=== PATIENT | female | born 1950 | race Caucasian/White ===

== ENCOUNTER 2023-02-13 16:11 | Outpatient (RCR) | payer OTHER, SELFPAY | END 2023-02-16 07:34 | disposition home or self-care (01) | LOC: RPT 16:11 | PROVIDERS: ATTENDING PHYSICIAN Internal Medicine | DX: I89.0 Lymphedema, not elsewhere classified (principal); Z73.6 Limitation of activities due to disability | CPT/HCPCS: 97140 ==

== ENCOUNTER → 2023-03-10 11:06 | Outpatient (REF) | payer OTHER, SELFPAY ==
[2023-03-10 11:41] LABS: % Basophils 0.4 % (0-2); % Eosinophils 2.6 % (0-6); % Immature Granulocytes 0.8 % (0-0.5); % Monocytes 7.9 % (1.7-9.3); % Neutrophils 73.3 % (42.2-75.2); Absolute Eosinophils 0.3 10^3/uL (0-0.7); Absolute Immature Granulocytes 0.1 10^3/uL (0-0.05); Absolute Lymphocytes 1.7 10^3/uL (1.2-3.4); Absolute Monocytes 0.9 10^3/uL (0.1-0.6); Absolute Neutrophils 8.1 10^3/uL (1.4-6.5); Hematocrit 35.5 % (37.0-47.0); Mean Corpuscular Hgb 27.8 pg (27.0-31.0); Mean Corpuscular Volume 89.9 fL (81.0-99.0); Mean Platelet Volume 9.1 fL (7.4-10.4); Nucleated Red Blood Cells % 0 %; Platelet Count 309 10^3/uL (130-400); Red Blood Cell Count 3.95 10^6/uL (4.20-5.40); Red Cell Dist. Width 15.4 % (11.5-14.5)
[2023-03-10 11:56] LABS: ALT (SGPT) 18 U/L (0-35); AST (SGOT) 19 U/L (14-36); Albumin 3.7 g/dl (3.5-5.0); Alkaline Phosphatase 70 U/L (38-126); Blood Urea Nitrogen 22 mg/dl (7-17); Calcium 9.5 mg/dl (8.4-10.2); Carbon Dioxide 36 mmol/L (22-30); Chloride 97 mmol/L (98-107); Glucose 89 mg/dl (70-99); Sodium 135 mmol/L (135-145); Total Bilirubin 0.8 mg/dl (0.2-1.3); Total Protein 6.3 g/dl (6.3-8.2); eGFR > 60.00
== END ==
LOC: OLABPV 11:06
PROVIDERS: ATTENDING PHYSICIAN Registered Nurse
DX: R50.9 Fever, unspecified (principal)
CPT/HCPCS: 36415; 80053; 85025

== ENCOUNTER → 2023-03-30 14:06 | Outpatient (REF) | payer OTHER, SELFPAY | LOC: RAD 14:06 | PROVIDERS: ATTENDING PHYSICIAN Physician Assistant | DX: M25.551 Pain in right hip (principal) | CPT/HCPCS: 73502 ==

== ENCOUNTER → 2023-04-14 13:41 | Outpatient (REF) | payer OTHER, SELFPAY | LOC: RAD 13:41 | PROVIDERS: ATTENDING PHYSICIAN Family Medicine; REFERRING PHYSICIAN Internal Medicine Critical Care Medicine | DX: J18.9 Pneumonia, unspecified organism (principal); J47.1 Bronchiectasis with (acute) exacerbation; I42.8 Other cardiomyopathies | CPT/HCPCS: 71046 ==

== ENCOUNTER → 2023-04-15 13:58 | Outpatient (REF) | payer OTHER, SELFPAY ==
[2023-04-15 14:32] LABS: % Basophils 0.5 % (0-2); % Eosinophils 2.3 % (0-6); % Immature Granulocytes 0.5 % (0-0.5); % Lymphocytes 14.5 % (20.5-51.1); % Monocytes 5.9 % (1.7-9.3); % Neutrophils 76.3 % (42.2-75.2); Absolute Basophils 0.1 10^3/uL (0-0.2); Absolute Eosinophils 0.3 10^3/uL (0-0.7); Absolute Immature Granulocytes 0.1 10^3/uL (0-0.05); Absolute Lymphocytes 1.6 10^3/uL (1.2-3.4); Absolute Monocytes 0.7 10^3/uL (0.1-0.6); Absolute Neutrophils 8.5 10^3/uL (1.4-6.5); Hemoglobin 11.6 g/dL (12.0-16.0); Mean Corp Hgb Conc. 30.5 g/dL (33.0-37.0); Mean Corpuscular Hgb 27.4 pg (27.0-31.0); Mean Corpuscular Volume 89.6 fL (81.0-99.0); Mean Platelet Volume 9.6 fL (7.4-10.4); Nucleated Red Blood Cells % 0 %; Platelet Count 310 10^3/uL (130-400); Red Blood Cell Count 4.24 10^6/uL (4.20-5.40); Red Cell Dist. Width 15.8 % (11.5-14.5); White Blood Cell Count 11.1 10^3/uL (4.8-10.8)
[2023-04-15 14:53] LABS: ALT (SGPT) 19 U/L (0-35); AST (SGOT) 26 U/L (14-36); Albumin 4.2 g/dl (3.5-5.0); Alkaline Phosphatase 87 U/L (38-126); Blood Urea Nitrogen 22 mg/dl (7-17); Calcium 9.3 mg/dl (8.4-10.2); Carbon Dioxide 33 mmol/L (22-30); Chloride 98 mmol/L (98-107); Glucose 87 mg/dl (70-99); HDL Cholesterol 97 mg/dl; LDL Cholesterol, Calculated 53 mg/dl; Sodium 138 mmol/L (135-145); Total Bilirubin 0.7 mg/dl (0.2-1.3); Total Cholesterol 171 mg/dl (50-199); Total Protein 7.1 g/dl (6.3-8.2); Triglyceride 108 mg/dl (10-149); Very Low Density Lipoprotein 21 mg/dl (0-30); eGFR > 60.00
[2023-04-15 15:06] LABS: Vitamin D, 25-OH*** 49.5 ng/mL (30-80)
[2023-04-15 15:20] LABS: TSH Reflex To Free T4 2.71 uIU/ml (0.47-4.68)
[2023-04-15 15:24] LABS: Ferritin 52.8 ng/ml (11.1-264.0)
== END ==
LOC: OLABPV 13:58
PROVIDERS: ATTENDING PHYSICIAN Family Medicine
DX: E55.9 Vitamin D deficiency, unspecified (principal); E61.1 Iron deficiency; E03.9 Hypothyroidism, unspecified; E78.2 Mixed hyperlipidemia
CPT/HCPCS: 36415; 80053; 80061; 82306; 82728; 84443; 85025

== ENCOUNTER → 2023-05-28 13:52 | Outpatient (REF) | payer OTHER, SELFPAY | LOC: RAD 13:52 | PROVIDERS: ATTENDING PHYSICIAN Student in an Organized Health Care Education/Training Program; FAMILY PHYSICIAN Family Medicine | DX: J47.1 Bronchiectasis with (acute) exacerbation (principal); R05.3 Chronic cough | CPT/HCPCS: 87015; 87116 ==

== ENCOUNTER → 2023-06-08 10:58 | Outpatient (REF) | payer OTHER, SELFPAY | LOC: RAD 10:58 | PROVIDERS: ATTENDING PHYSICIAN Student in an Organized Health Care Education/Training Program; FAMILY PHYSICIAN Family Medicine | DX: R91.1 Solitary pulmonary nodule (principal) | CPT/HCPCS: 71250 ==

== ENCOUNTER → 2023-06-12 14:21 | Outpatient (REF) | payer OTHER, SELFPAY ==
[2023-06-15 13:51] LABS: FIT-Fecal Occult Blood Interp Positive
== END ==
LOC: REG 14:21
PROVIDERS: ATTENDING PHYSICIAN Nurse Practitioner Family; FAMILY PHYSICIAN Family Medicine
DX: Z12.11 Encounter for screening for malignant neoplasm of colon (principal); K52.9 Noninfective gastroenteritis and colitis, unspecified
CPT/HCPCS: 83520

== ENCOUNTER → 2023-06-26 14:15 | Outpatient (REF) | payer OTHER, SELFPAY | LOC: RCS 14:15 | PROVIDERS: ATTENDING PHYSICIAN Student in an Organized Health Care Education/Training Program; FAMILY PHYSICIAN Family Medicine; OTHER PHYSICIAN Internal Medicine Critical Care Medicine; REFERRING PHYSICIAN Internal Medicine | DX: J47.1 Bronchiectasis with (acute) exacerbation (principal) | CPT/HCPCS: 87070; 87077; 87186; 87205; 93005 ==

== ENCOUNTER 2023-06-30 21:07 | Inpatient (IN) | payer OTHER, SELFPAY ==
[2023-06-30] VITALS (20 sets, daily range): BP systolic 94–197; BP diastolic 45–78; PULSE 2–101; BMI 38.2
--- NOTE | 2023-06-30 18:15 | ED.GENMED ---
History of Present Illness
General
Chief Complaint: Breathing Problem
Source: patient and ambulance crew
Exam Limitations: none
Time Seen by Provider: 06/30/23 18:15
History of Present Illness
History of Present Illness:
See MDM
Past History
Past History
ED Past Medical History: CAD, HTN, Hypercholesterolemia, Psychiatric (depression s/p ECT txs, Bipolar), Other (DVT), Other (diverticulitis) and Other (Breast CA)
ED Past Surgical History: Other (colon resection for divertic)
Social History
Tobacco: Former smoker
Alcohol: None
Drug: None
Personal:
Living: with family
Employment: Disabled
Family History
Family History: Other (Hodgkin's disease and breast cancer)
Phy Exam
Physical Exam
Physical Exam:
See MDM
Scores
Heart Failure Risk
Heart Failure Risk Score: Yes
History of Stroke or TIA: No
History of intubation for respiratory distress: No
Heart rate on ED arrival >/= 110: Yes
SaO2 <90% on arrival on room air: Yes
HR >/=110 during 3min walk test (or too ill to perform test): Yes
ECG has acute ischemic changes: No
Urea >/=12mmol/L (BUN 33.6mg/dL): No
Serum CO2>/=35mmol/L: Yes
Troponin I or T elevated to TN Level (0.4mg/dL): No
NT-proBNP >/=5,000ng/L (5,000pg/ml): No
HF Risk Score: 5
Admission Status: VERY HIGH RISK 39.8% Consider admission to hospital
Course
Orders/Labs/Results
Orders:
Orders
06/30/23 18:13
CR Chest Portable - 1 View Urgent
Comment:
Reason For Exam: SOB
Reason Study Needs to be Portable: Patient Unstable
06/30/23 18:14
Electrocardiogram (*1) Urgent
Reason for Study: Shortness of Breath
EKG- Treatment ONCE
06/30/23 18:15
Nitroglycerin Sublingual [Nitrostat (Sublingual)] 0.4 mg SL [id number] PRN
06/30/23 18:16
Furosemide [Lasix] 80 mg IV NOW STA
06/30/23 18:18
COVID-19 Antigen Urgent
Source: Nasal Swab
Complete Blood Count/With Diff Urgent
Comprehensive Metabolic Panel Urgent
NT-proBNP Urgent
PTT Urgent
Prothrombin Time Urgent
Troponin I Urgent
06/30/23 18:24
Straight cath- Treatment ONCE
06/30/23 18:26
Lactic Acid Q4H
Comment: ON ICE, CANCEL 2ND ORDER IF FIRST LACTIC ACID LEVEL <2
Blood Culture Q30M
JESSICA Source: Blood/Venous
Specimen Description:
Comment: FROM 2 SEPARATE SITES
Blood Culture Q30M
JESSICA Source: Blood/Venous
Specimen Description:
Comment: FROM 2 SEPARATE SITES
06/30/23 18:28
Acetaminophen [Tylenol] 1,000 mg PO NOW STA
Bipap [RESP] Urgent
Patient to use own unit?: No
Inspiratory Pressure (cm H2O): 16
Expiratory Pressure (cm H2O): 8
Oxygen Liter Flow: 14
06/30/23 19:04
Acetaminophen [Tylenol/Feverall] 650 mg RECTAL NOW STA
06/30/23 19:06
Urinalysis Reflex To Culture Urgent
Date Specimen was Collected: 06/30/23
Time Specimen was Collected: 18:24
Urine Microscopic Reflex Cult Urgent
06/30/23 19:31
Piperacillin/Tazo 3.375 Gram [Zosyn] 3.375 gram in 50 ml IV NOW
Vancomycin [Vancocin] 2,000 mg 0.9% Sodium Chloride 500 ml [Nss] 500 ml IV NOW
Abnormal Lab Results
06/30/23 06/30/23
18:18 19:06
WBC 17.0 H 10^3/uL
(4.8-10.8)
Hgb 11.5 L g/dL
(12.0-16.0)
MCH 26.1 L pg
(27.0-31.0)
MCHC 29.9 L g/dL
(33.0-37.0)
RDW 15.8 H %
(11.5-14.5)
Abs Immat Gran (auto) 0.1 H 10^3/uL
(0-0.05)
Absolute Neuts (auto) 15.5 H 10^3/uL
(1.4-6.5)
Absolute Lymphs (auto) 0.7 L 10^3/uL
(1.2-3.4)
Absolute Monos (auto) 0.7 H 10^3/uL
(0.1-0.6)
Neutrophils % 91.2 H %
(42.2-75.2)
Lymphocytes % 3.9 L %
(20.5-51.1)
PT 15.2 H Sec
(11.4-14.6)
Chloride 94 L mmol/L
(98-107)
Carbon Dioxide 38 H mmol/L
(22-30)
BUN 25 H mg/dl
(7-17)
Glucose 114 H mg/dl
(70-99)
Total Bilirubin 1.5 H mg/dl
(0.2-1.3)
AST 40 H U/L
(14-36)
Urine Ketones Trace A
(Negative)
Ur Occult Blood Reflex 2+ A
(Negative)
Urine RBC 3-6 A /HPF
(0-2)
Urine Bacteria (Reflex) Few A
(Negative)
Urine Albumin (Reflex) 1+ A
(Neg - Trace)
06/30/23 18:18
06/30/23 18:18
Vital Signs
Initial and Last Documented VS:
Initial Vital Signs
Pulse Resp Pulse Ox
105 14 80
06/30/23 18:14 06/30/23 18:14 06/30/23 18:14
Last Documented Vital Signs
Temp Pulse Resp BP Pulse Ox
103.3 F H 99 24 177/78 97
06/30/23 19:02 06/30/23 19:00 06/30/23 19:00 06/30/23 18:45 06/30/23 19:00
MDM/Problems Addressed
Differential Diagnosis Includes:
HPI and MDM Narrative:
73-year-old female presenting as a prearrival respiratory distress. EMS stating that the patient had been complaining of shortness of breath since last night. She lives independently. When they arrived, she was hypoxic on both nasal cannula and
nonrebreather. They placed her on CPAP. On arrival, patient still in respiratory distress. She had already received 1 sublingual nitroglycerin by EMS. Given her history of CHF and audible crackles at bases, will continue nitroglycerin tablets
and will start IV Lasix. Patient was met by myself and nursing staff and respiratory therapy. Will place on BiPAP
Physical exam
General: Uncomfortable, conversational dyspnea
HEENT: protecting airway
Neck: appears supple
CV: No evidence of cyanosis. Tachycardic and regular
Resp: accessory muscle use, tachypnea, crackles at bases
Abd: Non-distended
Extremities: Mild pitting edema to bilateral lower extremities
Neuro: alert
Psych: Normal affect
Skin: Intact
Problems Addressed including Acute and Chronic Conditions affecting care:
1. Respiratory distress
Acuity: acute
Prognosis: unstable
Details: Given her history of CHF, will give IV Lasix and continue sublingual nitroglycerin. Patient transition to BiPAP. Patient claims compliance with Xarelto making PE less likely
Updates
6:30 PM on quick reassessment after BiPAP was placed, patient states she is feeling better. Patient found to be febrile
Chest x-ray confirms pulmonary edema and pneumonia. Will start vancomycin and Zosyn and admit
Differential Diagnosis (but not limited to): Pneumonia, viral syndrome, CHF exacerbation
Testing considered: CT PE but she is on Xarelto
Drug therapy (if applicable): OTC meds, please see d/c instruction regarding Rx drugs
Amount and/or Complexity of Data Reviewed
Clinical info obtained from: Patient. EMS stating CPAP was required due to ongoing respiratory distress
External data reviewed: N/A
Labs I independently reviewed (but not limited to): Leukocytosis
Radiology: X-ray independently reviewed: Bibasilar pneumonia, pulmonary edema
Pulse Ox: hypoxic
EKG independently reviewed: Sinus tachycardia, PVCs, wide QRS, no STEMI, appears unchanged from prior
Playroom Attendant: sinus tachycardia
Critical Care: The high probability of a clinically significant, sudden or life threatening deterioration of the cardiopulmonary system(s) required my full and direct attention, intervention and personal management. The aggregate critical care time
was 35 minutes. This time is in addition to time spent performing reported procedures but includes the following:
[x] Data Review and interpretation
[x] Patient assessment and monitoring of vital signs
[x] Documentation
[x] Medication orders and management
Risk of Complication:
Social Determinants of health: Good social support
Discussed with other providers: Hospitalist
Escalation of Care includes Admit/Obs: Given the respiratory distress with pneumonia and CHF, will admit
Occasional wrong word or 'sound a like' substitutions may have occurred due to the inherent limitations of voice recognition software. Read the chart carefully and recognize, using context, where substitutions have occurred.
*Critical Care Note
Total Time (30-74mins, 75-104mins- exclusive of procedures): 35 min
ED Attending Note
-
Portions of this chart may have been created with voice recognition software.� Occasional wrong word or��sound alike� substitutions may have occurred due to the inherent limitations of voice recognition software.
Discharge Plan
Departure
Patient Disposition: Admit
Date of Disposition: 06/30/23
Time of Disposition: 19:34
Admit to: IMU
Presentation/result/management discussed w/ accepting MD/DO: Hospitalist
Discharge Problem:
Respiratory distress, PNA (pneumonia), Pulmonary edema, Hypoxia
Prescriptions:
No Action
levothyroxine 175 MCG tablet
175 mcg PO DAILY
carvedilol 6.25 MG tablet
6.25 mg PO BID 0RF
lamotrigine 100 MG tablet
100 mg PO BID 0RF
atorvastatin 10 MG tablet
10 mg PO MOWEFR
methenamine hippurate [Hiprex] 1 GM tablet
1 gm PO DAILY
losartan 25 MG tablet
25 mg PO QPM
Hold Instructions: take when BP>140/90
coenzyme Q10 [Co Q-10] 100 MG capsule
100 mg PO DAILY
Xarelto 20 MG tablet
20 mg PO QPM
clonazepam 0.5 mg tablet
0.5 mg PO QPM
Patient Comments:
06/30/2023: last filled 06/22/23, 30 tabs for 30 days from [facility]
aripiprazole 5 mg tablet
5 mg PO QPM
Trelegy Ellipta 200-62.5-25 mcg Blister With Device
1 inh INHALATION R DAILY
cholecalciferol (vitamin D3) [Vitamin D3] 25 mcg (1,000 unit) Tablet
25 mcg PO DAILY
ipratropium-albuterol 0.5 mg-3 mg(2.5 mg base)/3 mL solution for nebulization
3 ml INHALATION R TID
bupropion HCl 100 mg tablet sustained-release 12 hr
100 mg PO BID
budesonide 0.5 mg/2 mL suspension for nebulization
0.5 mg inhalation R BID
furosemide [Lasix] 40 mg tablet
80 mg PO DAILY Qty: 60 3RF
Hold Instructions: Resume on 12/05/22.
loperamide 2 mg Tablet
4 mg PO QID PRN (Reason: diarrhea)
gabapentin 100 mg Capsule
100 mg PO TID
fiber Tablet,Chewable
1 tab PO DAILY
Women's 50 Plus Multivitamin 400 mcg-500 mg calcium-20 mcg Tablet
1 tab PO DAILY
guaifenesin [Mucinex] 600 mg Tablet Extended Release 12hr
1,200 mg PO BID
Calcium And Magnesium
1,000 mg PO DAILY
benzonatate 100 mg Capsule
200 mg PO TIDPRN PRN (Reason: cough) Qty: 20 0RF
prednisone 10 mg tablet
10 mg PO DAILY
omeprazole 40 mg capsule,delayed release(DR/EC)
40 mg PO DAILY
acetaminophen 650 mg Tablet Extended Release
650 mg PO BID PRN (Reason: mild pain)
albuterol sulfate 90 mcg/actuation HFA aerosol inhaler
1 puff INHALATION R Q6 PRN (Reason: sob/wheezing)
Interventions
Interventions:
*Risk Screen - Suicide Last Done: 06/30/23 18:47
*General Assessment Last Done: 06/30/23 18:47
*Neglect/Abuse Screening Last Done: 06/30/23 18:47
*ED COVID-19 Vaccine History Last Done: 06/30/23 18:47
ED- Cardiac Assessment Last Done: 06/30/23 18:20
ED- Pulmonary Assessment Last Done: 06/30/23 18:20
Discharge Date and Time
Print Language: [place]
[2023-06-30 18:32] LABS: % Basophils 0.3 % (0-2); % Eosinophils 0.1 % (0-6); % Immature Granulocytes 0.5 % (0-0.5); % Lymphocytes 3.9 % (20.5-51.1); % Neutrophils 91.2 % (42.2-75.2); Absolute Basophils 0.1 10^3/uL (0-0.2); Absolute Immature Granulocytes 0.1 10^3/uL (0-0.05); Absolute Lymphocytes 0.7 10^3/uL (1.2-3.4); Absolute Monocytes 0.7 10^3/uL (0.1-0.6); Absolute Neutrophils 15.5 10^3/uL (1.4-6.5); Hematocrit 38.4 % (37.0-47.0); Hemoglobin 11.5 g/dL (12.0-16.0); Mean Corp Hgb Conc. 29.9 g/dL (33.0-37.0); Mean Corpuscular Hgb 26.1 pg (27.0-31.0); Mean Corpuscular Volume 87.3 fL (81.0-99.0); Mean Platelet Volume 9.2 fL (7.4-10.4); Nucleated Red Blood Cells % 0 %; Platelet Count 201 10^3/uL (130-400); Red Cell Dist. Width 15.8 % (11.5-14.5)
[2023-06-30] MEDS: LASIX 80 MG IV (18:36)
[2023-06-30 18:43] LABS: INR 1.21; PT 15.2 Sec (11.4-14.6)
[2023-06-30 18:48] LABS: Lactic Acid 1.6 mmol/L (0.7-2.0)
[2023-06-30 18:49] LABS: COVID-19 Antigen Negative (Negative)
[2023-06-30 19:02] LABS: NT-proBNP 1020 pg/ml; Troponin I 0.023 ng/ml
--- NOTE | 2023-06-30 19:06 | PHANOTE ---
Med Rec Note:
Attempted to interview pt, pt out of it due to bipap. Home med list is compiled from Dr Gold and FOSTERW.
[2023-06-30] MEDS: TYLENOL/FEVERALL 650 MG RECTAL (19:09)
[2023-06-30 19:10] LABS: Urine Albumin 1+ (Neg - Trace); Urine Bilirubin Negative (Negative); Urine Character Clear (Clear); Urine Color Yellow; Urine Glucose Negative (Negative); Urine Ketone Trace (Negative); Urine Leukocyte Negative (Negative); Urine Nitrite Negative (Negative); Urine Occult Blood 2+ (Negative); Urine Urobilinogen Negative (Neg - 1+)
[2023-06-30 19:11] LABS: ALT (SGPT) 21 U/L (0-35); AST (SGOT) 40 U/L (14-36); Albumin 4.1 g/dl (3.5-5.0); Alkaline Phosphatase 57 U/L (38-126); Blood Urea Nitrogen 25 mg/dl (7-17); Calcium 9.4 mg/dl (8.4-10.2); Carbon Dioxide 38 mmol/L (22-30); Chloride 94 mmol/L (98-107); Estimated Creatinine Clearance 95 ml/min; Glucose 114 mg/dl (70-99); Potassium 4.6 mmol/L (3.5-5.1); Sodium 138 mmol/L (135-145); Total Bilirubin 1.5 mg/dl (0.2-1.3); Total Protein 7.4 g/dl (6.3-8.2); eGFR > 60.00
[2023-06-30 19:17] LABS: Urine Bacteria Few (Negative); Urine Squamous Cell 0-2 /LPF (Few); Urine White Cell 0-2 /HPF (0-5)
[2023-06-30] MEDS: ZOSYN 50 IV (19:35)
--- NOTE | 2023-06-30 19:42 | HPS.HSE ---
Family Physician
-
Family Physician:
Chief Complaint
-
sob
History of Present Illness
73-year-old with past medical history for CAD, hypertension, hyperlipidemia, depression, congestive heart failure, pneumonia presented to us with short of breath since last night. Short of breath progressively got worse today. Patient uses 3 L of
oxygen at nighttime. Review of system is very limited. History primarily obtained from nurse. As per EMS, patient was 43 on room air. Patient was supplemented with CPAP, oxygenating high 80s. At present patient is requiring BiPAP.
Chest x-ray with small bilateral pleural effusion with bibasilar probable pneumonia progressed. Probable mild pulmonary vascular congestion. Patient had fever. Patient received dose of Tylenol, Lasix, nitro, Zosyn and Vanco in ER. Blood culture
sent from ER
Medical History
Past Medical History
Past Medical History: Reports Other
Additional Past Medical History:
Chronic cystitis
Bilateral carotid stenosis
Kidney stones
Hepatic steatosis
Lung nodule
Bronchiectasis
Peripheral neuropathy
Congestive heart failure
Restrictive lung disease
PE
Bipolar
Small bowel obstruction
Chronic kidney disease
Lymphedema of lower extremities DVT
Vocal cord weakness
GERD
Esophageal dysphagia
Hypothyroidism
Obstructive sleep apnea
Past Surgical History: Reports Other
Additional Past Surgical History:
Bilateral total knee replacement
Bilateral cataracts
Left mastectomy IVC filter placement
Ileostomy/colectomy cholecystectomy
Ileostomy takedown
Ventral hernia repair
Cyst removed from back
Left humerus ORIF
Social History
Unable to obtain full social history at this time due to: Acuity
Family History
Family History: Not pertinent
Allergies / Home Medications
Allergies reflects when Allergies were last updated in [employer].
Home Medications with original date entered in [employer]
Allergy/Medication List:
Allergies
Allergy/AdvReac Type Severity Reaction Status Date / Time
carbamazepine Allergy Hives, rash Verified 02/05/21 14:53
chlorhexidine Allergy Itching, Verified 05/09/22 14:10
[From Hibiclens] rash,
'chemical
burn'
ciprofloxacin [From Cipro] Allergy neuropathy Verified 05/21/22 20:25
after
stopping it
doxycycline Allergy Rash Verified 11/26/22 09:22
house dust Allergy Sneezing, Verified 05/09/22 14:10
eyes watery
Penicillins Allergy Hives as a Verified 08/03/22 17:57
child -
tolerates
ampicillin
Sulfa (Sulfonamide Allergy Hives Verified 02/05/21 14:53
Antibiotics)
venom-honey bee Allergy Rash Verified 05/09/22 14:10
Home Medications
levothyroxine 175 mcg tablet 175 mcg PO DAILY Thyroid 11/10/16
carvedilol 6.25 mg tablet 6.25 mg PO BID 02/26/18
lamotrigine 100 mg tablet 100 mg PO BID 02/26/18
atorvastatin 10 mg tablet 10 mg PO MOWEFR High cholesterol 02/05/21
coenzyme Q10 100 mg capsule (Co Q-10) 100 mg PO DAILY Supplement 02/05/21
losartan 25 mg tablet 25 mg PO QPM Blood pressure 02/05/21
methenamine hippurate 1 gram tablet (Hiprex) 1 gm PO DAILY Urinary issue 02/05/21
rivaroxaban 20 mg tablet (Xarelto) 20 mg PO QPM Blood clot prevention/tx 02/05/21
aripiprazole 5 mg tablet 5 mg PO QPM mental health 01/15/22
clonazepam 0.5 mg tablet 0.5 mg PO QPM sleep/mental health 01/15/22
fluticasone fur. 200 mcg-umeclid 62.5 mcg-vilant 25 mcg inhalat.powder (Trelegy Ellipta) 1 inh inhalation R DAILY Lung/breathing issues 12/07/22
cholecalciferol (vitamin D3) 25 mcg (1,000 unit) tablet (Vitamin D3) 25 mcg PO DAILY Supplement 05/21/22
budesonide 0.5 mg/2 mL suspension for nebulization 0.5 mg inhalation R BID Lung/Breathing Issues 08/01/22
bupropion HCl 100 mg tablet,12 hr sustained-release 100 mg PO BID Mental Health/Anxiety 08/01/22
ipratropium 0.5 mg-albuterol 3 mg (2.5 mg base)/3 mL nebulization soln 3 ml inhalation R TID Lung/Breathing Issues 08/01/22
furosemide 40 mg tablet (Lasix) 80 mg (2 x 40 mg) PO DAILY #60 tabs 08/06/22
Calcium And Magnesium 1,000 mg PO DAILY 11/24/22
fiber 1 tab PO DAILY 11/24/22
gabapentin 100 mg capsule 100 mg PO TID 11/24/22
guaifenesin 600 mg tablet, extended release 12 hr (Mucinex) 1,200 mg PO BID 11/24/22
loperamide 2 mg tablet 4 mg PO QID PRN diarrhea 11/24/22
hvmugilr-jky-sjcib ac 400 mcg-calcium carb 500 mg-vit K1 20 mcg tablet (Women's 50 Plus Multivitamin) 1 tab PO DAILY 11/24/22
benzonatate 100 mg capsule 200 mg (2 x 100 mg) PO TIDPRN PRN cough #20 caps 11/28/22
acetaminophen 650 mg tablet,extended release 650 mg PO BID PRN mild pain 06/30/23
albuterol sulfate 90 mcg/actuation aerosol inhaler 1 puff inhalation R Q6 PRN sob/wheezing 06/30/23
omeprazole 40 mg capsule,delayed release 40 mg PO DAILY 06/30/23
prednisone 10 mg tablet 10 mg PO DAILY 06/30/23
Review of Systems
-
Unable to obtain full review of systems at this time due to: Acuity
Physical Exam
Vital Signs
Vital Signs
Temp Pulse Resp BP Pulse Ox
103.3 F H 98 18 143/59 97
06/30/23 19:02 06/30/23 19:30 06/30/23 19:30 06/30/23 19:30 06/30/23 19:00
Physical Exam
General: Well Developed, Well Nourished and No Apparent Distress
HEENT: NormoCephalic, Moist mucous membranes and Atraumatic
Respiratory: Decreased Breath Sounds
Cardiac: S1/S2 and Regular Rhythm; No Murmur or Rub
GI: Soft, Non Tender, Non Distended and Normal Bowel Sounds; No Organomegaly
Rectal: Deferred by Provider
Musculoskeletal: No Clubbing, No Cyanosis and Other (Bilateral lower extremities edema)
Skin: No Rash
Neuro: Nonfocal/grossly intact
Laboratory Results
-
06/30/23 18:18
06/30/23 18:18
Laboratory Results
PT 15.2 Sec (11.4-14.6) H 06/30/23 18:18
INR 1.21 06/30/23 18:18
APTT 35.0 Sec (23.4-35.0) 06/30/23 18:18
Lactic Acid Cancelled 06/30/23 22:30
Total Bilirubin 1.5 mg/dl (0.2-1.3) H 06/30/23 18:18
AST 40 U/L (14-36) H 06/30/23 18:18
ALT 21 U/L (0-35) 06/30/23 18:18
Alkaline Phosphatase 57 U/L (38-126) 06/30/23 18:18
Troponin I 0.023 ng/ml 06/30/23 18:18
Data Reviewed
-
Diagnostic Radiology: Report Reviewed by me
Lab Data: Labs Reviewed by me
Impression/Plan
-
# Acute hypoxic respiratory failure likely multifactorial
-Patient requiring BiPAP
-Continue supplemental oxygen to keep sats greater than 92
-Wean as tolerated
# Acute on chronic diastolic heart failure
-BNP 1020, Trope 0.023
-IV Lasix continued
-strict BRIAN
-Daily weight
# Pneumonia
-chest x-ray with small bilateral pleural effusions with bibasilar probable pneumonia progressed. Probable mild pulmonary vascular congestion
-Sepsis as evident by WBC 17.0, temp 103.3
-IV Vanco and Zosyn continued
-Blood culture sent from ER
# History of restrictive lung disease
-Budesonide continued
-Albuterol as needed for short of breath and wheezing
# Essential Hypertension
-Hold Coreg, and losartan to patient fully awake
# Hyperlipidemia
- Atorvastatin
# COPD
Continue Budesonide and DuoNeb
# Prior DVT/PE
- Xarelto
# Bipolar Disorder
-hold Continue Lamictal Aripiprazole, Bupropion, Clonazepam until patient fully awake
# Hypothyroidism
- Synthroid
# Breast CA s/p Left Mastectomy
Code Status: Full Code
DVT ppx:lovenox
[2023-06-30] MEDS: VANCOCIN 540 MG IV (19:54)
--- NOTE | 2023-06-30 20:29 | W.PN.UPDATE ---
Update Note
Progress Note Update
This is an addendum to the H&P written by Diana Smith on 06/30/2023.
Patient seen and examined independently with SPIRITUAL CARE COORDINATOR.
73-year-old female past medical history of CAD, diastolic heart failure, hypertension, hyperlipidemia, COPD on 3 L at nighttime, prior DVT/PE on Xarelto, bipolar disorder, hypothyroidism, breast cancer status post left mastectomy presenting for
hypoxic respiratory failure/sepsis secondary to pneumonia/CHF exacerbation.
Patient with altered mental status requiring BiPAP. Chest x-ray showed small bilateral pleural effusions with bibasilar probable pneumonia progress. COVID negative. Check influenza. Blood cultures pending. Vancomycin and Zosyn. 80 IV Lasix
given. Patient cannot take any oral medications at this time. Continue 40 IV twice daily Lasix
--- NOTE | 2023-06-30 22:45 | PTCARENOTE ---
Pt arrived to floor via stretcher from the ED. Pt arousable to voice/ tactile stimulation. Pt drowsy, lethargic, able to nod head and answer questions, but easily falling asleep in between questions. Pt able to follow simple commands, and moves all
extremities. HR in the 80's in NSR with BBB on the monitor. POX 93% on Bipap 16/8 with 15LO2. Lungs dec with ex wheezes, scattered crackles. + bowel, round obese abd. Pure wick placed for accurate I/O post lasix administration. Brown PVD legs noted.
Knee high seq applied per MD order. Trace GA. Right hand #22int capped. LUE restrict due to hx left mastectomy. Strict NPO per MD order. Pt repositioned in bed. Bed alarm for pt safety. Call mckeon in reach. Will continue to monitor.
--- NOTE | 2023-06-30 23:04 | PHA.VAN.IN ---
Assessment
- Assessment
Renal Function: Other (01/13/23 BASELINE SCR: 0.8)
Concomitant Antimicrobials: ZOSYN
- Previous Dosing Experience
Previous Regimen: 750MG IV Q12H
Date of Regimen: 11/25/22
Provided Trough of: UNKNOWN
Provided AUC of: UNKNOWN
Patient's SCR is: Decreased compared to previous dosing experience (11/25/22 SCR = 1.0)
Patient's weight is: Elevated compared to previous dosing experience (11/26/23 WT = 94 KG)
AUC Dosing Plan
- Dosing Variables
Dosing Weight (kg): 100.9
Dosing CrCl (ml/min): 95
Vd coefficient (L/kg): 0.6
- Empiric Dosing
Initial / Loading Dose: 2GM
Maintenance Regimen: 1250MG IV Q12H
Estimated AUC (mcg*h/mL): 527
Estimated Peak (mcg*h/mL): 32.7
Estimated Trough (mcg/ml): 13.6
Estimated Half Life (H): 8.3
Pharmacokinetics Vancomycin I
- -
Patient Age: 73
Patient Sex: Female
Vancomycin Day #: 1
Indication: Pulmonary/Respiratory
Requesting Provider: AMBER
Pertinent Antimicrobial Allergies:
Allergies
Penicillins Allergy (Verified 08/03/22 17:57)
Hives as a child - tolerates ampicillin
Also tolerates cephalosporins
Sulfa (Sulfonamide Antibiotics) Allergy (Verified 02/05/21 14:53)
Hives
doxycycline Allergy (Verified 11/26/22 09:22)
Rash
Height / Weight:
Height 5 ft 4 in
Actual Weight 100.9 kg
- Vital Signs / Lab Results
Temp Pulse Resp BP Pulse Ox
99.7 F 92 20 101/57 93
06/30/23 22:42 06/30/23 22:35 06/30/23 22:35 06/30/23 22:35 06/30/23 22:15
Lab Results - Hematology
06/30/23
18:18
WBC 17.0 H
Lab Results - Chemistry
06/30/23
18:18
BUN 25 H
Creatinine 0.6
Estimated Creat Clear 95
Albumin 4.1
06/30/23 06/30/23
18:26 22:30
Lactic Acid 1.6 Cancelled
Lab Results - Urine
06/30/23
19:06
Urine Nitrite (Reflex) Negative
Leukocyte Esterase Rfl Negative
Urine WBC (Reflex) 0-2
Ur Squamous Epith Cells 0-2
Urine Bacteria (Reflex) Few A
[2023-06-30 23:26] LABS: B.E. 11.8 mmol/L; O2 Saturation % 96.7 % (94-98); PO2 76 mmHg (83-108); pH 7.29 (7.35-7.45)
[2023-06-30 23:32] LABS: HCO3 41.4 mmol/L (21-28); O2 Therapy bipap 16/8 w/14L; PCO2 86 mmHg (32-35)
--- NOTE | 2023-06-30 23:47 | PTCARENOTE ---
ABG results reviewed. RT at bedside to adjust Bipap settings to 16/5 with 15 LO2. No other changes in assessment noted at this time. WIll continue to monitor.
[2023-07-01] VITALS (29 sets, daily range): BP systolic 91–144; BP diastolic 38–94; PULSE 2–89; O2SAT 91–96; BMI 35.1
[2023-07-01 01:29] LABS: Troponin I 0.057 ng/ml
[2023-07-01] MEDS: ZOSYN 50 IV ×4 (01:31→19:58)
[2023-07-01 02:07] LABS: PO2 83 mmHg (83-108)
[2023-07-01 02:12] LABS: HCO3 42.3 mmol/L (21-28); O2 Therapy bipap 16/5 15L
[2023-07-01 02:13] LABS: PCO2 86 mmHg (32-35)
--- NOTE | 2023-07-01 04:37 | PTCARENOTE ---
Pt with no urine output. Bladder scanned for 255ml. Pt continues to be lethargic, but arousable to voice. vital signs stable. Bipap remains in place with settings adjusted per MD order post ABG results. Bipap 26/06 wiht 15 LO2. Pt repositioned. Lab
work obtained. Will continue to monitor.
[2023-07-01 04:43] LABS: Hematocrit 37.1 % (37.0-47.0); Hemoglobin 10.7 g/dL (12.0-16.0); Mean Corp Hgb Conc. 28.8 g/dL (33.0-37.0); Mean Corpuscular Hgb 26.5 pg (27.0-31.0); Mean Corpuscular Volume 91.8 fL (81.0-99.0); Mean Platelet Volume 9.8 fL (7.4-10.4); Platelet Count 174 10^3/uL (130-400); Red Blood Cell Count 4.04 10^6/uL (4.20-5.40); Red Cell Dist. Width 15.9 % (11.5-14.5); White Blood Cell Count 25.7 10^3/uL (4.8-10.8)
[2023-07-01 05:08] LABS: Troponin I 0.036 ng/ml
[2023-07-01 05:18] LABS: ALT (SGPT) 16 U/L (0-35); AST (SGOT) 31 U/L (14-36); Albumin 3.3 g/dl (3.5-5.0); Alkaline Phosphatase 46 U/L (38-126); Blood Urea Nitrogen 31 mg/dl (7-17); Calcium 8.7 mg/dl (8.4-10.2); Carbon Dioxide 38 mmol/L (22-30); Chloride 96 mmol/L (98-107); Direct Bilirubin 0.5 mg/dl (0.0-0.4); Estimated Creatinine Clearance 57 ml/min; Glucose 111 mg/dl (70-99); HDL Cholesterol 82 mg/dl; LDL Cholesterol, Calculated 38 mg/dl; Magnesium 2.1 mg/dl (1.6-2.3); Potassium 4.3 mmol/L (3.5-5.1); Sodium 141 mmol/L (135-145); Total Bilirubin 1.5 mg/dl (0.2-1.3); Total Cholesterol 136 mg/dl (50-199); Total Protein 6.2 g/dl (6.3-8.2); Triglyceride 80 mg/dl (10-149); Very Low Density Lipoprotein 16 mg/dl (0-30); eGFR 59.12
[2023-07-01 05:45] LABS: TSH Reflex To Free T4 0.52 uIU/ml (0.47-4.68)
[2023-07-01] MEDS: VANCOCIN 275 MG IV (06:19)
--- NOTE | 2023-07-01 07:25 | W.PN.HOSP.TC ---
Today's Communication/Plan
-
I would continue to hold her some of her psychoactive medications until more awake and better O2 CO2 exchanging
Continue BiPAP
Get speech therapy eval
Continue present course of antibiotics
Continue IV diuresis
Assessment / Plan
Assessment / Plan
73-year-old with past medical history for CAD, hypertension, hyperlipidemia, depression, congestive heart failure, pneumonia presented to us with short of breath since last night. Short of breath progressively got worse today. Patient uses 3 L of
oxygen at nighttime. Review of system is very limited. History primarily obtained from nurse. As per EMS, patient was 43 on room air. Patient was supplemented with CPAP, oxygenating high 80s. At present patient is requiring BiPAP.
Chest x-ray with small bilateral pleural effusion with bibasilar probable pneumonia progressed. Probable mild pulmonary vascular congestion. Patient had fever. Patient received dose of Tylenol, Lasix, nitro, Zosyn and Vanco in ER. Blood culture
sent from ER
Past Medical History
Past Medical History: Reports Other
Additional Past Medical History:
Chronic cystitis
Bilateral carotid stenosis
Kidney stones
Hepatic steatosis
Lung nodule
Bronchiectasis
Peripheral neuropathy
Congestive heart failure
Restrictive lung disease
PE
Bipolar
Small bowel obstruction
Chronic kidney disease
Lymphedema of lower extremities DVT
Vocal cord weakness
GERD
Esophageal dysphagia
Hypothyroidism
Obstructive sleep apnea
Past Surgical History: Reports Other
Additional Past Surgical History:
Bilateral total knee replacement
Bilateral cataracts
Left mastectomy IVC filter placement
Ileostomy/colectomy cholecystectomy
Ileostomy takedown
Ventral hernia repair
Cyst removed from back
Left humerus ORIF
# Acute hypoxic respiratory failure likely multifactorial
-Significance CO2 retention on presentation somnolent
-Patient requiring BiPAP
-Continue supplemental oxygen to keep sats greater than 92
-Wean as tolerated
# Acute on chronic diastolic heart failure
-BNP 1020, Trope 0.023
-IV Lasix continued
-strict BRIAN
-Daily weight
# Pneumonia
-chest x-ray with small bilateral pleural effusions with bibasilar probable pneumonia progressed. Probable mild pulmonary vascular congestion
-Sepsis as evident by WBC 17.0, temp 103.3/white count still escalating to 25,000 trend
-IV Vanco and Zosyn continued
-Blood culture sent from ER
# History of restrictive lung disease
-Budesonide continued
-Albuterol as needed for short of breath and wheezing
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
# Essential Hypertension
-Hold Coreg, and losartan to patient fully awake
# Hyperlipidemia
- Atorvastatin
# COPD
Continue Budesonide and DuoNeb
# Prior DVT/PE
- Xarelto
# Bipolar Disorder
-hold Continue Lamictal Aripiprazole, Bupropion, Clonazepam until patient fully awake
-Would continue to hold today although more awake
# Abnormal troponin elevation
-Now trending down
-Presumed nonischemic origin in relation to combination of respiratory failure and CHF
# Hypothyroidism
- Synthroid
# Breast CA s/p Left Mastectomy
Code Status: Full Code
DVT ppx:lovenox
Anticipated Discharge: > 48 hours
Subjective/Interval History
-
Date of Service: July 01, 2023
.
Throughout the night and was kept n.p.o. but no more awake and asking to eat and/or drink
Objective Data
-
Labs:
Laboratory Results
06/30/23 07/01/23 07/01/23
23:20 01:59 04:32
WBC 25.7 H
Hgb 10.7 L
Hct 37.1
Plt Count 174
HCO3 41.4 H* 42.3 H*
Sodium 141
Potassium 4.3
Chloride 96 L
Carbon Dioxide 38 H
BUN 31 H
Creatinine 1.0
Glucose 111 H
Calcium 8.7
Total Bilirubin 1.5 H
AST 31
ALT 16
Alkaline Phosphatase 46
Vital Signs:
Vital Signs
Temp Pulse Resp BP Pulse Ox
98.3 F 81 17 102/50 97
07/01/23 04:00 07/01/23 04:30 07/01/23 04:30 07/01/23 04:00 07/01/23 04:30
I&O
06/30/23 07/01/23 07/02/23
06:59 06:59 06:59
Intake Total 325 / 325
Balance 325 / 325
Review of Systems
-
History Source: Patient
Constitutional: Reports Fever and Fatigue
Respiratory: Reports Cough
Physical Exam
-
General: Obese
HEENT: Normocephalic
Respiratory: Rales and Rhonchi
Cardiac: Regular Rhythm and Murmur
GI: Soft
Neuro: Awake, Oriented and No Motor Deficits
Psych: Calm
Data Reviewed
-
Total Time Spent with Patient (in minutes): 56
Labs: Labs Reviewed by me (White count 25,000/troponin trending down/latest blood gas pH 7.3 pCO2 of 86 with a po2 of 83 with bicarb 42)
[2023-07-01] MEDS: VENTOLIN NEBULES 2.5 MG INH (07:45)
[2023-07-01] MEDS: SYMBICORT 160/4.5 MCG INHALER 2 PUFF INH ×2 (07:46→19:22)
[2023-07-01] MEDS: SPIRIVA RESPIMAT 2.5 MCG 2 PUFF INH (07:46)
[2023-07-01] MEDS: PULMICORT 0.5 MG INH ×2 (07:46→19:22)
[2023-07-01] MEDS: LASIX 40 MG IV ×2 (08:09→16:07)
--- NOTE | 2023-07-01 08:10 | PHA.VAN.FU ---
Vancomycin Assessment / Plan
- Assessment
Renal Function: SCR Increasing
- Dosing Plan
Adjust Regimen to: dosing by level due to increase in BUN & SCR
Dosing Comments: received 2g 06/29 19:54 and 1250mg today at 06:19
- Monitoring Plan
Random Level: 07/01 0600
- Follow Up
Pharmacy will continue to follow.
Vancomycin Follow UP
- -
Patient Age: 73
Patient Sex: Female
Vancomycin Day #: 2
Indication: Pulmonary/Respiratory
Requesting Provider: Bimal Smith
Pertinent Antimicrobial Allergies:
Penicillins - Hives as a child - tolerates ampicillin; Also tolerates cephalosporins
Sulfa (Sulfonamide Antibiotics) - Hives
doxycycline - Rash
Height / Weight:
Height 5 ft 5 in
Actual Weight 95.8 kg
Pertinent Past Medical History: BMI ~35
- Vital Signs / Lab Results
Temp Pulse Resp BP Pulse Ox
98.6 F 88 17 127/61 97
07/01/23 07:38 07/01/23 08:09 07/01/23 04:30 07/01/23 08:09 07/01/23 04:30
Lab Results - Hematology
06/30/23 07/01/23
18:18 04:32
WBC 17.0 H 25.7 H
Lab Results - Chemistry
06/30/23 07/01/23
18:18 04:32
BUN 25 H 31 H
Creatinine 0.6 1.0
Estimated Creat Clear 95 57
Albumin 4.1 3.3 L
06/30/23 06/30/23
18:26 22:30
Lactic Acid 1.6 Cancelled
Lab Results - Urine
06/30/23
19:06
Urine Nitrite (Reflex) Negative
Leukocyte Esterase Rfl Negative
Ur Squamous Epith Cells 0-2
Microbiology Results
06/30/23 19:06 Legionella Urinary Antigen - Final
Urine Negative for Legionella pneumophila Serogroup 1 antigen.
A negative result does not rule out the possiblity of
Legionella infection due to other serogroups or species of
Legionella. Clinical correlation is recommended.
Streptococcus pneumoniae Antigen (M - Final
Negative for Streptococcus pneumoniae antigen.
A negative result does not exclude infection with
Streptococcus pneumoniae. Clinical correlation is
recommended.
07/01/23 00:47 Influenza Types A & B (CM) - Final
Nasal Swab Negative for Influenza A & B, NAAT
Negative results must be combined with clinical observations
and patient history.
Nucleic Acid Amplification test (NAAT)performed on the
[employer] platform.
--- NOTE | 2023-07-01 09:03 | PTOTSP ---
Dysphagia Evaluation
Patient with a history of moderate-severe pharyngeal dysphagia and left vocal fold paralysis, known to department from multiple (3) prior video swallow studies (last 05/23/2022) which at times revealed episodes of silent aspiration with liquids.
Patient now admitted with bibasilar PNA and reported 2 prior PNAs (November, February). Video swallow study recommended to objectively assess swallowing and rule out silent aspiration prior to diet initiation.
Recommend:
1. NPO
2. Aspiration Risk Hydration Protocol - ice chips and sips of water after oral care
3. Medications whole in puree
4. Video swallow study
--- NOTE | 2023-07-01 10:48 | PTCARENOTE ---
Pt received from date night caregiver RN. LOC improving, Ox3, follows commands, states she is thirsty and wants water. NSR with a BBB, chronic +1 BL LE lymphedema, brown PVD legs. BiPAP removed and placed on 6L NC , pt tolerating well with 94% sats. Pt
chronically uses 3L O2 at home. Coarse breath sounds with an ex wheeze on exertion. Frequent moist cough productive of thick anand sputum. Pt desaturates to the mid 80's with exertion but quickly recovers. Round, obese ABD. Pt having frequent
diarrhea, this is a chronic issue, she normally takes imodium QID. Worked well with PT, now OOB in the chair. Assist of 1 to the BSC. IV sites intact. Call mckeon within reach. Pt making needs known appropriately.
--- NOTE | 2023-07-01 12:10 | CON.PUL ---
Consultation
Consultation Request
Date/Time Consultation Requested: 07/01/23
Date/Time Consultation Performed: 07/01/23
Performing Provider: Samuel
Reason for Consultation: PNA
Medical History
-
History of Present Illness:
73-year-old with past medical history for CAD, hypertension, hyperlipidemia, depression, congestive heart failure, OLIVIA pneumonia not on abx, DILLON not on CPAP presenting to ER for progressive shortness of breath over several days but acutely worse
day of admission. Patient chronically uses 3 L of oxygen at nighttime. As per EMS, patient was 43% on room air. ABG obtained showing acute CO2 retention with pH 7.29/86 and placed on BIPAP. She notes that she is not compliant with PAP due to
mask intolerance.
Chest x-ray with small bilateral pleural effusion with bibasilar probable pneumonia progressed. Sputum recently obtained showing + serratia.
She has history of OLIVIA-colonized and see ID as OP. Has not yet started abx treatment.
She is placed on 6L NC at this time, satting mid 90s.
Past Medical History
Past Medical History: Other (see list below)
Social History
Tobacco: Non-smoker
Alcohol: None
Drug: None
Family History
Family History: Reviewed & Not Pertinent
Allergies / Home Medications
Allergies
Allergy/AdvReac Type Severity Reaction Status Date / Time
carbamazepine Allergy Hives, rash Verified 02/05/21 14:53
chlorhexidine Allergy Itching, Verified 05/09/22 14:10
[From Hibiclens] rash,
'chemical
burn'
ciprofloxacin [From Cipro] Allergy neuropathy Verified 05/21/22 20:25
after
stopping it
doxycycline Allergy Rash Verified 11/26/22 09:22
house dust Allergy Sneezing, Verified 05/09/22 14:10
eyes watery
Penicillins Allergy Hives as a Verified 08/03/22 17:57
child -
tolerates
ampicillin
Sulfa (Sulfonamide Allergy Hives Verified 02/05/21 14:53
Antibiotics)
venom-honey bee Allergy Rash Verified 05/09/22 14:10
Home Medications
�Medication �Instructions �Recorded �Confirmed �Last Taken �Type
levothyroxine 175 mcg tablet 175 mcg PO DAILY Thyroid 11/10/16 06/30/23 11/21/22 History
carvedilol 6.25 mg tablet 6.25 mg PO BID 02/26/18 06/30/23 08/01/22 Rx
lamotrigine 100 mg tablet 100 mg PO BID 02/26/18 06/30/23 11/20/22 Rx
atorvastatin 10 mg tablet 10 mg PO MOWEFR High cholesterol 02/05/21 06/30/23 11/21/22 History
coenzyme Q10 100 mg capsule (Co 100 mg PO DAILY Supplement 02/05/21 06/30/23 11/20/22 History
Q-10)
losartan 25 mg tablet 25 mg PO QPM Blood pressure 02/05/21 06/30/23 11/21/22 History
methenamine hippurate 1 gram 1 gm PO DAILY Urinary issue 02/05/21 06/30/23 11/20/22 History
tablet (Hiprex)
rivaroxaban 20 mg tablet (Xarelto) 20 mg PO QPM Blood clot 02/05/21 06/30/23 11/20/22 History
prevention/tx
aripiprazole 5 mg tablet 5 mg PO QPM mental health 01/15/22 06/30/23 11/21/22 History
clonazepam 0.5 mg tablet 0.5 mg PO QPM sleep/mental health 01/15/22 06/30/23 11/20/22 History
fluticasone fur. 200 mcg-umeclid 1 inh inhalation R DAILY 01/15/22 06/30/23 11/21/22 History
62.5 mcg-vilant 25 mcg Lung/breathing issues
inhalat.powder (Trelegy Ellipta)
cholecalciferol (vitamin D3) 25 25 mcg PO DAILY Supplement 0406/30/23 11/20/22 History
mcg (1,000 unit) tablet (Vitamin
D3)
budesonide 0.5 mg/2 mL suspension 0.5 mg inhalation R BID 08/01/22 06/30/23 11/20/22 History
for nebulization Lung/Breathing Issues
bupropion HCl 100 mg tablet,12 hr 100 mg PO BID Mental Health/Anxiety 08/01/22 06/30/23 11/20/22 History
sustained-release
ipratropium 0.5 mg-albuterol 3 mg 3 ml inhalation R TID 08/01/22 06/30/23 11/20/22 History
(2.5 mg base)/3 mL nebulization Lung/Breathing Issues
soln
furosemide 40 mg tablet (Lasix) 80 mg (2 x 40 mg) PO DAILY #60 tabs 08/06/22 06/30/23 11/20/22 Rx
Calcium And Magnesium 1,000 mg PO DAILY 11/24/22 06/30/23 11/20/22 History
fiber 1 tab PO DAILY 11/24/22 06/30/23 11/20/22 History
gabapentin 100 mg capsule 100 mg PO TID 11/24/22 06/30/23 11/24/22 History
guaifenesin 600 mg tablet, 1,200 mg PO BID 11/24/22 06/30/23 11/21/22 History
extended release 12 hr (Mucinex)
loperamide 2 mg tablet 4 mg PO QID PRN diarrhea 11/24/22 06/30/23 11/24/22 History
hmmtrcdy-zwh-qqhsl ac 400 1 tab PO DAILY 11/24/22 06/30/23 11/21/22 History
mcg-calcium carb 500 mg-vit K1 20
mcg tablet (Women's 50 Plus
Multivitamin)
benzonatate 100 mg capsule 200 mg (2 x 100 mg) PO TIDPRN PRN 11/28/22 06/30/23 Unknown Rx
cough #20 caps
acetaminophen 650 mg 650 mg PO BID PRN mild pain 06/30/23 06/30/23 Unknown History
tablet,extended release
albuterol sulfate 90 mcg/actuation 1 puff inhalation R Q6 PRN 06/30/23 06/30/23 Unknown History
aerosol inhaler sob/wheezing
omeprazole 40 mg capsule,delayed 40 mg PO DAILY 06/30/23 06/30/23 Unknown History
release
prednisone 10 mg tablet 10 mg PO DAILY 06/30/23 06/30/23 Unknown History
Review of Systems
-
History Source: Patient
All other systems: Negative unless noted
Vitals / Labs / Diagnostic Testing
Vital Signs
Temp Pulse Resp BP Pulse Ox
98.7 F 82 16 119/57 94
07/01/23 11:05 07/01/23 10:30 07/01/23 10:30 07/01/23 10:18 07/01/23 11:41
Lab Data
07/01/23 04:32
07/01/23 04:32
Laboratory Results
06/30/23 06/30/23 07/01/23
18:18 23:20 01:59
PT 15.2 H
INR 1.21
APTT 35.0
pH 7.29 L 7.30 L
pCO2 86 H* 86 H*
pO2 76 L 83
HCO3 41.4 H* 42.3 H*
O2 Delivery Level bipap 16/8 w/14l bipap 16/5 15l
Microbiology
07/01/23 00:47 Nose Nasal Screen MRSA (PCR) - Final
MRSA not detected - performed by PCR methodology.
06/30/23 19:06 Urine Legionella Urinary Antigen - Final
Negative for Legionella pneumophila Serogroup 1 antigen.
A negative result does not rule out the possiblity of
Legionella infection due to other serogroups or species of
Legionella. Clinical correlation is recommended.
06/30/23 19:06 Urine Streptococcus pneumoniae Antigen (M - Final
Negative for Streptococcus pneumoniae antigen.
A negative result does not exclude infection with
Streptococcus pneumoniae. Clinical correlation is
recommended.
07/01/23 00:47 Nasal Swab Influenza Types A & B (CM) - Final
Negative for Influenza A & B, NAAT
Negative results must be combined with clinical observations
and patient history.
Nucleic Acid Amplification test (NAAT)performed on the
[employer] platform.
Diagnostic Testing:
Physical Exam
-
HEENT: Normocephalic, Anicteric and Moist Mucous Membranes
Cardiovascular: S1/S2 and Regular Rhythm
Respiratory: Rales, Rhonchi and Other (weak cough)
GI: Soft, Non Distended and Non Tender
Neurology: Awake, Alert, Oriented, AO x 3 and No Motor Deficits
Skin: Warm, Dry and Good Color
General: Comfortable, Poor Appetite and Other (chronically ill appearing, weak voice, dyspneic with conversation)
Assessment
-
73-year-old with past medical history for CAD, hypertension, hyperlipidemia, depression, congestive heart failure, OLIVIA pneumonia not on abx, DILLON not on CPAP presenting to ER for progressive shortness of breath over several days but acutely worse
day of admission. As per EMS, patient was 43% on room air. ABG obtained showing acute CO2 retention with pH 7.29/86 and placed on BIPAP. Chest x-ray with small bilateral pleural effusion with bibasilar probable pneumonia progressed. Sputum
recently on 06/26/23 obtained showing + serratia. She has history of OLIVIA-colonized and see ID as OP. Has not yet started abx treatment. Admitted to IMU, we are consulted for pulmonary eval.
Acute hypoxic and hypercarbic respiratory failure
Serratia PNA
Leukocytosis
Elevated trops
Mild DHF component
B/L effusions and/or PNA on CXR
Noncompliance with PAP
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
Post abd surgery done in April 2007: adm 04/15-09/10, presented in septic shock with diffuse peritonitis, s/p subtotal abdominal colectomy (necrotizing colitis)
Discharged with a large open abdominal wound
Readm June 1007, CT abd/p showed bilateral DVT on 06-28-07
Bilateral CHUCKY DVT 06-28-07
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
Reportedly h/o DVT in past (prior to above)
CHUCKY venous insufficiency, s/p bilateral endovenous laser ablation procedures by [facility] 2018
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
OLIVIA pulmonary infection (sputum cxs 07-29-21 and 09-17-21), suspected M fortuitim coinfection
COPD, cough variant asthma, bilateral pulmonary nodules:
follows Dr Boyd, last visit 02-27-22,
on trelegy; albuterol/ipratropium and budesonide nebulizers
Patient chronically uses 3 L of oxygen at nighttime.
H/o hemoptysis, negative sputum cytology 05-25-17, hemoptysis May 2021 and Dec 2021 (mild)
Presbyesophagus, silent aspiration, esophageal stricture
history of moderate-severe pharyngeal dysphagia and left vocal fold paralysis
CAD
HTN
HLD
Hypothyroidism
DILLON on oral appliance and O2 2L, intolerant to CPAP secondary to frequent nocturia
CHUCKY lymphedema
Depression s/p ECT
Bipolar disease
L breast cancer, s/p mastectomy
L shoulder arthroplasty
Bilateral breast implants (ruptured R implant)
Colon resection for diverticulitis
Former smoker: 20 pyh, quit 1998
Plan
Patient's respiratory status is poor, on 94% on 6L NC
Only using O2 at night per patient, 3L baseline
Poor cough, weak voice, airway clearance likely an issue
Continue Mucolytic's/Incentive spirometry/Acapella
Recent sputum reviewed
Total culture results reviewed--
Sputum 06/26/23 + Serratia
05/26/23 + OLIVIA
09/15/22 + Serratia
07/23/22 + MRSA
Sputum 10/09/21 + OLIVIA
09/17/21 + OLIVIA
07/29/21 + OLIVIA
Urine 04/01/19 + E. Coli, 08/26/17 + E. Coli/Kleb
Recheck sputum culture
Consider Infectious disease consult
Empiric Zosyn for now given recent serratia culture
ABG ->
Reviewed hypercarbia to patient and CPAP compliance
BIPAP placed, we discussed needing to use this nightly
Trial nasal mask
Known h/o basilar fibrotic and BE changes and also OLIVIA/M fortuitum
Followed by Dr Boyd
Patient opted for clinical observation re NTM-
She reports having significant chronic diarrhea and would not be excited about for antibiotics for a lengthy period of time to treat OLIVIA
Restrictive lung disease history--TLC 67%
Restriction may be on the basis of generalized muscle strength and/or body habitus
DILLON with oxygen at night, 2 L --not on CPAP
She saw Dr. Benitez for oral appliance in the past/she is not using it needs adjustments
Was on chronic Xarelto for recurrent VTE, resume
Last dose on 05-18, has IVCF since June 2007, DOAC resumed 05-22-22
Pleural effusions noted on CT, LE edema
proBNP elevated
Resumed on IV lasix
If SOB not responding, may consider RHC
History of aspiration
VSE obtained
Prior Speech notes: history of moderate-severe pharyngeal dysphagia and left vocal fold paralysis, known to department from multiple (3) prior video swallow studies (last 05/23/2022) which at times revealed episodes of silent aspiration with liquids.
Patient now admitted with bibasilar PNA and reported 2 prior PNAs (November, February)
DVT prophylaxis-on Xarelto
GI prophylaxis-on famotidine
Nutrition
Early mobilization
We will follow
Diagnostic Data
CXR 06/30/23- Small bilateral pleural effusions with bibasilar probable pneumonia, progressed. Probable mild pulmonary vascular congestion.
CXR 04- c/w 01-15-22. New ARLEEN lingular density and basilar infiltrate or atelectasis
CT Chest 06/08/23- Redemonstration of bilateral lower lobe parenchymal opacities and bronchiectasis. Findings may be on the basis of a chronic inflammatory/infectious process, scarring, and/or atelectasis. New small groundglass opacities in the
anterior left upper lobe, also suggestive of mild inflammation or infection.
CT Chest 08/02/22- 1. Trace bilateral pleural effusions and dependent bilateral lower lobe consolidations, similar to prior likely reflects combination of atelectasis and pneumonia.
Chest CTA 05-21-22 IMPRESSION: No evidence of central pulmonary embolism. Slightly prominent main pulmonary arteries bilaterally. Mild cardiomegaly. Left lower lobe opacification compatible with atelectasis and likely accompanying pneumonia. Right
lower lobe opacification compatible with atelectasis and some scarring. Cannot exclude superimposed right lower lobe pneumonia.
PET-CT 07-03-21 IMPRESSION:
1. � Pulmonary nodules in the upper lobes of both lungs (right more numerous than left) demonstrating moderate FDG uptake. The morphology of most of the nodules is suggestive of peripheral endobronchial impaction which is likely secondary to
peripheral endobronchial infection (possibly secondary to atypical Mycobacterial infection). Lung cancer is considered less likely.
2. � No evidence for FDG avid malignancy in the abdomen, pelvis, or skeleton.
3. � Moderate amount of scarring in the right lower lobe with associated volume loss and mild left to right mediastinal shift.
4. � Moderate cardiomegaly without evidence for acute pulmonary edema.
5. � Moderate calcific atherosclerotic plaque in the coronary arteries.
6. � Previous left mastectomy, left axillary lymph node dissection, and bilateral breast implant placement.
[facility] records
07/25/22 FVC 1.88L 68%, FEV1 1.43L 69%, ratio 76
05-13-22: Most recent PFT FVC 2.1L 72%, prior 2.11L 71%, TLC 67%, FEV1 1.86L 85%
ECHO 03/22/22: Normal biventricular size and systolic function without regional wall motion abnormality. Stage II diastolic dysfunction. Moderate left atrial enlargement. Mild to moderate mitral regurgitation. Aortic sclerosis without stenosis.
Moderate tricuspid regurgitation. Estimated PASP 45 mmHg and RA 3 mmHg. No significant change since the prior study of 03/21/2019 the LVEF has increased from 45-50%. LAE and MR are new. PASP could not be estimated on the prior study.
[2023-07-01] MEDS: IMODIUM 4 MG PO (12:16)
--- NOTE | 2023-07-01 13:17 | CM ---
CM following re: discharge planning.
Discussed in rounds, reviewed pt's chart, met with pt.
Pt is a 73 year old female, admitted with primary dx of Acute hypoxic respiratory failure likely multifactorial
Patient reports she resides alone at [facility], has a son who lives in [place]. Patient utilizes a walker at night and a rollator in the community. Patient reports using oxygen at night time, [employer] provider. Pt is known to
[facility] and was at [facility] in the past.
PT and OT will evaluate the pt to determine a level of care at discharge.
PCP: Dr. Char Nielsen
Pharmacy: [facility] on [address] in [place] [employer].
D/C plan: most likely return back to her living arrangement at [facility] with [facility].
CM will follow with discharge plan updates as hospitalization progresses
--- NOTE | 2023-07-01 15:29 | PTOTSP ---
Video Swallow Examination
Summary: Patient presents with mild oral and moderate-severe pharyngeal dysphagia. There were small volumes of silent aspiration of thin liquids via consecutive cup sips (x1), thin liquids via cup with head turn left (x1), and moderately thick
liquids via tsp (x1). Aspirate cleared with cued cough. Please see patient care note for full details of penetration/aspiration and swallowing physiology.
Recommend:
1. Regular solids, Thin liquids via single cup sips
2. Strategies: upright to 90 degrees, oral prep set (hold liquid in front of mouth before swallowing), small single sips by cup, intermittent cough/swallow, slow rate of intake, avoid mixed consistencies (i.e., fruit with pieces, soup with pieces)
3. Medications - whole or crushed in puree
4. Oral care 3x daily before/after PO
5. Dysphagia tx at the acute care level.
6. Consider ENT re-evaluation could be at the outpatient level.
--- NOTE | 2023-07-01 15:59 | W.PN.UPDATE ---
Update Note
Progress Note Update
Video swallow done showed similar presentation as in prior studies with mild oral and moderate to severe pharyngeal dysphagia with silent aspiration of thin liquids recommendation for regular solids and thin liquids via single cup sips and
aspiration precautions to continue
[2023-07-01] MEDS: LOVENOX 40 MG SC (18:06)
--- NOTE | 2023-07-01 20:19 | PTCARENOTE ---
Received patient AAOx3, following commands, denying pain. Normal sinus, 70s-80s with BBB. Trace generalized anasarca, normothermic, knee high SCDs on. On 6 liters nasal cannula, saturating 96%. Lung sounds coarse, rhonchorous throughout and
expiratory wheeze appreciated. Dyspneic on exertion, orthopneic. Coughing up thick reddish/anand secretions. Round, obese abdomen, hypoactive bowel sounds. Nontender. No BM yet this shift. Purewick in place draining clear yellow urine. Right hand #22
WNL, patent, capped. Call mckeon within reach, safe environment maintained.
--- NOTE | 2023-07-01 21:20 | PTCARENOTE ---
Received patient into room 3341 on 6L, Sp02 93-98%. Oriented to room and use of call mckeon. Tele showing NSR w/ BBB. Denies any pain. Purewick in place. Ice chips provided per pt request. Call mckeon within reach.
[2023-07-02] VITALS (14 sets, daily range): BP systolic 104–135; BP diastolic 54–72; PULSE 2–76; BMI 35.0
--- NOTE | 2023-07-02 02:24 | PTCARENOTE ---
Patient frequently asking for mask to be removed and to drink water. Education provided on the necessity of Bipap and being cautious of her fluid intake since she is receiving IV Lasix during the day; verbalized understanding. Pt tolerated BiPap for
a few hours; placed back on 6L at this time. Sp02 88-98% depending on exertion. Productive, moist frequent cough continues. Support and encouragement given. Call mckeon and tray table is within reach.
[2023-07-02] MEDS: ZOSYN 50 IV ×4 (03:31→19:43)
[2023-07-02 06:07] LABS: Hematocrit 34.6 % (37.0-47.0); Hemoglobin 10.2 g/dL (12.0-16.0); Mean Corp Hgb Conc. 29.5 g/dL (33.0-37.0); Mean Corpuscular Hgb 26.2 pg (27.0-31.0); Mean Corpuscular Volume 88.9 fL (81.0-99.0); Mean Platelet Volume 9.1 fL (7.4-10.4); Platelet Count 165 10^3/uL (130-400); Red Blood Cell Count 3.89 10^6/uL (4.20-5.40); Red Cell Dist. Width 15.9 % (11.5-14.5); White Blood Cell Count 12.9 10^3/uL (4.8-10.8)
[2023-07-02 06:50] LABS: Blood Urea Nitrogen 32 mg/dl (7-17); Carbon Dioxide 39 mmol/L (22-30); Chloride 89 mmol/L (98-107); Estimated Creatinine Clearance 51 ml/min; Glucose 99 mg/dl (70-99); Potassium 3.2 mmol/L (3.5-5.1); Sodium 138 mmol/L (135-145); eGFR 52.73
[2023-07-02] MEDS: PULMICORT 0.5 MG INH ×2 (08:17→19:12)
[2023-07-02] MEDS: SYMBICORT 160/4.5 MCG INHALER 2 PUFF INH ×2 (08:17→19:12)
[2023-07-02] MEDS: SPIRIVA RESPIMAT 2.5 MCG 2 PUFF INH (08:17)
[2023-07-02] MEDS: LASIX 40 MG IV ×2 (08:31→15:58)
--- NOTE | 2023-07-02 10:23 | PTCARENOTE ---
Addendum entered by Sophia Naranjo RN 07/02/23 11:20:
at bedside and made aware of dizziness.
Original Note:
Assumed care of patient this morning. She is aaox3. Reports pain to her nose and neck from BiPAP machine. Pt reports she tried to wear it as long as she could but she cannot tolerate it. Pt also just c/o of dizziness. BP taken and stable. All other
vitals stable. Pt denied chest pain, shortness of breath, headache. Pt's head lowered and she advised it was better. Assessment, care and VS as charted.
--- NOTE | 2023-07-02 10:37 | CHAP ---
Father Arnel Roberts of [facility] in [facility] and gave her Holy Communion.
[2023-07-02] MEDS: KCL 40 MEQ PO (11:50)
--- NOTE | 2023-07-02 12:01 | CON.CAR ---
Addendum entered and electronically signed by Patric Kim MD 07/02/23 13:40:
I saw and examined the patient.
The DAY WORKER's note was reviewed and I agree with the note.
Comment: 73F with dyspnea with HFpEF component, perhaps due to steroid challenge.
- diurese to goal weight
- update echo
Original Note:
Consultation
Consultation Request
Date/Time Consultation Requested: 07/02/23 1115
Date/Time Consultation Performed: 07/02/23 1200
Requesting Provider: Trena Romeo MD
Performing Provider: Ellen KELLER for Dr. Kim
Reason for Consultation: CHF
Medical History
-
Chief Complaint: SOB
History of Present Illness:
73 y/o female with resolved NICM (25% in 2013, now 55% 2022), HFpEF, mod TR, mild to moderate MR, HLD, RBBB, obesity with chronic edema, kelsie PE/DVT (on chronic Xarelto), DILLON, COPD/RLD, and bipolar disorder who is here because she developed SOB
and severe hypoxemia. She required BiPAP. She is being treated for PNA and pulmonary issues, as well as CHF exacerbation. She reports she has been on steroids and since then she has been gaining weight. She is on 6 L NC with coarse lung sounds, but
no distress ay the time of my assessment.
Past Medical History
Past Medical History: CHF, COPD, Valvular Disease and Other (RBBB, obesity, DVT/PE, others as above )
Social History
Tobacco: Former Smoker
Family History
Family History: Reviewed & Not Pertinent
Allergies / Home Medications
Allergy/AdvReac Type Severity Reaction Status Date / Time
carbamazepine Allergy Hives, rash Verified 02/05/21 14:53
chlorhexidine Allergy Itching, Verified 05/09/22 14:10
[From Hibiclens] rash,
'chemical
burn'
ciprofloxacin [From Cipro] Allergy neuropathy Verified 05/21/22 20:25
after
stopping it
doxycycline Allergy Rash Verified 11/26/22 09:22
house dust Allergy Sneezing, Verified 05/09/22 14:10
eyes watery
Penicillins Allergy Hives as a Verified 08/03/22 17:57
child -
tolerates
ampicillin
Sulfa (Sulfonamide Allergy Hives Verified 02/05/21 14:53
Antibiotics)
venom-honey bee Allergy Rash Verified 05/09/22 14:10
�Medication �Instructions �Recorded �Confirmed �Type
levothyroxine 175 mcg tablet 175 mcg PO DAILY Thyroid 11/10/16 06/30/23 History
carvedilol 6.25 mg tablet 6.25 mg PO BID 02/26/18 06/30/23 Rx
lamotrigine 100 mg tablet 100 mg PO BID 02/26/18 06/30/23 Rx
atorvastatin 10 mg tablet 10 mg PO MOWEFR High cholesterol 02/05/21 06/30/23 History
coenzyme Q10 100 mg capsule (Co 100 mg PO DAILY Supplement 02/05/21 06/30/23 History
Q-10)
losartan 25 mg tablet 25 mg PO QPM Blood pressure 02/05/21 06/30/23 History
methenamine hippurate 1 gram 1 gm PO DAILY Urinary issue 02/05/21 06/30/23 History
tablet (Hiprex)
rivaroxaban 20 mg tablet (Xarelto) 20 mg PO QPM Blood clot 02/05/21 06/30/23 History
prevention/tx
aripiprazole 5 mg tablet 5 mg PO QPM mental health 01/15/22 06/30/23 History
clonazepam 0.5 mg tablet 0.5 mg PO QPM sleep/mental health 01/15/22 06/30/23 History
fluticasone fur. 200 mcg-umeclid 1 inh inhalation R DAILY 01/15/22 06/30/23 History
62.5 mcg-vilant 25 mcg Lung/breathing issues
inhalat.powder (Trelegy Ellipta)
cholecalciferol (vitamin D3) 25 25 mcg PO DAILY Supplement 05/21/22 06/30/23 History
mcg (1,000 unit) tablet (Vitamin
D3)
budesonide 0.5 mg/2 mL suspension 0.5 mg inhalation R BID 08/01/22 06/30/23 History
for nebulization Lung/Breathing Issues
bupropion HCl 100 mg tablet,12 hr 100 mg PO BID Mental Health/Anxiety 08/01/22 06/30/23 History
sustained-release
ipratropium 0.5 mg-albuterol 3 mg 3 ml inhalation R TID 08/01/22 06/30/23 History
(2.5 mg base)/3 mL nebulization Lung/Breathing Issues
soln
furosemide 40 mg tablet (Lasix) 80 mg (2 x 40 mg) PO DAILY #60 tabs 08/06/22 06/30/23 Rx
Calcium And Magnesium 1,000 mg PO DAILY Supplement 11/24/22 06/30/23 History
fiber 1 tab PO DAILY Constipation 11/24/22 06/30/23 History
gabapentin 100 mg capsule 100 mg PO TID Pain 11/24/22 06/30/23 History
guaifenesin 600 mg tablet, 1,200 mg PO BID MUCUS/COUGH 11/24/22 06/30/23 History
extended release 12 hr (Mucinex)
loperamide 2 mg tablet 4 mg PO QID PRN diarrhea 11/24/22 06/30/23 History
duyliunq-pjy-madlo ac 400 1 tab PO DAILY Supplement 11/24/22 06/30/23 History
mcg-calcium carb 500 mg-vit K1 20
mcg tablet (Women's 50 Plus
Multivitamin)
benzonatate 100 mg capsule 200 mg (2 x 100 mg) PO TIDPRN PRN 11/28/22 06/30/23 Rx
cough #20 caps
acetaminophen 650 mg 650 mg PO BID PRN mild pain 06/30/23 06/30/23 History
tablet,extended release
albuterol sulfate 90 mcg/actuation 1 puff inhalation R Q6 PRN 06/30/23 06/30/23 History
aerosol inhaler sob/wheezing
omeprazole 40 mg capsule,delayed 40 mg PO DAILY Gastrointestinal 06/30/23 06/30/23 History
release Issue
prednisone 10 mg tablet 10 mg PO DAILY Anti-Inflammatory 06/30/23 06/30/23 History
Review of Systems
-
History Source: Patient and Other (and chart)
All other systems: Negative unless noted
Constitutional: Weight Gain
Respiratory: Trouble Breathing
Physical Exam
Vital Signs
Temp Pulse Resp BP Pulse Ox
98.0 F 76 21 135/65 92
07/02/23 11:00 07/02/23 11:00 07/02/23 11:00 07/02/23 10:00 07/02/23 11:00
Lab Results
07/02/23 05:52
07/02/23 05:52
Troponin I 0.036 ng/ml H* D 07/01/23 04:32
Jru-X-Lmgslfvkttw Pept 1020 pg/ml 06/30/23 18:18
Physical Exam
General: Well Developed and No Apparent Distress
HEENT: Normocephalic and Anicteric
Respiratory: Rhonchi and Other (on 6 L NC, coarse lung sounds t/o)
Cardiac: Regular Rhythm
Musculoskeletal: Edema (+1-2 BLE edema)
Skin: Warm and Dry
Neuro: Awake, Alert and Oriented
Psych: Calm
Impression / Plan
-
Acute hypoxic respiratory failure:
-improved, now on 6L NC
-being treated for PNA (abx), lung disease (pulm following), and acute HFpEF
Acute HFpEF:
-patient thinks dry weight is about 200-203 lbs- currently 210 lbs. Started gaining weight when she started steroids.
-agree with IV diuresis, which requires intensive monitoring
-hypokalemia is noted and has been replaced- follow closely
-most recent echo as below- update echo
RBBB:
-chronic, stable
Abnormal troponin:
-likely acute non-ischemic myocardial injury in setting of acute illness as described above
-denies any CP
-checking echo as above
Data Reviewed
-
EKG: Tracing Personally Visualized and interpreted (ST 106 BPM RBBB)
Radiology: Report Reviewed by me (CXR: Small bilateral pleural effusions with bibasilar probable pneumonia, progressed. Probable mild pulmonary vascular congestion.)
Medical Tests (Nuc Med, Echo etc): Report Reviewed by me (echo 03/22/22: Normal biventricular size and systolic function without regional wall motion abnormality. Stage II diastolic dysfunction. Moderate left atrial enlargement. Mild to
moderate mitral regurgitation. Aortic sclerosis without stenosis. Moderate tricuspid regurgitation. )
Labs: Labs Reviewed by me
--- NOTE | 2023-07-02 13:14 | PTCARENOTE ---
Patient encouraged to get OOB for lunch. At first, patient states 'I don't think I can do this.' Pt assisted herself to the side of the bed, stood herself and talked to chair with RW herself. RN assisted with wires/o2 tubing. Patient was worried
about her weakness prior to getting up. Patient educated on mobility and importance of getting OOB.
--- NOTE | 2023-07-02 14:20 | W.PN.PUL3 ---
Today's Communication / Plan
-
Continue nocturnal BiPAP and trend blood gas to assure pH and pCO2 are stable
Continue with antibiotics and consult ID
Follow-up sputum culture; follow-up blood cultures x2 (06/30/2023)
Titrate SpO2 to maintain >90-94%
PT/OT
Up OOB as tolerated
Encourage incentive spirometer
Diurese as tolerated with goal net negative 1-1.5L/24 hrs
Assessment
-
73-year-old with past medical history for CAD, hypertension, hyperlipidemia, depression, congestive heart failure, OLIVIA pneumonia not on abx, DILLON not on CPAP presenting to ER for progressive shortness of breath over several days but acutely worse
day of admission. As per EMS, patient was 43% on room air. ABG obtained showing acute CO2 retention with pH 7.29/86 and placed on BIPAP. Chest x-ray with small bilateral pleural effusion with bibasilar probable pneumonia progressed. Sputum
recently on 06/26/23 obtained showing + serratia. She has history of OLIVIA-colonized and see ID as OP. Has not yet started abx treatment. Admitted to IMU, we are consulted for pulmonary eval.
Impression:
Acute hypoxic and hypercarbic respiratory failure due to suspected bronchiectasis flare in setting of ADHF + asthma (not currently in an asthmatic flare)
Chronic respiratory failure on long-term oxygen therapy (3L/min NC)
Serratia PNA - seen on sputum Cx from 06/26/2023 ordered by ID on 06/18/2023 after she saw them in office due to suspected bronchiectasis flare
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
Leukocytosis
Elevated trops
Mild DHF component
B/L effusions and/or PNA on CXR
Noncompliance with PAP
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
Post abd surgery done in April 2007: adm 04/15-09/10, presented in septic shock with diffuse peritonitis, s/p subtotal abdominal colectomy (necrotizing colitis)
Discharged with a large open abdominal wound
Readm June 1007, CT abd/p showed bilateral DVT on 06-28-07
Bilateral CHUCKY DVT 06-28-07
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
Reportedly h/o DVT in past (prior to above)
CHUCKY venous insufficiency, s/p bilateral endovenous laser ablation procedures by [facility] 2018
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
Cough variant asthma and history of hypereosinophilia (abs. eos were 3000 in January 2022); bilateral pulmonary nodules:
follows Dr Boyd, last visit 02-27-22,
on trelegy; albuterol/ipratropium and budesonide nebulizers
Patient chronically uses 3 L of oxygen at nighttime.
H/o hemoptysis, negative sputum cytology 05-25-17, hemoptysis May 2021 and Dec 2021 (mild)
Presbyesophagus, silent aspiration, esophageal stricture
history of moderate-severe pharyngeal dysphagia and left vocal fold paralysis
CAD
HTN
HLD
Hypothyroidism
DILLON on oral appliance and O2 2L, intolerant to CPAP secondary to frequent nocturia
CHUCKY lymphedema
Depression s/p ECT
Bipolar disease
L breast cancer, s/p mastectomy
L shoulder arthroplasty
Bilateral breast implants (ruptured R implant)
Colon resection for diverticulitis
Former smoker: 20 pyh, quit 1998
Plan
Patient's respiratory status is poor, on 92-93% on 5L/min currently
Only using O2 at night per patient, 3L baseline
Poor cough, weak voice, airway clearance likely an issue
Continue Mucolytic's/Incentive spirometry/Acapella, may need vest therapy if still having difficulty expectorating
Recent sputum reviewed
Total culture results reviewed--
Sputum 06/26/23 + Serratia
4/16/24 + OLIVIA
09/15/22 + Serratia
07/23/22 + MRSA
Sputum 10/09/21 + OLIVIA
09/17/21 + OLIVIA
07/29/21 + OLIVIA
Urine 04/01/19 + E. Coli, 08/26/17 + E. Coli/Kleb
Re-check sputum culture - pending
Recommend Infectious disease consult given they are also following her as an outpatient and last saw her in office on 06/18/2023
Empiric Zosyn for now given recent serratia culture
Check procal for trending power
Of note, pt does NOT have COPD - last FEV1/FVC: 87 (116% predicted) via PFT from 10/2022, and prior to that her FEV1/FVC was 89 (119% predicted) via PFT from 12/2021 - she has suspected asthma w/ cough --> continue Symbicort and Spiriva, and consider
steroids if she develops wheezing
ABG ->
Reviewed hypercarbia to patient and CPAP compliance
BIPAP placed, we discussed needing to use this nightly --> she is not tolerating this --> I will lower her settings to see if this helps her compliance, and will trend blood gas
Trial nasal mask
Known h/o basilar fibrotic and BE changes and also OLIVIA/M fortuitum
Followed by Dr Boyd
Patient opted for clinical observation re NTM-
She reports having significant chronic diarrhea and would not be excited about for antibiotics for a lengthy period of time to treat LOIVIA
Restrictive lung disease history--TLC 52% with VC 71% on most recent PFT from 10/2022
Restriction may be on the basis of generalized muscle strength and/or body habitus
DILLON with oxygen at night, 2 L --not on CPAP
She saw Dr. Benitez for oral appliance in the past/she is not using it needs adjustments -she says that ever since she has gained weight recently the oral appliance device has been less effective
Was on chronic Xarelto for recurrent VTE, resume this now
Last dose on 05-18, has IVCF since June 2007, DOAC resumed 05-22-22
Pleural effusions noted on CT, LE edema
proBNP elevated
Resumed on IV lasix
If SOB not responding, may consider RHC
History of aspiration
VSE obtained
Prior Speech notes: history of moderate-severe pharyngeal dysphagia and left vocal fold paralysis, known to department from multiple (3) prior video swallow studies (last 05/23/2022) which at times revealed episodes of silent aspiration with liquids.
Patient now admitted with bibasilar PNA and reported 2 prior PNAs (November,)
DVT prophylaxis-currently on LMWH 40mg sq qPM
GI prophylaxis- n/a
Nutrition
Early mobilization
We will follow
Total time spent today was 50 minutes for this encounter. Time includes reviewing laboratory test/imaging results, reviewing pertinent medical records, obtaining and reviewing medical history, performing an appropriate exam, ordering medications,
tests and procedures. Time also includes documentation of this encounter, coordinating patient care and communicating with other healthcare professionals. Total time does not include separately billed tests performed on this date of service.
Diagnostic Data
CXR 06/30/23- Small bilateral pleural effusions with bibasilar probable pneumonia, progressed. Probable mild pulmonary vascular congestion.
CXR 05-20 c/w 01-15-22. New ARLEEN lingular density and basilar infiltrate or atelectasis
CT Chest 06/08/23- Redemonstration of bilateral lower lobe parenchymal opacities and bronchiectasis. Findings may be on the basis of a chronic inflammatory/infectious process, scarring, and/or atelectasis. New small groundglass opacities in the
anterior left upper lobe, also suggestive of mild inflammation or infection.
CT Chest 08/02/22- 1. Trace bilateral pleural effusions and dependent bilateral lower lobe consolidations, similar to prior likely reflects combination of atelectasis and pneumonia.
Chest CTA 05-21-22 IMPRESSION: No evidence of central pulmonary embolism. Slightly prominent main pulmonary arteries bilaterally. Mild cardiomegaly. Left lower lobe opacification compatible with atelectasis and likely accompanying pneumonia. Right
lower lobe opacification compatible with atelectasis and some scarring. Cannot exclude superimposed right lower lobe pneumonia.
PET-CT 07-03-21 IMPRESSION:
1. � Pulmonary nodules in the upper lobes of both lungs (right more numerous than left) demonstrating moderate FDG uptake. The morphology of most of the nodules is suggestive of peripheral endobronchial impaction which is likely secondary to
peripheral endobronchial infection (possibly secondary to atypical Mycobacterial infection). Lung cancer is considered less likely.
2. � No evidence for FDG avid malignancy in the abdomen, pelvis, or skeleton.
3. � Moderate amount of scarring in the right lower lobe with associated volume loss and mild left to right mediastinal shift.
4. � Moderate cardiomegaly without evidence for acute pulmonary edema.
5. � Moderate calcific atherosclerotic plaque in the coronary arteries.
6. � Previous left mastectomy, left axillary lymph node dissection, and bilateral breast implant placement.
[facility] records
07/25/22 FVC 1.88L 68%, FEV1 1.43L 69%, ratio 76
05-13-22: Most recent PFT FVC 2.1L 72%, prior 2.11L 71%, TLC 67%, FEV1 1.86L 85%
ECHO 03/22/22: Normal biventricular size and systolic function without regional wall motion abnormality. Stage II diastolic dysfunction. Moderate left atrial enlargement. Mild to moderate mitral regurgitation. Aortic sclerosis without stenosis.
Moderate tricuspid regurgitation. Estimated PASP 45 mmHg and RA 3 mmHg. No significant change since the prior study of 03/21/2019 the LVEF has increased from 45-50%. LAE and MR are new. PASP could not be estimated on the prior study.
Subjective Data
-
Date of Service:
Date of Service: July 02, 2023
Chief Complaint: Pulmonary Follow Up
Subjective:
Patient seen this afternoon. She is feeling a little better but still short of breath and coughing up white phlegm. She is currently on 5 L/min nasal cannula saturating 93%. She was unable to tolerate her BiPAP overnight which was set at 18/5 and
bled with 6L/min - she wore for about 4 hours before taking it off. She currently denies any chest pain, headache, abdominal pain, fevers or chills.
Review of Systems
General: Other (Negative unless mentioned above)
Objective Data
Data Reviewed
Vital Signs / I&O / Oxygen:
Vital Signs
Temp Pulse Resp BP Pulse Ox
98.0 F 75 25 125/72 92
07/02/23 11:00 07/02/23 18:00 07/02/23 18:00 07/02/23 18:00 07/02/23 18:00
Intake and Output
07/01/23 07/02/23 07/03/23
06:59 06:59 06:59
Intake Total 325 / 325 955 / 955 480 / 480
Output Total 1700 / 1700 900 / 900
Balance 325 / 325 -745 / -745 -420 / -420
SaO2 92
Nasal Cannula flow liters per 6
minute
Physical Exam
General: Respiratory Distress (negative) and Comfortable
HEENT: Normocephalic and Anicteric
Cardiovascular: S1-S2 and Peripheral Edema (Trace lower extremity edema bilaterally)
Respiratory: Crackles (Bilaterally), Rhonchi (Bilaterally) and Non-Labored Respirations
GI: Soft, Non Distended, Non Tender and Normal Bowel Sounds
Neurology: Awake and Alert
Skin: Warm, Dry and Cyanosis (negative)
Labs/Micro/Reports
Lab Data
07/02/23 05:52
07/02/23 05:52
Microbiology
07/01/23 16:10 Sputum Respiratory Culture - Preliminary
NO GROWTH
07/01/23 16:10 Sputum Gram Stain - Preliminary
06/30/23 18:26 Blood/Venous Blood Culture - Preliminary
No Growth in 24 hours- Final report to follow
06/30/23 18:26 Blood/Venous Blood Culture - Preliminary
No Growth in 24 hours- Final report to follow
07/01/23 00:47 Nose Nasal Screen MRSA (PCR) - Final
MRSA not detected - performed by PCR methodology.
06/30/23 19:06 Urine Legionella Urinary Antigen - Final
Negative for Legionella pneumophila Serogroup 1 antigen.
A negative result does not rule out the possiblity of
Legionella infection due to other serogroups or species of
Legionella. Clinical correlation is recommended.
06/30/23 19:06 Urine Streptococcus pneumoniae Antigen (M - Final
Negative for Streptococcus pneumoniae antigen.
A negative result does not exclude infection with
Streptococcus pneumoniae. Clinical correlation is
recommended.
07/01/23 00:47 Nasal Swab Influenza Types A & B (CM) - Final
Negative for Influenza A & B, NAAT
Negative results must be combined with clinical observations
and patient history.
Nucleic Acid Amplification test (NAAT)performed on the
[employer] platform.
--- NOTE | 2023-07-02 15:19 | W.PN.HOSP.TC ---
Today's Communication/Plan
-
Continue antibiotic and IV diuresis
Assessment / Plan
Assessment / Plan
73-year-old with past medical history for CAD, hypertension, hyperlipidemia, depression, congestive heart failure, pneumonia presented to us with short of breath since last night. Short of breath progressively got worse today. Patient uses 3 L of
oxygen at nighttime. Review of system is very limited. History primarily obtained from nurse. As per EMS, patient was 43 on room air. Patient was supplemented with CPAP, oxygenating high 80s. At present patient is requiring BiPAP.
Chest x-ray with small bilateral pleural effusion with bibasilar probable pneumonia progressed. Probable mild pulmonary vascular congestion. Patient had fever. Patient received dose of Tylenol, Lasix, nitro, Zosyn and Vanco in ER. Blood culture
sent from ER
Past Medical History
Past Medical History: Reports Other
Additional Past Medical History:
Chronic cystitis
Bilateral carotid stenosis
Kidney stones
Hepatic steatosis
Lung nodule
Bronchiectasis
Peripheral neuropathy
Congestive heart failure
Restrictive lung disease
PE
Bipolar
Small bowel obstruction
Chronic kidney disease
Lymphedema of lower extremities DVT
Vocal cord weakness
GERD
Esophageal dysphagia
Hypothyroidism
Obstructive sleep apnea
Past Surgical History: Reports Other
Additional Past Surgical History:
Bilateral total knee replacement
Bilateral cataracts
Left mastectomy IVC filter placement
Ileostomy/colectomy cholecystectomy
Ileostomy takedown
Ventral hernia repair
Cyst removed from back
Left humerus ORIF
# Acute hypoxic respiratory failure likely multifactorial
-Significance CO2 retention on presentation somnolent
-Patient requiring BiPAP
-Continue supplemental oxygen to keep sats greater than 92
-Wean as tolerated
# Acute on chronic diastolic heart failure
-BNP 1020, Trope 0.023
-IV Lasix continued
-strict BRIAN
-Daily weight
-Cardiology consulted
# Pneumonia
-chest x-ray with small bilateral pleural effusions with bibasilar probable pneumonia progressed. Probable mild pulmonary vascular congestion
-Sepsis as evident by WBC 17.0, temp 103.3/white count still escalating to 25,000 trend
-IV Vanco and Zosyn continued
-Blood culture sent from ER
-Appreciate pulmonology and
# History of restrictive lung disease
-Budesonide continued
-Albuterol as needed for short of breath and wheezing
-Dewaterer Operator/pulmonary to see
# Essential Hypertension
-Hold Coreg, and losartan to patient fully awake
# Hyperlipidemia
- Atorvastatin
# COPD
Continue Budesonide and DuoNeb
# Prior DVT/PE
- Xarelto
# Bipolar Disorder
-hold Continue Lamictal Aripiprazole, Bupropion, Clonazepam until patient fully awake
-Would continue to hold today although more awake
# Abnormal troponin elevation
-Now trending down
-Presumed nonischemic origin in relation to combination of respiratory failure and CHF
# Hypothyroidism
- Synthroid
# Breast CA s/p Left Mastectomy
Code Status: Full Code
DVT ppx:lovenox
Anticipated Discharge: > 48 hours
Subjective/Interval History
-
Date of Service: July 02, 2023
Patient seen and examined at bedside, overall shortness of breath continue to improve, patient at baseline 4 L oxygen at home during the day and up to 5/6 L at night.
Appreciate cardiology and pulmonology input.
Objective Data
-
Labs:
Laboratory Results
07/02/23
05:52
WBC 12.9 H
Hgb 10.2 L
Hct 34.6 L
Plt Count 165
Sodium 138
Potassium 3.2 L D
Chloride 89 L
Carbon Dioxide 39 H
BUN 32 H
Creatinine 1.1 H
Glucose 99
Calcium 9.0
Vital Signs:
Vital Signs
Temp Pulse Resp BP Pulse Ox
98.0 F 77 19 130/60 92
07/02/23 11:00 07/02/23 12:00 07/02/23 12:00 07/02/23 12:00 07/02/23 12:00
I&O
07/01/23 07/02/23 07/03/23
06:59 06:59 06:59
Intake Total 325 / 325 955 / 955 240 / 240
Output Total 1700 / 1700 600 / 600
Balance 325 / 325 -745 / -745 -360 / -360
Physical Exam
-
General: Well Developed and No Apparent Distress
HEENT: Normocephalic, Atraumatic and Moist Mucous Membranes
Respiratory: Rales and Rhonchi
Cardiac: Regular Rhythm and S1/S2; Negative Murmur, Rub or Gallop
GI: Soft, Nontender, Nondistended and Normal Bowel Sounds; Negative Organomegaly
Rectal: Deferred by Provider
Musculoskeletal: No Clubbing, No Cyanosis, No Edema, Edema, Left Upper Extrem and Edema, Right Lower Extrem
Skin: Negative Rash
Neuro: Nonfocal/Grossly Intact
--- NOTE | 2023-07-02 15:31 | PN.CDI ---
CDI
- -
CDI:
Physician Documentation Request
Admit Date: 06/30/23 21:07
Dear Doctor Trena,
Clinical Indicators:
Patient admitted with acute hypoxic respiratory failure.
07/01 PN, '-Significance CO2 retention on presentation somnolent-Patient requiring BiPAP.
ABG:
06/30/23 07/01/23
23:20 01:59
pCO2 86 H* 86 H*
Please clarify the most likely etiology of the confusion/altered mental status.
Toxic Metabolic Encephalopathy
Acute Metabolic Encephalopathy
Somnolence only
Other, please specify
Use of terms such as suspected, likely, concern for, or probable (associated with a specific diagnosis that is being evaluated, monitored, or treated as if it exists) are acceptable and can be coded in the inpatient setting, when documented at the
time of discharge.
Thank you,
MARIELA Aparicio RN
CDI Specialist
available via tiger text
Please use your independent medical judgment in providing your response.
--- NOTE | 2023-07-02 15:37 | PN.CDI ---
CDI
- -
CDI:
Physician Documentation Request
Admit Date: 06/30/23 21:07
Dear Doctor Ousmane,
Clinical Indicators:
Patient admitted with acute hypoxic respiratory failure.
07/01 PN, 'Abnormal troponin elevation...-Presumed nonischemic origin in relation to combination of respiratory failure and CHF'
Troponin trend:
06/30/23 07/01/23 07/01/23
18:18 00:46 04:32
Troponin I 0.023 0.057 H* D 0.036 H* D
Due to potentially conflicting documentation, please clarify the etiology of the troponin elevation:
Non ischemic myocardial injury
Abnormal troponin elevation only
Other, please specify
Use of terms such as suspected, likely, concern for, or probable (associated with a specific diagnosis that is being evaluated, monitored, or treated as if it exists) are acceptable and can be coded in the inpatient setting, when documented at the
time of discharge.
Thank you,
MARIELA Aparicio RN
CDI Specialist
available via tiger text
Please use your independent medical judgment in providing your response.
--- NOTE | 2023-07-02 16:21 | CM ---
Patient from [facility] with Dx Acute hypoxic respiratory failure, HF, PNA. O2 6L. Receiving IV Abx, IV Lasix. PT & OT recommend skilled rehab.
Spoke with Kelly Saul [facility]; she would like the patient to go to the [facility] for rehab before returning to her apartment as she has no services/caregivers in place.
Spoke with patient about her current mobility; she was hoping to go home as she is afraid of going to [facility] and getting Covid. SHe agrees to consider going to SNF.
Phone call to Feli Hughes [facility]; left message re; referral.
Plan follow up with patient for agreement to SNF and [facility] for acceptance.
[2023-07-02] MEDS: LOVENOX 40 MG SC (17:47)
[2023-07-03] VITALS (18 sets, daily range): BP systolic 105–148; BP diastolic 50–70; PULSE 2–100; O2SAT 94–97; BMI 34.5
[2023-07-03] MEDS: ZOSYN 50 IV ×3 (02:14→12:57)
[2023-07-03 04:16] LABS: Venous Blood Gas HCO3 45.2 mmol/L (22-27); Venous Blood Gas O2 Sat % 99.7 %; Venous Blood Gas O2 Therapy 5L/min; Venous Blood Gas pCO2 46 mmHg (35-48); Venous Blood Gas pO2 197 mmHg (30-50)
[2023-07-03 05:36] LABS: Hematocrit 34.8 % (37.0-47.0); Hemoglobin 10.5 g/dL (12.0-16.0); Mean Corp Hgb Conc. 30.2 g/dL (33.0-37.0); Mean Corpuscular Hgb 25.9 pg (27.0-31.0); Mean Corpuscular Volume 85.7 fL (81.0-99.0); Mean Platelet Volume 9.1 fL (7.4-10.4); Platelet Count 184 10^3/uL (130-400); Red Blood Cell Count 4.06 10^6/uL (4.20-5.40); Red Cell Dist. Width 15.7 % (11.5-14.5); White Blood Cell Count 9.4 10^3/uL (4.8-10.8)
[2023-07-03 06:03] LABS: Blood Urea Nitrogen 33 mg/dl (7-17); Calcium 9.3 mg/dl (8.4-10.2); Chloride 89 mmol/L (98-107); Estimated Creatinine Clearance 62 ml/min; Glucose 99 mg/dl (70-99); Potassium 3.3 mmol/L (3.5-5.1); Sodium 139 mmol/L (135-145); eGFR > 60.00
[2023-07-03 06:08] LABS: Procalcitonin 1.27 ng/ml (0.0-0.25)
[2023-07-03 06:13] LABS: Carbon Dioxide 40 mmol/L (22-30)
--- NOTE | 2023-07-03 07:07 | PTCARENOTE ---
Pt able to tolerate Bipap for about 4-5hrs with the nasal mask. 6L on when not on Bipap. Voiding via purewick. Tolerating IV Abx. Call mckeon and tray table within reach.
[2023-07-03] MEDS: PULMICORT 0.5 MG INH (07:12)
[2023-07-03] MEDS: SYMBICORT 160/4.5 MCG INHALER 2 PUFF INH ×2 (07:13→19:19)
[2023-07-03] MEDS: SPIRIVA RESPIMAT 2.5 MCG 2 PUFF INH (07:13)
[2023-07-03] MEDS: LASIX 40 MG IV ×2 (08:19→16:18)
--- NOTE | 2023-07-03 09:01 | W.PN.PUL3 ---
Today's Communication / Plan
-
Serratia in sputum but repeat negative, not sure if NTM should be treated now since she has been clinically deteriorating overall
Consult ID
Continue BIPAP nightly, PT/OT, OOB--deconditioning is an issue
Add melatonin for insomnia complaints
Lasix IV ongoing
Wean O2 as tolerated
Assessment
-
73-year-old with past medical history for CAD, hypertension, hyperlipidemia, depression, congestive heart failure, OLIVIA pneumonia not on abx, DILLON not on CPAP presenting to ER for progressive shortness of breath over several days but acutely worse
day of admission. As per EMS, patient was 43% on room air. ABG obtained showing acute CO2 retention with pH 7.29/86 and placed on BIPAP. Chest x-ray with small bilateral pleural effusion with bibasilar probable pneumonia progressed. Sputum
recently on 06/26/23 obtained showing + serratia. She has history of OLIVIA-colonized and see ID as OP. Has not yet started abx treatment. Admitted to IMU, we are consulted for pulmonary eval.
Impression:
Acute hypoxic and hypercarbic respiratory failure due to suspected bronchiectasis flare in setting of ADHF + asthma (not currently in an asthmatic flare)
Chronic respiratory failure on long-term oxygen therapy (3L/min NC)
Serratia PNA - seen on sputum Cx from 06/26/2023 ordered by ID on 06/18/2023 after she saw them in office due to suspected bronchiectasis flare
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
Leukocytosis
Elevated trops
Mild DHF component
B/L effusions and/or PNA on CXR
Noncompliance with PAP
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
Post abd surgery done in April 2007: adm 04/15-09/10, presented in septic shock with diffuse peritonitis, s/p subtotal abdominal colectomy (necrotizing colitis)
Discharged with a large open abdominal wound
Readm June 1007, CT abd/p showed bilateral DVT on 06-28-07
Bilateral CHUCKY DVT 06-28-07
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
Reportedly h/o DVT in past (prior to above)
CHUCKY venous insufficiency, s/p bilateral endovenous laser ablation procedures by [facility] 2018
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
Cough variant asthma and history of hypereosinophilia (abs. eos were 3000 in January 2022); bilateral pulmonary nodules:
follows Dr Boyd, last visit 02-27-22,
on trelegy; albuterol/ipratropium and budesonide nebulizers
Patient chronically uses 3 L of oxygen at nighttime.
H/o hemoptysis, negative sputum cytology 05-25-17, hemoptysis May 2021 and Dec 2021 (mild)
Presbyesophagus, silent aspiration, esophageal stricture
history of moderate-severe pharyngeal dysphagia and left vocal fold paralysis
CAD
HTN
HLD
Hypothyroidism
DILLON on oral appliance and O2 2L, intolerant to CPAP secondary to frequent nocturia
CHUCKY lymphedema
Depression s/p ECT
Bipolar disease
L breast cancer, s/p mastectomy
L shoulder arthroplasty
Bilateral breast implants (ruptured R implant)
Colon resection for diverticulitis
Former smoker: 20 pyh, quit 1998
Plan
Patient's respiratory status is poor, on 92-93% on 6L/min currently
Only using O2 at night per patient, 3L baseline
Poor cough, weak voice, airway clearance likely an issue
Continue Mucolytic's/Incentive spirometry/Acapella, may need vest therapy if still having difficulty expectorating
Recent sputum reviewed
Total culture results reviewed--
Re-check sputum culture 06/30 negative
Sputum 06/26/23 + Serratia
05/26/23 + OLIVIA
09/15/22 + Serratia
07/23/22 + MRSA
Sputum 10/09/21 + OLIVIA
09/17/21 + OLIVIA
07/29/21 + OLIVIA
Urine 04/01/19 + E. Coli, 08/26/17 + E. Coli/Kleb
Empiric Zosyn for now given recent serratia culture
Procal 1.27
Of note, pt does NOT have COPD - last FEV1/FVC: 87 (116% predicted) via PFT from 10/2022, and prior to that her FEV1/FVC was 89 (119% predicted) via PFT from 12/2021 - she has suspected asthma w/ cough --> continue Symbicort and Spiriva, and consider
steroids if she develops wheezing
Bronchiectasis is noted on CT
I think we will consult ID on NTM treatment since patient has been clinically deteriorating
ABG ->
Reviewed hypercarbia to patient and CPAP compliance
BIPAP placed, we discussed needing to use this nightly --> trying on nightly, using 3-4 hours
She notes it causes insomnia, will add melatonin
Known h/o basilar fibrotic and BE changes and also OLIVIA/M fortuitum
Followed by Dr Boyd
Patient opted for clinical observation re NTM- unclear if this should be treated with ongoing symptoms
She reports having significant chronic diarrhea and would not be excited about for antibiotics for a lengthy period of time to treat OLIVIA
Restrictive lung disease history--TLC 52% with VC 71% on most recent PFT from 10/2022
Restriction may be on the basis of generalized muscle strength and/or body habitus
DILLON with oxygen at night, 2 L --not on CPAP
She saw Dr. Benitez for oral appliance in the past/she is not using it needs adjustments
States that ever since she has gained weight recently the oral appliance device has been less effective
Was on chronic Xarelto for recurrent VTE, resume this now
Last dose on 05-18, has IVCF since June 2007, DOAC resumed 05-22-22
Pleural effusions noted on CT, LE edema
proBNP elevated
Resumed on IV lasix
If SOB not responding, may consider RHC
History of aspiration
VSE obtained
Prior Speech notes: history of moderate-severe pharyngeal dysphagia and left vocal fold paralysis, known to department from multiple (3) prior video swallow studies (last 05/23/2022) which at times revealed episodes of silent aspiration with liquids.
Patient now admitted with bibasilar PNA and reported 2 prior PNAs (November, February)
06/30 VSE eval - Patient presents with mild oral and moderate-severe pharyngeal dysphagia. There were small volumes of silent aspiration of thin liquids via consecutive cup sips (x1), thin liquids via cup with head turn left (x1), and moderately
thick liquids via tsp (x1). Aspirate cleared with cued cough.
Ongoing issues here as well
DVT prophylaxis-currently on LMWH 40mg sq qPM
GI prophylaxis- n/a
Nutrition
Early mobilization
Diagnostic Data
CXR 06/30/23- Small bilateral pleural effusions with bibasilar probable pneumonia, progressed. Probable mild pulmonary vascular congestion.
CXR 05-20 c/w 01-15-22. New ARLEEN lingular density and basilar infiltrate or atelectasis
CT Chest 06/08/23- Redemonstration of bilateral lower lobe parenchymal opacities and bronchiectasis. Findings may be on the basis of a chronic inflammatory/infectious process, scarring, and/or atelectasis. New small groundglass opacities in the
anterior left upper lobe, also suggestive of mild inflammation or infection.
CT Chest 08/02/22- . Trace bilateral pleural effusions and dependent bilateral lower lobe consolidations, similar to prior likely reflects combination of atelectasis and pneumonia.
Chest CTA 05-21-22 IMPRESSION: No evidence of central pulmonary embolism. Slightly prominent main pulmonary arteries bilaterally. Mild cardiomegaly. Left lower lobe opacification compatible with atelectasis and likely accompanying pneumonia. Right
lower lobe opacification compatible with atelectasis and some scarring. Cannot exclude superimposed right lower lobe pneumonia.
PET-CT 07-03-21 IMPRESSION:
1. � Pulmonary nodules in the upper lobes of both lungs (right more numerous than left) demonstrating moderate FDG uptake. The morphology of most of the nodules is suggestive of peripheral endobronchial impaction which is likely secondary to
peripheral endobronchial infection (possibly secondary to atypical Mycobacterial infection). Lung cancer is considered less likely.
2. � No evidence for FDG avid malignancy in the abdomen, pelvis, or skeleton.
3. � Moderate amount of scarring in the right lower lobe with associated volume loss and mild left to right mediastinal shift.
4. � Moderate cardiomegaly without evidence for acute pulmonary edema.
5. � Moderate calcific atherosclerotic plaque in the coronary arteries.
6. � Previous left mastectomy, left axillary lymph node dissection, and bilateral breast implant placement.
[facility] records
07/25/22 FVC 1.88L 68%, FEV1 1.43L 69%, ratio 76
05-13-22: Most recent PFT FVC 2.1L 72%, prior 2.11L 71%, TLC 67%, FEV1 1.86L 85%
ECHO 03/22/22: Normal biventricular size and systolic function without regional wall motion abnormality. Stage II diastolic dysfunction. Moderate left atrial enlargement. Mild to moderate mitral regurgitation. Aortic sclerosis without stenosis.
Moderate tricuspid regurgitation. Estimated PASP 45 mmHg and RA 3 mmHg. No significant change since the prior study of 03/21/2019 the LVEF has increased from 45-50%. LAE and MR are new. PASP could not be estimated on the prior study.
-----
Total time spent today was 55 minutes for this encounter. Time includes reviewing laboratory test/imaging results, reviewing pertinent medical records, obtaining and reviewing medical history, performing an appropriate exam, ordering medications,
tests and procedures. Time also includes documentation of this encounter, coordinating patient care and communicating with other healthcare professionals. Total time does not include separately billed tests performed on this date of service.
Subjective Data
-
Date of Service:
Date of Service: July 03, 2023
Chief Complaint: Pulmonary Follow Up
Subjective:
no events ON, remains on 6L
feels her cough is ongoing, feels worse, c/o fatigue
tolerating bipap but cannot sleep
Objective Data
Data Reviewed
Vital Signs / I&O / Oxygen:
Vital Signs
Temp Pulse Resp BP Pulse Ox
98.2 F 61 19 122/50 95
07/03/23 03:42 07/03/23 08:19 07/03/23 08:00 07/03/23 08:19 07/03/23 08:55
Intake and Output
07/02/23 07/03/23 07/04/23
06:59 06:59 06:59
Intake Total 955 / 955 580 / 580
Output Total 1700 / 1700 1350 / 1350
Balance -745 / -745 -770 / -770
SaO2 95
Nasal Cannula flow liters per 6
minute
Physical Exam
General: Respiratory Distress (negative) and Comfortable
HEENT: Normocephalic and Anicteric
Cardiovascular: S1-S2 and Peripheral Edema (Trace lower extremity edema bilaterally)
Respiratory: Crackles (Bilaterally), Rhonchi (Bilaterally), Non-Labored Respirations and Other (overall diminished)
GI: Soft, Non Distended, Non Tender and Normal Bowel Sounds
Neurology: Awake, Alert, Oriented, AO x 3, No Motor Deficits and Depressed
Skin: Warm, Dry and Cyanosis (negative)
Labs/Micro/Reports
Lab Data
07/03/23 05:25
07/03/23 05:25
Microbiology
06/30/23 18:26 Blood/Venous Blood Culture - Preliminary
No Growth in 48 hours- Final report to follow
06/30/23 18:26 Blood/Venous Blood Culture - Preliminary
No Growth in 48 hours- Final report to follow
07/01/23 16:10 Sputum Respiratory Culture - Preliminary
NO GROWTH
07/01/23 16:10 Sputum Gram Stain - Preliminary
07/01/23 00:47 Nose Nasal Screen MRSA (PCR) - Final
MRSA not detected - performed by PCR methodology.
06/30/23 19:06 Urine Legionella Urinary Antigen - Final
Negative for Legionella pneumophila Serogroup 1 antigen.
A negative result does not rule out the possiblity of
Legionella infection due to other serogroups or species of
Legionella. Clinical correlation is recommended.
06/30/23 19:06 Urine Streptococcus pneumoniae Antigen (M - Final
Negative for Streptococcus pneumoniae antigen.
A negative result does not exclude infection with
Streptococcus pneumoniae. Clinical correlation is
recommended.
07/01/23 00:47 Nasal Swab Influenza Types A & B (CM) - Final
Negative for Influenza A & B, NAAT
Negative results must be combined with clinical observations
and patient history.
Nucleic Acid Amplification test (NAAT)performed on the
[employer] platform.
--- NOTE | 2023-07-03 09:04 | W.PN.CD ---
Addendum entered and electronically signed by Patric Kim MD 07/03/23 12:03:
I saw and examined the patient.
The MEDICAL CONCIERGE's note was reviewed and I agree with the note.
Comment: 73F with multifactorial dyspnea -> diurese to goal weight of 200 - 203 lbs.
Original Note:
Today's Communication / Plan
-
continue IV Lasix BID, goal weight 200 - 203 lbs
Impression / Plan
-
Acute hypoxic respiratory failure:
-improved, now on 6L NC
-being treated for PNA (abx), lung disease (pulm following), and acute HFpEF with diuresis with good result
Acute HFpEF:
-patient thinks dry weight is about 200-203 lbs. currently 206 lbs.
-she started gaining weight when she started steroids
-continue with IV diuresis, which requires intensive monitoring
-monitor hypokalemia with replacement
-most recent echo as below, check echo today
RBBB:
-chronic, stable
Abnormal troponin:
-likely acute non-ischemic myocardial injury in setting of acute illness as described above
-denies any CP
-check echo today
Physical Exam
Vital Signs/Labs
Vital Signs
Temp Pulse Resp BP Pulse Ox
98.2 F 61 19 122/50 95
07/03/23 03:42 07/03/23 08:19 07/03/23 08:00 07/03/23 08:19 07/03/23 08:55
07/02/23 07/03/23 07/04/23
06:59 06:59 06:59
Actual Weight 95.5 kg 94.1 kg
07/03/23 05:25
07/03/23 05:25
PT 15.2 Sec (11.4-14.6) H 06/30/23 18:18
INR 1.21 06/30/23 18:18
APTT 35.0 Sec (23.4-35.0) 06/30/23 18:18
Magnesium 2.1 mg/dl (1.6-2.3) 07/01/23 04:32
Triglycerides 80 mg/dl (10-149) 07/01/23 04:32
LDL Cholesterol, Calc 38 mg/dl 07/01/23 04:32
VLDL Cholesterol, Calc 16 mg/dl (0-30) 07/01/23 04:32
HDL Cholesterol 82 mg/dl 07/01/23 04:32
06/30/23
18:18
[id number] Pept 1020
LAB Results
06/30/23 07/01/23 07/01/23
18:18 00:46 04:32
Troponin I 0.023 0.057 H* D 0.036 H* D
Physical Exam
Constitutional: No acute distress and Comfortable
EENT: Anicteric and Moist mucous membranes
Cardiovascular: Rhythm & rate is regular
Respiratory: Wheeze Present (diffuse) and Rhonchi Present (diffuse)
GI: Soft, Non tender and Normal bowel sounds
Neuro/Psych: AO x 3
Other: Skin (warm, dry)
Data Reviewed
-
Date of Service: July 03, 2023
Medical Decision Making: Reviewed Test Results
EKG: Tracing Personally Visualized and interpreted
Echo: Report Reviewed by me
Labs: Labs Reviewed by me
--- NOTE | 2023-07-03 12:05 | W.PN.HOSP.TC ---
Today's Communication/Plan
-
Echocardiogram today
Assessment / Plan
Assessment / Plan
73-year-old with past medical history for CAD, hypertension, hyperlipidemia, depression, congestive heart failure, pneumonia presented to us with short of breath since last night. Short of breath progressively got worse today. Patient uses 3 L of
oxygen at nighttime. Review of system is very limited. History primarily obtained from nurse. As per EMS, patient was 43 on room air. Patient was supplemented with CPAP, oxygenating high 80s. At present patient is requiring BiPAP.
Chest x-ray with small bilateral pleural effusion with bibasilar probable pneumonia progressed. Probable mild pulmonary vascular congestion. Patient had fever. Patient received dose of Tylenol, Lasix, nitro, Zosyn and Vanco in ER. Blood culture
sent from ER
Acute on chronic hypoxic respiratory failure likely multifactorial (pneumonia and CHF)
-Significance CO2 retention on presentation somnolent
-Patient requiring BiPAP
-Continue supplemental oxygen to keep sats greater than 92
-Wean as tolerated
-Treat underlying pneumonia and CHF
Acute CHF Exacerbation:
Patient has acute on chronic diastolic congestive heart failure
Patient presented with shortness of breath.
BNP level is elevated at 1020
Troponin level is 0.023
Continue IV diuresing in form of Lasix 40 mg twice daily
Daily weight.
Strict I's and O's.
Consulted cardiology.
Repeat echo pending for today
Severe sepsis with acute organ dysfunction (acute respiratory failure and acute metabolic) secondary to hospital-acquired pneumonia
-chest x-ray with small bilateral pleural effusions with bibasilar probable pneumonia progressed. Probable mild pulmonary vascular congestion
-Sepsis as evident by WBC 17.0, temp 103.3/white count still escalating to 25,000 trend
-IV Vanco and Zosyn continued
-Since MRSA negative will discontinue IV Vanco
-Blood culture sent from ER
-Appreciate pulmonology and cardiology input.
Acute metabolic encephalopathy
Secondary to sepsis
Mental status improved
History of restrictive lung disease
-Budesonide continued
-Albuterol as needed for short of breath and wheezing
-Nursing Technician/pulmonary to see
Essential Hypertension
-resumed Coreg, and losartan .
Hyperlipidemia
- Atorvastatin
COPD
Continue Budesonide and DuoNeb
Prior DVT/PE
- Xarelto
Bipolar Disorder
-resumed Lamictal Aripiprazole, Bupropion, Clonazepam .
Type II NH-nonischemic myocardial injury
-Now trending down
-Presumed nonischemic origin in relation to combination of respiratory failure and CHF
Hypothyroidism
- Synthroid
Breast CA s/p Left Mastectomy
Code Status: Full Code
DVT ppx: Xarelto
Anticipated Discharge: > 48 hours
Subjective/Interval History
-
Date of Service: July 03, 2023
Patient seen and examined at bedside, denies any chest pain, still with shortness of breath, no back to baseline yet, no abdominal pain, no nausea, no vomiting, no diarrhea or constipation.
Objective Data
-
Labs:
Laboratory Results
07/03/23 07/03/23
04:08 05:25
WBC Cancelled 9.4
Hgb Cancelled 10.5 L
Hct Cancelled 34.8 L
Plt Count Cancelled 184
Sodium Cancelled 139
Potassium Cancelled 3.3 L
Chloride Cancelled 89 L
Carbon Dioxide Cancelled 40 H
BUN Cancelled 33 H
Creatinine Cancelled 0.9
Glucose Cancelled 99
Calcium Cancelled 9.3
Vital Signs:
Vital Signs
Temp Pulse Resp BP Pulse Ox
98.2 F 83 20 109/70 97
07/03/23 03:42 07/03/23 10:00 07/03/23 10:00 07/03/23 10:00 07/03/23 10:00
I&O
07/02/23 07/03/23 07/04/23
06:59 06:59 06:59
Intake Total 955 / 955 580 / 580
Output Total 1700 / 1700 1350 / 1350
Balance -745 / -745 -770 / -770
Physical Exam
-
General: Well Developed and No Apparent Distress
HEENT: Normocephalic, Atraumatic and Moist Mucous Membranes
Respiratory: Rales and Rhonchi
Cardiac: Regular Rhythm and S1/S2; Negative Murmur, Rub or Gallop
GI: Soft, Nontender, Nondistended and Normal Bowel Sounds; Negative Organomegaly
Rectal: Deferred by Provider
Musculoskeletal: No Clubbing, No Cyanosis, No Edema, Edema, Left Upper Extrem and Edema, Right Lower Extrem
Skin: Negative Rash
Neuro: Nonfocal/Grossly Intact
[2023-07-03] MEDS: TESSALON PERLES 200 MG PO (12:38)
[2023-07-03] MEDS: KCL 40 MEQ PO (12:57)
--- NOTE | 2023-07-03 14:21 | CON.ID ---
Chief Complaint / Past History
History of Present Illness
Alexandrea Levin is a 73-year-old female being evaluated at the request of Dr. Baker in regards to pneumonia and history of NTM. History is obtained from chart review, along with patient interview, and review of old records contained in the hospital
and outpatient EMR systems.
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
She recently was seen in the office with a suspected flare of bronchiectasis. Cultures subsequent to that visit are now growing Serratia marcescens.
The patient presented to the emergency room on 06/29 via EMS. She notes that she had been experiencing increasing shortness of breath over the prior several days. She was supposed to be see Pulmonary that day, but slept through the appointment.
When security found her in her room she appeared very ill and the EMS was called. Since admission she has been started on steroid therapy. She has also been placed on BiPAP, but has improved to the point that she no longer needs it.
She reports ongoing nasal mucus production which is described as lightish pink in color. She also reports ongoing cough, but finds it more difficult to bring up sputum. She notes significant chest congestion. She denies any fevers or chills,
though.
Past History
Additional Past Medical History:
COPD, cough variant asthma
Bronchiectasis
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
CAD
HTN
HLD
Hypothyroidism
DILLON on oral appliance and O2 2L, intolerant to CPAP secondary to frequent nocturia
LE lymphedema
Depression s
Bipolar disease
Presbyesophagus, silent aspiration, esophageal stricture
DVT
LE venous insuffuciency / stasis disease
Additional Past Surgical History:
L breast cancer, s/p mastectomy
L shoulder arthroplasty
Bilateral breast implants (ruptured R implant)
Colon resection for diverticulitis
Allergy History:
carbamazepine Allergy (Verified 02/05/21 14:53)
Hives, rash
chlorhexidine [From Hibiclens] Allergy (Verified 05/09/22 14:10)
Itching, rash, 'chemical burn'
ciprofloxacin [From Cipro] Allergy (Verified 05/21/22 20:25)
neuropathy after stopping it
doxycycline Allergy (Verified 11/26/22 09:22)
Rash
house dust Allergy (Verified 05/09/22 14:10)
Sneezing, eyes watery
Penicillins Allergy (Verified 08/03/22 17:57)
Hives as a child - tolerates ampicillin
Sulfa (Sulfonamide Antibiotics) Allergy (Verified 02/05/21 14:53)
Hives
venom-honey bee Allergy (Verified 05/09/22 14:10)
Rash
Medications Reviewed: Yes
Current Antibiotics:
Zosyn (d#4)
Social History
Tobacco: Former Smoker
Alcohol: None
Drug: None
Personal:
Living: With Family
Employment: Retired
Family History
Family History: Not Pertinent
Review of Systems
Vital Signs
Temp Pulse Resp BP Pulse Ox
98.0 F 83 22 139/67 92
07/03/23 11:18 07/03/23 14:00 07/03/23 14:00 07/03/23 13:14 07/03/23 14:00
Physical Exam
Physical Exam
Constitutional: No Acute Distress, Comfortable, Chronically Ill, Non-toxic and Obese
Eyes: Pupils Equal, Pupils Round, No Conjunctival Hemorrhage and Sclera Anicteric
Oral: No Thrush and No Ulcers
Cardiovascular: Regular Rate and S1/S2; Negative S3/S4
Pulmonary: Clear; Negative Wheezes, Rales or Rhonchi
Gastrointestinal: Soft, Non Tender, Non Distended, Normal Bowel Sounds and No Rebound
Extremities: Edema (2+ LE) and Venous Insufficiency (B/L LE's); Negative Cyanosis or Erythema
Skin: Warm and Dry; Negative Rash or Jaundice
Neurological: Awake and Alert
Psychological: Calm
.
Lab / Diagnostic Study Results
07/03/23 05:25
07/03/23 05:25
Abs Immat Gran (auto) 0.1 10^3/uL (0-0.05) H 06/30/23 18:18
Absolute Neuts (auto) 15.5 10^3/uL (1.4-6.5) H 06/30/23 18:18
Absolute Lymphs (auto) 0.7 10^3/uL (1.2-3.4) L 06/30/23 18:18
Absolute Monos (auto) 0.7 10^3/uL (0.1-0.6) H 06/30/23 18:18
Absolute Basos (auto) 0.1 10^3/uL (0-0.2) 06/30/23 18:18
Immature Gran % 0.5 % (0-0.5) 06/30/23 18:18
Neutrophils % 91.2 % (42.2-75.2) H 06/30/23 18:18
Lymphocytes % 3.9 % (20.5-51.1) L 06/30/23 18:18
Monocytes % 4.0 % (1.7-9.3) 06/30/23 18:18
Eosinophils % 0.1 % (0-6) 06/30/23 18:18
Basophils % 0.3 % (0-2) 06/30/23 18:18
PT 15.2 Sec (11.4-14.6) H 06/30/23 18:18
INR 1.21 06/30/23 18:18
Lactic Acid Cancelled 06/30/23 22:30
Procalcitonin 1.27 ng/ml (0.0-0.25) H 07/03/23 05:25
Ur Squamous Epith Cells 0-2 /LPF (Few) 06/30/23 19:06
Microbiology Results
Micro:
07/01/23 16:10 Respiratory Culture - Final
Sputum Usual Respiratory Nai
Gram Stain - Final
06/30/23 18:26 Blood Culture - Preliminary
Blood/Venous No Growth in 48 hours- Final report to follow
06/30/23 18:26 Blood Culture - Preliminary
Blood/Venous No Growth in 48 hours- Final report to follow
07/01/23 00:47 Nasal Screen MRSA (PCR) - Final
Nose MRSA not detected - performed by PCR methodology.
06/30/23 19:06 Legionella Urinary Antigen - Final
Urine Negative for Legionella pneumophila Serogroup 1 antigen.
A negative result does not rule out the possiblity of
Legionella infection due to other serogroups or species of
Legionella. Clinical correlation is recommended.
Streptococcus pneumoniae Antigen (M - Final
Negative for Streptococcus pneumoniae antigen.
A negative result does not exclude infection with
Streptococcus pneumoniae. Clinical correlation is
recommended.
07/01/23 00:47 Influenza Types A & B (CM) - Final
Nasal Swab Negative for Influenza A & B, NAAT
Negative results must be combined with clinical observations
and patient history.
Nucleic Acid Amplification test (NAAT)performed on the
[employer] platform.
Imaging:
07/03/2023 CXR (portable): Decreased vascular congestion and interstitial edema noted. Small bilateral pleural effusions with adjacent atelectasis/consolidation noted, and slightly decreased when compared to prior. Please see full dictation for
additional detail.
Assessment / Plan
Exacerbation of COPD
Exacerbation of bronchiectasis
Serratia bronchitis (vs PNA)
Hx mycobacterial infection (OLIVIA / M. fortuitum); observation
CAD
HTN
HLD
Hypothyroidism
DILLON on oral appliance and O2 2L, intolerant to CPAP secondary to frequent nocturia
LE lymphedema
Depression s
Bipolar disease
Presbyesophagus, silent aspiration, esophageal stricture
DVT
LE venous insuffuciency / stasis disease
Recommendations:
Consolidate antibiotics to cefepime 2 g IV every 12 hours.
If patient continues to improve, antimicrobial therapy can be transition to oral cefdinir to complete an additional 7 to 10 days of therapy.
Would continue to hold on mycobacterial therapy. Cultures are currently pending. Therapy can be initiated as an outpatient if necessary.
Continue with incentive spirometry and Acapella device to mobilize secretions.
Monitor for clinical improvement.
[2023-07-03] MEDS: STERILE WATER FOR INJECTION 10 ML IV (16:17)
[2023-07-03] MEDS: MAXIPIME 2000 MG IV (16:17)
[2023-07-03] MEDS: NEURONTIN 100 MG PO ×2 (16:18→20:21)
--- NOTE | 2023-07-03 16:21 | CM ---
Patient from [facility] with Dx Acute hypoxic respiratory failure, HF, PNA. O2 6L. Receiving IV Abx, IV Lasix. PT & OT recommend skilled rehab.
Message from Dr Romeo: possibly ready for d/c Thu-.
Spoke with patient who agrees to [facility] for rehab when medically ready. She says she told her daughter in law Radha she would be going to [facility].
Spoke with Stacy Adame ABHAY [facility] (cell [phone]); she is covering for [facility] today through Thursday for [facility] Admits. They are able to accept this patient and have an available bed on Thursday or Thursday, whenever she is ready. NPIs for
insurance auth: [facility] [id number], Dr Mikal Red [id number]. CM can call or TT her the auth when obtained.
Plan initiate insurance auth for [facility] Thursday for Thursday.
Plan [facility] Thu- when medically ready and auth obtained.
[2023-07-03] MEDS: CLARITIN 10 MG PO (17:09)
[2023-07-03] MEDS: XARELTO 20 MG PO (17:09)
[2023-07-03] MEDS: COZAAR 25 MG PO (17:09)
[2023-07-03] MEDS: ABILIFY 5 MG PO (17:09)
[2023-07-03] MEDS: LIPITOR 10 MG PO (17:11)
--- NOTE | 2023-07-03 17:35 | PTCARENOTE ---
Patient has been up to [facility] and in the chair twice today. Had large BM. Pt standby with RW but pt reports feeling week. Occasional dizziness with sitting up but BP stable and not orthostatic. Pt did c/o of congestion/cough today, attempting to blow
nose but only small amounts of mucus coming out. ordered Claritin and PRN Tessalon Perles and nasal spray. Assessment, care and VS as charted.
[2023-07-03] MEDS: COREG 6.25 MG PO (20:21)
[2023-07-03] MEDS: MUCINEX 1200 MG PO (20:21)
[2023-07-03] MEDS: WELLBUTRIN SR (12 hour sustained release) 100 MG PO (20:21)
[2023-07-03] MEDS: LAMICTAL 100 MG PO (20:21)
[2023-07-03] MEDS: KLONOPIN 0.5 MG PO (20:21)
[2023-07-04] VITALS (13 sets, daily range): BP systolic 105–133; BP diastolic 60–77; PULSE 2–67; BMI 33.8
[2023-07-04] MEDS: MAXIPIME 2000 MG IV ×2 (03:31→15:27)
[2023-07-04] MEDS: STERILE WATER FOR INJECTION 10 ML IV ×2 (03:31→15:27)
[2023-07-04 04:45] LABS: Mean Corp Hgb Conc. 29.7 g/dL (33.0-37.0); Mean Corpuscular Hgb 25.9 pg (27.0-31.0); Mean Corpuscular Volume 87.1 fL (81.0-99.0); Mean Platelet Volume 9.7 fL (7.4-10.4); Platelet Count 194 10^3/uL (130-400); Red Blood Cell Count 4.25 10^6/uL (4.20-5.40); Red Cell Dist. Width 15.8 % (11.5-14.5); White Blood Cell Count 8.8 10^3/uL (4.8-10.8)
[2023-07-04 05:25] LABS: Blood Urea Nitrogen 37 mg/dl (7-17); Calcium 9.6 mg/dl (8.4-10.2); Chloride 92 mmol/L (98-107); Estimated Creatinine Clearance 62 ml/min; Glucose 90 mg/dl (70-99); Potassium 3.7 mmol/L (3.5-5.1); Sodium 141 mmol/L (135-145); eGFR > 60.00
[2023-07-04 05:27] LABS: Carbon Dioxide 41 mmol/L (22-30)
[2023-07-04] MEDS: SYNTHROID 175 MCG PO (06:14)
--- NOTE | 2023-07-04 06:37 | PTCARENOTE ---
No acute events overnight. Tolerated BIPAP.
[2023-07-04] MEDS: CLARITIN 10 MG PO (07:46)
[2023-07-04] MEDS: MUCINEX 1200 MG PO ×2 (07:46→19:48)
[2023-07-04] MEDS: COREG 6.25 MG PO ×2 (07:46→19:48)
[2023-07-04] MEDS: PROTONIX 40 MG PO (07:46)
[2023-07-04] MEDS: KCL 40 MEQ PO (07:46)
[2023-07-04] MEDS: TESSALON PERLES 200 MG PO ×2 (07:46→17:59)
[2023-07-04] MEDS: NEURONTIN 100 MG PO ×3 (07:47→19:48)
[2023-07-04] MEDS: WELLBUTRIN SR (12 hour sustained release) 100 MG PO ×2 (07:47→19:48)
[2023-07-04] MEDS: LAMICTAL 100 MG PO ×2 (07:47→19:48)
[2023-07-04] MEDS: LASIX 40 MG IV ×2 (07:47→15:27)
[2023-07-04] MEDS: SPIRIVA RESPIMAT 2.5 MCG 2 PUFF INH (08:02)
[2023-07-04] MEDS: SYMBICORT 160/4.5 MCG INHALER 2 PUFF INH ×2 (08:03→19:54)
--- NOTE | 2023-07-04 08:39 | W.PN.CD ---
Today's Communication / Plan
-
Another day of IV bid diuresis
BMP in AM
Impression / Plan
-
Acute hypoxic respiratory failure:
-improved, now on 6L NC
-being treated for PNA (abx), lung disease (pulm following), and acute HFpEF with diuresis with good result
Acute HFpEF:
-patient thinks dry weight is about 200-203 lbs. (91-92 kg) currently 92.2 kg
-she started gaining weight when she started steroids
-continue with IV diuresis, which requires intensive monitoring
-monitor hypokalemia with replacement
-Echo 07/03/2023: LVEF 50%, no signif valve dz, TDS, PASP could not be estimated
-Can consider more GDMT as outpatiient (SGLT2-I, MRA, etc)
RBBB:
-chronic, stable
Abnormal troponin:
-likely acute non-ischemic myocardial injury in setting of acute illness as described above
-denies any CP
-check echo today
Subjective:
Feels better this morning
Physical Exam
Vital Signs/Labs
Vital Signs
Temp Pulse Resp BP Pulse Ox
97.6 F 74 20 117/64 96
07/04/23 04:09 07/04/23 08:11 07/04/23 08:11 07/04/23 08:00 07/04/23 08:29
07/03/23 07/04/23 07/05/23
06:59 06:59 06:59
Actual Weight 94.1 kg 92.2 kg
07/04/23 04:12
07/04/23 04:12
PT 15.2 Sec (11.4-14.6) H 06/30/23 18:18
INR 1.21 06/30/23 18:18
APTT 35.0 Sec (23.4-35.0) 06/30/23 18:18
Magnesium 2.1 mg/dl (1.6-2.3) 07/01/23 04:32
Triglycerides 80 mg/dl (10-149) 07/01/23 04:32
LDL Cholesterol, Calc 38 mg/dl 07/01/23 04:32
VLDL Cholesterol, Calc 16 mg/dl (0-30) 07/01/23 04:32
HDL Cholesterol 82 mg/dl 07/01/23 04:32
06/30/23
18:18
Htf-K-Csbhfgvrbhi Pept 1020
Physical Exam
EENT: Anicteric
Cardiovascular: Rhythm & rate is regular and Pedal edema is absent
Respiratory: Respiratory effort normal and Lungs clear to auscul.
GI: Soft and Distention absent
Neuro/Psych: Alert
Data Reviewed
-
Date of Service: July 04, 2023
[2023-07-04] MEDS: OCEAN, SALINE MIST 2 SPRAYS NASAL (08:59)
--- NOTE | 2023-07-04 09:31 | W.PN.ID1 ---
Date of Service
Date of Service: July 04, 2023
Today's Communication
Continue cefepime.
Assessment / Plan
Exacerbation of COPD
Exacerbation of bronchiectasis
Serratia bronchitis (vs PNA)
Hx mycobacterial infection (OLIVIA / M. fortuitum); observation
CAD
HTN
HLD
Hypothyroidism
DILLON on oral appliance and O2 2L, intolerant to CPAP secondary to frequent nocturia
LE lymphedema
Depression s
Bipolar disease
Presbyesophagus, silent aspiration, esophageal stricture
DVT
LE venous insuffuciency / stasis disease
Recommendations:
Consolidate antibiotics to cefepime 2 g IV every 12 hours (d4 abx)
If patient continues to improve, antimicrobial therapy can be transition to oral cefdinir to complete an additional 7 to 10 days of therapy.
Would continue to hold on mycobacterial therapy. Cultures are currently pending. Therapy can be initiated as an outpatient if necessary.
Continue with incentive spirometry and Acapella device to mobilize secretions.
Monitor for clinical improvement.
Chief Complaint
-: Pneumonia
Subjective / Review of Systems
SOB slightly better.
Vital Signs / Physical Exam
Vital Signs
Vital Signs
Temp Pulse Resp BP Pulse Ox
97.6 F 74 20 117/64 96
07/04/23 04:09 07/04/23 08:11 07/04/23 08:11 07/04/23 08:00 07/04/23 08:29
Physical Exam
Constitutional: No Acute Distress
Pulmonary: Other (Decreased BS bilaterally)
Gastrointestinal: Soft, Non Tender and Non Distended
Objective Data
Lab Data
Lab Results
07/04/23 04:12
07/04/23 04:12
PT 15.2 Sec (11.4-14.6) H 06/30/23 18:18
INR 1.21 06/30/23 18:18
APTT 35.0 Sec (23.4-35.0) 06/30/23 18:18
Estimated Creat Clear 62 ml/min 07/04/23 04:12
Lactic Acid Cancelled 06/30/23 22:30
Total Bilirubin 1.5 mg/dl (0.2-1.3) H 07/01/23 04:32
AST 31 U/L (14-36) 07/01/23 04:32
ALT 16 U/L (0-35) 07/01/23 04:32
Alkaline Phosphatase 46 U/L (38-126) 07/01/23 04:32
Most recent labs reviewed.
Micro Results:
06/30/23 18:26 Blood Culture - Preliminary
Blood/Venous No Growth in 72 hours- Final report to follow
06/30/23 18:26 Blood Culture - Preliminary
Blood/Venous No Growth in 72 hours- Final report to follow
07/01/23 16:10 Respiratory Culture - Final
Sputum Usual Respiratory Nai
Gram Stain - Final
07/01/23 00:47 Nasal Screen MRSA (PCR) - Final
Nose MRSA not detected - performed by PCR methodology.
06/30/23 19:06 Legionella Urinary Antigen - Final
Urine Negative for Legionella pneumophila Serogroup 1 antigen.
A negative result does not rule out the possiblity of
Legionella infection due to other serogroups or species of
Legionella. Clinical correlation is recommended.
Streptococcus pneumoniae Antigen (M - Final
Negative for Streptococcus pneumoniae antigen.
A negative result does not exclude infection with
Streptococcus pneumoniae. Clinical correlation is
recommended.
07/01/23 00:47 Influenza Types A & B (CM) - Final
Nasal Swab Negative for Influenza A & B, NAAT
Negative results must be combined with clinical observations
and patient history.
Nucleic Acid Amplification test (NAAT)performed on the
[employer] platform.
Imaging:
07/03/2023 CXR (portable): Decreased vascular congestion and interstitial edema noted. Small bilateral pleural effusions with adjacent atelectasis/consolidation noted, and slightly decreased when compared to prior. Please see full dictation for
additional detail.
--- NOTE | 2023-07-04 09:40 | W.PN.PUL3 ---
Today's Communication / Plan
-
Serratia in sputum but repeat negative, not sure if NTM should be treated now since she has been clinically deteriorating overall
ID consulted
Continue BIPAP nightly, PT/OT, OOB--deconditioning is an issue
Added melatonin for insomnia complaints
Lasix IV ongoing
Wean O2 as tolerated
Assessment
-
73-year-old with past medical history for CAD, hypertension, hyperlipidemia, depression, congestive heart failure, OLIVIA pneumonia not on abx, DILLON not on CPAP presenting to ER for progressive shortness of breath over several days but acutely worse
day of admission. As per EMS, patient was 43% on room air. ABG obtained showing acute CO2 retention with pH 7.29/86 and placed on BIPAP. Chest x-ray with small bilateral pleural effusion with bibasilar probable pneumonia progressed. Sputum
recently on 06/26/23 obtained showing + serratia. She has history of OLIVIA-colonized and see ID as OP. Has not yet started abx treatment. Admitted to IMU, we are consulted for pulmonary eval.
Impression:
Acute hypoxic and hypercarbic respiratory failure due to suspected bronchiectasis flare in setting of ADHF + asthma (not currently in an asthmatic flare)
Chronic respiratory failure on long-term oxygen therapy (3L/min NC)
Serratia PNA - seen on sputum Cx from 06/26/2023 ordered by ID on 06/18/2023 after she saw them in office due to suspected bronchiectasis flare
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
Leukocytosis
Elevated trops
Mild DHF component
B/L effusions and/or PNA on CXR
Noncompliance with PAP
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
Post abd surgery done in April 2007: adm 04/15-09/10, presented in septic shock with diffuse peritonitis, s/p subtotal abdominal colectomy (necrotizing colitis)
Discharged with a large open abdominal wound
Readm June 1007, CT abd/p showed bilateral DVT on 06-28-07
Bilateral CHUCKY DVT 06-28-07
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
Reportedly h/o DVT in past (prior to above)
CHUCKY venous insufficiency, s/p bilateral endovenous laser ablation procedures by [facility] 2018
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
Cough variant asthma and history of hypereosinophilia (abs. eos were 3000 in January 2022); bilateral pulmonary nodules:
follows Dr Boyd, last visit 02-27-22,
on trelegy; albuterol/ipratropium and budesonide nebulizers
Patient chronically uses 3 L of oxygen at nighttime.
H/o hemoptysis, negative sputum cytology 05-25-17, hemoptysis May 2021 and Dec 2021 (mild)
Presbyesophagus, silent aspiration, esophageal stricture
history of moderate-severe pharyngeal dysphagia and left vocal fold paralysis
CAD
HTN
HLD
Hypothyroidism
DILLON on oral appliance and O2 2L, intolerant to CPAP secondary to frequent nocturia
CHUCKY lymphedema
Depression s/p ECT
Bipolar disease
L breast cancer, s/p mastectomy
L shoulder arthroplasty
Bilateral breast implants (ruptured R implant)
Colon resection for diverticulitis
Former smoker: 20 pyh, quit 1998
Plan
Patient's respiratory status is poor, on 92-93% on 6L/min currently
Only using O2 at night per patient, 3L baseline
Poor cough, weak voice, airway clearance likely an issue
Continue Mucolytic's/Incentive spirometry/Acapella, may need vest therapy if still having difficulty expectorating
Recent sputum reviewed
Total culture results reviewed--
Re-check sputum culture 06/30 negative
Sputum 06/26/23 + Serratia
05/26/23 + OLIVIA
09/15/22 + Serratia
07/23/22 + MRSA
Sputum 10/09/21 + OLIVIA
09/17/21 + OLIVIA
07/29/21 + OLIVIA
Urine 04/01/19 + E. Coli, 08/26/17 + E. Coli/Kleb
Was on Zosyn --> changed to cefepime per ID
FOllow up sputum Cx from 07/01/2023
Procal 1.27 - 07/03/2023
Of note, pt does NOT have COPD - last FEV1/FVC: 87 (116% predicted) via PFT from 10/2022, and prior to that her FEV1/FVC was 89 (119% predicted) via PFT from 12/2021 - she has suspected asthma w/ cough --> continue Symbicort and Spiriva, and consider
steroids if she develops wheezing
Bronchiectasis is noted on CT
ABG 7. -> 7.30 on 07/01/2023
Reviewed hypercarbia to patient and CPAP compliance
BIPAP placed, we discussed needing to use this nightly --> trying on nightly, using 3-4 hours
She notes it causes insomnia, added prn melatonin
Known h/o basilar fibrotic and BE changes and also OLIVIA/M fortuitum
Followed by Dr Boyd
Patient opted for clinical observation re NTM- unclear if this should be treated with ongoing symptoms
She reports having significant chronic diarrhea and would not be excited about for antibiotics for a lengthy period of time to treat OLIVIA
Restrictive lung disease history--TLC 52% with VC 71% on most recent PFT from 10/2022
Restriction may be on the basis of generalized muscle strength and/or body habitus
DILLON with oxygen at night, 2 L --not on CPAP
She saw Dr. Benitez for oral appliance in the past/she is not using it needs adjustments
States that ever since she has gained weight recently the oral appliance device has been less effective
Was on chronic Xarelto for recurrent VTE, resumed on 07/02
Last dose on 05-18, has IVCF since June 2007, DOAC resumed 05-22-22
Pleural effusions noted on CT, LE edema
proBNP elevated
Resumed on IV lasix on 07/01/2023
If SOB not responding, may consider RHC
History of aspiration
VSE obtained
Prior Speech notes: history of moderate-severe pharyngeal dysphagia and left vocal fold paralysis, known to department from multiple (3) prior video swallow studies (last 05/23/2022) which at times revealed episodes of silent aspiration with liquids.
Patient now admitted with bibasilar PNA and reported 2 prior PNAs (November, February)
06/30 VSE eval - Patient presents with mild oral and moderate-severe pharyngeal dysphagia. There were small volumes of silent aspiration of thin liquids via consecutive cup sips (x1), thin liquids via cup with head turn left (x1), and moderately
thick liquids via tsp (x1). Aspirate cleared with cued cough.
Ongoing issues here as well
DVT prophylaxis-xarelto
GI prophylaxis- n/a
Nutrition
Early mobilization
(Patient was seen and evaluated on 07/04/2023)
Diagnostic Data
CXR 06/30/23- Small bilateral pleural effusions with bibasilar probable pneumonia, progressed. Probable mild pulmonary vascular congestion.
CXR 05-20 c/w 01-15-22. New ARLEEN lingular density and basilar infiltrate or atelectasis
CT Chest 06/08/23- Redemonstration of bilateral lower lobe parenchymal opacities and bronchiectasis. Findings may be on the basis of a chronic inflammatory/infectious process, scarring, and/or atelectasis. New small groundglass opacities in the
anterior left upper lobe, also suggestive of mild inflammation or infection.
CT Chest 08/02/22- . Trace bilateral pleural effusions and dependent bilateral lower lobe consolidations, similar to prior likely reflects combination of atelectasis and pneumonia.
Chest CTA 05-21-22 IMPRESSION: No evidence of central pulmonary embolism. Slightly prominent main pulmonary arteries bilaterally. Mild cardiomegaly. Left lower lobe opacification compatible with atelectasis and likely accompanying pneumonia. Right
lower lobe opacification compatible with atelectasis and some scarring. Cannot exclude superimposed right lower lobe pneumonia.
PET-CT 07-03-21 IMPRESSION:
1. � Pulmonary nodules in the upper lobes of both lungs (right more numerous than left) demonstrating moderate FDG uptake. The morphology of most of the nodules is suggestive of peripheral endobronchial impaction which is likely secondary to
peripheral endobronchial infection (possibly secondary to atypical Mycobacterial infection). Lung cancer is considered less likely.
2. � No evidence for FDG avid malignancy in the abdomen, pelvis, or skeleton.
3. � Moderate amount of scarring in the right lower lobe with associated volume loss and mild left to right mediastinal shift.
4. � Moderate cardiomegaly without evidence for acute pulmonary edema.
5. � Moderate calcific atherosclerotic plaque in the coronary arteries.
6. � Previous left mastectomy, left axillary lymph node dissection, and bilateral breast implant placement.
[facility] records
07/25/22 FVC 1.88L 68%, FEV1 1.43L 69%, ratio 76
05-13-22: Most recent PFT FVC 2.1L 72%, prior 2.11L 71%, TLC 67%, FEV1 1.86L 85%
ECHO 03/22/22: Normal biventricular size and systolic function without regional wall motion abnormality. Stage II diastolic dysfunction. Moderate left atrial enlargement. Mild to moderate mitral regurgitation. Aortic sclerosis without stenosis.
Moderate tricuspid regurgitation. Estimated PASP 45 mmHg and RA 3 mmHg. No significant change since the prior study of 03/21/2019 the LVEF has increased from 45-50%. LAE and MR are new. PASP could not be estimated on the prior study.
-----
Total time spent today was 35 minutes for this encounter. Time includes reviewing laboratory test/imaging results, reviewing pertinent medical records, obtaining and reviewing medical history, performing an appropriate exam, ordering medications,
tests and procedures. Time also includes documentation of this encounter, coordinating patient care and communicating with other healthcare professionals. Total time does not include separately billed tests performed on this date of service.
Subjective Data
-
Date of Service:
Date of Service: July 04, 2023
Chief Complaint: Pulmonary Follow Up
Subjective:
Pt seen today - she is on 6L/min NC, saturating 98%, HR 69 and RR 19. No acute events reported overnight. Denies chest pain, SALES, abd pain, N/f/c.
Review of Systems
General: Other (neg unless mentioned above)
Objective Data
Data Reviewed
Vital Signs / I&O / Oxygen:
Vital Signs
Temp Pulse Resp BP Pulse Ox
97.6 F 74 20 117/64 96
07/04/23 04:09 07/04/23 08:11 07/04/23 08:11 07/04/23 08:00 07/04/23 08:29
Intake and Output
07/03/23 07/04/23 07/05/23
06:59 06:59 06:59
Intake Total 580 / 580 340 / 340
Output Total 1350 / 1350 1150 / 1150
Balance -770 / -770 -810 / -810
SaO2 96
Nasal Cannula flow liters per 6
minute
Physical Exam
General: Respiratory Distress (negative) and Comfortable
HEENT: Normocephalic and Anicteric
Cardiovascular: S1-S2 and Peripheral Edema (Trace lower extremity edema bilaterally)
Respiratory: Wheeze (n), Crackles (Bibasilar), Rhonchi (Bilaterally), Non-Labored Respirations and Other (overall diminished)
GI: Soft, Non Distended, Non Tender and Normal Bowel Sounds
Neurology: AO x 3 and No Motor Deficits
Skin: Warm, Dry and Cyanosis (negative)
Labs/Micro/Reports
Lab Data
07/04/23 04:12
07/04/23 04:12
Microbiology
06/30/23 18:26 Blood/Venous Blood Culture - Preliminary
No Growth in 72 hours- Final report to follow
06/30/23 18:26 Blood/Venous Blood Culture - Preliminary
No Growth in 72 hours- Final report to follow
07/01/23 16:10 Sputum Respiratory Culture - Final
Usual Respiratory Nai
07/01/23 16:10 Sputum Gram Stain - Final
07/01/23 00:47 Nose Nasal Screen MRSA (PCR) - Final
MRSA not detected - performed by PCR methodology.
06/30/23 19:06 Urine Legionella Urinary Antigen - Final
Negative for Legionella pneumophila Serogroup 1 antigen.
A negative result does not rule out the possiblity of
Legionella infection due to other serogroups or species of
Legionella. Clinical correlation is recommended.
06/30/23 19:06 Urine Streptococcus pneumoniae Antigen (M - Final
Negative for Streptococcus pneumoniae antigen.
A negative result does not exclude infection with
Streptococcus pneumoniae. Clinical correlation is
recommended.
--- NOTE | 2023-07-04 13:52 | PTCARENOTE ---
Assumed care of Pt at shift change; Resting comfortably in bed with BiPAP on. NSR on monitor with PVC's, PAC's and BBB; Taken off BiPAP and placed 6L O2 via NC with SpO2 ~ 96%; Crackles noted at bases; FREEDMAN; OOB to bathroom, min assist with
walker. Large loose BM. Will continue to monitor and assess.
--- NOTE | 2023-07-04 15:26 | W.PN.HOSP.TC ---
Today's Communication/Plan
-
continue IV Lasix and IV antibiotics
Assessment / Plan
Assessment / Plan
73-year-old with past medical history for CAD, hypertension, hyperlipidemia, depression, congestive heart failure, pneumonia presented to us with short of breath since last night. Short of breath progressively got worse today. Patient uses 3 L of
oxygen at nighttime. Review of system is very limited. History primarily obtained from nurse. As per EMS, patient was 43 on room air. Patient was supplemented with CPAP, oxygenating high 80s. At present patient is requiring BiPAP.
Chest x-ray with small bilateral pleural effusion with bibasilar probable pneumonia progressed. Probable mild pulmonary vascular congestion. Patient had fever. Patient received dose of Tylenol, Lasix, nitro, Zosyn and Vanco in ER. Blood culture
sent from ER
Acute on chronic hypoxic respiratory failure likely multifactorial (pneumonia and CHF)
-Significance CO2 retention on presentation somnolent
-Patient requiring BiPAP
-Continue supplemental oxygen to keep sats greater than 92
-Wean as tolerated
-Treat underlying pneumonia and CHF
Acute CHF Exacerbation:
Patient has acute on chronic diastolic congestive heart failure
Patient presented with shortness of breath.
BNP level is elevated at 1020
Troponin level is 0.023
Continue IV diuresing in form of Lasix 40 mg twice daily
Daily weight.
Strict I's and O's.
Consulted cardiology.
Repeat echo showed:
Low normal left ventricular systolic function.
Left ventricular ejection fraction is 50% by Grullon's method of discs.
No significant valvular disease.
Compared to prior study of Mar 2022:
- MR has decreased
- PASP has improved
Severe sepsis with acute organ dysfunction (acute respiratory failure and acute metabolic) secondary to hospital-acquired pneumonia
-chest x-ray with small bilateral pleural effusions with bibasilar probable pneumonia progressed. Probable mild pulmonary vascular congestion
-Sepsis as evident by WBC 17.0, temp 103.3/white count still escalating to 25,000 trend
-Seen by aerial sprayer and infectious disease.
cont cefepime 2 g IV every 12 hours
If patient continues to improve, infectious disease recommends to transition to oral cefdinir to complete an additional 7 to 10 days of therapy.
Acute metabolic encephalopathy
Secondary to sepsis
Mental status improved
History of restrictive lung disease
-Budesonide continued
-Albuterol as needed for short of breath and wheezing
-Chief Psychology/pulmonary to see
Essential Hypertension
-resumed Coreg, and losartan .
Hyperlipidemia
- Atorvastatin
COPD
Continue Budesonide and DuoNeb
Prior DVT/PE
- Xarelto
Bipolar Disorder
-resumed Lamictal Aripiprazole, Bupropion, Clonazepam .
Type II AL-nonischemic myocardial injury
-Now trending down
-Presumed nonischemic origin in relation to combination of respiratory failure and CHF
Hypothyroidism
- Synthroid
Breast CA s/p Left Mastectomy
Code Status: Full Code
DVT ppx: Xarelto
Anticipated Discharge: > 48 hours
Subjective/Interval History
-
Date of Service: July 04, 2023
Patient seen and examined at bedside, denies any chest pain improved shortness of breath, complaining of nasal congestion, no abdominal pain, no nausea, no vomiting, no diarrhea or constipation.
Objective Data
-
Labs:
Laboratory Results
07/04/23
04:12
WBC 8.8
Hgb 11.0 L
Hct 37.0
Plt Count 194
Sodium 141
Potassium 3.7
Chloride 92 L
Carbon Dioxide 41 H
BUN 37 H
Creatinine 0.9
Glucose 90
Calcium 9.6
Vital Signs:
Vital Signs
Temp Pulse Resp BP Pulse Ox
98.4 F 70 23 120/64 96
07/04/23 15:22 07/04/23 14:00 07/04/23 14:00 07/04/23 14:00 07/04/23 14:00
I&O
07/03/23 07/04/23 07/05/23
06:59 06:59 06:59
Intake Total 580 / 580 340 / 340
Output Total 1350 / 1350 1150 / 1150
Balance -770 / -770 -810 / -810
Physical Exam
-
General: Well Developed and No Apparent Distress
HEENT: Normocephalic, Atraumatic and Moist Mucous Membranes
Respiratory: Rales and Rhonchi
Cardiac: Regular Rhythm and S1/S2; Negative Murmur, Rub or Gallop
GI: Soft, Nontender, Nondistended and Normal Bowel Sounds; Negative Organomegaly
Rectal: Deferred by Provider
Musculoskeletal: No Clubbing, No Cyanosis, No Edema, Edema, Left Upper Extrem and Edema, Right Lower Extrem
Skin: Negative Rash
Neuro: Nonfocal/Grossly Intact
[2023-07-04] MEDS: ABILIFY 5 MG PO (17:56)
[2023-07-04] MEDS: COZAAR 25 MG PO (17:56)
[2023-07-04] MEDS: XARELTO 20 MG PO (17:56)
[2023-07-04] MEDS: KLONOPIN 0.5 MG PO (17:56)
[2023-07-05] VITALS (17 sets, daily range): BP systolic 96–125; BP diastolic 48–65; PULSE 2–74; O2SAT 94; BMI 34.0
[2023-07-05] MEDS: STERILE WATER FOR INJECTION 10 ML IV ×2 (04:22→15:15)
[2023-07-05] MEDS: MAXIPIME 2000 MG IV ×2 (04:22→15:14)
[2023-07-05] MEDS: SYNTHROID 175 MCG PO (04:43)
[2023-07-05 05:06] LABS: Hematocrit 38.1 % (37.0-47.0); Hemoglobin 11.2 g/dL (12.0-16.0); Mean Corp Hgb Conc. 29.4 g/dL (33.0-37.0); Mean Corpuscular Volume 88.4 fL (81.0-99.0); Mean Platelet Volume 9.5 fL (7.4-10.4); Platelet Count 202 10^3/uL (130-400); Red Blood Cell Count 4.31 10^6/uL (4.20-5.40); Red Cell Dist. Width 15.5 % (11.5-14.5); White Blood Cell Count 12.4 10^3/uL (4.8-10.8)
[2023-07-05 05:28] LABS: Blood Urea Nitrogen 43 mg/dl (7-17); Calcium 9.8 mg/dl (8.4-10.2); Carbon Dioxide 40 mmol/L (22-30); Chloride 90 mmol/L (98-107); Estimated Creatinine Clearance 56 ml/min; Glucose 93 mg/dl (70-99); Potassium 3.6 mmol/L (3.5-5.1); Sodium 138 mmol/L (135-145); eGFR 59.12
--- NOTE | 2023-07-05 05:42 | PTCARENOTE ---
Patient with complaints of nasal stuffiness overnight. PRN saline offered. Wore BIPAP until 0430 and switched back to 5 liters NC.
[2023-07-05] MEDS: SYMBICORT 160/4.5 MCG INHALER 2 PUFF INH ×2 (08:19→19:46)
[2023-07-05] MEDS: SPIRIVA RESPIMAT 2.5 MCG 2 PUFF INH (08:19)
[2023-07-05] MEDS: MUCINEX 1200 MG PO ×2 (09:04→20:49)
[2023-07-05] MEDS: PROTONIX 40 MG PO (09:04)
[2023-07-05] MEDS: LAMICTAL 100 MG PO ×2 (09:04→20:50)
[2023-07-05] MEDS: NEURONTIN 100 MG PO ×3 (09:04→20:50)
[2023-07-05] MEDS: CLARITIN 10 MG PO (09:04)
[2023-07-05] MEDS: LASIX 40 MG IV ×2 (09:05→15:14)
[2023-07-05] MEDS: WELLBUTRIN SR (12 hour sustained release) 100 MG PO ×2 (09:05→20:50)
[2023-07-05] MEDS: KCL 40 MEQ PO (09:05)
[2023-07-05] MEDS: COREG 6.25 MG PO ×2 (09:05→20:49)
[2023-07-05 09:26] LABS: Venous Blood Gas B.E. 16.3 mmol/L (-4 to +4); Venous Blood Gas HCO3 40.3 mmol/L (22-27); Venous Blood Gas pCO2 45 mmHg (35-48); Venous Blood Gas pH 7.56 (7.32-7.43); Venous Blood Gas pO2 193 mmHg (30-50)
--- NOTE | 2023-07-05 10:08 | W.PN.ID1 ---
Date of Service
Date of Service: July 05, 2023
Today's Communication
Continue cefepime.
Afrin for nasal congestion.
Assessment / Plan
Exacerbation of COPD
Exacerbation of bronchiectasis
Serratia bronchitis (vs PNA)
Nasal congestion
Hx mycobacterial infection (OLIVIA / M. fortuitum); observation
CAD
HTN
HLD
Hypothyroidism
DILLON on oral appliance and O2 2L, intolerant to CPAP secondary to frequent nocturia
LE lymphedema
Depression s
Bipolar disease
Presbyesophagus, silent aspiration, esophageal stricture
DVT
LE venous insufficiency / stasis disease
Recommendations:
Continue cefepime 2 g IV every 12 hours (d5 abx)
If patient continues to improve, antimicrobial therapy can be transition to oral cefdinir to complete an additional 7 to 10 days of therapy.
Would continue to hold on mycobacterial therapy. Cultures are currently pending. Therapy can be initiated as an outpatient if necessary.
Continue with incentive spirometry and Acapella device to mobilize secretions.
Ordered Afrin nasal spray x 5d for nasal congestion. (Flonase is not in formulary).
Monitor for clinical improvement.
Chief Complaint
-: Pneumonia
Subjective / Review of Systems
C/o nasal congestion, unable to breathe through nose. Claritin not helping.
SOB/coughimproving.
Vital Signs / Physical Exam
Vital Signs
Vital Signs
Temp Pulse Resp BP Pulse Ox
98.4 F 74 18 125/56 93
07/05/23 07:26 07/05/23 09:05 07/05/23 09:00 07/05/23 09:05 07/05/23 09:41
Physical Exam
Constitutional: No Acute Distress
Head: Other (No frontal or maxillary sinus tenderness)
Pulmonary: Clear (anterior chest)
Gastrointestinal: Soft, Non Tender and Non Distended
Neurological: AO x 3
Objective Data
Lab Data
Lab Results
07/05/23 04:51
07/05/23 04:52
PT 15.2 Sec (11.4-14.6) H 06/30/23 18:18
INR 1.21 06/30/23 18:18
APTT 35.0 Sec (23.4-35.0) 06/30/23 18:18
Estimated Creat Clear 56 ml/min 07/05/23 04:52
Lactic Acid Cancelled 06/30/23 22:30
Total Bilirubin 1.5 mg/dl (0.2-1.3) H 07/01/23 04:32
AST 31 U/L (14-36) 07/01/23 04:32
ALT 16 U/L (0-35) 07/01/23 04:32
Alkaline Phosphatase 46 U/L (38-126) 07/01/23 04:32
Most recent labs reviewed.
Micro Results:
06/30/23 18:26 Blood Culture - Preliminary
Blood/Venous No Growth in 4 days- Final report to follow
06/30/23 18:26 Blood Culture - Preliminary
Blood/Venous No Growth in 4 days- Final report to follow
07/01/23 16:10 Respiratory Culture - Final
Sputum Usual Respiratory Nai
Gram Stain - Final
07/01/23 00:47 Nasal Screen MRSA (PCR) - Final
Nose MRSA not detected - performed by PCR methodology.
06/30/23 19:06 Legionella Urinary Antigen - Final
Urine Negative for Legionella pneumophila Serogroup 1 antigen.
A negative result does not rule out the possiblity of
Legionella infection due to other serogroups or species of
Legionella. Clinical correlation is recommended.
Streptococcus pneumoniae Antigen (M - Final
Negative for Streptococcus pneumoniae antigen.
A negative result does not exclude infection with
Streptococcus pneumoniae. Clinical correlation is
recommended.
07/01/23 00:47 Influenza Types A & B (CM) - Final
Nasal Swab Negative for Influenza A & B, NAAT
Negative results must be combined with clinical observations
and patient history.
Nucleic Acid Amplification test (NAAT)performed on the
[employer] platform.
Imaging:
07/03/2023 CXR (portable): Decreased vascular congestion and interstitial edema noted. Small bilateral pleural effusions with adjacent atelectasis/consolidation noted, and slightly decreased when compared to prior. Please see full dictation for
additional detail.
[2023-07-05] MEDS: AFRIN NASAL SPRAY 2 SPRAYS NASAL (10:30)
--- NOTE | 2023-07-05 12:06 | W.PN.PUL3 ---
Today's Communication / Plan
-
Serratia in sputum but repeat negative, not sure if NTM should be treated now since she has been clinically deteriorating overall (follow up sputum AFB from 05/26/2023)
Trend procal
ID consulted
Continue BIPAP nightly, PT/OT, OOB--deconditioning is an issue
Added melatonin for insomnia complaints
Lasix IV now changed to PO
Wean O2 as tolerated
Assessment
-
73-year-old with past medical history for CAD, hypertension, hyperlipidemia, depression, congestive heart failure, OLIVIA pneumonia not on abx, DILLON not on CPAP presenting to ER for progressive shortness of breath over several days but acutely worse
day of admission. As per EMS, patient was 43% on room air. ABG obtained showing acute CO2 retention with pH 7.29/86 and placed on BIPAP. Chest x-ray with small bilateral pleural effusion with bibasilar probable pneumonia progressed. Sputum
recently on 06/26/23 obtained showing + serratia. She has history of OLIVIA-colonized and see ID as OP. Has not yet started abx treatment. Admitted to IMU, we are consulted for pulmonary eval.
Impression:
Acute hypoxic and hypercarbic respiratory failure due to suspected bronchiectasis flare in setting of ADHF + asthma (not currently in an asthmatic flare)
Chronic respiratory failure on long-term oxygen therapy (3L/min NC)
Serratia PNA - seen on sputum Cx from 06/26/2023 ordered by ID on 06/18/2023 after she saw them in office due to suspected bronchiectasis flare
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
Leukocytosis
Elevated trops
Mild DHF component
B/L effusions and/or PNA on CXR
Noncompliance with PAP
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
Post abd surgery done in April 2007: adm 04/15-09/10, presented in septic shock with diffuse peritonitis, s/p subtotal abdominal colectomy (necrotizing colitis)
Discharged with a large open abdominal wound
Readm June 1007, CT abd/p showed bilateral DVT on 06-28-07
Bilateral CHUCKY DVT 06-28-07
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
Reportedly h/o DVT in past (prior to above)
CHUCKY venous insufficiency, s/p bilateral endovenous laser ablation procedures by [facility] 2018
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
Cough variant asthma and history of hypereosinophilia (abs. eos were 3000 in January 2022); bilateral pulmonary nodules:
follows Dr Boyd, last visit 02-27-22,
on trelegy; albuterol/ipratropium and budesonide nebulizers
Patient chronically uses 3 L of oxygen at nighttime.
H/o hemoptysis, negative sputum cytology 05-25-17, hemoptysis May 2021 and Dec 2021 (mild)
Presbyesophagus, silent aspiration, esophageal stricture
history of moderate-severe pharyngeal dysphagia and left vocal fold paralysis
CAD
HTN
HLD
Hypothyroidism
DILLON on oral appliance and O2 2L, intolerant to CPAP secondary to frequent nocturia
CHUCKY lymphedema
Depression s/p ECT
Bipolar disease
L breast cancer, s/p mastectomy
L shoulder arthroplasty
Bilateral breast implants (ruptured R implant)
Colon resection for diverticulitis
Former smoker: 20 pyh, quit 1998
Plan
Patient's respiratory status is poor, on 92-93% on 6L/min currently
Only using O2 at night per patient, 3L baseline
Poor cough, weak voice, airway clearance likely an issue
Continue Mucolytic's/Incentive spirometry/Acapella, may need vest therapy if still having difficulty expectorating
Recent sputum reviewed
Total culture results reviewed--
Re-check sputum culture 06/30 negative
Sputum 06/26/23 + Serratia
05/26/23 + OLIVIA
09/15/22 + Serratia
07/23/22 + MRSA
Sputum 10/09/21 + OLIVIA
09/17/21 + OLIVIA
07/29/21 + OLIVIA
Urine 04/01/19 + E. Coli, 08/26/17 + E. Coli/Kleb
Was on Zosyn --> changed to cefepime on 07/02 per ID
Follow up sputum Cx from 07/01/2023
Procal 1.27 - 07/03/2023 --> trend
Of note, pt does NOT have COPD - last FEV1/FVC: 87 (116% predicted) via PFT from 10/2022, and prior to that her FEV1/FVC was 89 (119% predicted) via PFT from 12/2021 - she has suspected asthma w/ cough --> continue Symbicort and Spiriva, and consider
steroids if she develops wheezing
Bronchiectasis is noted on CT
ABG 7.29 -> 7.30/86 on 07/01/2023
Reviewed hypercarbia to patient and CPAP compliance
BIPAP placed, we discussed needing to use this nightly --> trying on nightly, using 3-4 hours
She notes it causes insomnia, added prn melatonin
Known h/o basilar fibrotic and BE changes and also OLIVIA/M fortuitum
Followed by Dr Boyd
Patient opted for clinical observation re NTM- unclear if this should be treated with ongoing symptoms
She reports having significant chronic diarrhea and would not be excited about for antibiotics for a lengthy period of time to treat OLIVIA
Restrictive lung disease history--TLC 52% with VC 71% on most recent PFT from 10/2022
Restriction may be on the basis of generalized muscle strength and/or body habitus
DILLON with oxygen at night, 2 L --not on CPAP
She saw Dr. Benitez for oral appliance in the past/she is not using it needs adjustments
States that ever since she has gained weight recently the oral appliance device has been less effective
Was on chronic Xarelto for recurrent VTE, resumed on 07/02
Last dose on 05-18, has IVCF since June 2007, DOAC resumed 05-22-22
Pleural effusions noted on CT, LE edema
proBNP elevated
Resumed on IV lasix on 07/01/2023 --> changing to PO lasix now
If SOB not responding, may consider RHC
History of aspiration
VSE obtained
Prior Speech notes: history of moderate-severe pharyngeal dysphagia and left vocal fold paralysis, known to department from multiple (3) prior video swallow studies (last 05/23/2022) which at times revealed episodes of silent aspiration with liquids.
Patient now admitted with bibasilar PNA and reported 2 prior PNAs (November, February)
06/30 VSE eval - Patient presents with mild oral and moderate-severe pharyngeal dysphagia. There were small volumes of silent aspiration of thin liquids via consecutive cup sips (x1), thin liquids via cup with head turn left (x1), and moderately
thick liquids via tsp (x1). Aspirate cleared with cued cough.
Ongoing issues here as well
DVT prophylaxis-xarelto
GI prophylaxis- n/a
Nutrition
Early mobilization
Diagnostic Data
CXR 07/03/2023: Decreased vascular congestion and interstitial edema. Small bilateral pleural effusions with adjacent atelectasis/consolidation, slightly decreased as compared with prior.
CXR 06/30/23- Small bilateral pleural effusions with bibasilar probable pneumonia, progressed. Probable mild pulmonary vascular congestion.
CXR 05-20 c/w 01-15-22. New ARLEEN lingular density and basilar infiltrate or atelectasis
CT Chest 06/08/23- Redemonstration of bilateral lower lobe parenchymal opacities and bronchiectasis. Findings may be on the basis of a chronic inflammatory/infectious process, scarring, and/or atelectasis. New small groundglass opacities in the
anterior left upper lobe, also suggestive of mild inflammation or infection.
CT Chest 08/02/22- 1. Trace bilateral pleural effusions and dependent bilateral lower lobe consolidations, similar to prior likely reflects combination of atelectasis and pneumonia.
Chest CTA 05-21-22 IMPRESSION: No evidence of central pulmonary embolism. Slightly prominent main pulmonary arteries bilaterally. Mild cardiomegaly. Left lower lobe opacification compatible with atelectasis and likely accompanying pneumonia. Right
lower lobe opacification compatible with atelectasis and some scarring. Cannot exclude superimposed right lower lobe pneumonia.
PET-CT 07-03-21 IMPRESSION:
1. � Pulmonary nodules in the upper lobes of both lungs (right more numerous than left) demonstrating moderate FDG uptake. The morphology of most of the nodules is suggestive of peripheral endobronchial impaction which is likely secondary to
peripheral endobronchial infection (possibly secondary to atypical Mycobacterial infection). Lung cancer is considered less likely.
2. � No evidence for FDG avid malignancy in the abdomen, pelvis, or skeleton.
3. � Moderate amount of scarring in the right lower lobe with associated volume loss and mild left to right mediastinal shift.
4. � Moderate cardiomegaly without evidence for acute pulmonary edema.
5. � Moderate calcific atherosclerotic plaque in the coronary arteries.
6. � Previous left mastectomy, left axillary lymph node dissection, and bilateral breast implant placement.
[facility] records
07/25/22 FVC 1.88L 68%, FEV1 1.43L 69%, ratio 76
05-13-22: Most recent PFT FVC 2.1L 72%, prior 2.11L 71%, TLC 67%, FEV1 1.86L 85%
ECHO 03/22/22: Normal biventricular size and systolic function without regional wall motion abnormality. Stage II diastolic dysfunction. Moderate left atrial enlargement. Mild to moderate mitral regurgitation. Aortic sclerosis without stenosis.
Moderate tricuspid regurgitation. Estimated PASP 45 mmHg and RA 3 mmHg. No significant change since the prior study of 03/21/2019 the LVEF has increased from 45-50%. LAE and MR are new. PASP could not be estimated on the prior study.
-----
Total time spent today was 35 minutes for this encounter. Time includes reviewing laboratory test/imaging results, reviewing pertinent medical records, obtaining and reviewing medical history, performing an appropriate exam, ordering medications,
tests and procedures. Time also includes documentation of this encounter, coordinating patient care and communicating with other healthcare professionals. Total time does not include separately billed tests performed on this date of service.
Subjective Data
-
Date of Service:
Date of Service: July 05, 2023
Chief Complaint: Pulmonary Follow Up
Subjective:
Seen today at bedside. She is doing okay, currently on 5 L/min nasal cannula saturating 93%. Heart rate 75. She wore her BiPAP overnight on 01/13 bled with 5 L/min. Coughing up clear phlegm occasionally mixed with blood. She denies chest pain,
headache, fevers or chills.
Review of Systems
General: Other (Negative unless mentioned above)
Objective Data
Data Reviewed
Vital Signs / I&O / Oxygen:
Vital Signs
Temp Pulse Resp BP Pulse Ox
98.6 F 71 19 112/52 95
07/05/23 11:42 07/05/23 11:00 07/05/23 11:00 07/05/23 10:00 07/05/23 11:00
Intake and Output
07/04/23 07/05/23 07/06/23
06:59 06:59 06:59
Intake Total 340 / 340 120 / 120
Output Total 1150 / 1150
Balance -810 / -810 120 / 120
SaO2 95
Nasal Cannula flow liters per 4
minute
Physical Exam
General: Respiratory Distress (negative) and Comfortable
HEENT: Normocephalic and Anicteric
Cardiovascular: S1-S2 and Peripheral Edema (Trace lower extremity edema bilaterally)
Respiratory: Wheeze (n), Crackles (Bibasilar), Rhonchi (Bilaterally), Non-Labored Respirations and Other (overall diminished)
GI: Soft, Non Distended, Non Tender and Normal Bowel Sounds
Neurology: AO x 3 and No Motor Deficits
Skin: Warm, Dry and Cyanosis (negative)
Labs/Micro/Reports
Lab Data
07/05/23 04:51
07/05/23 04:52
Microbiology
06/30/23 18:26 Blood/Venous Blood Culture - Preliminary
No Growth in 4 days- Final report to follow
06/30/23 18:26 Blood/Venous Blood Culture - Preliminary
No Growth in 4 days- Final report to follow
07/01/23 16:10 Sputum Respiratory Culture - Final
Usual Respiratory Nai
07/01/23 16:10 Sputum Gram Stain - Final
--- NOTE | 2023-07-05 13:58 | W.PN.HOSP.TC ---
Today's Communication/Plan
-
diamox
switch to po lasix as per cards
cont abx
incentive shay, acapella
bipap nightly, wean o2 as tolerated
Assessment / Plan
Assessment / Plan
73-year-old with past medical history for CAD, hypertension, hyperlipidemia, depression, congestive heart failure, pneumonia presented to us with short of breath since last night. Short of breath progressively got worse today. Patient uses 3 L of
oxygen at nighttime. Review of system is very limited. History primarily obtained from nurse. As per EMS, patient was 43 on room air. Patient was supplemented with CPAP, oxygenating high 80s. At present patient is requiring BiPAP.
Chest x-ray with small bilateral pleural effusion with bibasilar probable pneumonia progressed. Probable mild pulmonary vascular congestion. Patient had fever. Patient received dose of Tylenol, Lasix, nitro, Zosyn and Vanco in ER. Blood culture
sent from ER
Acute on chronic hypoxic respiratory failure likely multifactorial (pneumonia and CHF)
-Significance CO2 retention on presentation somnolent
-Patient requiring BiPAP nightly
-Continue supplemental oxygen to keep sats greater than 92
-Wean as tolerated
-Treat underlying pneumonia and CHF
-Cont cefepime
-IC and acapella
Acute CHF Exacerbation:
Patient has acute on chronic diastolic congestive heart failure
Patient presented with shortness of breath.
BNP level is elevated at 1020
Troponin level is 0.023
Continue IV diuresing in form of Lasix 40 mg twice daily - can transition to PO as per cards
Diamox today
Daily weight.
Strict I's and O's.
Consulted cardiology.
Repeat echo showed:
Low normal left ventricular systolic function.
Left ventricular ejection fraction is 50% by Grullon's method of discs.
No significant valvular disease.
Compared to prior study of Mar 2022:
- MR has decreased
- PASP has improved
Severe sepsis with acute organ dysfunction (acute respiratory failure and acute metabolic) secondary to hospital-acquired pneumonia
-chest x-ray with small bilateral pleural effusions with bibasilar probable pneumonia progressed. Probable mild pulmonary vascular congestion
-Sepsis as evident by WBC 17.0, temp 103.3/white count still escalating to 25,000 trend
-Seen by filter cleaner and infectious disease.
cont cefepime 2 g IV every 12 hours
If patient continues to improve, infectious disease recommends to transition to oral cefdinir to complete an additional 7 to 10 days of therapy.
Acute metabolic encephalopathy
Secondary to sepsis
Mental status improved
History of restrictive lung disease
-Budesonide continued
-Albuterol as needed for short of breath and wheezing
-Project Management Engineer/pulmonary to see
Essential Hypertension
-resumed Coreg, and losartan .
Hyperlipidemia
- Atorvastatin
COPD
Continue Budesonide and DuoNeb
Prior DVT/PE
- Xarelto
Bipolar Disorder
-resumed Lamictal Aripiprazole, Bupropion, Clonazepam .
Type II [place]-nonischemic myocardial injury
-Now trending down
-Presumed nonischemic origin in relation to combination of respiratory failure and CHF
Hypothyroidism
- Synthroid
Breast CA s/p Left Mastectomy
Code Status: Full Code
DVT ppx: Xarelto
Total time spent on today's encounter was 50 minutes which included time spent in counseling the patient/family regarding diagnosis and treatment plan as listed above, goals of care, and symptom management. Case was discussed with nursing staff,
specialists, and care coordinators/case management. All labs and imaging personally reviewed by me. Remainder the time spent in detailed review of previous records, lab data, imaging, and other medical provider documentation.
Anticipated Discharge: > 48 hours
Subjective/Interval History
-
Date of Service: July 05, 2023
feels slightly worse today today
Objective Data
-
Labs:
Laboratory Results
07/05/23 07/05/23
04:51 04:52
WBC 12.4 H
Hgb 11.2 L
Hct 38.1
Plt Count 202
Sodium 138
Potassium 3.6
Chloride 90 L
Carbon Dioxide 40 H
BUN 43 H
Creatinine 1.0
Glucose 93
Calcium 9.8
Vital Signs:
Vital Signs
Temp Pulse Resp BP Pulse Ox
98.6 F 71 19 112/52 95
07/05/23 11:42 07/05/23 11:00 07/05/23 11:00 07/05/23 10:00 07/05/23 11:00
I&O
07/04/23 07/05/23 07/06/23
06:59 06:59 06:59
Intake Total 340 / 340 120 / 120
Output Total 1150 / 1150
Balance -810 / -810 120 / 120
Review of Systems
-
History Source: Patient
All other systems: Not reviewed unless documented
Physical Exam
-
General: Well Developed and No Apparent Distress
HEENT: Normocephalic, Atraumatic and Moist Mucous Membranes
Respiratory: Rales and Rhonchi
Cardiac: Regular Rhythm and S1/S2; Negative Murmur, Rub or Gallop
GI: Soft, Nontender, Nondistended and Normal Bowel Sounds; Negative Organomegaly
Rectal: Deferred by Provider
Musculoskeletal: No Clubbing, No Cyanosis, No Edema, Edema, Left Upper Extrem and Edema, Right Lower Extrem
Skin: Negative Rash
Neuro: Nonfocal/Grossly Intact
Data Reviewed
-
Total Time Spent with Patient (in minutes): 56
Diagnostic Radiology: Image personally visualized and interpreted and Report Reviewed by me
Labs: Labs Reviewed by me
[2023-07-05] MEDS: DIAMOX 5 MG IV (15:14)
--- NOTE | 2023-07-05 16:28 | W.PN.CD ---
Today's Communication / Plan
-
Stop IV Lasix
No Lasix tomorrow (07/06/2023)
Resume usual Lasix 07/07/2023.
Will decrease KCl, I do not see KCl on home med list, will need reevaluation at discharge
Cardiology will sign off
Impression / Plan
-
Acute hypoxic respiratory failure:
-improved, now on 6L NC
-being treated for PNA (abx), lung disease (pulm following), and acute HFpEF with diuresis with good result
Chronic complex lung disease
- Per hospitalist, ID, and pulmonary
Acute on chronic HFpEF:
-patient thinks dry weight is about 200-203 lbs. (91-92 kg) currently 92.2 kg => 92.7
- But no LE edema and contracture alkosis favors moving to home Lasix dosing
-she started gaining weight when she started steroids
-monitor hypokalemia with replacement
-Echo 07/03/2023: LVEF 50%, no signif valve dz, TDS, PASP could not be estimated
-Can consider more GDMT as outpatient (SGLT2-I, MRA, etc)
RBBB:
-chronic, stable
Abnormal troponin:
-likely acute non-ischemic myocardial injury in setting of acute illness as described above
-denies any CP
-check echo today
Subjective:
Feels better this afternoon
Physical Exam
Vital Signs/Labs
Vital Signs
Temp Pulse Resp BP Pulse Ox
98.8 F 69 25 114/53 95
07/05/23 15:51 07/05/23 15:14 07/05/23 15:00 07/05/23 15:14 07/05/23 15:00
07/04/23 07/05/23 07/06/23
06:59 06:59 06:59
Actual Weight 92.2 kg 92.7 kg
07/05/23 04:51
07/05/23 04:52
PT 15.2 Sec (11.4-14.6) H 06/30/23 18:18
INR 1.21 06/30/23 18:18
APTT 35.0 Sec (23.4-35.0) 06/30/23 18:18
Magnesium 2.1 mg/dl (1.6-2.3) 07/01/23 04:32
Triglycerides 80 mg/dl (10-149) 07/01/23 04:32
LDL Cholesterol, Calc 38 mg/dl 07/01/23 04:32
VLDL Cholesterol, Calc 16 mg/dl (0-30) 07/01/23 04:32
HDL Cholesterol 82 mg/dl 07/01/23 04:32
06/30/23
18:18
[id number] Pept 1020
Physical Exam
Cardiovascular: Pedal edema is absent, JVD pressure is normal and S1S2 is normal
Respiratory: Respiratory effort normal, Crackles Absent and Rhonchi Present
GI: Soft, Distention absent and Non tender
Neuro/Psych: AO x 3
Data Reviewed
-
Date of Service: July 05, 2023
[2023-07-05] MEDS: COZAAR 25 MG PO (18:29)
[2023-07-05] MEDS: ABILIFY 5 MG PO (18:29)
[2023-07-05] MEDS: KLONOPIN 0.5 MG PO (18:39)
[2023-07-05] MEDS: XARELTO 20 MG PO (18:39)
[2023-07-05] MEDS: AFRIN NASAL SPRAY 30 SPRAYS NASAL (20:50)
[2023-07-06] VITALS (12 sets, daily range): BP systolic 99–140; BP diastolic 43–71; PULSE 2–67; BMI 34.0
[2023-07-06 05:23] LABS: Hematocrit 33.7 % (37.0-47.0); Hemoglobin 9.9 g/dL (12.0-16.0); Mean Corp Hgb Conc. 29.4 g/dL (33.0-37.0); Mean Corpuscular Hgb 25.8 pg (27.0-31.0); Mean Platelet Volume 9.6 fL (7.4-10.4); Platelet Count 186 10^3/uL (130-400); Red Blood Cell Count 3.83 10^6/uL (4.20-5.40); Red Cell Dist. Width 15.3 % (11.5-14.5); White Blood Cell Count 9.9 10^3/uL (4.8-10.8)
[2023-07-06] MEDS: STERILE WATER FOR INJECTION 10 ML IV (05:27)
[2023-07-06] MEDS: MAXIPIME 2000 MG IV (05:27)
[2023-07-06] MEDS: SYNTHROID 175 MCG PO (05:28)
--- NOTE | 2023-07-06 05:47 | PTCARENOTE ---
Pt IV unable to flush. Notified VAT.
[2023-07-06 05:49] LABS: Blood Urea Nitrogen 37 mg/dl (7-17); Calcium 9.7 mg/dl (8.4-10.2); Carbon Dioxide 35 mmol/L (22-30); Chloride 95 mmol/L (98-107); Estimated Creatinine Clearance 46 ml/min; Glucose 102 mg/dl (70-99); Magnesium 2.5 mg/dl (1.6-2.3); Potassium 3.7 mmol/L (3.5-5.1); Sodium 138 mmol/L (135-145)
[2023-07-06 06:15] LABS: Procalcitonin 0.26 ng/ml (0.0-0.25)
[2023-07-06] MEDS: SPIRIVA RESPIMAT 2.5 MCG 2 PUFF INH (08:23)
[2023-07-06] MEDS: SYMBICORT 160/4.5 MCG INHALER 2 PUFF INH ×2 (08:23→19:16)
[2023-07-06] MEDS: AFRIN NASAL SPRAY 30 SPRAYS NASAL ×2 (08:58→20:00)
[2023-07-06] MEDS: OCEAN, SALINE MIST 2 SPRAYS NASAL (08:59)
[2023-07-06] MEDS: CLARITIN 10 MG PO (09:00)
[2023-07-06] MEDS: COREG 6.25 MG PO ×2 (09:02→20:01)
[2023-07-06] MEDS: PROTONIX 40 MG PO (09:03)
[2023-07-06] MEDS: WELLBUTRIN SR (12 hour sustained release) 100 MG PO ×2 (09:03→20:01)
[2023-07-06] MEDS: MUCINEX 1200 MG PO ×2 (09:03→20:01)
[2023-07-06] MEDS: LAMICTAL 100 MG PO ×2 (09:04→20:01)
[2023-07-06] MEDS: KCL 20 MEQ PO (09:04)
[2023-07-06] MEDS: NEURONTIN 100 MG PO ×3 (09:04→20:01)
--- NOTE | 2023-07-06 09:59 | W.PN.ID1 ---
Date of Service
Date of Service: July 06, 2023
Today's Communication
Transition cefepime 2 g IV every 12 hours (d6 abx) to oral cefdinir through 07/09.
Assessment / Plan
Exacerbation of COPD
Exacerbation of bronchiectasis
Serratia bronchitis (vs PNA)
Nasal congestion
Hx mycobacterial infection (OLIVIA / M. fortuitum); observation
CAD
HTN
HLD
Hypothyroidism
DILLON on oral appliance and O2 2L, intolerant to CPAP secondary to frequent nocturia
LE lymphedema
Depression s
Bipolar disease
Presbyesophagus, silent aspiration, esophageal stricture
DVT
LE venous insufficiency / stasis disease
Recommendations:
Can transition cefepime 2 g IV every 12 hours (d6 abx) to oral cefdinir through 07/09.
Would continue to hold on mycobacterial therapy. Therapy can be initiated as an outpatient if necessary.
Continue with incentive spirometry and Acapella device to mobilize secretions.
Continue Afrin nasal spray x 5d for nasal congestion. (Flonase is not in formulary).
Monitor for clinical improvement.
Chief Complaint
-: Pneumonia
Subjective / Review of Systems
Afrin helps nasal congestion.
Cough now nonproductive.
SOB improved.
Vital Signs / Physical Exam
Vital Signs
Vital Signs
Temp Pulse Resp BP Pulse Ox
97.9 F 77 18 111/51 93
07/06/23 02:56 07/06/23 09:02 07/06/23 08:28 07/06/23 09:02 07/06/23 08:28
Physical Exam
Constitutional: No Acute Distress
Head: Other (no frontal or maxillary sinus tenderness)
Cardiovascular: Regular Rate
Pulmonary: Coarse (bases)
Gastrointestinal: Soft, Non Tender and Non Distended
Extremities: Negative Edema
Neurological: AO x 3
Objective Data
Lab Data
Lab Results
07/06/23 05:09
07/06/23 05:09
PT 15.2 Sec (11.4-14.6) H 06/30/23 18:18
INR 1.21 06/30/23 18:18
APTT 35.0 Sec (23.4-35.0) 06/30/23 18:18
Estimated Creat Clear 46 ml/min 07/06/23 05:09
Lactic Acid Cancelled 06/30/23 22:30
Total Bilirubin 1.5 mg/dl (0.2-1.3) H 07/01/23 04:32
AST 31 U/L (14-36) 07/01/23 04:32
ALT 16 U/L (0-35) 07/01/23 04:32
Alkaline Phosphatase 46 U/L (38-126) 07/01/23 04:32
Most recent labs reviewed.
Micro Results:
06/30/23 18:26 Blood Culture - Final
Blood/Venous No Growth - Final Report
06/30/23 18:26 Blood Culture - Final
Blood/Venous No Growth - Final Report
07/01/23 16:10 Respiratory Culture - Final
Sputum Usual Respiratory Nai
Gram Stain - Final
07/01/23 00:47 Nasal Screen MRSA (PCR) - Final
Nose MRSA not detected - performed by PCR methodology.
06/30/23 19:06 Legionella Urinary Antigen - Final
Urine Negative for Legionella pneumophila Serogroup 1 antigen.
A negative result does not rule out the possiblity of
Legionella infection due to other serogroups or species of
Legionella. Clinical correlation is recommended.
Streptococcus pneumoniae Antigen (M - Final
Negative for Streptococcus pneumoniae antigen.
A negative result does not exclude infection with
Streptococcus pneumoniae. Clinical correlation is
recommended.
07/01/23 00:47 Influenza Types A & B (CM) - Final
Nasal Swab Negative for Influenza A & B, NAAT
Negative results must be combined with clinical observations
and patient history.
Nucleic Acid Amplification test (NAAT)performed on the
[employer] platform.
Imaging:
07/03/2023 CXR (portable): Decreased vascular congestion and interstitial edema noted. Small bilateral pleural effusions with adjacent atelectasis/consolidation noted, and slightly decreased when compared to prior. Please see full dictation for
additional detail.
--- NOTE | 2023-07-06 10:28 | W.PN.PUL3 ---
Today's Communication / Plan
-
Serratia in sputum but repeat negative, not sure if NTM should be treated now since she has been clinically deteriorating overall (follow up sputum AFB from 05/26/2023)
Her diarrhea seems to be the main thing with holding her treatment of NTM as she normally takes Imodium 4 times a day
Procalcitonin downtrending showing we do have source control
ID consulted - defer ABx to them
Continue BIPAP nightly
PT/OT, OOB--deconditioning is an issue
Added melatonin prn for insomnia complaints
Lasix IV now changed to PO
Wean O2 as tolerated with home O2 eval prior to discharge
Assessment
-
73-year-old with past medical history for CAD, hypertension, hyperlipidemia, depression, congestive heart failure, OLIVIA pneumonia not on abx, DILLON not on CPAP presenting to ER for progressive shortness of breath over several days but acutely worse
day of admission. As per EMS, patient was 43% on room air. ABG obtained showing acute CO2 retention with pH 7.29/86 and placed on BIPAP. Chest x-ray with small bilateral pleural effusion with bibasilar probable pneumonia progressed. Sputum
recently on 06/26/23 obtained showing + serratia. She has history of OLIVIA-colonized and see ID as OP. Has not yet started abx treatment. Admitted to IMU, we are consulted for pulmonary eval.
Impression:
Acute hypoxic and hypercarbic respiratory failure due to suspected bronchiectasis flare in setting of ADHF + asthma (not currently in an asthmatic flare)
Chronic respiratory failure on long-term oxygen therapy (3L/min NC)
Serratia PNA - seen on sputum Cx from 06/26/2023 ordered by ID on 06/18/2023 after she saw them in office due to suspected bronchiectasis flare
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
Leukocytosis - resolved as of 07/05
Elevated trops � peaked at 0.057 on 07/01/2023
Mild DHF component
B/L effusions and/or PNA on CXR
Noncompliance with PAP
Conditions [employer]IST:
Post abd surgery done in April 2007: adm [facility] 04/15-09/10, presented in septic shock with diffuse peritonitis, s/p subtotal abdominal colectomy (necrotizing colitis)
Discharged with a large open abdominal wound
Readm June 1007, CT abd/p showed bilateral DVT on 06-28-07
Bilateral CHUCKY DVT 06-28-07
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
Reportedly h/o DVT in past (prior to above)
CHUCKY venous insufficiency, s/p bilateral endovenous laser ablation procedures by [facility] 2018
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
Cough variant asthma and history of hypereosinophilia (abs. eos were 3000 in January 2022); bilateral pulmonary nodules:
follows Dr Boyd, last visit 02-27-22,
on trelegy; albuterol/ipratropium and budesonide nebulizers
Patient chronically uses 3 L of oxygen at nighttime.
H/o hemoptysis, negative sputum cytology 05-25-17, hemoptysis May 2021 and Dec 2021 (mild)
Presbyesophagus, silent aspiration, esophageal stricture
history of moderate-severe pharyngeal dysphagia and left vocal fold paralysis
CAD
HTN
HLD
Hypothyroidism
DILLON on oral appliance and O2 2L, intolerant to CPAP secondary to frequent nocturia
CHUCKY lymphedema
Depression s/p ECT
Bipolar disease
L breast cancer, s/p mastectomy
L shoulder arthroplasty
Bilateral breast implants (ruptured R implant)
Colon resection for diverticulitis
Former smoker: 20 pyh, quit 1998
Plan
Patient's respiratory status is poor although it has improved over the last 24 hours, and she is now down from 6 L/min to 3 L/min breathing comfortably and not coughing as much
Only using O2 at night per patient, 3L baseline
Poor cough, weak voice, airway clearance likely an issue
Continue Mucolytics/incentive spirometry/Acapella, may need vest therapy if still having difficulty expectorating
Recent sputum reviewed:
Total culture results reviewed--
Re-check sputum culture 06/30 negative
Sputum 06/26/23 + Serratia
05/26/23 + OLIVIA
09/15/22 + Serratia
07/23/22 + MRSA
Sputum 10/09/21 + OLIVIA
09/17/21 + OLIVIA
07/29/21 + OLIVIA
Urine 04/01/19 + E. Coli, 08/26/17 + E. Coli/Kleb
Was on Zosyn --> changed to cefepime on 07/02 per ID --> now changed to Omnicef today per ID
Follow up sputum Cx from 07/01/2023 (usual rei)
Procal 1.27 - 07/03/2023 --> downtrending to 0.26 today, showing that we have source control
Of note, pt does NOT have COPD - last FEV1/FVC: 87 (116% predicted) via PFT from 10/2022, and prior to that her FEV1/FVC was 89 (119% predicted) via PFT from 12/2021 - she has suspected asthma w/ cough --> continue Symbicort and Spiriva, and consider
steroids if she develops wheezing
Bronchiectasis is noted on CT
ABG 7. -> 7.30/ on 07/01/2023
Reviewed hypercarbia to patient and CPAP compliance
BIPAP placed, we discussed needing to use this nightly --> trying on nightly, using 3-4 hours
She notes it causes insomnia, added prn melatonin
Known h/o basilar fibrotic and BE changes and also OLIVIA/M fortuitum
Followed by Dr Boyd
Patient opted for clinical observation re NTM- unclear if this should be treated with ongoing symptoms
She reports having significant chronic diarrhea and would not be excited about for antibiotics for a lengthy period of time to treat OLIVIA
C. difficile negative today (07/05) - ok for imodium prn
Restrictive lung disease history--TLC 52% with VC 71% on most recent PFT from 10/2022
Restriction may be on the basis of generalized muscle strength and/or body habitus
DILLON with oxygen at night, 2 L --not on CPAP
She saw Dr. Benitez for oral appliance in the past/she is not using it needs adjustments
States that ever since she has gained weight recently the oral appliance device has been less effective
Was on chronic Xarelto for recurrent VTE, resumed on 07/02
Last dose on 05-18, has IVCF since June 2007, DOAC resumed 05-22-22
Pleural effusions noted on CT, LE edema
proBNP elevated
Resumed on IV lasix on 07/01/2023 --> now on PO lasix starting 07/06
If SOB not responding, may consider RHC -she does seem to be improved as per today so right heart cath can be deferred for now
History of aspiration
VSE obtained
Prior Speech notes: history of moderate-severe pharyngeal dysphagia and left vocal fold paralysis, known to department from multiple (3) prior video swallow studies (last 05/23/2022) which at times revealed episodes of silent aspiration with liquids.
Patient now admitted with bibasilar PNA and reported 2 prior PNAs (November, February)
06/30 VSE eval - Patient presents with mild oral and moderate-severe pharyngeal dysphagia. There were small volumes of silent aspiration of thin liquids via consecutive cup sips (x1), thin liquids via cup with head turn left (x1), and moderately
thick liquids via tsp (x1). Aspirate cleared with cued cough.
Ongoing issues here as well
DVT prophylaxis-xarelto
GI prophylaxis- n/a
Nutrition
Early mobilization
Diagnostic Data
CXR 07/03/2023: Decreased vascular congestion and interstitial edema. Small bilateral pleural effusions with adjacent atelectasis/consolidation, slightly decreased as compared with prior.
CXR 06/30/23- Small bilateral pleural effusions with bibasilar probable pneumonia, progressed. Probable mild pulmonary vascular congestion.
CXR 04-11 c/w 01-15-22. New ARLEEN lingular density and basilar infiltrate or atelectasis
CT Chest 06/08/23- Redemonstration of bilateral lower lobe parenchymal opacities and bronchiectasis. Findings may be on the basis of a chronic inflammatory/infectious process, scarring, and/or atelectasis. New small groundglass opacities in the
anterior left upper lobe, also suggestive of mild inflammation or infection.
CT Chest 08/02/22- . Trace bilateral pleural effusions and dependent bilateral lower lobe consolidations, similar to prior likely reflects combination of atelectasis and pneumonia.
Chest CTA 05-21-22 IMPRESSION: No evidence of central pulmonary embolism. Slightly prominent main pulmonary arteries bilaterally. Mild cardiomegaly. Left lower lobe opacification compatible with atelectasis and likely accompanying pneumonia. Right
lower lobe opacification compatible with atelectasis and some scarring. Cannot exclude superimposed right lower lobe pneumonia.
PET-CT 07-03-21 IMPRESSION:
1. � Pulmonary nodules in the upper lobes of both lungs (right more numerous than left) demonstrating moderate FDG uptake. The morphology of most of the nodules is suggestive of peripheral endobronchial impaction which is likely secondary to
peripheral endobronchial infection (possibly secondary to atypical Mycobacterial infection). Lung cancer is considered less likely.
2. � No evidence for FDG avid malignancy in the abdomen, pelvis, or skeleton.
3. � Moderate amount of scarring in the right lower lobe with associated volume loss and mild left to right mediastinal shift.
4. � Moderate cardiomegaly without evidence for acute pulmonary edema.
5. � Moderate calcific atherosclerotic plaque in the coronary arteries.
6. � Previous left mastectomy, left axillary lymph node dissection, and bilateral breast implant placement.
[facility] records
07/25/22 FVC 1.88L 68%, FEV1 1.43L 69%, ratio 76
05-13-22: Most recent PFT FVC 2.1L 72%, prior 2.11L 71%, TLC 67%, FEV1 1.86L 85%
ECHO 03/22/22: Normal biventricular size and systolic function without regional wall motion abnormality. Stage II diastolic dysfunction. Moderate left atrial enlargement. Mild to moderate mitral regurgitation. Aortic sclerosis without stenosis.
Moderate tricuspid regurgitation. Estimated PASP 45 mmHg and RA 3 mmHg. No significant change since the prior study of 03/21/2019 the LVEF has increased from 45-50%. LAE and MR are new. PASP could not be estimated on the prior study.
-----
Total time spent today was 35 minutes for this encounter. Time includes reviewing laboratory test/imaging results, reviewing pertinent medical records, obtaining and reviewing medical history, performing an appropriate exam, ordering medications,
tests and procedures. Time also includes documentation of this encounter, coordinating patient care and communicating with other healthcare professionals. Total time does not include separately billed tests performed on this date of service.
Subjective Data
-
Date of Service:
Date of Service: July 06, 2023
Chief Complaint: Pulmonary Follow Up
Subjective:
Patient seen this morning, she is on 3 L/min nasal cannula resting comfortably in bed. She says that she is actually breathing better today. She is saturating 95%, heart rate 74 and BP 110/54. She says that she been having diarrhea because she
normally takes Imodium 4 times a day and she has not been getting that while she has been here. She did not tolerate BiPAP (01/13) overnight for what ever reason which she is unable to say.
Review of Systems
General: Other (Negative unless mentioned above)
Objective Data
Data Reviewed
Vital Signs / I&O / Oxygen:
Vital Signs
Temp Pulse Resp BP Pulse Ox
98.2 F 77 18 111/51 96
07/06/23 10:50 07/06/23 09:02 07/06/23 08:28 07/06/23 09:02 07/06/23 11:21
Intake and Output
07/05/23 07/06/23 07/07/23
06:59 06:59 06:59
Intake Total 120 / 120 240 / 240 240 / 240
Output Total 600 / 600
Balance 120 / 120 -360 / -360 240 / 240
SaO2 96
Nasal Cannula flow liters per 3
minute
Physical Exam
General: Respiratory Distress (negative) and Comfortable
HEENT: Normocephalic and Anicteric
Cardiovascular: S1-S2 and Peripheral Edema (Trace lower extremity edema bilaterally)
Respiratory: Wheeze (n), Crackles (Bibasilar), Rhonchi (Bilaterally) and Non-Labored Respirations
GI: Soft, Non Distended, Non Tender and Normal Bowel Sounds
Neurology: AO x 3 and Tremors (negative)
Skin: Warm, Dry and Cyanosis (negative)
Labs/Micro/Reports
Lab Data
07/06/23 05:09
07/06/23 05:09
Microbiology
06/30/23 18:26 Blood/Venous Blood Culture - Final
No Growth - Final Report
06/30/23 18:26 Blood/Venous Blood Culture - Final
No Growth - Final Report
07/01/23 16:10 Sputum Respiratory Culture - Final
Usual Respiratory Rei
07/01/23 16:10 Sputum Gram Stain - Final
--- NOTE | 2023-07-06 13:13 | PTCARENOTE ---
Patient asking for immodium for diarrhea. No bowel movement so far this shift. MD notified. Cdiff specimen to be obtained. Patient is eating and drinking well. No nausea or vomiting.
--- NOTE | 2023-07-06 14:44 | W.PN.HOSP.TC ---
Today's Communication/Plan
-
cont to wean o2
transition to cefdinir
dispo planning- snf - CM aware
restart po lasix tomorrow
Assessment / Plan
Assessment / Plan
73-year-old with past medical history for CAD, hypertension, hyperlipidemia, depression, congestive heart failure, pneumonia presented to us with short of breath since last night. Short of breath progressively got worse today. Patient uses 3 L of
oxygen at nighttime. Review of system is very limited. History primarily obtained from nurse. As per EMS, patient was 43 on room air. Patient was supplemented with CPAP, oxygenating high 80s. At present patient is requiring BiPAP.
Chest x-ray with small bilateral pleural effusion with bibasilar probable pneumonia progressed. Probable mild pulmonary vascular congestion. Patient had fever. Patient received dose of Tylenol, Lasix, nitro, Zosyn and Vanco in ER. Blood culture
sent from ER
Acute on chronic hypoxic respiratory failure likely multifactorial (pneumonia and CHF)
-Significance CO2 retention on presentation somnolent
-Patient requiring BiPAP nightly
-Continue supplemental oxygen to keep sats greater than 92
-Wean as tolerated
-Treat underlying pneumonia and CHF
-Cefepime transition over to cefdinir through 07/09
-IC and acapella
Acute CHF Exacerbation:
Patient has acute on chronic diastolic congestive heart failure
Patient presented with shortness of breath.
BNP level is elevated at 1020
Troponin level is 0.023
Held IV lasix - can transition to PO tomorrow 07/06
Diamox 07/04
Daily weight.
Strict I's and O's.
Consulted cardiology.
Repeat echo showed:
Low normal left ventricular systolic function.
Left ventricular ejection fraction is 50% by Grullon's method of discs.
No significant valvular disease.
Compared to prior study of Mar 2022:
- MR has decreased
- PASP has improved
Severe sepsis with acute organ dysfunction (acute respiratory failure and acute metabolic) secondary to hospital-acquired pneumonia
-chest x-ray with small bilateral pleural effusions with bibasilar probable pneumonia progressed. Probable mild pulmonary vascular congestion
-Sepsis as evident by WBC 17.0, temp 103.3/white count still escalating to 25,000 trend
-Seen by director risk and infectious disease.
cabs as stated above
If patient continues to improve, infectious disease recommends to transition to oral cefdinir to complete an additional 7 to 10 days of therapy.
Acute metabolic encephalopathy
Secondary to sepsis
Mental status improved
History of restrictive lung disease
-Budesonide continued
-Albuterol as needed for short of breath and wheezing
-Awning Erector/pulmonary to see
Essential Hypertension
-resumed Coreg, and losartan .
Hyperlipidemia
- Atorvastatin
COPD
Continue Budesonide and DuoNeb
Prior DVT/PE
- Xarelto
Bipolar Disorder
-resumed Lamictal Aripiprazole, Bupropion, Clonazepam .
Type II IN-nonischemic myocardial injury
-Now trending down
-Presumed nonischemic origin in relation to combination of respiratory failure and CHF
Hypothyroidism
- Synthroid
Breast CA s/p Left Mastectomy
Code Status: Full Code
DVT ppx: Xarelto
Anticipated Discharge: Within 24 hours
Subjective/Interval History
-
Date of Service: July 06, 2023
Continue to wean O2
Objective Data
-
Labs:
Laboratory Results
07/06/23
05:09
WBC 9.9
Hgb 9.9 L
Hct 33.7 L
Plt Count 186
Sodium 138
Potassium 3.7
Chloride 95 L
Carbon Dioxide 35 H
BUN 37 H
Creatinine 1.2 H
Glucose 102 H
Calcium 9.7
Vital Signs:
Vital Signs
Temp Pulse Resp BP Pulse Ox
98.2 F 66 25 117/67 97
07/06/23 10:50 07/06/23 14:00 07/06/23 14:00 07/06/23 14:00 07/06/23 14:00
I&O
07/05/23 07/06/23 07/07/23
06:59 06:59 06:59
Intake Total 120 / 120 240 / 240 480 / 480
Output Total 600 / 600 150 / 150
Balance 120 / 120 -360 / -360 330 / 330
Review of Systems
-
History Source: Patient
All other systems: Not reviewed unless documented
Physical Exam
-
General: Well Developed and No Apparent Distress
HEENT: Normocephalic, Atraumatic and Moist Mucous Membranes
Respiratory: Rales and Rhonchi
Cardiac: Regular Rhythm and S1/S2; Negative Murmur, Rub or Gallop
GI: Soft, Nontender, Nondistended and Normal Bowel Sounds; Negative Organomegaly
Rectal: Deferred by Provider
Musculoskeletal: No Clubbing, No Cyanosis, No Edema, Edema, Left Upper Extrem and Edema, Right Lower Extrem
Skin: Negative Rash
Neuro: Nonfocal/Grossly Intact
[2023-07-06] MEDS: TYLENOL 650 MG PO (15:11)
[2023-07-06] MEDS: ABILIFY 5 MG PO (17:27)
[2023-07-06] MEDS: LIPITOR 10 MG PO (17:27)
[2023-07-06] MEDS: TESSALON PERLES 200 MG PO (17:27)
[2023-07-06] MEDS: KLONOPIN 0.5 MG PO (17:28)
[2023-07-06] MEDS: COZAAR 25 MG PO (17:28)
[2023-07-06] MEDS: XARELTO 20 MG PO (17:29)
[2023-07-06] MEDS: IMODIUM 2 MG PO (17:33)
[2023-07-06] MEDS: OMNICEF 300 MG PO (20:01)
--- NOTE | 2023-07-06 20:36 | PTCARENOTE ---
Received pt at change of shift. Pt ambulated to the bathroom with RW and minimal assistance. Able to take all evening pills in apple sauce. Assessment as documented. VSS at this time. Resting in bed with call mckeon in reach.
[2023-07-07] VITALS (7 sets, daily range): BP systolic 112–133; BP diastolic 54–63; PULSE 2–79; O2SAT 95–97; BMI 34.4
[2023-07-07 05:43] LABS: Hematocrit 34.1 % (37.0-47.0); Hemoglobin 10.2 g/dL (12.0-16.0); Mean Corp Hgb Conc. 29.9 g/dL (33.0-37.0); Mean Corpuscular Hgb 26.2 pg (27.0-31.0); Mean Corpuscular Volume 87.7 fL (81.0-99.0); Platelet Count 220 10^3/uL (130-400); Red Blood Cell Count 3.89 10^6/uL (4.20-5.40); Red Cell Dist. Width 15.4 % (11.5-14.5); White Blood Cell Count 9.4 10^3/uL (4.8-10.8)
[2023-07-07] MEDS: SYNTHROID 175 MCG PO (06:16)
[2023-07-07 06:23] LABS: Blood Urea Nitrogen 36 mg/dl (7-17); Calcium 9.8 mg/dl (8.4-10.2); Carbon Dioxide 35 mmol/L (22-30); Chloride 99 mmol/L (98-107); Estimated Creatinine Clearance 47 ml/min; Glucose 101 mg/dl (70-99); Potassium 4.2 mmol/L (3.5-5.1); Sodium 140 mmol/L (135-145)
[2023-07-07] MEDS: SYMBICORT 160/4.5 MCG INHALER 2 PUFF INH (08:28)
[2023-07-07] MEDS: SPIRIVA RESPIMAT 2.5 MCG 2 PUFF INH (08:29)
--- NOTE | 2023-07-07 08:56 | W.PN.ID1 ---
Date of Service
Date of Service: July 07, 2023
Today's Communication
Discussed with Ms Levin who prefers continued observation of OLIVIA at this time - reports that she has significant concerns about drugs (rifabutin, azithromycin) potentially worsening her chronic diarrhea. At this point no compelling need to start
Wonder if there is ability to increase postural drainage therapy outpatient as temporizing measure
Follow up in ID clinic has already been scheduled
Assessment / Plan
Exacerbation of COPD
Exacerbation of bronchiectasis
Serratia bronchitis (vs PNA)
Nasal congestion
Hx mycobacterial infection (OLIVIA / M. fortuitum); observation
Hx of colostomy with reversal- c/b chronic diarrhea
CAD
HTN
HLD
Hypothyroidism
DILLON on oral appliance and O2 2L, intolerant to CPAP secondary to frequent nocturia
LE lymphedema
Depression s
Bipolar disease
Presbyesophagus, silent aspiration, esophageal stricture
DVT
LE venous insufficiency / stasis disease
Recommendations:
Continue oral cefdinir through 07/09.
Would continue to hold on mycobacterial therapy. Therapy can be initiated as an outpatient if necessary. Note marked improvement on my recent CT scan
Discussed with Ms Levin who prefers continued observation of OLIVIA at this time - reports that she has significant concerns about drugs (rifabutin, azithromycin) potentially worsening her chronic diarrhea. At this point no compelling need to start rx
Wonder if there is ability to increase postural drainage therapy outpatient as temporizing measure
Continue with incentive spirometry and Acapella device to mobilize secretions.
Continue Afrin nasal spray x 5d for nasal congestion. (Flonase is not in formulary).
Follow up in ID clinic has already been scheduled
Chief Complaint
-: Pneumonia and Other (COPD exacerbation, bronchiectasis exacerbation)
Subjective / Review of Systems
afebrile
bp stable
no leukocytosis
cr stable
QTc recently prolonged
Vital Signs / Physical Exam
Vital Signs
Vital Signs
Temp Pulse Resp BP Pulse Ox
98.1 F 67 18 121/62 97
07/07/23 07:30 07/07/23 08:33 07/07/23 08:33 07/07/23 06:00 07/07/23 08:33
Physical Exam
Constitutional: No Acute Distress, Chronically Ill and Obese
Cardiovascular: Regular Rate and S1/S2; Negative Murmur or Rub
Pulmonary: Clear and Symmetric; Negative Wheezes or Rales
Gastrointestinal: Soft, Non Tender, Non Distended and Normal Bowel Sounds
Skin: Warm and Dry; Negative Rash or Jaundice
Objective Data
Lab Data
Lab Results
07/07/23 04:56
07/07/23 04:56
PT 15.2 Sec (11.4-14.6) H 06/30/23 18:18
INR 1.21 06/30/23 18:18
APTT 35.0 Sec (23.4-35.0) 06/30/23 18:18
Estimated Creat Clear 47 ml/min 07/07/23 04:56
Lactic Acid Cancelled 06/30/23 22:30
Total Bilirubin 1.5 mg/dl (0.2-1.3) H 07/01/23 04:32
AST 31 U/L (14-36) 07/01/23 04:32
ALT 16 U/L (0-35) 07/01/23 04:32
Alkaline Phosphatase 46 U/L (38-126) 07/01/23 04:32
Most recent labs reviewed.
Micro Results:
07/06/23 14:24 C. difficile GDH Antigen & Toxins - Final
Feces/Stool Negative for toxigenic C.difficile
06/30/23 18:26 Blood Culture - Final
Blood/Venous No Growth - Final Report
06/30/23 18:26 Blood Culture - Final
Blood/Venous No Growth - Final Report
07/01/23 16:10 Respiratory Culture - Final
Sputum Usual Respiratory Nai
Gram Stain - Final
07/01/23 00:47 Nasal Screen MRSA (PCR) - Final
Nose MRSA not detected - performed by PCR methodology.
06/30/23 19:06 Legionella Urinary Antigen - Final
Urine Negative for Legionella pneumophila Serogroup 1 antigen.
A negative result does not rule out the possiblity of
Legionella infection due to other serogroups or species of
Legionella. Clinical correlation is recommended.
Streptococcus pneumoniae Antigen (M - Final
Negative for Streptococcus pneumoniae antigen.
A negative result does not exclude infection with
Streptococcus pneumoniae. Clinical correlation is
recommended.
07/01/23 00:47 Influenza Types A & B (CM) - Final
Nasal Swab Negative for Influenza A & B, NAAT
Negative results must be combined with clinical observations
and patient history.
Nucleic Acid Amplification test (NAAT)performed on the
[employer] platform.
Imaging:
07/03/2023 CXR (portable): Decreased vascular congestion and interstitial edema noted. Small bilateral pleural effusions with adjacent atelectasis/consolidation noted, and slightly decreased when compared to prior. Please see full dictation for
additional detail.
--- NOTE | 2023-07-07 09:00 | CM ---
Addendum entered by Chelsea Barry RN 07/07/23 12:47:
Received phone call from Praveen Ren; [facility] is approved, auth # [id number], subacute level 1, from 07/06 to 07/18. NR 07/19 to Lani, ph [phone], fax [phone].
Spoke with Feli Hughes [facility]; auth info provided. They are able to accept the patient today. The ph for report to 4th floor nurse [phone], fax [phone]. Patient going to room 432.
Met with patient who agrees to [facility] today by ambulance. IMM completed. Offered to call her daughter in law Radha to let her know about the dc plan, patient declined saying she would text her.
Plan [facility] today by ambulance.
Addendum entered by Chelsea Barry RN 07/07/23 10:50:
E-mail sent to [facility] Management Team to request expedited SNF auth.
Original Note:
Patient from [facility] with Dx Acute hypoxic respiratory failure, HF, PNA, sepsis. O2 3L. PT & OT recommend skilled rehab.
Message to Araceli PT & Renita OT requesting updated therapy notes for SNF auth.
Request to [facility] for SNF auth via [employer]: Reference Number [id number]. Clinical sent via Active Fax.
Plan [facility] when insurance auth obtained.
--- NOTE | 2023-07-07 09:18 | W.PN.HOSP.TC ---
Addendum entered and electronically signed by Christiano Ashley MD 07/07/23 16:28:
Gen: NAD, AAOx3, appears chronically ill.
Eyes: EOMI, PERRLA, no scleral icterus.
Neck: supple.
CV: RRR, +S1/S2, no m/r/g.
Resp: mild rhonchi.
Abd: +BS, soft, NT, ND
Skin: No rashes.
Neuro: CN 2-12 intact, non-focal.
Psych: Normal mood and affect.
Addendum entered and electronically signed by Christiano Ashley MD 07/07/23 12:00:
Total time spent on d/c = 37 min. This included today's physical exam, progress note, review of laboratory and diagnostic data, preparation of discharge documents and prescriptions, and discussions about the pt's hospital course and discharge plan
with the patient and other medical genetics director involved in the patient's care.
Original Note:
Today's Communication/Plan
-
see bold
Assessment / Plan
Assessment / Plan
73-year-old with past medical history for CAD, hypertension, hyperlipidemia, depression, congestive heart failure, pneumonia presented to us with short of breath since last night. Short of breath progressively got worse today. Patient uses 3 L of
oxygen at nighttime. Review of system is very limited. History primarily obtained from nurse. As per EMS, patient was 43 on room air. Patient was supplemented with CPAP, oxygenating high 80s. At present patient is requiring BiPAP.
CXR 06/30/23: Small bilateral pleural effusions with bibasilar probable pneumonia, progressed. Probable mild pulmonary vascular congestion.
CXR 07/03/23: Decreased vascular congestion and interstitial edema. Small bilateral pleural effusions with adjacent atelectasis/consolidation, slightly decreased as compared with prior.
Echo 07/03/23: EF 50%, no significant valvular disease
Acute on chronic hypoxic respiratory failure due to pneumonia and acute HFpEF:
-pt on 3L NC O2 HS at baseline
-see plans for CHF and PNA
Acute HFpEF:
-proBNP 1020
-CXRs/echo above
-seen by cardiology
-pt was diuresed with IV lasix, now transitioned to PO Lasix
-cont BB
Severe sepsis due to hospital-acquired pneumonia:
-Acute metabolic encephalopathy due to sepsis
-was on Bipap, now weaned to 3L NC O2
-chest x-ray with small bilateral pleural effusions with bibasilar probable pneumonia progressed. Probable mild pulmonary vascular congestion.
-seen by pulm/ID
-was on Cefepime, now transitioned to Cefdinir through 07/10/23
Other problems:
Essential Hypertension: cont Coreg/losartan
Hyperlipidemia: cont statin
COPD and h/o restrictive lung disease: cont Budesonide and DuoNeb
h/o DVT/PE: Xarelto
Bipolar Disorder: cont Lamictal Aripiprazole, Bupropion, Clonazepam
Acute nonischemic myocardial injury: likely due to respiratory failure and CHF
Hypothyroidism: cont Synthroid
h/o Breast CA s/p Left Mastectomy
FULL/Xarelto
Medically cleared for discharge. Case management aware.
Anticipated Discharge: Within 24 hours
Subjective/Interval History
-
Date of Service: July 07, 2023
No new complaints.
Objective Data
-
Labs:
Laboratory Results
07/07/23
04:56
WBC 9.4
Hgb 10.2 L
Hct 34.1 L
Plt Count 220
Sodium 140
Potassium 4.2
Chloride 99
Carbon Dioxide 35 H
BUN 36 H
Creatinine 1.2 H
Glucose 101 H
Calcium 9.8
Vital Signs:
Vital Signs
Temp Pulse Resp BP Pulse Ox
98.1 F 67 18 121/62 97
07/07/23 07:30 07/07/23 08:33 07/07/23 08:33 07/07/23 06:00 07/07/23 08:33
I&O
07/06/23 07/07/23 07/08/23
06:59 06:59 06:59
Intake Total 240 / 240 720 / 720
Output Total 600 / 600 250 / 250
Balance -360 / -360 470 / 470
[2023-07-07] MEDS: CLARITIN 10 MG PO (09:30)
[2023-07-07] MEDS: OMNICEF 300 MG PO (09:30)
[2023-07-07] MEDS: WELLBUTRIN SR (12 hour sustained release) 100 MG PO (09:30)
[2023-07-07] MEDS: LAMICTAL 100 MG PO (09:30)
[2023-07-07] MEDS: MUCINEX 1200 MG PO (09:30)
[2023-07-07] MEDS: AFRIN NASAL SPRAY 30 SPRAYS NASAL (09:30)
[2023-07-07] MEDS: PROTONIX 40 MG PO (09:30)
[2023-07-07] MEDS: NEURONTIN 100 MG PO (09:30)
[2023-07-07] MEDS: LASIX 80 MG PO (09:31)
[2023-07-07] MEDS: TYLENOL 650 MG PO (09:31)
[2023-07-07] MEDS: COREG 6.25 MG PO (09:31)
[2023-07-07] MEDS: KCL 20 MEQ PO (09:31)
[2023-07-07] MEDS: IMODIUM 2 MG PO (09:36)
--- NOTE | 2023-07-07 10:44 | W.PN.PUL.V3 ---
Today's Communication / Plan
-
Continue inhalers and nebulizers
Wean oxygen
Increase activity
Mucus clearing devices
Antibiotics-Omnicef per infectious disease
Outpatient pulmonary follow-up
Assessment
-
73-year-old with past medical history for CAD, hypertension, hyperlipidemia, depression, congestive heart failure, OLIVIA pneumonia not on abx, DILLON not on CPAP presenting to ER for progressive shortness of breath over several days but acutely worse
day of admission. As per EMS, patient was 43% on room air. ABG obtained showing acute CO2 retention with pH 7.29/86 and placed on BIPAP. Chest x-ray with small bilateral pleural effusion with bibasilar probable pneumonia progressed. Sputum
recently on 06/26/23 obtained showing + serratia. She has history of OLIVIA-colonized and see ID as OP. Has not yet started abx treatment. Admitted to IMU, we are consulted for pulmonary eval.
Impression:
Acute hypoxic and hypercarbic respiratory failure due to suspected bronchiectasis flare in setting of ADHF + asthma (not currently in an asthmatic flare)
Chronic respiratory failure on long-term oxygen therapy (3L/min NC)
Serratia PNA - seen on sputum Cx from 06/26/2023 ordered by ID on 06/18/2023 after she saw them in office due to suspected bronchiectasis flare
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
Leukocytosis - resolved as of 07/05
Elevated trops � peaked at 0.057 on 07/01/2023
Mild DHF component
B/L effusions and/or PNA on CXR
Noncompliance with PAP
Conditions [employer]:
Post abd surgery done in April 2007: adm 04/15-09/10, presented in septic shock with diffuse peritonitis, s/p subtotal abdominal colectomy (necrotizing colitis)
Discharged with a large open abdominal wound
Readm June 1007, CT abd/p showed bilateral DVT on 06-28-07
Bilateral CHUCKY DVT 06-28-07
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
Reportedly h/o DVT in past (prior to above)
CHUCKY venous insufficiency, s/p bilateral endovenous laser ablation procedures by [facility] 2018
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
Cough variant asthma and history of hypereosinophilia (abs. eos were 3000 in January 2022); bilateral pulmonary nodules:
follows Dr Boyd, last visit 02-27-22,
on trelegy; albuterol/ipratropium and budesonide nebulizers
Patient chronically uses 3 L of oxygen at nighttime.
H/o hemoptysis, negative sputum cytology 05-25-17, hemoptysis May 2021 and Dec 2021 (mild)
Presbyesophagus, silent aspiration, esophageal stricture
history of moderate-severe pharyngeal dysphagia and left vocal fold paralysis
CAD
HTN
HLD
Hypothyroidism
DILLNO on oral appliance and O2 2L, intolerant to CPAP secondary to frequent nocturia
CHUCKY lymphedema
Depression s/p ECT
Bipolar disease
L breast cancer, s/p mastectomy
L shoulder arthroplasty
Bilateral breast implants (ruptured R implant)
Colon resection for diverticulitis
Former smoker: 20 pyh, quit 1998
Plan
Respiratory status is somewhat tenuous though slowly improving
Continue supplemental oxygen-attempt to wean
Assess discharge supplemental oxygen needs prior to discharge
Nebulizers as needed
Mucus clearing devices-incentive spirometry/flutter
Vest therapy as needed
The patient's most recent sputum reviewed:
Total culture results reviewed--
Re-check sputum culture 06/30 negative
Sputum 06/26/23 + Serratia
05/26/23 + OLIVIA
09/15/22 + Serratia
07/23/22 + MRSA
Sputum 10/09/21 + OLIVIA
09/17/21 + OLIVIA
07/29/21 + OLIVIA
Urine 04/01/19 + E. Coli, 08/26/17 + E. Coli/Kleb
Was on Zosyn --> changed to cefepime on 07/02 per ID --> now changed to Omnicef today per ID-through 07/10/2023
Follow up sputum Cx from 07/01/2023 (usual rei)
Procal 1.27 - 07/03/2023 --> downtrending to 0.26 today, showing that we have source control
Of note, pt does NOT have COPD - last FEV1/FVC: 87 (116% predicted) via PFT from 10/2022, and prior to that her FEV1/FVC was 89 (119% predicted) via PFT from 12/2021 - she has suspected asthma w/ cough --> continue Symbicort and Spiriva, and consider
steroids if she develops wheezing
Bronchiectasis is noted on CT-qualifies for outpatient vest therapy, but, she states that her co-pay was too high
Note: ABG 7. -> 7.30/86 on 07/01/2023
Reviewed hypercarbia to patient and CPAP compliance
BIPAP placed, we discussed needing to use this nightly --> trying on nightly, using 3-4 hours
She notes it causes insomnia, added prn melatonin
Known h/o basilar fibrotic and BE changes and also OLIVIA/M fortuitum
Followed by Dr Boyd
Patient opted for clinical observation re NTM- unclear if this should be treated with ongoing symptoms
She reports having significant chronic diarrhea and would not be excited about for antibiotics for a lengthy period of time to treat OLIVIA
C. difficile negative today (07/05) - ok for imodium prn
Restrictive lung disease history--TLC 52% with VC 71% on most recent PFT from 10/2022
Restriction may be on the basis of generalized muscle strength and/or body habitus
DILLON with oxygen at night, 2 L --not on CPAP
She saw Dr. Ellen Benitez for oral appliance in the past/she is not using it needs adjustments
States that ever since she has gained weight recently the oral appliance device has been less effective
Was on chronic Xarelto for recurrent VTE, resumed on 07/03/23
Last dose on 05-18, has IVCF since June 2007, DOAC resumed 05-22-22
Pleural effusions noted on CT, LE edema
proBNP elevated
Resumed on IV lasix on 07/01/2023 --> now on PO lasix starting 07/06
If SOB not responding, may consider RHC -she does seem to be improved as per today so right heart cath can be deferred for now
History of aspiration
VSE obtained
Prior Speech notes: history of moderate-severe pharyngeal dysphagia and left vocal fold paralysis, known to department from multiple (3) prior video swallow studies (last 05/23/2022) which at times revealed episodes of silent aspiration with liquids.
Patient now admitted with bibasilar PNA and reported 2 prior PNAs (November, February)
07/01/23 VSE eval - Patient presents with mild oral and moderate-severe pharyngeal dysphagia. There were small volumes of silent aspiration of thin liquids via consecutive cup sips (x1), thin liquids via cup with head turn left (x1), and moderately
thick liquids via tsp (x1). Aspirate cleared with cued cough.
Ongoing issues here as well
DVT prophylaxis-xarelto
GI prophylaxis- n/a
Nutrition
Early mobilization
Outpatient pulmonary rhiepk-[facility]-she has been arranged for vest therapy in the past but she states that her co-pay was nearly '$2000' she could not afford it
Diagnostic Data
CXR 07/03/2023: Decreased vascular congestion and interstitial edema. Small bilateral pleural effusions with adjacent atelectasis/consolidation, slightly decreased as compared with prior.
CXR 06/30/23- Small bilateral pleural effusions with bibasilar probable pneumonia, progressed. Probable mild pulmonary vascular congestion.
CXR 05-20 c/w 01-15-22. New ARLEEN lingular density and basilar infiltrate or atelectasis
CT Chest 06/08/23- Redemonstration of bilateral lower lobe parenchymal opacities and bronchiectasis. Findings may be on the basis of a chronic inflammatory/infectious process, scarring, and/or atelectasis. New small groundglass opacities in the
anterior left upper lobe, also suggestive of mild inflammation or infection.
CT Chest 08/02/22- 1. Trace bilateral pleural effusions and dependent bilateral lower lobe consolidations, similar to prior likely reflects combination of atelectasis and pneumonia.
Chest CTA 05-21-22 IMPRESSION: No evidence of central pulmonary embolism. Slightly prominent main pulmonary arteries bilaterally. Mild cardiomegaly. Left lower lobe opacification compatible with atelectasis and likely accompanying pneumonia. Right
lower lobe opacification compatible with atelectasis and some scarring. Cannot exclude superimposed right lower lobe pneumonia.
PET-CT 07-03-21 IMPRESSION:
1. � Pulmonary nodules in the upper lobes of both lungs (right more numerous than left) demonstrating moderate FDG uptake. The morphology of most of the nodules is suggestive of peripheral endobronchial impaction which is likely secondary to
peripheral endobronchial infection (possibly secondary to atypical Mycobacterial infection). Lung cancer is considered less likely.
2. � No evidence for FDG avid malignancy in the abdomen, pelvis, or skeleton.
3. � Moderate amount of scarring in the right lower lobe with associated volume loss and mild left to right mediastinal shift.
4. � Moderate cardiomegaly without evidence for acute pulmonary edema.
5. � Moderate calcific atherosclerotic plaque in the coronary arteries.
6. � Previous left mastectomy, left axillary lymph node dissection, and bilateral breast implant placement.
[facility] records
07/25/22 FVC 1.88L 68%, FEV1 1.43L 69%, ratio 76
05-13-22: Most recent PFT FVC 2.1L 72%, prior 2.11L 71%, TLC 67%, FEV1 1.86L 85%
ECHO 03/22/22: Normal biventricular size and systolic function without regional wall motion abnormality. Stage II diastolic dysfunction. Moderate left atrial enlargement. Mild to moderate mitral regurgitation. Aortic sclerosis without stenosis.
Moderate tricuspid regurgitation. Estimated PASP 45 mmHg and RA 3 mmHg. No significant change since the prior study of 03/21/2019 the LVEF has increased from 45-50%. LAE and MR are new. PASP could not be estimated on the prior study.
-----
Total time spent today was 35 minutes for this encounter. Time includes reviewing laboratory test/imaging results, reviewing pertinent medical records, obtaining and reviewing medical history, performing an appropriate exam, ordering medications,
tests and procedures. Time also includes documentation of this encounter, coordinating patient care and communicating with other healthcare professionals. Total time does not include separately billed tests performed on this date of service.
Subjective Data
-
Date of Service:
Date of Service: July 07, 2023
Chief Complaint: Pulmonary Follow Up and Dyspnea Follow Up
Subjective:
Still with some chest congestion, overall feels a little bit better, difficulties mobilizing secretions, no chest pain or abdominal pain
Review of Systems
General: Other (Per HPI)
Objective Data
Data Reviewed
Vital Signs / I&O:
Vital Signs
Temp Pulse Resp BP Pulse Ox
98.1 F 79 20 129/55 94
07/07/23 07:30 07/07/23 10:00 07/07/23 10:00 07/07/23 09:19 07/07/23 10:00
Intake and Output
07/06/23 07/07/23 07/08/23
06:59 06:59 06:59
Intake Total 240 / 240 720 / 720
Output Total 600 / 600 250 / 250
Balance -360 / -360 470 / 470
SaO2: 94
Nasal Cannula flow liters per minute: 3
Physical Exam
General: Respiratory Distress (negative) and Comfortable
HEENT: Normocephalic and Anicteric
Cardiovascular: Regular Rhythm, Murmur and Peripheral Edema (Trace lower extremity edema bilaterally)
Respiratory: Wheeze (n), Crackles (Bibasilar), Rhonchi (Bilaterally) and Non-Labored Respirations
GI: Soft, Non Distended, Non Tender and Normal Bowel Sounds
Neurology: Awake, Alert and Tremors (negative)
Skin: Warm, Dry, Good Color, Cyanosis (negative) and Jaundice (n)
Labs/Micro/Reports
Lab Data
07/07/23 04:56
07/07/23 04:56
Microbiology
07/06/23 14:24 Feces/Stool C. difficile [facility] Antigen & Toxins - Final
Negative for toxigenic C.difficile
06/30/23 18:26 Blood/Venous Blood Culture - Final
No Growth - Final Report
06/30/23 18:26 Blood/Venous Blood Culture - Final
No Growth - Final Report
--- NOTE | 2023-07-07 13:45 | PTCARENOTE ---
Addendum entered by Rosario Nieto 07/07/23 15:17:
Report called to Linda at [facility]. Belongings collected from room. IV and tele monitor removed. D/c via EMS with [facility].
Original Note:
Attempted to call report to Vilma Monique at [phone], no answer. Will try again shortly.
--- NOTE | 2023-07-07 16:25 | W.DCSUMMARY ---
Discharge Summary
Discharge Data
Date of Admission: 06/30/23
Date of Discharge: 07/07/23
-
Pending Results: No
Hospital Course
Primary diagnoses:
Severe sepsis and acute on chronic hypoxic respiratory failure due to pneumonia and acute heart failure with preserved ejection fraction
Acute metabolic encephalopathy due to sepsis
Secondary diagnoses:
Essential Hypertension
Hyperlipidemia
Chronic obstructive pulmonary disease
Restrictive lung disease
h/o deep vein thrombosis
h/o pulmonary embolism
Bipolar Disorder
Acute nonischemic myocardial injury
Hypothyroidism
h/o Breast cancer s/p Left Mastectomy
Consultants:
Cardiology
Pulmonary
Infectious disease
Imaging:
CXR 06/30/23: Small bilateral pleural effusions with bibasilar probable pneumonia, progressed. Probable mild pulmonary vascular congestion.
CXR 07/03/23: Decreased vascular congestion and interstitial edema. Small bilateral pleural effusions with adjacent atelectasis/consolidation, slightly decreased as compared with prior.
Echo 07/03/23: EF 50%, no significant valvular disease
73-year-old female who presented with a chief complaint of shortness of breath as outlined in the H&P done on admission. Hospital course per problem list:
Acute on chronic hypoxic respiratory failure due to pneumonia and acute HFpEF: The patient was on 3L NC O2 at baseline prior to admission. Her acute on chronic hypoxic respiratory failure was multifactorial due to pneumonia and acute heart failure
with preserved ejection fraction. She initially required BiPAP and was weaned to her baseline oxygen requirement prior to discharge.
Acute HFpEF: ProBNP was 1020. CXRs/echo above. Patient was diuresed with IV Lasix. She was transitioned to oral Lasix. Her beta-gomez was continued.
Severe sepsis due to hospital-acquired pneumonia: Patient had acute metabolic encephalopathy due to sepsis. She was initially on BiPAP and was weaned to her baseline oxygen requirement prior to discharge. CXRs above. She was initially on cefepime
and then transition to cefdinir through July 10, 2023.
Discharge Plan
-
Patient Disposition: [facility]dc/SNF
Discharge Diagnosis/Procedures: Severe sepsis and acute on chronic hypoxic respiratory failure due to pneumonia and acute heart failure with preserved ejection fraction
Condition: Good
Diet: Low Cholesterol and Low Sodium
Activity: As tolerated
Driving Restrictions: Not until seen by your Dr
Others Tests: CXR in 4-6 weeks, BMP and CBC in 1 week, scripts from PCP
Referrals:
Adrian Boyd MD [Active] - in two to three weeks
sChar MD [Family Provider] - in less than 1 week
Prescriptions:
New
cefdinir 300 mg Capsule
300 mg PO Q12 Qty: 0 0RF
Rx Instructions:
through 07/10/23
loratadine 10 mg Tablet
10 mg PO DAILY Qty: 0 0RF
Continued
levothyroxine 175 MCG tablet
175 mcg PO DAILY
carvedilol 6.25 MG tablet
6.25 mg PO BID 0RF
lamotrigine 100 MG tablet
100 mg PO BID 0RF
atorvastatin 10 MG tablet
10 mg PO MOWEFR
methenamine hippurate [Hiprex] 1 GM tablet
1 gm PO DAILY
losartan 25 MG tablet
25 mg PO QPM
Hold Instructions: take when BP>140/90
coenzyme Q10 [Co Q-10] 100 MG capsule
100 mg PO DAILY
Xarelto 20 MG tablet
20 mg PO QPM
clonazepam 0.5 mg tablet
0.5 mg PO QPM
Patient Comments:
06/30/2023: last filled 06/22/23, 30 tabs for 30 days from [facility]
aripiprazole 5 mg tablet
5 mg PO QPM
Trelegy Ellipta 200-62.5-25 mcg Blister With Device
1 inh INHALATION R DAILY
cholecalciferol (vitamin D3) [Vitamin D3] 25 mcg (1,000 unit) Tablet
25 mcg PO DAILY
ipratropium-albuterol 0.5 mg-3 mg(2.5 mg base)/3 mL solution for nebulization
3 ml INHALATION R TID
bupropion HCl 100 mg tablet sustained-release 12 hr
100 mg PO BID
budesonide 0.5 mg/2 mL suspension for nebulization
0.5 mg inhalation R BID
furosemide [Lasix] 40 mg tablet
80 mg PO DAILY Qty: 60 3RF
Hold Instructions: Resume on 12/05/22.
loperamide 2 mg Tablet
4 mg PO QID PRN (Reason: diarrhea)
gabapentin 100 mg Capsule
100 mg PO TID
fiber Tablet,Chewable
1 tab PO DAILY
Women's 50 Plus Multivitamin 400 mcg-500 mg calcium-20 mcg Tablet
1 tab PO DAILY
guaifenesin [Mucinex] 600 mg Tablet Extended Release 12hr
1,200 mg PO BID
Calcium And Magnesium
1,000 mg PO DAILY
benzonatate 100 mg Capsule
200 mg PO TIDPRN PRN (Reason: cough) Qty: 20 0RF
omeprazole 40 mg capsule,delayed release(DR/EC)
40 mg PO DAILY
acetaminophen 650 mg Tablet Extended Release
650 mg PO BID PRN (Reason: mild pain)
albuterol sulfate 90 mcg/actuation HFA aerosol inhaler
1 puff INHALATION R Q6 PRN (Reason: sob/wheezing)
Discontinued
prednisone 10 mg tablet
10 mg PO DAILY
Discharge Orders:
Discharge Patient (As Directed); Ordered 07/07/23
Ordered By: Christiano Ashley
Discharge Date and Time
Discharge Date/Time: 07/07/23 15:30
Print Language: CZECH
== END 2023-07-07 15:30 | DRG 871 ==
LOC: IMU 21:07
PROVIDERS: General Practice; Internal Medicine; Internal Medicine Critical Care Medicine; Nurse Practitioner Family; Registered Nurse; ADMITTING PHYSICIAN Hospitalist; ATTENDING PHYSICIAN Internal Medicine; CONSULT PHYSICIAN Internal Medicine; CONSULT PHYSICIAN Internal Medicine Cardiovascular Disease; EMERGENCY PHYSICIAN Student in an Organized Health Care Education/Training Program; FAMILY PHYSICIAN Internal Medicine; OTHER PHYSICIAN Internal Medicine Infectious Disease
DX: A41.9 Sepsis, unspecified organism (principal); G93.41 Metabolic encephalopathy; J15.69 Pneumonia due to other Gram-negative bacteria; I50.33 Acute on chronic diastolic (congestive) heart failure; R65.21 Severe sepsis with septic shock; J96.21 Acute and chronic respiratory failure with hypoxia; J96.22 Acute and chronic respiratory failure with hypercapnia; J47.0 Bronchiectasis with acute lower respiratory infection; J44.0 Chronic obstructive pulmonary disease with (acute) lower respiratory infection; I5A Non-ischemic myocardial injury (non-traumatic); Z79.01 Long term (current) use of anticoagulants; Z87.891 Personal history of nicotine dependence
CPT/HCPCS: 93308; 36600; 71045; 74230; 80048; 80053; 80061; 80202; 81003; 81015; 82248; 82805; 83605; 83735; 83880; 84145; 84443; 84484; 85025; 85027; 85610; 85730; 87040; 87070; 87205; 87324; 87449; 87502; 87641; 87811; 87899; 92526; 92610; 92611; 93005; 93321; 93325; 94640; 94660; 96365; 96366; 96375; 97162; 97167; 97530; 97535; 99291

== ENCOUNTER → 2023-07-13 10:19 | Outpatient (REF) | payer OTHER, SELFPAY ==
[2023-07-13 11:20] LABS: % Basophils 0.6 % (0-2); % Eosinophils 4.4 % (0-6); % Immature Granulocytes 0.7 % (0-0.5); % Lymphocytes 14.8 % (20.5-51.1); % Monocytes 7.7 % (1.7-9.3); % Neutrophils 71.8 % (42.2-75.2); Absolute Basophils 0.1 10^3/uL (0-0.2); Absolute Eosinophils 0.4 10^3/uL (0-0.7); Absolute Immature Granulocytes 0.1 10^3/uL (0-0.05); Absolute Lymphocytes 1.2 10^3/uL (1.2-3.4); Absolute Monocytes 0.6 10^3/uL (0.1-0.6); Absolute Neutrophils 5.9 10^3/uL (1.4-6.5); Hematocrit 31.6 % (37.0-47.0); Hemoglobin 9.5 g/dL (12.0-16.0); Mean Corp Hgb Conc. 30.1 g/dL (33.0-37.0); Mean Corpuscular Volume 86.3 fL (81.0-99.0); Mean Platelet Volume 9.9 fL (7.4-10.4); Nucleated Red Blood Cells % 0 %; Platelet Count 293 10^3/uL (130-400); Red Blood Cell Count 3.66 10^6/uL (4.20-5.40); Red Cell Dist. Width 15.9 % (11.5-14.5); White Blood Cell Count 8.3 10^3/uL (4.8-10.8)
[2023-07-13 11:38] LABS: Blood Urea Nitrogen 24 mg/dl (7-17); Calcium 9.3 mg/dl (8.4-10.2); Carbon Dioxide 30 mmol/L (22-30); Chloride 100 mmol/L (98-107); Glucose 82 mg/dl (70-99); Sodium 137 mmol/L (135-145); eGFR 52.73
== END ==
LOC: OLABP 10:19
PROVIDERS: ATTENDING PHYSICIAN Family Medicine
DX: E78.5 Hyperlipidemia, unspecified (principal); I11.0 Hypertensive heart disease with heart failure; I25.10 Atherosclerotic heart disease of native coronary artery without angina pectoris
CPT/HCPCS: 36415; 80048; 85025

== ENCOUNTER 2023-07-17 10:38 | Inpatient (IN) | payer OTHER, SELFPAY ==
[2023-07-14 23:04] VITALS: BP 162/85
[2023-07-14 23:35] LABS: % Basophils 0.2 % (0-2); % Eosinophils 0.8 % (0-6); % Immature Granulocytes 0.4 % (0-0.5); % Lymphocytes 4.6 % (20.5-51.1); % Monocytes 3.8 % (1.7-9.3); % Neutrophils 90.2 % (42.2-75.2); Absolute Eosinophils 0.2 10^3/uL (0-0.7); Absolute Immature Granulocytes 0.1 10^3/uL (0-0.05); Absolute Lymphocytes 0.9 10^3/uL (1.2-3.4); Absolute Monocytes 0.7 10^3/uL (0.1-0.6); Absolute Neutrophils 17.3 10^3/uL (1.4-6.5); Hemoglobin 11.8 g/dL (12.0-16.0); Mean Corp Hgb Conc. 30.3 g/dL (33.0-37.0); Mean Corpuscular Hgb 26.2 pg (27.0-31.0); Mean Corpuscular Volume 86.5 fL (81.0-99.0); Mean Platelet Volume 9.7 fL (7.4-10.4); Nucleated Red Blood Cells % 0 %; Platelet Count 388 10^3/uL (130-400); Red Blood Cell Count 4.51 10^6/uL (4.20-5.40); Red Cell Dist. Width 15.7 % (11.5-14.5); White Blood Cell Count 19.2 10^3/uL (4.8-10.8)
[2023-07-14 23:48] LABS: ALT (SGPT) 21 U/L (0-35); AST (SGOT) 21 U/L (14-36); Albumin 4.3 g/dl (3.5-5.0); Alkaline Phosphatase 99 U/L (38-126); Blood Urea Nitrogen 22 mg/dl (7-17); Calcium 10.4 mg/dl (8.4-10.2); Carbon Dioxide 29 mmol/L (22-30); Chloride 99 mmol/L (98-107); Glucose 117 mg/dl (70-99); Lipase 149 U/L (23-300); Potassium 3.9 mmol/L (3.5-5.1); Sodium 138 mmol/L (135-145); Total Bilirubin 0.9 mg/dl (0.2-1.3); Total Protein 7.9 g/dl (6.3-8.2); eGFR 52.73
[2023-07-15] VITALS (22 sets, daily range): BP systolic 100–156; BP diastolic 61–74; BMI 36.6
--- NOTE | 2023-07-15 04:27 | ED.GENMED ---
History of Present Illness
<GUILHERME Espinoza - Last Filed: 07/15/23 06:04>
General
Chief Complaint: Abdominal Symptoms
Source: patient and records
Exam Limitations: none
Time Seen by Provider: 07/15/23 03:50
Travel History
Have you had any contact with someone who has COVID-19?: No
Do you have any symptoms of coronavirus? Fever > 100 degrees, chills, cough, shortness of breath, sore throat, loss of taste or smell, muscle aches, or headache?: No
History of Present Illness
History of Present Illness:
73 year old female with hx of CAD, CHF, HTN, HLD, breast CA, s/p colon resection who presents with nausea and vomiting that began at 1800 Thursday. Pt just finished eating dinner when she had onset of nausea and vomiting. She had pierogies, keilbasa,
and sauerkraut. States the keilbasa was spicy. She then developed RLQ abdominal pain described as achy, nonradiating, and 5/10 in strength. She has not taken anything for her symptoms. Currently she feels tired and weak. She had SOB at triage.
Reports she has diarrhea at baseline s/p colostomy reversal. States she has cough at baseline and has been coughing since she was discharged here last week. Denies fevers/chills, flank pain, back pain, chest pain, SOB, hematemesis, dysuria,
hematuria. Records review shows pt was admitted here on 06/30/23 for SOB. She was diagnosed with acute on chronic hypoxic respiratory failure due to PNA and acute HFpEF. She is at 3L NC O2 at baseline. She was discharged on 07/07/23 to a nursing
home/SNF.
Past History
<GUILHERME Espinoza - Last Filed: 07/15/23 06:04>
Past History
ED Past Medical History: CAD, HTN, Hypercholesterolemia, Psychiatric (depression s/p ECT txs, Bipolar), Other (DVT), Other (diverticulitis) and Other (Breast CA)
ED Past Surgical History: Other (colon resection for divertic)
Social History
Tobacco: Former smoker
Alcohol: None
Drug: None
Personal:
Living: with family
Employment: Disabled
Family History
Family History: Other (Hodgkin's disease and breast cancer)
Review of Systems
<GUILHERME Espinoza - Last Filed: 07/15/23 06:04>
Review of Systems
Allergies reviewed?: Yes
All Other Systems: ROS reviewed and negative except as documented in HPI and ROS
Constitutional: Reports fatigue
EENT: Reports no symptoms
Respiratory: Reports cough
Cardiac: Reports no symptoms
ABD/GI: Reports abdominal pain, nausea, vomiting and diarrhea
: Reports no symptoms
Musculoskeletal: Reports no symptoms
Skin: Reports no symptoms
Neurological: Reports no symptoms
Endocrine: Reports no symptoms
Hematologic/Lymphatic: Reports no symptoms
Psychiatric: Reports no symptoms
Phy Exam
<GUILHERME Espinoza - Last Filed: 07/15/23 06:04>
General Physical Exam
General Presentation: mild distress and other (weak-appearing)
General age: appears stated age
General Skin: warm and dry
General Habitus: normal
General Mental: alert
General Hydration: dry mucous membranes
Cardiovascular Exam
Cardiovascular Exam: no gallop, no murmur, normal peripheral pulses and tachycardia
Pulmonary Exam
Breath Sounds: Crackles: generalized and Rhonchi: generalized
Gastrointestinal Exam
Gastrointestinal Exam: normal bowel sounds, soft, no pulsatile mass and non distended
Palpation: right lower quadrant: Moderate tenderness
Neurological Exam
Neurological Exam: alert and oriented x3
Skin Exam
Skin Exam: normal color and warm/dry
Psychiatric Exam
Psychiatric Exam: normal mood/affect
Course
<GUILHERME Espinoza - Last Filed: 07/15/23 06:04>
Orders/Labs/Results
Orders:
Orders
07/14/23 23:02
Electrocardiogram (*1) Urgent
Reason for Study: Abdominal Pain
EKG- Treatment ONCE
IV Insert/Care/Rem.- Treatment PRN
Urinalysis Reflex To Culture Urgent
Date Specimen was Collected: 07/14/23
Time Specimen was Collected: 23:02
07/14/23 23:20
Complete Blood Count/With Diff Urgent
Comprehensive Metabolic Panel Urgent
Lipase Urgent
07/15/23 00:00
CR Chest - 2 Views Urgent
Reason For Exam: SOB
07/15/23 04:26
Lactic Acid Urgent
Blood Culture Urgent
JESSICA Source: Blood/Venous
Specimen Description:
Blood Culture Urgent
JESSICA Source: Blood/Venous
Specimen Description:
07/15/23 05:17
CT Abd/pelvis W Iv Cont Urgent
Comment:
Reason For Exam: rlq abd pain
07/15/23 06:31
Aztreonam [Azactam] 2,000 mg IV NOW STA
Gentamicin Sulfate [Gentamicin] 200 mg 0.9% Sodium Chloride [Nss] 50 ml IV NOW
Abnormal Lab Results
07/14/23
23:20
WBC 19.2 H 10^3/uL
(4.8-10.8)
Hgb 11.8 L D g/dL
(12.0-16.0)
MCH 26.2 L pg
(27.0-31.0)
MCHC 30.3 L g/dL
(33.0-37.0)
RDW 15.7 H %
(11.5-14.5)
Abs Immat Gran (auto) 0.1 H 10^3/uL
(0-0.05)
Absolute Neuts (auto) 17.3 H 10^3/uL
(1.4-6.5)
Absolute Lymphs (auto) 0.9 L 10^3/uL
(1.2-3.4)
Absolute Monos (auto) 0.7 H 10^3/uL
(0.1-0.6)
Neutrophils % 90.2 H %
(42.2-75.2)
Lymphocytes % 4.6 L %
(20.5-51.1)
BUN 22 H mg/dl
(7-17)
Creatinine 1.1 H mg/dL
(0.6-1.0)
Glucose 117 H mg/dl
(70-99)
Calcium 10.4 H mg/dl
(8.4-10.2)
07/14/23 23:20
07/14/23 23:20
Vital Signs
Initial and Last Documented VS:
Initial Vital Signs
Temp Pulse Resp BP Pulse Ox
97.8 F 99 17 162/85 97
07/14/23 23:04 07/14/23 23:04 07/14/23 23:04 07/14/23 23:04 07/14/23 23:04
Last Documented Vital Signs
Temp Pulse Resp BP Pulse Ox
97.8 F 99 25 149/73 97
07/14/23 23:04 07/15/23 04:30 07/15/23 04:30 07/15/23 04:30 07/15/23 04:36
<Saran Mcgill, - Last Filed: 07/15/23 06:52>
Orders/Labs/Results
Orders:
Orders
07/14/23 23:02
Electrocardiogram (*1) Urgent
Reason for Study: Abdominal Pain
EKG- Treatment ONCE
IV Insert/Care/Rem.- Treatment PRN
Urinalysis Reflex To Culture Urgent
Date Specimen was Collected: 07/14/23
Time Specimen was Collected: 23:02
07/14/23 23:20
Complete Blood Count/With Diff Urgent
Comprehensive Metabolic Panel Urgent
Lipase Urgent
07/15/23 00:00
CR Chest - 2 Views Urgent
Reason For Exam: SOB
07/15/23 04:26
Lactic Acid Urgent
Blood Culture Urgent
JESSICA Source: Blood/Venous
Specimen Description:
Blood Culture Urgent
JESSICA Source: Blood/Venous
Specimen Description:
07/15/23 05:17
CT Abd/pelvis W Iv Cont Urgent
Comment:
Reason For Exam: rlq abd pain
07/15/23 06:31
Aztreonam [Azactam] 2,000 mg IV NOW STA
Gentamicin Sulfate [Gentamicin] 200 mg 0.9% Sodium Chloride [Nss] 50 ml IV NOW
Abnormal Lab Results
07/14/23
23:20
WBC 19.2 H 10^3/uL
(4.8-10.8)
Hgb 11.8 L D g/dL
(12.0-16.0)
MCH 26.2 L pg
(27.0-31.0)
MCHC 30.3 L g/dL
(33.0-37.0)
RDW 15.7 H %
(11.5-14.5)
Abs Immat Gran (auto) 0.1 H 10^3/uL
(0-0.05)
Absolute Neuts (auto) 17.3 H 10^3/uL
(1.4-6.5)
Absolute Lymphs (auto) 0.9 L 10^3/uL
(1.2-3.4)
Absolute Monos (auto) 0.7 H 10^3/uL
(0.1-0.6)
Neutrophils % 90.2 H %
(42.2-75.2)
Lymphocytes % 4.6 L %
(20.5-51.1)
BUN 22 H mg/dl
(7-17)
Creatinine 1.1 H mg/dL
(0.6-1.0)
Glucose 117 H mg/dl
(70-99)
Calcium 10.4 H mg/dl
(8.4-10.2)
07/14/23 23:20
07/14/23 23:20
Vital Signs
Initial and Last Documented VS:
Initial Vital Signs
Temp Pulse Resp BP Pulse Ox
97.8 F 99 17 162/85 97
07/14/23 23:04 07/14/23 23:04 07/14/23 23:04 07/14/23 23:04 07/14/23 23:04
Last Documented Vital Signs
Temp Pulse Resp BP Pulse Ox
97.8 F 99 25 149/73 97
07/14/23 23:04 07/15/23 04:30 07/15/23 04:30 07/15/23 04:30 07/15/23 04:36
<GUILHERME Espinoza - Last Filed: 07/15/23 06:04>
MDM/Problems Addressed
Differential Diagnosis Includes:
gastritis, colitis, appendicitis, SBO, bowel perforation, nephrolithiasis
MDM/Problems Addressed:
73 year old female who presents with nausea, vomiting, and abdominal pain that began at 1800 Thursday.
Chronic conditions affecting care: Psychiatric illness (depression, bipolar disorder) and Cancer (breast)
<GUILHERME Espinoza - Last Filed: 07/15/23 06:04>
*Critical Care Note
Total Time (30-74mins, 75-104mins- exclusive of procedures): Not Applicable
<Saran Mcgill DO - Last Filed: 07/15/23 06:52>
Update Note
Update Note:
CT abdomen and pelvis with IV contrast
IMPRESSION:
Acute small bowel obstruction with transition point in the left lower quadrant, series 202, image 17. Status post subtotal colectomy.
Indeterminate hepatic lesions are similar relative to previous CT from 2020. Status post cholecystectomy. No pancreatitis. No obstructing renal stone. IVC filter.
Ruptured right breast implant. Patchy opacities at the lung bases, likely aspiration pneumonia.
ED Attending Note
<ST OlgaPA - Last Filed: 07/15/23 06:04>
-
Portions of this chart may have been created with voice recognition software.� Occasional wrong word or��sound alike� substitutions may have occurred due to the inherent limitations of voice recognition software.
<Saran Mcgill DO - Last Filed: 07/15/23 06:52>
ED Attending Note
Patient seen and examined by attending physician: Yes
I performed the substantive portion of visit, reviewed & personally made and approve the management plan that is documented in note by myself or ISI.: Yes
ED Attending Note:
Pleasant 73-year-old female presents with nausea vomiting that began at approximately 6 PM Thursday. Patient was discharged from the hospital on July 06 for a diagnosis of pneumonia. Patient was seen in conjunction with the PA student. I have
reviewed and agree with the history and treatment plan presented. On my independent physical exam, patient is awake, alert, and oriented x3, moderate acute distress. Heart is regular rate and rhythm. Lungs clear to auscultation bilaterally
without wheezes rales or rhonchi. Abdomen is soft with diffuse tenderness to palpation.
Vital signs are stable. Patient not hypoxic
Nursing note reviewed. I agree with nursing documentation up to this point in time.
Home Meds and allergies reviewed.
NUMBER AND COMPLEXITY OF PROBLEMS ADDRESSED AT THE ENCOUNTER
� Chronic conditions affecting care:Acute HFpEF, acute on chronic hypoxic respiratory failure due to pneumonia. Severe sepsis
� Acute Exacerbation and/or Progression of Chronic Illness:
� Differential Diagnosis includes:
AMOUNT AND/OR COMPLEXITY OF DATA TO BE REVIEWED AND ANALYZED
I performed an independent evaluation of the following and my interpretation is:
EKG:
CT:
X-rays:
Ultrasound:
Laboratory Studies:
Other:
Review of other/old records:
Clinical information was obtained by an independent historian:
Prescriptions/Medications Considered but not given:
Further testing considered but not performed:
RISK OF COMPLICATIONS AND/OR MORBIDITY OR MORTALITY OF PATIENT MANAGEMENT
Social determinants of health affecting care: Good Social Support
Discussion with other providers:
Escalation of care including admission/observation vs risk of discharge considered:
CRITICAL CARE NOTE:
Total Time (exclusive of procedures):
Update:
Discharge Plan
Departure
Patient Disposition: Admit
Date of Disposition: 07/15/23
Time of Disposition: 06:51
Admit to: Telemetry
Presentation/result/management discussed w/ accepting MD/DO: Hospitalist
Discharge Problem:
SBO (small bowel obstruction), Respiratory distress
Prescriptions:
No Action
levothyroxine 175 MCG tablet
175 mcg PO DAILY
carvedilol 6.25 MG tablet
6.25 mg PO BID 0RF
lamotrigine 100 MG tablet
100 mg PO BID 0RF
atorvastatin 10 MG tablet
10 mg PO MOWEFR
methenamine hippurate [Hiprex] 1 GM tablet
1 gm PO DAILY
losartan 25 MG tablet
25 mg PO QPM
Hold Instructions: take when BP>140/90
coenzyme Q10 [Co Q-10] 100 MG capsule
100 mg PO DAILY
Xarelto 20 MG tablet
20 mg PO QPM
clonazepam 0.5 mg tablet
0.5 mg PO QPM
Patient Comments:
06/30/2023: last filled 06/22/23, 30 tabs for 30 days from [facility]
aripiprazole 5 mg tablet
5 mg PO QPM
Treleblayne Ellipta 200-62.5-25 mcg Blister With Device
1 inh INHALATION R DAILY
cholecalciferol (vitamin D3) [Vitamin D3] 25 mcg (1,000 unit) Tablet
25 mcg PO DAILY
ipratropium-albuterol 0.5 mg-3 mg(2.5 mg base)/3 mL solution for nebulization
3 ml INHALATION R TID
bupropion HCl 100 mg tablet sustained-release 12 hr
100 mg PO BID
budesonide 0.5 mg/2 mL suspension for nebulization
0.5 mg inhalation R BID
furosemide [Lasix] 40 mg tablet
80 mg PO DAILY Qty: 60 3RF
Hold Instructions: Resume on 12/05/22.
loperamide 2 mg Tablet
4 mg PO QID PRN (Reason: diarrhea)
gabapentin 100 mg Capsule
100 mg PO TID
fiber Tablet,Chewable
1 tab PO DAILY
Women's 50 Plus Multivitamin 400 mcg-500 mg calcium-20 mcg Tablet
1 tab PO DAILY
guaifenesin [Mucinex] 600 mg Tablet Extended Release 12hr
1,200 mg PO BID
Calcium And Magnesium
1,000 mg PO DAILY
benzonatate 100 mg Capsule
200 mg PO TIDPRN PRN (Reason: cough) Qty: 20 0RF
omeprazole 40 mg capsule,delayed release(DR/EC)
40 mg PO DAILY
acetaminophen 650 mg Tablet Extended Release
650 mg PO BID PRN (Reason: mild pain)
albuterol sulfate 90 mcg/actuation HFA aerosol inhaler
1 puff INHALATION R Q6 PRN (Reason: sob/wheezing)
cefdinir 300 mg Capsule
300 mg PO Q12 Qty: 0 0RF
Rx Instructions:
through 07/10/23
loratadine 10 mg Tablet
10 mg PO DAILY Qty: 0 0RF
Referrals:
Maximilian Kumar Jr., DO [Family Provider] -
Interventions
Interventions:
*Risk Screen - Suicide Last Done: 07/14/23 23:04
*General Assessment Last Done: 07/14/23 23:04
*Neglect/Abuse Screening Last Done: 07/14/23 23:04
ED- Fall Risk Assessment Last Done: 07/15/23 04:36
DU-Okhvky-Vggwwnolha Assessment Last Done: 07/15/23 04:42
Discharge Date and Time
Print Language: BELARUSIAN
[2023-07-15 05:02] LABS: Lactic Acid 1.6 mmol/L (0.7-2.0)
[2023-07-15] MEDS: AZACTAM 2000 MG IV (07:35)
[2023-07-15 08:03] LABS: Urine Albumin Trace (Neg - Trace); Urine Bilirubin Negative (Negative); Urine Character Clear (Clear); Urine Color Yellow; Urine Glucose Negative (Negative); Urine Ketone Negative (Negative); Urine Leukocyte 2+ (Negative); Urine Nitrite Negative (Negative); Urine Occult Blood Trace (Negative); Urine Urobilinogen Negative (Neg - 1+)
--- NOTE | 2023-07-15 08:35 | HPS.HSE ---
Family Physician
-
Family Physician: Maximilian Kumar Jr.
Chief Complaint
-
Abdominal Pain
History of Present Illness
73 y/o female with past medical history of CAD, diastolic heart failure, presbyesophagus, silent aspiration, esophageal stricture, moderate-severe pharyngeal dysphagia and left vocal fold paralysis, serratia pneumonia, OLIVIA pulmonary infection,
hypertension, hyperlipidemia, COPD on 3 L at nighttime, bilateral pulmonary nodules, bilateral DVT and saddle PE on Xarelto, lower extremity venous insufficiency, subtotal abdominal colectomy (necrotizing colitis), colon resection for
diverticulitis, bipolar disorder, hypothyroidism, breast cancer status post left mastectomy, DILLON on oral appliance and O2 2L - intolerant to CPAP secondary to frequent nocturia presented with abdominal pain. Patient says the pain started yesterday
evening soon after she started vomiting around 6 pm. Her last bowel movement, diarrhea, which is expected due to her surgeries and for which she takes Imodium, was yesterday.
Medical History
Past Medical History
Past Medical History: Reports Other (As per HPI above)
Past Surgical History: Reports Other (IVCF, subtotal colectomy with ileostomy, ileostomy takedown with ileo-rectal recon)
Social History
Tobacco: Former Smoker
Alcohol: None
Drug: None
Family History
Family History: Not pertinent
Allergies / Home Medications
Allergies reflects when Allergies were last updated in [facility].
Home Medications with original date entered in [facility]
Allergy/Medication List:
Allergies
Allergy/AdvReac Type Severity Reaction Status Date / Time
carbamazepine Allergy Hives, rash Verified 02/05/21 14:53
chlorhexidine Allergy Itching, Verified 05/09/22 14:10
[From Hibiclens] rash,
'chemical
burn'
ciprofloxacin [From Cipro] Allergy neuropathy Verified 05/21/22 20:25
after
stopping it
doxycycline Allergy Rash Verified 11/26/22 09:22
house dust Allergy Sneezing, Verified 05/09/22 14:10
eyes watery
Penicillins Allergy Hives as a Verified 08/03/22 17:57
child -
tolerates
ampicillin
Sulfa (Sulfonamide Allergy Hives Verified 02/05/21 14:53
Antibiotics)
venom-honey bee Allergy Rash Verified 05/09/22 14:10
Home Medications
levothyroxine 175 mcg tablet 175 mcg PO DAILY Thyroid 11/10/16
carvedilol 6.25 mg tablet 6.25 mg PO BID 02/26/18
lamotrigine 100 mg tablet 100 mg PO BID 02/26/18
atorvastatin 10 mg tablet 10 mg PO MOWEFR High cholesterol 02/05/21
losartan 25 mg tablet 25 mg PO QPM Blood pressure 02/05/21
methenamine hippurate 1 gram tablet (Hiprex) 1 gm PO DAILY Urinary issue 02/05/21
rivaroxaban 20 mg tablet (Xarelto) 20 mg PO QPM Blood clot prevention/tx 02/05/21
aripiprazole 5 mg tablet 5 mg PO QPM mental health 01/15/22
clonazepam 0.5 mg tablet 0.5 mg PO QPM sleep/mental health 01/15/22
fluticasone fur. 200 mcg-umeclid 62.5 mcg-vilant 25 mcg inhalat.powder (Trelegy Ellipta) 1 inh inhalation R DAILY Lung/breathing issues 01/15/22
cholecalciferol (vitamin D3) 25 mcg (1,000 unit) tablet (Vitamin D3) 25 mcg PO DAILY Supplement 05/21/22
budesonide 0.5 mg/2 mL suspension for nebulization 0.5 mg inhalation R BID Lung/Breathing Issues 08/01/22
bupropion HCl 100 mg tablet,12 hr sustained-release 100 mg PO BID Mental Health/Anxiety 08/01/22
ipratropium 0.5 mg-albuterol 3 mg (2.5 mg base)/3 mL nebulization soln 3 ml inhalation R QID Lung/Breathing Issues 08/01/22
gabapentin 100 mg capsule 100 mg PO TID Pain 11/24/22
guaifenesin 600 mg tablet, extended release 12 hr (Mucinex) 1,200 mg PO BID MUCUS/COUGH 11/24/22
loperamide 2 mg tablet 4 mg PO QIDPRN PRN diarrhea 11/24/22
benzonatate 100 mg capsule 200 mg (2 x 100 mg) PO TIDPRN PRN cough #20 caps 11/28/22
acetaminophen 650 mg tablet,extended release 650 mg PO BIDPRN PRN mild pain 06/30/23
albuterol sulfate 90 mcg/actuation aerosol inhaler 1 puff inhalation R Q6HPRN PRN sob 06/30/23
omeprazole 40 mg capsule,delayed release 40 mg PO DAILY Gastrointestinal Issue 06/30/23
loratadine 10 mg tablet 10 mg PO DAILY #0 tabs 07/07/23
acetaminophen 325 mg tablet 650 mg PO Q4HPRN PRN fever 07/15/23
bisacodyl 10 mg rectal suppository 10 mg NV Q120H PRN day 5 no bm, mom ineffective 07/15/23
furosemide 80 mg tablet 80 mg PO DAILY 07/15/23
inulin-sorbitol 2 gram chewable tablet 1 tab PO DAILY 07/15/23
magnesium hydroxide 400 mg/5 mL oral suspension (Milk of Magnesia) 2,400 mg PO Q96H PRN day 4 no bm 07/15/23
oxymetazoline 0.05 % nasal spray 1 spray intranasal BID 07/15/23
sodium phosphates 19 gram-7 gram/118 mL enema (Fleet Enema) 118 ml NV DAILYPRN PRN day 6 no bm, dulcolax ineffective 07/15/23
Review of Systems
-
A 12 point ROS was completed and negative except as noted: Yes
Physical Exam
Vital Signs
Vital Signs
Temp Pulse Resp BP Pulse Ox
97.8 F 99 25 149/73 93
07/14/23 23:04 07/15/23 04:30 07/15/23 04:30 07/15/23 04:30 07/15/23 07:35
Physical Exam
General: No Apparent Distress
HEENT: NormoCephalic and Moist mucous membranes
Respiratory: Wheezes and Decreased Breath Sounds
Cardiac: S1/S2 and Regular Rhythm
GI: Soft, Normal Bowel Sounds and Tender
Musculoskeletal: No Cyanosis
Skin: Warm and Dry
Neuro: Awake, Alert and AO x 3
Psych: Calm and Intact Judgment/Insight
Laboratory Results
-
07/14/23 23:20
07/14/23 23:20
Laboratory Results
Lactic Acid 1.6 mmol/L (0.7-2.0) 07/15/23 04:26
Total Bilirubin 0.9 mg/dl (0.2-1.3) 07/14/23 23:20
AST 21 U/L (14-36) 07/14/23 23:20
ALT 21 U/L (0-35) 07/14/23 23:20
Alkaline Phosphatase 99 U/L (38-126) 07/14/23 23:20
Lipase 149 U/L (23-300) 07/14/23 23:20
Impression/Plan
-
Assessment/Plan
Leukocytosis
Suspected Aspiration Pneumonia
Presbyesophagus
Silent aspiration
Esophageal stricture
Moderate-severe pharyngeal dysphagia and left vocal fold paralysis
History of serratia pneumonia
History of OLIVIA pulmonary infection
-Started Cefepime based on prior cultures; continue
-Follow cultures
Partial SBO likely 2/2 adhesions, dietary indiscretion
History of subtotal abdominal colectomy (necrotizing colitis)
History of colon resection for diverticulitis
-Appreciate surgery's evaluation and recommendations
-Start clear liquids diet, full liquids this evening, low residue diet tomorrow am if no further issues
-Okay to resume PO medications
CAD
Diastolic heart failure
-Continue home Coreg
-Continue home statin
-Continue home Furosemide
-Daily weights
-I's and O's
Hypertension
-Continue home Coreg, [place]
Hyperlipidemia
-Continue home statin
COPD on 3 L at nighttime -- pulmonary previously has said she does not have COPD
Bronchiectasis
Suspected asthma w/ cough
-Continue home bronchodilators, inhaled corticosteroids
Bilateral pulmonary nodules
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
-Continue home Xarelto
Lower extremity venous insufficiency
Bipolar disorder
-Continue home Lamictal
Hypothyroidism
-Continue Levothyroxine
Breast cancer status post left mastectomy
DILLON on oral appliance and O2 2L - intolerant to CPAP secondary to frequent nocturia
DVT PPx: Xarelto
[2023-07-15 08:49] LABS: Urine Squamous Cell >30 /LPF (Few)
[2023-07-15 08:53] LABS: Urine Bacteria Few (Negative); Urine White Cell 16-20 /HPF (0-5)
[2023-07-15] MEDS: GENTAMICIN 55 MG IV (09:42)
--- NOTE | 2023-07-15 10:11 | CM ---
CM following re: discharge planning.
Reviewed pt's chart, met with pt.
Pt is a 73 year old female, admitted with OBS status and primary dx of nausea and vomiting. OBS status explained to the pt, pt stated she cannot sign, expressed her agreement, MOOM letter placed on chart, pt has a copy
Patient reports she resides alone at [facility], has a son who lives in [place]. Patient utilizes a walker at night and a rollator in the community. Patient reports using oxygen at night time, [employer] provider. Pt is known to
[facility] and was at [facility] in the past.
Pt is admitted from [facility] where she was for a short term rehab since the end of June.
Pt expressed her desire to return back to [facility] to continue on skilled services.
PCP: Dr. Char Chinchillas
Pharmacy: [facility] on [address] in [place].
D/C plan: [facility] with a new authorization.
CM will follow with discharge plan updates as hospitalization progresses
[2023-07-15] MEDS: NSS 1000 IV (11:28)
[2023-07-15] MEDS: MAXIPIME 2000 MG IV ×2 (11:28→22:10)
[2023-07-15] MEDS: STERILE WATER FOR INJECTION 10 ML IV ×2 (11:29→22:10)
[2023-07-15] MEDS: PULMICORT INH ×2 (13:38→20:33)
--- NOTE | 2023-07-15 14:04 | CON.GS ---
Consultation
-
Requesting Provider: Artem
Performing Provider: Desi
Reason for Consultation: pSBO
Medical History
-
Chief Complaint: Abd pain
History of Present Illness:
73F with acute onset n/v about 2 hours after eating sauerkraut. She has also increased her fresh fruit intake over the past week which is not typical for her. After dinner yesterday she dveloped abd pain mainly to the RLQ without radiation. A/w n/v.
Denies f/c. Endorses fatigue/malaise. She has a hx of subtotal colectomy for diverticulitis with eventual ileo-rectal reconstruction. She has diarrhea at baseline and takes immodium severla times a day. She was D/C'ed from a week ago after a 7
day stay for PNA. Just prior to my encounter had several large BMs and now pain free and nausea resolved.
Past Medical History
Past Medical History: Other (CAD, HTN, Hypercholesterolemia, Psychiatric (depression s/p ECT txs, Bipolar), Other (DVT), Other (diverticulitis) and Other (Breast CA), pulm disease on chronic O2, apparent VHR with mesh though she does not remember)
Past Surgical History: Other (IVCF, subtotal colectomy with ileostomy, ileostomy takedown with ileo-rectal recon)
Social History
Tobacco: Former Smoker
Alcohol: None
Drug: None
Family History
Family History: Reviewed & Noncontributory
Allergies / Home Medications
Allergy/AdvReac Type Severity Reaction Status Date / Time
carbamazepine Allergy Hives, rash Verified 02/05/21 14:53
chlorhexidine Allergy Itching, Verified 05/09/22 14:10
[From Hibiclens] rash,
'chemical
burn'
ciprofloxacin [From Cipro] Allergy neuropathy Verified 05/21/22 20:25
after
stopping it
doxycycline Allergy Rash Verified 11/26/22 09:22
house dust Allergy Sneezing, Verified 05/09/22 14:10
eyes watery
Penicillins Allergy Hives as a Verified 08/03/22 17:57
child -
tolerates
ampicillin
Sulfa (Sulfonamide Allergy Hives Verified 02/05/21 14:53
Antibiotics)
venom-honey bee Allergy Rash Verified 05/09/22 14:10
�Medication �Instructions �Recorded �Confirmed �Type
levothyroxine 175 mcg tablet 175 mcg PO DAILY Thyroid 11/10/16 07/15/23 History
carvedilol 6.25 mg tablet 6.25 mg PO BID 02/26/18 07/15/23 Rx
lamotrigine 100 mg tablet 100 mg PO BID 02/26/18 07/15/23 Rx
atorvastatin 10 mg tablet 10 mg PO MOWEFR High cholesterol 02/05/21 07/15/23 History
losartan 25 mg tablet 25 mg PO QPM Blood pressure 02/05/21 07/15/23 History
methenamine hippurate 1 gram 1 gm PO DAILY Urinary issue 02/05/21 07/15/23 History
tablet (Hiprex)
rivaroxaban 20 mg tablet (Xarelto) 20 mg PO QPM Blood clot 02/05/21 07/15/23 History
prevention/tx
aripiprazole 5 mg tablet 5 mg PO QPM mental health 01/15/22 07/15/23 History
clonazepam 0.5 mg tablet 0.5 mg PO QPM sleep/mental health 01/15/22 07/15/23 History
fluticasone fur. 200 mcg-umeclid 1 inh inhalation R DAILY 01/15/22 07/15/23 History
62.5 mcg-vilant 25 mcg Lung/breathing issues
inhalat.powder (Trelegy Ellipta)
cholecalciferol (vitamin D3) 25 25 mcg PO DAILY Supplement 05/21/22 07/15/23 History
mcg (1,000 unit) tablet (Vitamin
D3)
budesonide 0.5 mg/2 mL suspension 0.5 mg inhalation R BID 08/01/22 07/15/23 History
for nebulization Lung/Breathing Issues
bupropion HCl 100 mg tablet,12 hr 100 mg PO BID Mental Health/Anxiety 08/01/22 07/15/23 History
sustained-release
ipratropium 0.5 mg-albuterol 3 mg 3 ml inhalation R QID 08/01/22 07/15/23 History
(2.5 mg base)/3 mL nebulization Lung/Breathing Issues
soln
gabapentin 100 mg capsule 100 mg PO TID Pain 11/24/22 07/15/23 History
guaifenesin 600 mg tablet, 1,200 mg PO BID MUCUS/COUGH 11/24/22 07/15/23 History
extended release 12 hr (Mucinex)
loperamide 2 mg tablet 4 mg PO QIDPRN PRN diarrhea 11/24/22 07/15/23 History
benzonatate 100 mg capsule 200 mg (2 x 100 mg) PO TIDPRN PRN 11/28/22 07/15/23 Rx
cough #20 caps
acetaminophen 650 mg 650 mg PO BIDPRN PRN mild pain 06/30/23 07/15/23 History
tablet,extended release
albuterol sulfate 90 mcg/actuation 1 puff inhalation R Q6HPRN PRN sob 06/30/23 07/15/23 History
aerosol inhaler
omeprazole 40 mg capsule,delayed 40 mg PO DAILY Gastrointestinal 06/30/23 07/15/23 History
release Issue
loratadine 10 mg tablet 10 mg PO DAILY #0 tabs 07/07/23 07/15/23 Rx
acetaminophen 325 mg tablet 650 mg PO Q4HPRN PRN fever 07/15/23 07/15/23 History
bisacodyl 10 mg rectal suppository 10 mg HI Q120H PRN day 5 no bm, 07/15/23 07/15/23 History
mom ineffective
furosemide 80 mg tablet 80 mg PO DAILY 07/15/23 07/15/23 History
inulin-sorbitol 2 gram chewable 1 tab PO DAILY 07/15/23 07/15/23 History
tablet
magnesium hydroxide 400 mg/5 mL 2,400 mg PO Q96H PRN day 4 no bm 07/15/23 07/15/23 History
oral suspension (Milk of Magnesia)
oxymetazoline 0.05 % nasal spray 1 spray intranasal BID 07/15/23 07/15/23 History
sodium phosphates 19 gram-7 118 ml HI DAILYPRN PRN day 6 no 07/15/23 07/15/23 History
gram/118 mL enema (Fleet Enema) bm, dulcolax ineffective
Review of Systems
-
A 10 point review of systems was completed, and was negative except as per HPI.
Physical Exam
Vital Signs
Temp Pulse Resp BP Pulse Ox
99.8 F 96 24 142/71 97
07/15/23 07:35 07/15/23 14:00 07/15/23 14:00 07/15/23 14:00 07/15/23 14:00
07/14/23 07/15/23 07/16/23
06:59 06:59 06:59
Actual Weight 96.615 kg
Lab Results
07/14/23 23:20
07/14/23 23:20
WBC 19.2 10^3/uL (4.8-10.8) H 07/14/23 23:20
Hgb 11.8 g/dL (12.0-16.0) L D 07/14/23 23:20
Hct 39.0 % (37.0-47.0) 07/14/23 23:20
Plt Count 388 10^3/uL (130-400) D 07/14/23 23:20
Abs Immat Gran (auto) 0.1 10^3/uL (0-0.05) H 07/14/23 23:20
Neutrophils % 90.2 % (42.2-75.2) H 07/14/23 23:20
Physical Exam
General: Well Developed, Well Nourished and No Apparent Distress
Respiratory: Rales (audible from several feet away)
GI: Soft, Non Tender and Non Distended
Neuro: AO x 3
Psych: Calm
Data Reviewed
-
Radiology: Image Personally Visualized and interpreted and Report Reviewed by me
CT Scan: Image Personally Visualized and interpreted, Report Reviewed by me and Discussed with Patient
Labs: Labs Reviewed by me and Discussed with Patient
Old Records: Reviewed
Assessment / Plan
-
73F with resolving pSBO likely 2/2 adhesions, dietary indiscretion
Low grade temps and leukocytosis likely 2/2 PNA
Passing flatus and BMs, abd symptoms resolved
Plan:
Start CLD, Fulls this rubin, LRD tomorrow am if no further issues
No plans for surgery
Pls call with ?s
All other care as per primary team
[2023-07-15] MEDS: DUONEB INH ×2 (15:53→20:33)
[2023-07-15] MEDS: NEURONTIN 100 MG PO ×2 (16:03→22:11)
[2023-07-15 16:20] LABS: Troponin I < 0.012 ng/ml
--- NOTE | 2023-07-15 16:34 | PTOTSP ---
Dysphagia Evaluation
Patient with a history of chronic dysphagia and left vocal fold paralysis, now admitted with pSBO. Recent video swallow study 07/01/2023 with mild oral, moderate-severe pharyngeal dysphagia with silent aspiration of consecutive cup sips of thin
liquids, thin via cup with head turn left, and moderately thick liquids via tsp - cleared with a cued cough. Suspect swallowing function has not changed since recent admission. Continue with strategies below:
Recommend:
1. Continue diet per surgery (Full Liquids)
2. Strategies: upright to 90 degrees, oral prep set (hold liquid in front of mouth before swallowing), small single sips by cup, intermittent cough/swallow, slow rate of intake, avoid mixed consistencies (i.e., fruit with pieces, soup with pieces)
3. Medications - whole or crushed in puree
4. Oral care 3x daily before/after PO
5. Consider ENT re-evaluation could be at the outpatient level.
6. Brief f/u at the acute care level.
--- NOTE | 2023-07-15 18:30 | TRANSFER ---
Pt admitted from ED to room 435-2, ambulated from stretcher to bed with x1 assist with rolling walker. AAOx3, oriented to unit and plan of care. Denying pain at this time. Plan of care ongoing.
[2023-07-15] MEDS: KLONOPIN 0.5 MG PO (18:38)
[2023-07-15] MEDS: COZAAR 25 MG PO (18:38)
[2023-07-15] MEDS: PROTONIX 40 MG PO (18:38)
[2023-07-15] MEDS: CLARITIN 10 MG PO (18:38)
[2023-07-15] MEDS: VITAMIN D3 (cholecalciferol) 25 MCG PO (18:38)
[2023-07-15] MEDS: LASIX 80 MG PO (18:38)
[2023-07-15] MEDS: XARELTO 20 MG PO (18:38)
[2023-07-15] MEDS: LIPITOR 10 MG PO (18:39)
[2023-07-15] MEDS: SYMBICORT 160/4.5 MCG INHALER INH (20:33)
[2023-07-15 21:00] LABS: Troponin I < 0.012 ng/ml
[2023-07-15] MEDS: IMODIUM 4 MG PO (22:10)
[2023-07-15] MEDS: LAMICTAL 100 MG PO (22:11)
[2023-07-15] MEDS: COREG 6.25 MG PO (22:11)
[2023-07-15] MEDS: AFRIN NASAL SPRAY NASAL ×2 (22:11→22:29)
[2023-07-15] MEDS: MUCINEX 1200 MG PO (22:11)
[2023-07-15] MEDS: ABILIFY 5 MG PO (22:12)
[2023-07-15] MEDS: WELLBUTRIN SR (12 hour sustained release) 100 MG PO (22:12)
[2023-07-15] MEDS: HIPREX 1 GRAM PO (22:12)
[2023-07-16] VITALS (7 sets, daily range): BP systolic 104–170; BP diastolic 43–79; BMI 35.1
[2023-07-16 03:21] LABS: % Basophils 0.4 % (0-2); % Eosinophils 1.6 % (0-6); % Immature Granulocytes 0.4 % (0-0.5); % Lymphocytes 7.7 % (20.5-51.1); % Monocytes 6.2 % (1.7-9.3); % Neutrophils 83.7 % (42.2-75.2); Absolute Basophils 0.1 10^3/uL (0-0.2); Absolute Eosinophils 0.2 10^3/uL (0-0.7); Absolute Immature Granulocytes 0.1 10^3/uL (0-0.05); Absolute Monocytes 0.8 10^3/uL (0.1-0.6); Absolute Neutrophils 11.3 10^3/uL (1.4-6.5); Hematocrit 32.1 % (37.0-47.0); Hemoglobin 10.1 g/dL (12.0-16.0); Mean Corp Hgb Conc. 31.5 g/dL (33.0-37.0); Mean Corpuscular Hgb 26.6 pg (27.0-31.0); Mean Corpuscular Volume 84.7 fL (81.0-99.0); Mean Platelet Volume 9.3 fL (7.4-10.4); Nucleated Red Blood Cells % 0 %; Platelet Count 297 10^3/uL (130-400); Red Blood Cell Count 3.79 10^6/uL (4.20-5.40); White Blood Cell Count 13.5 10^3/uL (4.8-10.8)
[2023-07-16 03:43] LABS: Blood Urea Nitrogen 26 mg/dl (7-17); Calcium 9.1 mg/dl (8.4-10.2); Carbon Dioxide 32 mmol/L (22-30); Chloride 99 mmol/L (98-107); Estimated Creatinine Clearance 62 ml/min; Glucose 104 mg/dl (70-99); Magnesium 1.6 mg/dl (1.6-2.3); Potassium 3.5 mmol/L (3.5-5.1); Sodium 139 mmol/L (135-145); eGFR > 60.00
[2023-07-16 03:44] LABS: Troponin I < 0.012 ng/ml
[2023-07-16] MEDS: TYLENOL 650 MG PO (04:14)
[2023-07-16] MEDS: TESSALON PERLES 200 MG PO (04:14)
[2023-07-16] MEDS: IMODIUM 4 MG PO ×2 (04:14→20:26)
[2023-07-16] MEDS: SYNTHROID 175 MCG PO (06:16)
[2023-07-16] MEDS: SYMBICORT 160/4.5 MCG INHALER 2 PUFF INH ×2 (08:08→20:30)
[2023-07-16] MEDS: PULMICORT 0.5 MG INH ×2 (08:08→20:30)
[2023-07-16] MEDS: DUONEB 3 ML INH ×3 (08:08→20:30)
[2023-07-16] MEDS: VITAMIN D3 (cholecalciferol) 25 MCG PO (08:21)
[2023-07-16] MEDS: LASIX 80 MG PO (08:22)
[2023-07-16] MEDS: NEURONTIN 100 MG PO ×3 (08:22→22:14)
[2023-07-16] MEDS: PROTONIX 40 MG PO (08:23)
[2023-07-16] MEDS: CLARITIN 10 MG PO (08:23)
[2023-07-16] MEDS: MUCINEX 1200 MG PO ×2 (08:24→20:06)
[2023-07-16] MEDS: HIPREX 1 GRAM PO (08:24)
[2023-07-16] MEDS: COREG 6.25 MG PO ×2 (08:24→20:06)
[2023-07-16] MEDS: WELLBUTRIN SR (12 hour sustained release) 100 MG PO ×2 (08:25→20:06)
[2023-07-16] MEDS: LAMICTAL 100 MG PO ×2 (08:35→20:09)
[2023-07-16] MEDS: AFRIN NASAL SPRAY 30 SPRAYS NASAL (08:40)
[2023-07-16 08:56] LABS: Troponin I < 0.012 ng/ml
[2023-07-16] MEDS: STERILE WATER FOR INJECTION 10 ML IV (12:36)
[2023-07-16] MEDS: MAXIPIME 2000 MG IV (12:37)
--- NOTE | 2023-07-16 14:50 | CM ---
Addendum entered by Anjelica Hanson 07/16/23 15:48:
Patient states that she was at [facility] skilled and plan is to return to [facility] skilled, case checker will need PT/OT evaluations. Patient will need Auth for skilled placement. Patient states she is on oxygen at home.
Original Note:
Chart reviewed and patient was admitted from the apartments at [facility]. case checker will follow with patient progress and assist with discharge planning.
Plan; Await PT/OT evaluations to assist with discharge planning.
--- NOTE | 2023-07-16 15:16 | CON.ID ---
Consultation
-
Date/Time Consultation Requested: 07/16/2023 09:09
Date/Time Consultation Performed: 07/16/2023 1500
Requesting Provider: Dr. Rodriguez
Performing Provider: Dr. Lozoya
Reason for Consultation: Pneumonia; bronchiectasis
Chief Complaint / Past History
History of Present Illness
Alexandrea Levin is a 73-year-old female being evaluated at request of Dr. Davies in regards to the continued antibiotic use. History is obtained from chart review, along with patient interview.
The patient is known to the ID service, having been seen during her last hospitalization from 06/29 through 07/06, when she was transferred to [facility] for continued rehab. During her hospitalization, she was assessed for exacerbation of COPD and
bronchiectasis and the finding of Serratia on respiratory culture. At that time, she was to continue with cefdinir through 07/09.
She presented back to [facility] on 07/14 following the development of acute nausea and vomiting. In the ER, she was found to a leukocytosis, and antibiotics were reinitiated. She has been evaluated by Surgery, and felt to have a resolving
partial SBO likely secondary to adhesions and dietary indiscretion.
At this time she denies any fevers or chills. She admits to slight cough but no shortness of breath.
Past History
Additional Past Medical History:
COPD, cough variant asthma
Bronchiectasis
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
CAD
HTN
HLD
Hypothyroidism
DILLON on oral appliance and O2 2L, intolerant to CPAP secondary to frequent nocturia
LE lymphedema
Depression s
Bipolar disease
Presbyesophagus, silent aspiration, esophageal stricture
DVT
LE venous insuffuciency / stasis disease
Additional Past Surgical History:
L breast cancer, s/p mastectomy
L shoulder arthroplasty
Bilateral breast implants (ruptured R implant)
Colon resection for diverticulitis
Allergy History:
carbamazepine Allergy (Verified 02/05/21 14:53)
Hives, rash
chlorhexidine [From Hibiclens] Allergy (Verified 05/09/22 14:10)
Itching, rash, 'chemical burn'
ciprofloxacin [From Cipro] Allergy (Verified 05/21/22 20:25)
neuropathy after stopping it
doxycycline Allergy (Verified 11/26/22 09:22)
Rash
house dust Allergy (Verified 05/09/22 14:10)
Sneezing, eyes watery
Penicillins Allergy (Verified 08/03/22 17:57)
Hives as a child - tolerates ampicillin
Sulfa (Sulfonamide Antibiotics) Allergy (Verified 02/05/21 14:53)
Hives
venom-honey bee Allergy (Verified 05/09/22 14:10)
Rash
Medications Reviewed: Yes
Current Antibiotics:
Cefepime 2 g IV every 12 hours
Methenamine
Social History
Tobacco: Former Smoker
Alcohol: None
Drug: None
Personal:
Living: With Family
Employment: Retired
Family History
Family History: Not Pertinent
Review of Systems
Vital Signs
Temp Pulse Resp BP Pulse Ox
98.5 F 87 18 107/77 95
07/16/23 11:00 07/16/23 11:00 07/16/23 11:00 07/16/23 11:00 07/16/23 11:00
Physical Exam
Physical Exam
Constitutional: No Acute Distress, Comfortable and Non-toxic
Head: Normocephalic
Eyes: Pupils Equal, Pupils Round, No Conjunctival Hemorrhage and Sclera Anicteric
Oral: No Thrush and No Ulcers
Cardiovascular: S1/S2; Negative S3/S4 or Murmur
Pulmonary: Rhonchi (few scattered), Coarse and Non Labored
Gastrointestinal: Soft, Non Tender and Non Distended
Extremities: Edema (trace) and Venous Insufficiency (B/L LE's)
Skin: Warm and Dry; Negative Rash or Jaundice
Neurological: Awake and Alert
Psychological: Calm
Lab / Diagnostic Study Results
07/16/23 03:14
07/16/23 03:14
Abs Immat Gran (auto) 0.1 10^3/uL (0-0.05) H 07/16/23 03:14
Absolute Neuts (auto) 11.3 10^3/uL (1.4-6.5) H 07/16/23 03:14
Absolute Lymphs (auto) 1.0 10^3/uL (1.2-3.4) L 07/16/23 03:14
Absolute Monos (auto) 0.8 10^3/uL (0.1-0.6) H 07/16/23 03:14
Absolute Basos (auto) 0.1 10^3/uL (0-0.2) 07/16/23 03:14
Immature Gran % 0.4 % (0-0.5) 07/16/23 03:14
Neutrophils % 83.7 % (42.2-75.2) H 07/16/23 03:14
Lymphocytes % 7.7 % (20.5-51.1) L 07/16/23 03:14
Monocytes % 6.2 % (1.7-9.3) 07/16/23 03:14
Eosinophils % 1.6 % (0-6) 07/16/23 03:14
Basophils % 0.4 % (0-2) 07/16/23 03:14
Lactic Acid 1.6 mmol/L (0.7-2.0) 07/15/23 04:26
Ur Squamous Epith Cells >30 /LPF (Few) 07/15/23 07:43
Microbiology Results
Micro:
07/15/23 07:43 Urine Culture - Final
Urine
07/15/23 14:53 Respiratory Culture - Preliminary
Sputum Usual Respiratory Nai
Gram Stain - Preliminary
07/15/23 04:26 Blood Culture - Preliminary
Blood/Venous No Growth in 24 hours- Final report to follow
07/15/23 04:26 Blood Culture - Preliminary
Blood/Venous No Growth in 24 hours- Final report to follow
07/15/23 20:30 MRSA Screen - Pending
Nose
Imaging:
CT abdomen/pelvis with IV contrast: 1. Findings consistent with small bowel obstruction, likely adhesive. Transition point is seen within the left lower quadrant on coronal images 16-17. Fecalization of small bowel contents proximal to
the transition point. No evidence of pneumatosis intestinalis or extraluminal air. 2. Changes of prior subtotal colectomy. 3. Bibasilar airspace consolidation, right greater than left, consistent with pneumonia or subsegmental atelectasis. Trace
right pleural fluid.
Assessment / Plan
Resolving pSBO
Leukocytosis; likely secondary to above
Recent Hx PNA; completed course of IV antibiotics
CAD
HTN
Dyslipidemia
Depression bipolar disease
Hx DVT
Diverticulitis
Hx breast CA
Recommendations:
Patient has completed her prior course of antibiotics.
CXR appears overall improved when compared to 06/29/2023.
Further antibiotics can be discontinued at this time.
Patient should have outpatient follow-up of white count
Care Review
Plan reviewed with: Physician (Hospitalist)
--- NOTE | 2023-07-16 15:34 | W.PN.HOSP.TC ---
Today's Communication/Plan
-
PT/OT, placement
No need for antibiotics
Bowel function improved
Assessment / Plan
Assessment / Plan
Physical Exam
General: No Apparent Distress
HEENT: Normocephalic and Moist mucous membranes
Respiratory: Rhonchi
Cardiac: S1/S2 and Regular Rhythm
GI: Soft, Normal Bowel Sounds and Nontender
Musculoskeletal: No Cyanosis
Skin: Warm and Dry
Neuro: Awake, Alert and AO x 3
Psych: Calm and Intact Judgment/Insight
Assessment/Plan
Leukocytosis Likely from Partial SBO
Suspected Aspiration Pneumonia
Presbyesophagus
Silent aspiration
Esophageal stricture
Moderate-severe pharyngeal dysphagia and left vocal fold paralysis
History of serratia pneumonia
History of OLIVIA pulmonary infection
-Status post Cefepime
-Consulted ID, no further antibiotics needed at this time, WBC count should be repeaed outpatient
Partial SBO likely 2/2 adhesions, dietary indiscretion
History of subtotal abdominal colectomy (necrotizing colitis)
History of colon resection for diverticulitis
-Appreciate surgery's evaluation and recommendations
-Tolerating low residue diet
-Okay to resume PO medications
CAD
Diastolic heart failure
-Continue home Coreg
-Continue home statin
-Continue home Furosemide
-Daily weights
-I's and O's
Hypertension
-Continue home Coreg, Losartan
Hyperlipidemia
-Continue home statin
COPD on 3 L at nighttime -- pulmonary previously has said she does not have COPD
Bronchiectasis
Suspected asthma w/ cough
-Continue home bronchodilators, inhaled corticosteroids
Bilateral pulmonary nodules
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
-Continue home Xarelto
Lower extremity venous insufficiency
Bipolar disorder
-Continue home Lamictal
Hypothyroidism
-Continue Levothyroxine
Breast cancer status post left mastectomy
DILLON on oral appliance and O2 2L - intolerant to CPAP secondary to frequent nocturia
DVT PPx: Xarelto
Anticipated Discharge: Within 24 hours
Subjective/Interval History
-
Date of Service: July 16, 2023
Patient was seen and examined. She reports feeling better than she did yesterday. She is having bowel movements, tolerating oral intake and denied any abdominal pain.
Objective Data
-
Labs:
Laboratory Results
07/16/23
03:14
Sodium 139
Potassium 3.5
Chloride 99
Carbon Dioxide 32 H
BUN 26 H
Creatinine 0.9
Glucose 104 H
Calcium 9.1
Vital Signs:
Vital Signs
Temp Pulse Resp BP Pulse Ox
98.5 F 87 18 107/77 95
07/16/23 11:00 07/16/23 11:00 07/16/23 11:00 07/16/23 11:00 07/16/23 11:00
I&O
07/15/23 07/16/23 07/17/23
06:59 06:59 06:59
Intake Total 240 / 240
Balance 240 / 240
[2023-07-16] MEDS: XARELTO 20 MG PO (17:52)
[2023-07-16] MEDS: COZAAR 25 MG PO (17:53)
[2023-07-16] MEDS: KLONOPIN 0.5 MG PO (17:53)
[2023-07-16] MEDS: ABILIFY 5 MG PO (17:53)
[2023-07-16] MEDS: AFRIN NASAL SPRAY 1 SPRAYS NASAL (20:06)
[2023-07-17] VITALS (8 sets, daily range): BP systolic 105–140; BP diastolic 45–83; PULSE 76; O2SAT 95–98; BMI 35.1
[2023-07-17] MEDS: SYNTHROID 175 MCG PO (06:11)
[2023-07-17 07:00] LABS: % Basophils 0.6 % (0-2); % Eosinophils 4.1 % (0-6); % Immature Granulocytes 0.4 % (0-0.5); % Monocytes 8.5 % (1.7-9.3); % Neutrophils 68.4 % (42.2-75.2); Absolute Eosinophils 0.3 10^3/uL (0-0.7); Absolute Lymphocytes 1.3 10^3/uL (1.2-3.4); Absolute Monocytes 0.6 10^3/uL (0.1-0.6); Absolute Neutrophils 4.8 10^3/uL (1.4-6.5); Hematocrit 31.2 % (37.0-47.0); Hemoglobin 9.5 g/dL (12.0-16.0); Mean Corp Hgb Conc. 30.4 g/dL (33.0-37.0); Mean Corpuscular Hgb 26.3 pg (27.0-31.0); Mean Corpuscular Volume 86.4 fL (81.0-99.0); Mean Platelet Volume 9.7 fL (7.4-10.4); Nucleated Red Blood Cells % 0 %; Platelet Count 268 10^3/uL (130-400); Red Blood Cell Count 3.61 10^6/uL (4.20-5.40); Red Cell Dist. Width 15.9 % (11.5-14.5); White Blood Cell Count 7.1 10^3/uL (4.8-10.8)
[2023-07-17 07:29] LABS: Blood Urea Nitrogen 25 mg/dl (7-17); Calcium 9.1 mg/dl (8.4-10.2); Carbon Dioxide 35 mmol/L (22-30); Chloride 96 mmol/L (98-107); Estimated Creatinine Clearance 54 ml/min; Glucose 89 mg/dl (70-99); Magnesium 1.6 mg/dl (1.6-2.3); Potassium 3.2 mmol/L (3.5-5.1); Sodium 138 mmol/L (135-145); eGFR 59.12
[2023-07-17] MEDS: PULMICORT 0.5 MG INH ×2 (08:00→19:01)
[2023-07-17] MEDS: DUONEB 3 ML INH ×3 (08:00→19:01)
[2023-07-17] MEDS: SYMBICORT 160/4.5 MCG INHALER 2 PUFF INH ×2 (08:01→19:01)
--- NOTE | 2023-07-17 08:50 | CM ---
Addendum entered by Anjelica Hanson 07/17/23 11:06:
lead assistant manager reached out to patient's insurance and spoke with Ileana and pending reference # is [id number], all clinicals faxed to this number will await Auth.
Original Note:
Chart reviewed and patient needs PT/OT evaluations for skilled placement, referral sent to [facility]. [facility] , [address] [phone]
Plan; To wait on PT/OT evaluations and submit to patient's insurance, per admissions at [facility] patient has an out of network benefit with [employer] and can go to [facility] skilled.
[2023-07-17] MEDS: MUCINEX 1200 MG PO ×2 (09:29→20:10)
[2023-07-17] MEDS: COREG 6.25 MG PO ×2 (09:29→20:10)
[2023-07-17] MEDS: NEURONTIN 100 MG PO ×3 (09:30→20:56)
[2023-07-17] MEDS: VITAMIN D3 (cholecalciferol) 25 MCG PO (09:30)
[2023-07-17] MEDS: HIPREX 1 GRAM PO (09:30)
[2023-07-17] MEDS: PROTONIX 40 MG PO (09:30)
[2023-07-17] MEDS: LASIX 80 MG PO (09:30)
[2023-07-17] MEDS: KCL 40 MEQ PO (09:30)
[2023-07-17] MEDS: LAMICTAL 100 MG PO ×2 (09:30→20:11)
[2023-07-17] MEDS: WELLBUTRIN SR (12 hour sustained release) 100 MG PO ×2 (09:30→20:56)
[2023-07-17] MEDS: AFRIN NASAL SPRAY 1 SPRAYS NASAL ×2 (09:31→20:11)
[2023-07-17] MEDS: MAGNESIUM SULFATE 102 GRAMS IV (09:31)
[2023-07-17] MEDS: CLARITIN 10 MG PO (09:31)
--- NOTE | 2023-07-17 13:17 | W.PN.ID1 ---
Date of Service
Date of Service: July 17, 2023
Today's Communication
Sign off.
Assessment / Plan
Resolving pSBO
Leukocytosis
- likely secondary to above
- resolved
Recent Hx PNA; completed course of IV antibiotics
CAD
HTN
Dyslipidemia
Depression bipolar disease
Hx DVT
Diverticulitis
Hx breast CA
Recommendations:
Patient has completed her prior course of antibiotics.
CXR appears overall improved when compared to 06/29/2023.
Continue off antibiotics.
Little more to offer from an Infectious Disease standpoint.
Will see again at your request.
Chief Complaint
-: Pneumonia
Subjective / Review of Systems
Review of Systems: No Fever and No Chills
Vital Signs / Physical Exam
Vital Signs
Vital Signs
Temp Pulse Resp BP Pulse Ox
98 F 70 20 132/77 100
07/17/23 11:42 07/17/23 11:42 07/17/23 11:42 07/17/23 11:42 07/17/23 11:42
Physical Exam
Constitutional: No Acute Distress, Comfortable and Non-toxic
Eyes: Sclera Anicteric
Pulmonary: Non Labored
Gastrointestinal: Soft and Non Distended
Neurological: Awake and Alert
Psychological: Calm
Objective Data
Lab Data
Lab Results
07/17/23 06:42
07/17/23 06:42
Estimated Creat Clear 54 ml/min 07/17/23 06:42
Lactic Acid 1.6 mmol/L (0.7-2.0) 07/15/23 04:26
Total Bilirubin 0.9 mg/dl (0.2-1.3) 07/14/23 23:20
AST 21 U/L (14-36) 07/14/23 23:20
ALT 21 U/L (0-35) 07/14/23 23:20
Alkaline Phosphatase 99 U/L (38-126) 07/14/23 23:20
Most recent labs reviewed.
Micro Results:
07/15/23 14:53 Respiratory Culture - Preliminary
Sputum Gram negative bacilli
Gram Stain - Preliminary
07/15/23 20:30 MRSA Screen - Final
Nose No Methicillin Resistant Staphylococcus aureus isolated.
07/15/23 04:26 Blood Culture - Preliminary
Blood/Venous No Growth in 48 hours- Final report to follow
07/15/23 04:26 Blood Culture - Preliminary
Blood/Venous No Growth in 48 hours- Final report to follow
07/15/23 07:43 Urine Culture - Final
Urine
Imaging:
CT abdomen/pelvis with IV contrast: 1. Findings consistent with small bowel obstruction, likely adhesive. Transition point is seen within the left lower quadrant on coronal images 16-17. Fecalization of small bowel contents proximal to
the transition point. No evidence of pneumatosis intestinalis or extraluminal air. 2. Changes of prior subtotal colectomy. 3. Bibasilar airspace consolidation, right greater than left, consistent with pneumonia or subsegmental atelectasis. Trace
right pleural fluid.
--- NOTE | 2023-07-17 15:44 | W.PN.HOSP.TC ---
Today's Communication/Plan
-
Stable
Discussed with case management today, auth still pending
Assessment / Plan
Assessment / Plan
Physical Exam
General: No Apparent Distress
HEENT: Normocephalic and Moist mucous membranes
Respiratory: Rhonchi
Cardiac: S1/S2 and Regular Rhythm
GI: Soft, Normal Bowel Sounds and Nontender
Musculoskeletal: No Cyanosis
Skin: Warm and Dry
Neuro: Awake, Alert and AO x 3
Psych: Calm and Intact Judgment/Insight
Assessment/Plan
Leukocytosis Likely from Partial SBO
Suspected Aspiration Pneumonia
Presbyesophagus
Silent aspiration
Esophageal stricture
Moderate-severe pharyngeal dysphagia and left vocal fold paralysis
History of serratia pneumonia
History of OLIVIA pulmonary infection
-Status post Cefepime
-Consulted ID, no further antibiotics needed at this time, WBC count should be repeated outpatient
Partial SBO likely 2/2 adhesions, dietary indiscretion
History of subtotal abdominal colectomy (necrotizing colitis)
History of colon resection for diverticulitis
-Appreciate surgery's evaluation and recommendations
-Tolerating low residue diet
CAD
Diastolic heart failure
-Continue home Coreg
-Continue home statin
-Continue home Furosemide
-Daily weights
-I's and O's
Hypertension
-Continue home Coreg, Losartan
Hyperlipidemia
-Continue home statin
COPD on 3 L at nighttime -- pulmonary previously has said she does not have COPD
Bronchiectasis
Suspected asthma w/ cough
-Continue home bronchodilators, inhaled corticosteroids
Bilateral pulmonary nodules
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
-Continue home Xarelto
Lower extremity venous insufficiency
Bipolar disorder
-Continue home Lamictal
Hypothyroidism
-Continue Levothyroxine
Breast cancer status post left mastectomy
DILLON on oral appliance and O2 2L - intolerant to CPAP secondary to frequent nocturia
DVT PPx: Xarelto
Anticipated Discharge: Within 24 hours
Subjective/Interval History
-
Date of Service: July 17, 2023
Patient was seen and examined. She denied any new symptoms or complaints.
Objective Data
-
Labs:
Laboratory Results
07/17/23
06:42
WBC 7.1
Hgb 9.5 L
Hct 31.2 L
Plt Count 268
Sodium 138
Potassium 3.2 L
Chloride 96 L
Carbon Dioxide 35 H
BUN 25 H
Creatinine 1.0
Glucose 89
Calcium 9.1
Vital Signs:
Vital Signs
Temp Pulse Resp BP Pulse Ox
98.1 F 79 20 140/83 95
07/17/23 15:14 07/17/23 15:14 07/17/23 15:14 07/17/23 15:14 07/17/23 14:17
I&O
07/16/23 07/17/23 07/18/23
06:59 06:59 06:59
Intake Total 240 / 240 1560 / 1560
Output Total 500 / 500 250 / 250
Balance 240 / 240 1060 / 1060 -250 / -250
[2023-07-17] MEDS: ABILIFY 5 MG PO (17:21)
[2023-07-17] MEDS: XARELTO 20 MG PO (17:21)
[2023-07-17] MEDS: KLONOPIN 0.5 MG PO (17:21)
[2023-07-17] MEDS: COZAAR 25 MG PO (17:21)
[2023-07-17] MEDS: LIPITOR 10 MG PO (17:23)
[2023-07-17] MEDS: IMODIUM 4 MG PO (20:58)
[2023-07-18 03:15] VITALS: BP 104/54
[2023-07-18 06:00] VITALS: BMI 35.3
[2023-07-18] MEDS: SYNTHROID 175 MCG PO (06:10)
[2023-07-18] MEDS: PULMICORT 0.5 MG INH (07:22)
[2023-07-18] MEDS: DUONEB 3 ML INH ×2 (07:22→14:40)
[2023-07-18] MEDS: SYMBICORT 160/4.5 MCG INHALER 2 PUFF INH (07:23)
[2023-07-18 07:38] VITALS: BP 125/60
[2023-07-18 08:21] LABS: % Basophils 0.6 % (0-2); % Eosinophils 4.2 % (0-6); % Immature Granulocytes 0.4 % (0-0.5); % Lymphocytes 15.2 % (20.5-51.1); % Monocytes 7.2 % (1.7-9.3); % Neutrophils 72.4 % (42.2-75.2); Absolute Eosinophils 0.3 10^3/uL (0-0.7); Absolute Monocytes 0.5 10^3/uL (0.1-0.6); Absolute Neutrophils 4.9 10^3/uL (1.4-6.5); Hemoglobin 9.4 g/dL (12.0-16.0); Mean Corp Hgb Conc. 30.3 g/dL (33.0-37.0); Mean Corpuscular Hgb 26.3 pg (27.0-31.0); Mean Corpuscular Volume 86.8 fL (81.0-99.0); Mean Platelet Volume 9.5 fL (7.4-10.4); Nucleated Red Blood Cells % 0 %; Platelet Count 292 10^3/uL (130-400); Red Blood Cell Count 3.57 10^6/uL (4.20-5.40); Red Cell Dist. Width 15.8 % (11.5-14.5); White Blood Cell Count 6.8 10^3/uL (4.8-10.8)
[2023-07-18] MEDS: AFRIN NASAL SPRAY 1 SPRAYS NASAL (08:33)
[2023-07-18] MEDS: HIPREX 1 GRAM PO (08:33)
[2023-07-18] MEDS: LASIX 80 MG PO (08:33)
[2023-07-18] MEDS: PROTONIX 40 MG PO (08:33)
[2023-07-18] MEDS: VITAMIN D3 (cholecalciferol) 25 MCG PO (08:34)
[2023-07-18] MEDS: COREG 6.25 MG PO (08:34)
[2023-07-18] MEDS: WELLBUTRIN SR (12 hour sustained release) 100 MG PO (08:34)
[2023-07-18] MEDS: CLARITIN 10 MG PO (08:34)
[2023-07-18] MEDS: LAMICTAL 100 MG PO (08:34)
[2023-07-18] MEDS: NEURONTIN 100 MG PO (08:34)
[2023-07-18] MEDS: MUCINEX 1200 MG PO (08:34)
[2023-07-18] MEDS: IMODIUM 4 MG PO (08:41)
[2023-07-18] MEDS: TYLENOL 650 MG PO (08:41)
[2023-07-18 09:00] LABS: Blood Urea Nitrogen 31 mg/dl (7-17); Calcium 9.5 mg/dl (8.4-10.2); Carbon Dioxide 34 mmol/L (22-30); Chloride 96 mmol/L (98-107); Estimated Creatinine Clearance 61 ml/min; Glucose 90 mg/dl (70-99); Magnesium 1.8 mg/dl (1.6-2.3); Potassium 3.9 mmol/L (3.5-5.1); Sodium 138 mmol/L (135-145); eGFR > 60.00
--- NOTE | 2023-07-18 09:51 | CM ---
Spokewith patient bedside, upset that [employer] auth not received yet.
Will keep patient updated.
Plan: bed available at [facility]. Ppp
--- NOTE | 2023-07-18 09:53 | CM ---
Addendum entered by Trixie Dodd 07/18/23 11:16:
IMM completed.
Transport time 3:15 pm. Attempted to update facility, disconnected.
Addendum entered by Trixie Dodd 07/18/23 10:54:
[employer] authorization via [employer]
reference# [id number]
Approved skilled rehab
start date 07/17/23, LCD/NRD 07/29/23
updates to fax# [phone]
Authorization given to Marlen at [facility]
Report# [id number]
or [id number]
Original Note:
Spoke with patient bedside.
Patient upset re awaiting [employer] Auth.
Plan: [facility] once [employer] auth received.
[2023-07-18 11:43] VITALS: BP 157/71
--- NOTE | 2023-07-18 13:59 | W.PN.HOSP.TC ---
Today's Communication/Plan
-
Discharge today
Assessment / Plan
Assessment / Plan
Physical Exam
General: No Apparent Distress
HEENT: Normocephalic and Moist mucous membranes
Respiratory: Rhonchi
Cardiac: S1/S2 and Regular Rhythm
GI: Soft, Normal Bowel Sounds and Nontender
Musculoskeletal: No Cyanosis
Skin: Warm and Dry
Neuro: Awake, Alert and AO x 3
Psych: Calm and Intact Judgment/Insight
Assessment/Plan
Leukocytosis Likely from Partial SBO
Suspected Aspiration Pneumonia
Presbyesophagus
Silent aspiration
Esophageal stricture
Moderate-severe pharyngeal dysphagia and left vocal fold paralysis
History of serratia pneumonia
History of OLIVIA pulmonary infection
-Status post Cefepime
-Consulted ID, no further antibiotics needed at this time, WBC count should be repeated outpatient
Partial SBO likely 2/2 adhesions, dietary indiscretion
History of subtotal abdominal colectomy (necrotizing colitis)
History of colon resection for diverticulitis
-Appreciate surgery's evaluation and recommendations
-Tolerating low residue diet
CAD
Diastolic heart failure
-Continue home Coreg
-Continue home statin
-Continue home Furosemide
-Daily weights
-I's and O's
Hypertension
-Continue home Coreg, Losartan
Hyperlipidemia
-Continue home statin
COPD on 3 L at nighttime -- pulmonary previously has said she does not have COPD
Bronchiectasis
Suspected asthma w/ cough
-Continue home bronchodilators, inhaled corticosteroids
Bilateral pulmonary nodules
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
-Continue home Xarelto
Lower extremity venous insufficiency
Bipolar disorder
-Continue home Lamictal
Hypothyroidism
-Continue Levothyroxine
Breast cancer status post left mastectomy
DILLON on oral appliance and O2 2L - intolerant to CPAP secondary to frequent nocturia
DVT PPx: Xarelto
More than 30 minutes spent in discharge including
Final examination of the patient
Summarizing hospital stay
Instructions for continuing care to all relevant caregivers
Preparation of discharge records, prescriptions, and referral forms
Total time spent (in minutes): 40
Anticipated Discharge: Today
Subjective/Interval History
-
Date of Service: July 18, 2023
Patient was seen and examined. She reported chronic diarrhea, but no new significant symptoms or complaints.
Objective Data
-
Labs:
Laboratory Results
07/18/23
07:27
WBC 6.8
Hgb 9.4 L
Hct 31.0 L
Plt Count 292
Sodium 138
Potassium 3.9
Chloride 96 L
Carbon Dioxide 34 H
BUN 31 H
Creatinine 0.9
Glucose 90
Calcium 9.5
Vital Signs:
Vital Signs
Temp Pulse Resp BP Pulse Ox
98.1 F 73 16 157/71 95
07/18/23 11:43 07/18/23 11:43 07/18/23 11:43 07/18/23 11:43 07/18/23 11:43
I&O
07/17/23 07/18/23 07/19/23
06:59 06:59 06:59
Intake Total 1560 / 1560 480 / 480
Output Total 500 / 500 1700 / 1700
Balance 1060 / 1060 -1220 / -1220
--- NOTE | 2023-07-18 14:27 | W.DS.TRANS ---
DC Summary - Practice Performance Manager
-
Discharge Instructions:
Discharge Diagnosis/Procedures Leukocytosis Likely from Partial SBO
Partial SBO likely 2/2 adhesions, dietary
indiscretion
History of subtotal abdominal colectomy (
necrotizing colitis)
History of colon resection for diverticulitis
Concern for Aspiration Pneumonia -- new
pneumonia ruled out however
Presbyesophagus
Silent aspiration
Esophageal stricture
Moderate-severe pharyngeal dysphagia and left
vocal fold paralysis
History of Serratia pneumonia
History of OLIVIA pulmonary infection
Coronary Artery Disease
Diastolic heart failure
Hypertension
Hyperlipidemia
COPD on 3 L at nighttime -- COPD diagnosis needs
verification as pulmonary previously has said
she does not have COPD
Bronchiectasis
Suspected asthma with cough
Bilateral pulmonary nodules
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
Lower extremity venous insufficiency
Bipolar disorder
Hypothyroidism
Breast cancer status post left mastectomy
Obstructive Sleep Apnea on oral appliance and O2
2L - intolerant to CPAP secondary to frequent
nocturia
Diet Low Residue
Activity As tolerated
Other Services PT,OT
Instructions:
Stand-Alone Forms:
Changes to Home Medications: Yes
Discharge Medications:
DC Medications w/original date entered in [facility]
levothyroxine 175 mcg tablet 175 mcg PO DAILY Thyroid 11/10/16
carvedilol 6.25 mg tablet 6.25 mg PO BID 02/26/18
lamotrigine 100 mg tablet 100 mg PO BID 02/26/18
atorvastatin 10 mg tablet 10 mg PO MOWEFR High cholesterol 02/05/21
losartan 25 mg tablet 25 mg PO QPM Blood pressure 02/05/21
methenamine hippurate 1 gram tablet (Hiprex) 1 gm PO DAILY Urinary issue 02/05/21
rivaroxaban 20 mg tablet (Xarelto) 20 mg PO QPM Blood clot prevention/tx 02/05/21
aripiprazole 5 mg tablet 5 mg PO QPM mental health 01/15/22
clonazepam 0.5 mg tablet 0.5 mg PO QPM sleep/mental health 01/15/22
fluticasone fur. 200 mcg-umeclid 62.5 mcg-vilant 25 mcg inhalat.powder (Trelegy Ellipta) 1 inh inhalation R DAILY Lung/breathing issues 01/15/22
cholecalciferol (vitamin D3) 25 mcg (1,000 unit) tablet (Vitamin D3) 25 mcg PO DAILY Supplement 05/21/22
budesonide 0.5 mg/2 mL suspension for nebulization 0.5 mg inhalation R BID Lung/Breathing Issues 08/01/22
bupropion HCl 100 mg tablet,12 hr sustained-release 100 mg PO BID Mental Health/Anxiety 08/01/22
ipratropium 0.5 mg-albuterol 3 mg (2.5 mg base)/3 mL nebulization soln 3 ml inhalation R QID Lung/Breathing Issues 08/01/22
gabapentin 100 mg capsule 100 mg PO TID Pain 11/24/22
guaifenesin 600 mg tablet, extended release 12 hr (Mucinex) 1,200 mg PO BID MUCUS/COUGH 11/24/22
loperamide 2 mg tablet 4 mg PO QIDPRN PRN diarrhea 11/24/22
benzonatate 100 mg capsule 200 mg (2 x 100 mg) PO TIDPRN PRN cough #20 caps 11/28/22
albuterol sulfate 90 mcg/actuation aerosol inhaler 1 puff inhalation R Q6HPRN PRN sob 06/30/23
omeprazole 40 mg capsule,delayed release 40 mg PO DAILY Gastrointestinal Issue 06/30/23
loratadine 10 mg tablet 10 mg PO DAILY #0 tabs 07/07/23
acetaminophen 325 mg tablet 650 mg PO Q4HPRN PRN fever 07/15/23
bisacodyl 10 mg rectal suppository 10 mg ID Q120H PRN day 5 no bm, mom ineffective 07/15/23
furosemide 80 mg tablet 80 mg PO DAILY Fluid Retention/Swelling 07/15/23
inulin-sorbitol 2 gram chewable tablet 1 tab PO DAILY Supplement 07/15/23
magnesium hydroxide 400 mg/5 mL oral suspension (Milk of Magnesia) 2,400 mg PO Q96H PRN day 4 no bm 07/15/23
oxymetazoline 0.05 % nasal spray 1 spray intranasal BID Allergies 07/15/23
sodium phosphates 19 gram-7 gram/118 mL enema (Fleet Enema) 118 ml ID DAILYPRN PRN day 6 no bm, dulcolax ineffective 07/15/23
Home Medication Changes
Additional Tylenol stopped
Pending Results: Yes
Additional Pending Results:
Final microbiology results from hospitalization.
Total time spent discharging patient (in min): 40
[2023-07-18 14:58] VITALS: BP 111/51
[2023-07-18 15:00] VITALS: BP 111/51
== END 2023-07-18 15:13 | DRG 388 ==
LOC: 4 WEST ACU 10:38
PROVIDERS: ADMITTING PHYSICIAN Hospitalist; CONSULT PHYSICIAN Internal Medicine Infectious Disease; CONSULT PHYSICIAN Surgery; EMERGENCY PHYSICIAN Student in an Organized Health Care Education/Training Program; FAMILY PHYSICIAN Family Medicine
DX: K56.51 Intestinal adhesions [bands], with partial obstruction (principal); I50.33 Acute on chronic diastolic (congestive) heart failure; J69.0 Pneumonitis due to inhalation of food and vomit; J96.21 Acute and chronic respiratory failure with hypoxia; J44.0 Chronic obstructive pulmonary disease with (acute) lower respiratory infection; T85.49XA Other mechanical complication of breast prosthesis and implant, initial encounter; I11.0 Hypertensive heart disease with heart failure; I25.10 Atherosclerotic heart disease of native coronary artery without angina pectoris; E03.9 Hypothyroidism, unspecified; I87.2 Venous insufficiency (chronic) (peripheral); J38.00 Paralysis of vocal cords and larynx, unspecified; R13.13 Dysphagia, pharyngeal phase; K22.2 Esophageal obstruction; G47.33 Obstructive sleep apnea (adult) (pediatric); J45.991 Cough variant asthma; K22.89 Other specified disease of esophagus; E78.00 Pure hypercholesterolemia, unspecified; F31.9 Bipolar disorder, unspecified; Y81.2 Prosthetic and other implants, materials and accessory general- and plastic-surgery devices associated with adverse incidents; Z96.612 Presence of left artificial shoulder joint; Z85.3 Personal history of malignant neoplasm of breast; Z87.01 Personal history of pneumonia (recurrent); Z87.891 Personal history of nicotine dependence; Z86.718 Personal history of other venous thrombosis and embolism; Z80.3 Family history of malignant neoplasm of breast; Z80.7 Family history of other malignant neoplasms of lymphoid, hematopoietic and related tissues; Z90.49 Acquired absence of other specified parts of digestive tract; Z87.19 Personal history of other diseases of the digestive system; Z99.81 Dependence on supplemental oxygen; Z88.0 Allergy status to penicillin; Z88.2 Allergy status to sulfonamides; Z88.8 Allergy status to other drugs, medicaments and biological substances; Z88.1 Allergy status to other antibiotic agents; Z91.030 Bee allergy status; Z79.02 Long term (current) use of antithrombotics/antiplatelets; Z79.01 Long term (current) use of anticoagulants; Z79.51 Long term (current) use of inhaled steroids; Z79.4 Long term (current) use of insulin; Z91.119 Patient's noncompliance with dietary regimen due to unspecified reason; Z90.12 Acquired absence of left breast and nipple
CPT/HCPCS: 71046; 74177; 80048; 80053; 81003; 81015; 83605; 83690; 83735; 84484; 85025; 87040; 87070; 87077; 87086; 87186; 87205; 92610; 93005; 94640; 97163; 97166; Q9967

== ENCOUNTER → 2023-07-31 12:12 | Outpatient (REF) | payer OTHER, SELFPAY ==
[2023-07-31 13:07] LABS: % Basophils 0.1 % (0-2); % Eosinophils 0.1 % (0-6); % Immature Granulocytes 0.3 % (0-0.5); % Lymphocytes 12.2 % (20.5-51.1); % Neutrophils 80.3 % (42.2-75.2); Absolute Lymphocytes 1.1 10^3/uL (1.2-3.4); Absolute Monocytes 0.6 10^3/uL (0.1-0.6); Absolute Neutrophils 7.4 10^3/uL (1.4-6.5); Hematocrit 32.6 % (37.0-47.0); Hemoglobin 10.1 g/dL (12.0-16.0); Mean Corpuscular Hgb 26.3 pg (27.0-31.0); Mean Corpuscular Volume 84.9 fL (81.0-99.0); Nucleated Red Blood Cells % 0 %; Platelet Count 249 10^3/uL (130-400); Red Blood Cell Count 3.84 10^6/uL (4.20-5.40); White Blood Cell Count 9.2 10^3/uL (4.8-10.8)
[2023-07-31 13:21] LABS: Uric Acid 6.6 mg/dl (2.5-6.2)
[2023-07-31 13:41] LABS: Erythrocyte Sed Rate 57 mm/hour (0-20)
== END ==
LOC: OLABPV 12:12
PROVIDERS: ATTENDING PHYSICIAN Family Medicine
DX: M25.531 Pain in right wrist (principal)
CPT/HCPCS: 36415; 84550; 85025; 85652

== ENCOUNTER → 2023-07-31 14:45 | Outpatient (REF) | payer OTHER, SELFPAY | LOC: RAD 14:45 | PROVIDERS: ATTENDING PHYSICIAN Family Medicine | DX: J18.9 Pneumonia, unspecified organism (principal); J47.1 Bronchiectasis with (acute) exacerbation; M25.531 Pain in right wrist | CPT/HCPCS: 71046; 73110 ==

== ENCOUNTER → 2023-08-18 10:19 | Outpatient (REF) | payer OTHER, SELFPAY ==
[2023-08-18 11:25] LABS: % Basophils 0.4 % (0-2); % Eosinophils 3.7 % (0-6); % Immature Granulocytes 0.2 % (0-0.5); % Lymphocytes 11.6 % (20.5-51.1); % Monocytes 6.3 % (1.7-9.3); % Neutrophils 77.8 % (42.2-75.2); Absolute Eosinophils 0.3 10^3/uL (0-0.7); Absolute Monocytes 0.5 10^3/uL (0.1-0.6); Absolute Neutrophils 6.6 10^3/uL (1.4-6.5); Hematocrit 30.1 % (37.0-47.0); Hemoglobin 9.4 g/dL (12.0-16.0); Mean Corp Hgb Conc. 31.2 g/dL (33.0-37.0); Mean Corpuscular Hgb 26.4 pg (27.0-31.0); Mean Corpuscular Volume 84.6 fL (81.0-99.0); Mean Platelet Volume 10.1 fL (7.4-10.4); Nucleated Red Blood Cells % 0 %; Platelet Count 195 10^3/uL (130-400); Red Blood Cell Count 3.56 10^6/uL (4.20-5.40); Red Cell Dist. Width 16.1 % (11.5-14.5); White Blood Cell Count 8.5 10^3/uL (4.8-10.8)
[2023-08-18 12:02] LABS: ALT (SGPT) 19 U/L (0-35); AST (SGOT) 21 U/L (14-36); Albumin 3.6 g/dl (3.5-5.0); Alkaline Phosphatase 72 U/L (38-126); Blood Urea Nitrogen 23 mg/dl (7-17); Calcium 9.2 mg/dl (8.4-10.2); Carbon Dioxide 32 mmol/L (22-30); Chloride 98 mmol/L (98-107); Glucose 92 mg/dl (70-99); HDL Cholesterol 68 mg/dl; LDL Cholesterol, Calculated 84 mg/dl; Potassium 3.2 mmol/L (3.5-5.1); Sodium 136 mmol/L (135-145); Total Bilirubin 1.4 mg/dl (0.2-1.3); Total Cholesterol 176 mg/dl (50-199); Triglyceride 122 mg/dl (10-149); Uric Acid 5.4 mg/dl (2.5-6.2); Very Low Density Lipoprotein 24 mg/dl (0-30); eGFR > 60.00
[2023-08-18 12:13] LABS: TSH Reflex To Free T4 2.24 uIU/ml (0.47-4.68)
== END ==
LOC: OLABPV 10:19
PROVIDERS: ATTENDING PHYSICIAN Family Medicine
DX: J47.1 Bronchiectasis with (acute) exacerbation (principal); E03.9 Hypothyroidism, unspecified; E78.2 Mixed hyperlipidemia; Z13.1 Encounter for screening for diabetes mellitus; M25.531 Pain in right wrist; E79.0 Hyperuricemia without signs of inflammatory arthritis and tophaceous disease; D64.9 Anemia, unspecified
CPT/HCPCS: 36415; 80053; 80061; 84443; 84550; 85025

== ENCOUNTER → 2023-08-27 11:35 | Outpatient (REF) | payer OTHER, SELFPAY ==
[2023-09-01 12:36] LABS: % Basophils 0.2 % (0-2); % Eosinophils 0.1 % (0-6); % Lymphocytes 10.6 % (20.5-51.1); % Monocytes 6.8 % (1.7-9.3); % Neutrophils 80.3 % (42.2-75.2); Absolute Immature Granulocytes 0.3 10^3/uL (0-0.05); Absolute Lymphocytes 1.5 10^3/uL (1.2-3.4); Absolute Monocytes 0.9 10^3/uL (0.1-0.6); Hematocrit 34.5 % (37.0-47.0); Hemoglobin 10.3 g/dL (12.0-16.0); Mean Corp Hgb Conc. 29.9 g/dL (33.0-37.0); Mean Corpuscular Hgb 26.5 pg (27.0-31.0); Mean Corpuscular Volume 88.7 fL (81.0-99.0); Nucleated Red Blood Cells % 0.2 %; Platelet Count 486 10^3/uL (130-400); Red Blood Cell Count 3.89 10^6/uL (4.20-5.40); Red Cell Dist. Width 15.8 % (11.5-14.5); White Blood Cell Count 13.7 10^3/uL (4.8-10.8)
[2023-09-01 13:22] LABS: Blood Urea Nitrogen 34 mg/dl (7-17); Calcium 9.7 mg/dl (8.4-10.2); Carbon Dioxide 36 mmol/L (22-30); Chloride 94 mmol/L (98-107); Glucose 90 mg/dl (70-99); Potassium 4.5 mmol/L (3.5-5.1); Sodium 138 mmol/L (135-145); eGFR > 60.00
[2023-09-01 13:58] LABS: Ferritin 34.5 ng/ml (11.1-264.0)
== END ==
LOC: OLABPV 11:35
PROVIDERS: ATTENDING PHYSICIAN Family Medicine
DX: D64.9 Anemia, unspecified (principal); E87.6 Hypokalemia
CPT/HCPCS: 80048; 82728; 85025

== ENCOUNTER → 2023-09-01 14:21 | Outpatient (REF) | payer OTHER, SELFPAY | LOC: RAD 14:21 | PROVIDERS: ATTENDING PHYSICIAN Family Medicine | DX: R05.1 Acute cough (principal) | CPT/HCPCS: 71046 ==

== ENCOUNTER → 2023-09-10 12:00 | Outpatient (REF) | payer OTHER, SELFPAY | LOC: DHSLP 12:00 | PROVIDERS: ATTENDING PHYSICIAN Internal Medicine Critical Care Medicine; FAMILY PHYSICIAN Family Medicine | DX: G47.19 Other hypersomnia (principal); R06.83 Snoring | CPT/HCPCS: 95800 ==

== ENCOUNTER → 2023-09-22 13:43 | Outpatient (REF) | payer OTHER, SELFPAY | LOC: REG 13:43 | PROVIDERS: ATTENDING PHYSICIAN Student in an Organized Health Care Education/Training Program; FAMILY PHYSICIAN Family Medicine; OTHER PHYSICIAN Internal Medicine Critical Care Medicine | DX: J47.1 Bronchiectasis with (acute) exacerbation (principal) | CPT/HCPCS: 87070; 87077; 87186; 87205 ==

== ENCOUNTER → 2023-10-14 12:59 | Outpatient (REF) | payer OTHER, SELFPAY ==
[2023-10-14 16:35] LABS: Blood Urea Nitrogen 28 mg/dl (7-17); Calcium 9.7 mg/dl (8.4-10.2); Carbon Dioxide 33 mmol/L (22-30); Chloride 98 mmol/L (98-107); Glucose 92 mg/dl (70-99); Sodium 143 mmol/L (135-145); eGFR > 60.00
== END ==
LOC: OLABPV 12:59
PROVIDERS: ATTENDING PHYSICIAN Nurse Practitioner
DX: I50.31 Acute diastolic (congestive) heart failure (principal)
CPT/HCPCS: 36415; 80048

== ENCOUNTER → 2023-12-22 15:53 | Outpatient (REF) | payer OTHER, SELFPAY | LOC: REG 15:53 | PROVIDERS: ATTENDING PHYSICIAN Student in an Organized Health Care Education/Training Program | DX: J47.1 Bronchiectasis with (acute) exacerbation (principal) | CPT/HCPCS: 87116 ==

== ENCOUNTER → 2023-12-23 15:49 | Outpatient (REF) | payer OTHER, SELFPAY | LOC: REG 15:49 | PROVIDERS: ATTENDING PHYSICIAN Student in an Organized Health Care Education/Training Program | DX: J47.1 Bronchiectasis with (acute) exacerbation (principal) | CPT/HCPCS: 87116 ==

== ENCOUNTER → 2023-12-24 15:46 | Outpatient (REF) | payer OTHER, SELFPAY | LOC: REG 15:46 | PROVIDERS: ATTENDING PHYSICIAN Student in an Organized Health Care Education/Training Program; FAMILY PHYSICIAN Family Medicine; REFERRING PHYSICIAN Internal Medicine Critical Care Medicine | DX: J47.1 Bronchiectasis with (acute) exacerbation (principal); J47.0 Bronchiectasis with acute lower respiratory infection | CPT/HCPCS: 71046; 87070; 87116; 87205 ==

== ENCOUNTER → 2024-01-13 11:10 | Outpatient (REF) | payer OTHER, SELFPAY ==
[2024-01-13 12:29] LABS: % Basophils 0.4 % (0-2); % Eosinophils 2.8 % (0-6); % Immature Granulocytes 0.3 % (0-0.5); % Lymphocytes 11.5 % (20.5-51.1); % Monocytes 6.9 % (1.7-9.3); % Neutrophils 78.1 % (42.2-75.2); Absolute Eosinophils 0.3 10^3/uL (0-0.7); Absolute Lymphocytes 1.1 10^3/uL (1.2-3.4); Absolute Monocytes 0.6 10^3/uL (0.1-0.6); Absolute Neutrophils 7.3 10^3/uL (1.4-6.5); Hematocrit 40.3 % (37.0-47.0); Hemoglobin 11.8 g/dL (12.0-16.0); Mean Corp Hgb Conc. 29.3 g/dL (33.0-37.0); Mean Corpuscular Hgb 27.4 pg (27.0-31.0); Mean Corpuscular Volume 93.5 fL (81.0-99.0); Mean Platelet Volume 9.7 fL (7.4-10.4); Nucleated Red Blood Cells % 0 %; Platelet Count 227 10^3/uL (130-400); Red Blood Cell Count 4.31 10^6/uL (4.20-5.40); Red Cell Dist. Width 15.8 % (11.5-14.5); White Blood Cell Count 9.3 10^3/uL (4.8-10.8)
[2024-01-13 12:54] LABS: ALT (SGPT) 20 U/L (0-35); AST (SGOT) 23 U/L (14-36); Alkaline Phosphatase 71 U/L (38-126); Blood Urea Nitrogen 27 mg/dl (7-17); Calcium 9.4 mg/dl (8.4-10.2); Carbon Dioxide 37 mmol/L (22-30); Chloride 98 mmol/L (98-107); Glucose 86 mg/dl (70-99); HDL Cholesterol 65 mg/dl; Iron 56 ug/dl (37-170); LDL Cholesterol, Calculated 62 mg/dl; Potassium 4.4 mmol/L (3.5-5.1); Sodium 142 mmol/L (135-145); Total Bilirubin 0.9 mg/dl (0.2-1.3); Total Cholesterol 159 mg/dl (50-199); Total Protein 6.7 g/dl (6.3-8.2); Triglyceride 162 mg/dl (10-149); Very Low Density Lipoprotein 32 mg/dl (0-30); eGFR > 60.00
[2024-01-13 13:03] LABS: Percent Saturation 15 % (20-50); Total Iron Binding Capacity 357 ug/dl (265-497)
[2024-01-13 13:13] LABS: TSH Reflex To Free T4 3.23 uIU/ml (0.47-4.68)
== END ==
LOC: OLABPV 11:10
PROVIDERS: ATTENDING PHYSICIAN Family Medicine; FAMILY PHYSICIAN Internal Medicine
DX: D64.9 Anemia, unspecified (principal); E87.6 Hypokalemia; E03.9 Hypothyroidism, unspecified
CPT/HCPCS: 36415; 80053; 80061; 82728; 83540; 83550; 84443; 85025

== ENCOUNTER 2024-01-22 19:19 | Inpatient (IN) | payer MEDICARE, SELFPAY ==
[2024-01-22] VITALS (10 sets, daily range): BP systolic 125–170; BP diastolic 67–82; BMI 38.0; BMI 37.3
[2024-01-22] MEDS: NSS 500 IV ×2 (13:08→21:34)
[2024-01-22] MEDS: OMNIPAQUE 50 ML PO (13:08)
[2024-01-22] MEDS: ZOFRAN 4 MG IV ×2 (13:08→21:20)
[2024-01-22 13:41] LABS: % Basophils 0.2 % (0-2); % Eosinophils 0.3 % (0-6); % Immature Granulocytes 0.3 % (0-0.5); % Monocytes 7.2 % (1.7-9.3); Absolute Lymphocytes 0.9 10^3/uL (1.2-3.4); Absolute Monocytes 0.9 10^3/uL (0.1-0.6); Absolute Neutrophils 10.4 10^3/uL (1.4-6.5); Hematocrit 43.6 % (37.0-47.0); Hemoglobin 13.3 g/dL (12.0-16.0); Mean Corp Hgb Conc. 30.5 g/dL (33.0-37.0); Mean Corpuscular Hgb 27.5 pg (27.0-31.0); Mean Corpuscular Volume 90.3 fL (81.0-99.0); Mean Platelet Volume 9.5 fL (7.4-10.4); Nucleated Red Blood Cells % 0 %; Platelet Count 259 10^3/uL (130-400); Red Blood Cell Count 4.83 10^6/uL (4.20-5.40); Red Cell Dist. Width 15.2 % (11.5-14.5); White Blood Cell Count 12.2 10^3/uL (4.8-10.8)
[2024-01-22 13:57] LABS: ALT (SGPT) 20 U/L (0-35); AST (SGOT) 22 U/L (14-36); Albumin 3.9 g/dl (3.5-5.0); Alkaline Phosphatase 71 U/L (38-126); Blood Urea Nitrogen 21 mg/dl (7-17); Calcium 9.8 mg/dl (8.4-10.2); Chloride 89 mmol/L (98-107); Estimated Creatinine Clearance 71 ml/min; Glucose 103 mg/dl (70-99); Lipase 49 U/L (23-300); Sodium 138 mmol/L (135-145); Total Protein 6.7 g/dl (6.3-8.2); eGFR > 60.00
[2024-01-22 14:11] LABS: Carbon Dioxide 37 mmol/L (22-30)
--- NOTE | 2024-01-22 15:22 | ED.GENMED ---
History of Present Illness
General
Chief Complaint: Abdominal Pain
Source: patient and ambulance crew
Exam Limitations: none
Time Seen by Provider: 01/22/24 12:40
Nursing documentation reviewed up to this point in time: agreed with
History of Present Illness
History of Present Illness:
73 yo female with significant pmhs COPD/bronchiectasis on Home O2 3-5 L, CHF, CAD, DVT on Xarelto, Diverticulitis, GERD, cholecystectomy, Bowel resection w ileostomy 2007 then reversed in 2012 presents from [facility] presents with
n/v, abdominal pain.
Due to her bowel history, typically has several BMs daily and takes Loperamide 3-4 times a day.
States she is supposed to be on a low residue diet and 3 nights go had Perogies, Bratworst and Sauerkraut. Next day stools as usual.
Yesterday developed sudden onset upper abdominal pain, nausea and vomiting. Had only one BM yesterday which is unusual for her. Took a Dulcolax with no BM
She notified CREMATORY ATTENDANT at facility yesterday who gave her ClearLax and still no BM. Told her to call EMS if abdominal pain/vomiting worsened
Presents via EMS. Denies fever/chills. Pain now seems to have settled in RLQ, and improving to 3/10 from 8/10. Last emesis 11:30 a.m.
Past History
Past History
ED Past Medical History: CAD, Cancer (breast), CHF, COPD, HTN, Hypercholesterolemia, Psychiatric (depression s/p ECT txs, Bipolar), Other (DVT, PE on Xarelto, neuropathy, memory loss, CPAP, ), Other (diverticulitis) and Other (Breast CA)
ED Past Surgical History: Gynecological (L mastectomy), Orthopedic and Other (colon resection for divertic)
Social History
Tobacco: Former smoker
Alcohol: None
Drug: None
Personal: Single
Living: alone
Employment: Disabled
Family History
Family History: Other (Hodgkin's disease and breast cancer)
Review of Systems
Review of Systems
Allergies reviewed?: Yes
All Other Systems: ROS reviewed and negative except as documented in HPI and ROS
Constitutional: Denies fever or chills
Respiratory: Reports trouble breathing (chronic, nothing new); Denies cough
Cardiac: Denies chest pain
ABD/GI: Reports abdominal pain, nausea and vomiting; Denies diarrhea, bloody stools or black stools
: Denies dysuria, difficulty voiding or urgency
Musculoskeletal: Denies edema
Skin: Reports no symptoms
Neurological: Reports no symptoms; Denies dizzy or headache
Phy Exam
Physical Exam
Physical Exam:
GENERAL: No acute distress. A&Ox3.
CONSTITUTIONAL: Afebrile.
EYES: PERRL, conjunctivae normal
ENMT: moist mucus membranes, Pharynx nl
RESPIRATORY: Regular respirations, nonlabored, lungs clear with diminished breath sounds. O2 3 L nasal cannula.
CARDIOVASCULAR: Regular rate and rhythm, no murmurs, no rubs.
GI: Soft, mildly tender RLQ, normal BS
MUSCULOSKELETAL: Moves with ease. Well perfused.
SKIN: Warm, dry, pink
PSYCH: Normal mood and affect. Well kept, interactive and appropriate
NEUROLOGIC: Awake, alert and oriented. No focal neurological deficits
Course
Orders/Labs/Results
Orders:
Orders
01/22/24 12:40
Iohexol [Omnipaque] See Protocol PO NOW STA
01/22/24 12:42
CT Abd/pel W Iv And Oral Contr Urgent
Comment:
Reason For Exam: hx bowel surgery, no w abd pain, vomiting
01/22/24 12:43
Ondansetron Injectable [Zofran] 4 mg IV NOW STA
01/22/24 12:44
0.9% Sodium Chloride 500 ml [Nss] 500 ml IV BOLUS
01/22/24 13:16
Complete Blood Count/With Diff Urgent
Comprehensive Metabolic Panel Urgent
Lipase Urgent
01/22/24 16:44
Urinalysis Reflex To Culture Urgent
Date Specimen was Collected: 01/22/24
Time Specimen was Collected: 16:43
Urine Microscopic Reflex Cult Urgent
Urine Culture Urgent
JESSICA Source: U
Specimen Description:
Date Specimen was Collected: 01/22/24
Time Specimen was Collected: 16:43
01/22/24 18:51
Admit/Transfer Patient As Directed
Co-Sign Provider:
Level of Care: Inpatient admission
Assign to:: Medical/Surgical
Physician / Group: Yossi
Diagnosis: Small Bowel Obstruction
Reason for Hospitalization: small bowel obstruction
Expected length of stay greater than two midnights?: Yes
ELOS- Estimated Length of Stay in days: 3
I certify the patient meets the requirements for IP care: Yes
PRN Pain Medication Management As Directed
May give lesser potent ordered pain med per pt: Yes
preference::
Protocol:: Medication orders for pain may be administered in a
manner that supports deferring to patient preference
when the pt is:
- Requesting an ordered lesser potent pain medication.
Least to most potent pain medications are defined
as: acetaminophen < NSAID < tramadol < opioids
(morphine, oxycodone, hydromorphone).
- Requesting a lesser dose of the same medication IF
ORDERED.
- Requesting a less intrusive route of administration
if both routes are prescribed by the provider (PO <
IV).
01/22/24 18:57
Code Status As Directed
Resuscitation Status: Full Code
Abnormal Lab Results
01/22/24 01/22/24
13:16 16:44
WBC 12.2 H 10^3/uL
(4.8-10.8)
MCHC 30.5 L g/dL
(33.0-37.0)
RDW 15.2 H %
(11.5-14.5)
Absolute Neuts (auto) 10.4 H 10^3/uL
(1.4-6.5)
Absolute Lymphs (auto) 0.9 L 10^3/uL
(1.2-3.4)
Absolute Monos (auto) 0.9 H 10^3/uL
(0.1-0.6)
Neutrophils % 85.0 H %
(42.2-75.2)
Lymphocytes % 7.0 L %
(20.5-51.1)
Chloride 89 L mmol/L
(98-107)
Carbon Dioxide 37 H mmol/L
(22-30)
BUN 21 H mg/dl
(7-17)
Glucose 103 H mg/dl
(70-99)
Total Bilirubin 2.0 H mg/dl
(0.2-1.3)
Urine Ketones 2+ A
(Negative)
Ur Occult Blood Reflex 1+ A
(Negative)
Leukocyte Esterase Rfl 1+ A
(Negative)
Urine RBC 11-15 A /HPF
(0-2)
01/22/24 13:16
01/22/24 13:16
Vital Signs
Initial and Last Documented VS:
Initial Vital Signs
Temp Pulse Resp BP Pulse Ox
98.4 F 97 18 125/67 93
01/22/24 12:13 01/22/24 12:13 01/22/24 12:13 01/22/24 12:13 01/22/24 12:13
Last Documented Vital Signs
Temp Pulse Resp BP Pulse Ox
98.4 F 92 18 163/75 95
01/22/24 12:13 01/22/24 18:15 01/22/24 18:29 01/22/24 18:00 01/22/24 18:15
MDM/Problems Addressed
Differential Diagnosis Includes:
gastritis, bowel obstruction, appendicitis
MDM/Problems Addressed:
73 yo female with significant pmhs COPD/bronchiectasis on Home O2 3-5 L, CHF, CAD, DVT on Xarelto, Diverticulitis, GERD, cholecystectomy, Bowel resection w ileostomy 2007 then reversed in 2012 presents from [facility] presents with
n/v, abdominal pain.
Due to her bowel history, typically has several BMs daily and takes Loperamide 3-4 times a day.
States she is supposed to be on a low residue diet and 3 nights go had Perogies, Bratworst and Sauerkraut. Next day stools as usual.
Yesterday developed sudden onset upper abdominal pain, nausea and vomiting. Had only one BM yesterday which is unusual for her. Took a Dulcolax with no BM
She notified CREMATORY ATTENDANT at facility yesterday who gave her ClearLax and still no BM. Told her to call EMS if abdominal pain/vomiting worsened
Presents via EMS. Denies fever/chills. Pain now seems to have settled in RLQ, and improving to 3/10 from 810. Last emesis 11:30 a.m.
Afebrile, NAD
2:15 pm:
CBC WBC 12.2 w elevated neutrophils that she's had numerous times in past
CMP: Chloride chronically intermittently. Bicarb H 37 chronic.
4:10 p.m.
In to re evaluate. Pt remains comfortable, no further vomiting
Pt to CT scan
6:[address] abd/pelvis w IV and po contrast radiology report read: IMPRESSION: CT findings compatible with small bowel obstruction, with transition in the right upper quadrant as described.
No evidence for free intraperitoneal air.
Pt notified of results, remains comfortable
Hospitalist notified of admission
*Critical Care Note
Total Time (30-74mins, 75-104mins- exclusive of procedures): Not Applicable
ED Attending Note
-
Portions of this chart may have been created with voice recognition software.� Occasional wrong word or��sound alike� substitutions may have occurred due to the inherent limitations of voice recognition software.
Discharge Plan
Departure
Patient Disposition: Admit
Date of Disposition: 01/22/24
Time of Disposition: 18:16
Admit to: Med/Surg
Presentation/result/management discussed w/ accepting MD/DO: Hospitalist
Condition: Good
Discharge Problem:
Small bowel obstruction
Prescriptions:
No Action
levothyroxine 175 MCG tablet
175 mcg PO DAILY
carvedilol 6.25 MG tablet
6.25 mg PO BID 0RF
lamotrigine 100 MG tablet
100 mg PO BID 0RF
atorvastatin 10 MG tablet
10 mg PO MOWEFR
losartan 25 MG tablet
25 mg PO HS
Xarelto 20 MG tablet
20 mg PO QPM
clonazepam 0.5 mg tablet
0.5 mg PO HS
aripiprazole 5 mg tablet
5 mg PO HS
Trelegy Ellipta 200-62.5-25 mcg Blister With Device
1 inh INHALATION R DAILY
cholecalciferol (vitamin D3) [Vitamin D3] 25 mcg (1,000 unit) Tablet
25 mcg PO DAILY
ipratropium-albuterol 0.5 mg-3 mg(2.5 mg base)/3 mL solution for nebulization
3 ml INHALATION R TID
bupropion HCl 100 mg tablet sustained-release 12 hr
100 mg PO BID
budesonide 0.5 mg/2 mL suspension for nebulization
0.5 mg inhalation R BID
loperamide 2 mg Tablet
4 mg PO QID
gabapentin 100 mg Capsule
100 mg PO TID
guaifenesin [Mucinex] 600 mg Tablet Extended Release 12hr
1,200 mg PO BID
omeprazole 40 mg capsule,delayed release(DR/EC)
40 mg PO DAILY
Patient Comments:
01/22/24: takes 2 hours after cefdinir.
albuterol sulfate 90 mcg/actuation HFA aerosol inhaler
1 puff INHALATION R Q6HPRN PRN (Reason: sob)
furosemide 40 mg Tablet
80 mg PO DAILY
furosemide 40 mg Tablet
40 mg PO NOON
prednisone 10 mg Tablet
10 mg PO MOWEFR
benzonatate 200 mg Capsule
200 mg PO TID
sodium chloride 3 % Solution For Nebulization
4 ml INHALATION R BID
Theragen Tablet
1 tab PO DAILY
acetaminophen [Tylenol Extra Strength] 500 mg Tablet
500 mg PO TID
methenamine hippurate 1 gram Tablet
1 g PO DAILY
ascorbic acid (vitamin C) [Vitamin C] 500 mg Tablet
500 mg PO DAILY
ferrous sulfate 325 mg (65 mg iron) Tablet
325 mg PO DAILY
Patient Comments:
01/22/24: takes 2 hours after cefdinir.
cefdinir 300 mg Capsule
300 mg PO BID
coenzyme Q10 [CoQ-10] 100 mg Capsule
100 mg PO DAILY
potassium chloride 10 mEq Tablet,Er Particles/Crystals
10 meq PO DAILY
Visbiome 112.5 billion cell Capsule
1 cap PO DAILY
Calcium Magnesium 500 mg calcium- 250 mg Tablet
1 tab PO DAILY
phosphatidylserine 100 mg Capsule
400 mg PO DAILY
Referrals:
Ronald Brennan MD [Family Provider] -
Interventions
Interventions:
*Risk Screen - Suicide Last Done: 01/22/24 12:16
*General Assessment Last Done: 01/22/24 12:16
*Neglect/Abuse Screening Last Done: 01/22/24 12:16
ED- Fall Risk Assessment Last Done: 01/22/24 12:18
*ED COVID-19 Vaccine History Last Done: 01/22/24 12:16
DG-Cubxbk-Kxtyyqkedu Assessment Last Done: 01/22/24 12:18
Discharge Date and Time
Print Language: BERMUDIAN
[2024-01-22 16:54] LABS: Urine Albumin Trace (Neg - Trace); Urine Bilirubin Negative (Negative); Urine Character Clear (Clear); Urine Color Yellow; Urine Glucose Negative (Negative); Urine Ketone 2+ (Negative); Urine Leukocyte 1+ (Negative); Urine Nitrite Negative (Negative); Urine Occult Blood 1+ (Negative); Urine Urobilinogen Negative (Neg - 1+)
[2024-01-22 17:10] LABS: Urine White Cell 0-2 /HPF (0-5)
--- NOTE | 2024-01-22 18:25 | HPS.HSE ---
Family Physician
-
Family Physician: Ronald Brennan MD
Chief Complaint
-
Abdominal Pain and Vomiting
History of Present Illness
Patient is a 73 y/o female past medical history of CAD, CHF, COPD/Bronchiectasis, DVT/PE who presents with nausea, vomiting and abdominal pain. Patient reports symptoms started yesterday after having perogies, bratwurst and sauerkraut this night
before. Patient tried to ride it out yesterday, but symptoms persistent and she presented to emergency department for evaluation. She reports symptoms are very similar to prior episodes of bowel obstruction. She denies fever.
Medical History
Past Medical History
Past Medical History: Reports Other
Additional Past Medical History:
Coronary Artery Disease
Chronic HFpEF
Essential Hypertension
Hyperlipidemia
COPD
DVT/PE
Lower Extremity Lymphedema
Bipolar Disorder
Hypothyroidism
Breast CA
Past Surgical History: Reports Other
Additional Past Surgical History:
Left Mastectomy
Cholecystectomy
Bowel Resection w/Ileostomy and Subsequent Reversal
Left Shoulder Surgery
Bilateral Total Knee Replacement
Social History
Tobacco: Former Smoker (Quit in )
Alcohol: Occasional
Family History
Family History: Not pertinent
Allergies / Home Medications
Allergies reflects when Allergies were last updated in [facility].
Home Medications with original date entered in [facility]
Allergy/Medication List:
Allergies
Allergy/AdvReac Type Severity Reaction Status Date / Time
carbamazepine Allergy Hives, rash Verified 01/22/24 12:12
chlorhexidine Allergy Itching, Verified 01/22/24 12:12
[From Hibiclens] rash,
'chemical
burn'
ciprofloxacin [From Cipro] Allergy neuropathy Verified 01/22/24 12:12
after
stopping it
doxycycline Allergy Rash Verified 01/22/24 12:12
house dust Allergy Sneezing, Verified 01/22/24 12:12
eyes watery
Penicillins Allergy Hives as a Verified 01/22/24 12:12
child -
tolerates
ampicillin
Sulfa (Sulfonamide Allergy Hives Verified 01/22/24 12:12
Antibiotics)
venom-honey bee Allergy Rash Verified 01/22/24 12:12
Home Medications
levothyroxine 175 mcg tablet 175 mcg PO DAILY Thyroid 11/10/16
carvedilol 6.25 mg tablet 6.25 mg PO BID 02/26/18
lamotrigine 100 mg tablet 100 mg PO BID 02/26/18
atorvastatin 10 mg tablet 10 mg PO MOWEFR High cholesterol 02/05/21
losartan 25 mg tablet 25 mg PO HS Blood pressure 02/05/21
rivaroxaban 20 mg tablet (Xarelto) 20 mg PO QPM Blood clot prevention/tx 02/05/21
aripiprazole 5 mg tablet 5 mg PO HS mental health 01/15/22
clonazepam 0.5 mg tablet 0.5 mg PO HS sleep/mental health 01/15/22
fluticasone fur. 200 mcg-umeclid 62.5 mcg-vilant 25 mcg inhalat.powder (Trelegy Ellipta) 1 inh inhalation R DAILY Lung/breathing issues 01/15/22
cholecalciferol (vitamin D3) 25 mcg (1,000 unit) tablet (Vitamin D3) 25 mcg PO DAILY Supplement 05/21/22
budesonide 0.5 mg/2 mL suspension for nebulization 0.5 mg inhalation R BID Lung/Breathing Issues 08/01/22
bupropion HCl 100 mg tablet,12 hr sustained-release 100 mg PO BID Mental Health/Anxiety 08/01/22
ipratropium 0.5 mg-albuterol 3 mg (2.5 mg base)/3 mL nebulization soln 3 ml inhalation R TID Lung/Breathing Issues 08/01/22
gabapentin 100 mg capsule 100 mg PO TID Pain 11/24/22
guaifenesin 600 mg tablet, extended release 12 hr (Mucinex) 1,200 mg PO BID MUCUS/COUGH 11/24/22
loperamide 2 mg tablet 4 mg PO QID 11/24/22
albuterol sulfate 90 mcg/actuation aerosol inhaler 1 puff inhalation R Q6HPRN PRN sob 06/30/23
omeprazole 40 mg capsule,delayed release 40 mg PO DAILY Gastrointestinal Issue 06/30/23
Lactobac no.2-Bifidobac no.1-S. thermo 112.5 billion cell capsule (Visbiome) 1 cap PO DAILY 01/22/24
acetaminophen 500 mg tablet (Tylenol Extra Strength) 500 mg PO TID 01/22/24
ascorbic acid (vitamin C) 500 mg tablet (Vitamin C) 500 mg PO DAILY 01/22/24
benzonatate 200 mg capsule 200 mg PO TID 01/22/24
calcium 500 mg (carb,gluconate)-magnesium 250 mg (gluc,oxide) tablet (Calcium Magnesium) 1 tab PO DAILY 01/22/24
cefdinir 300 mg capsule 300 mg PO BID 01/22/24
coenzyme Q10 100 mg capsule (CoQ-10) 100 mg PO DAILY 01/22/24
ferrous sulfate 325 mg (65 mg iron) tablet 325 mg PO DAILY 01/22/24
furosemide 40 mg tablet 40 mg PO NOON 01/22/24
furosemide 40 mg tablet 80 mg PO DAILY 01/22/24
methenamine hippurate 1 gram tablet 1 g PO DAILY 01/22/24
phosphatidylserine 100 mg capsule 400 mg PO DAILY 01/22/24
potassium chloride 10 mEq tablet,extended release(part/cryst) 10 meq PO DAILY 01/22/24
prednisone 10 mg tablet 10 mg PO MOWEFR 01/22/24
sodium chloride 3 % for nebulization 4 ml inhalation R BID 01/22/24
therapeutic multivitamin 1 tab PO DAILY 01/22/24
Review of Systems
-
A 12 point ROS was completed and negative except as noted: Yes
Constitutional: Denies Fever or Chills
Respiratory: Denies Cough or Trouble Breathing
Cardiac: Denies Chest Pain or Palpitations
Abdomen/GI: Reports See HPI
Physical Exam
Vital Signs
Vital Signs
Temp Pulse Resp BP Pulse Ox
98.4 F 85 19 161/77 95
01/22/24 12:13 01/22/24 15:00 01/22/24 15:00 01/22/24 15:00 01/22/24 15:00
Physical Exam
General: Comfortable and Conversant
HEENT: Anicteric and Moist mucous membranes
Respiratory: Clear and Non Labored Respirations
Cardiac: S1/S2 and Regular Rhythm
GI: Soft, Tender (Mild right mid/lower quadrant) and Other (Hypoactive bowel sounds)
Rectal: Deferred by Provider
Musculoskeletal: No Clubbing, No Cyanosis and Other (Chronic edema bilateral lower extremities)
Skin: Warm, Dry and Other (Chronic skin changes lower extremities)
Neuro: Awake, Alert, Oriented and Nonfocal/grossly intact
Psych: Calm
Laboratory Results
-
01/22/24 13:16
01/22/24 13:16
Laboratory Results
Total Bilirubin 2.0 mg/dl (0.2-1.3) H 01/22/24 13:16
AST 22 U/L (14-36) 01/22/24 13:16
ALT 20 U/L (0-35) 01/22/24 13:16
Alkaline Phosphatase 71 U/L (38-126) 01/22/24 13:16
Lipase 49 U/L (23-300) 01/22/24 13:16
Data Reviewed
-
CT Scan: Report Reviewed by me
Lab Data: Labs Reviewed by me
Impression/Plan
-
Small Bowel Obstruction
-Consult General Surgery
-Continue NPO - Hold on NG tube for now unless patient develops recurrent vomiting -Will allow sips/chips/meds
-Check Abd X-Ray in AM
Chronic HFpEF
-Hold Lasix while NPO
Essential Hypertension
-Continue Coreg with hold parameters
Hyperlipidemia
-Continue atorvastatin
Chronic Hypoxia Respiratory Failure secondary to COPD/Bronchiectasis
-Continue supplemental oxygen via nasal cannula as prior to admission
-Recent sputum culture with Serratia - continue Cefdinir as previously prescribed, but suspect this is likely colonization
-Continue budesonide neb and Trelegy
-Continue Prednisone
-Continue Mucinex and Tessalon
Bipolar Disorder
-Continue Abilify, Lamictal and Wellbutrin
-Continue Klonopin prn as prior to admission
Hypothyroidism
-Continue Levothyroxine
Hx DVT/PE
-Hold Xarelto should patient require intervention for bowel obstruction
Code Status: Full Code
--- NOTE | 2024-01-22 19:08 | W.PN.UPDATE ---
Update Note
Progress Note Update
This is an addendum to the H&P written by Gilma Guerrero on 01/22/2024. Patient seen and examined independently with PA.
73-year-old female past medical history of CAD, diastolic heart failure, silent aspiration, esophageal structure, moderate to severe pharyngeal dysphagia, left vocal cord paralysis, OLIVIA pulmonary infection, hypertension, hyperlipidemia, COPD on 3 L
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
disorder, hypothyroidism, breast cancer status post left mastectomy, obstructive sleep apnea, presenting for vomiting and abdominal pain since yesterday.
Labs show leukocytosis
CT abdomen pelvis shows small bowel obstruction with transition point in the right upper quadrant. N.p.o., IV fluids, general surgery consulted, Zofran, Dilaudid as needed. Hold Lasix. Hold Xarelto.
Patient is on cefdinir started a week ago for cough with sputum culture growing Serratia 1 week ago for 14-day course. 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
[2024-01-22] MEDS: COREG PO (21:31)
[2024-01-22] MEDS: SODIUM CHLORIDE 3% FOR INHALATION 1 VIAL INH (21:42)
[2024-01-22] MEDS: DUONEB 3 ML INH (21:42)
[2024-01-22] MEDS: PULMICORT 0.5 MG INH (21:42)
[2024-01-22] MEDS: SYMBICORT 160/4.5 MCG INHALER 2 PUFF INH (21:46)
[2024-01-22] MEDS: COMPAZINE 5 MG IV (22:08)
[2024-01-22] MEDS: NEURONTIN PO (22:48)
[2024-01-23 00:20] VITALS: BP 160/76
[2024-01-23] MEDS: ZOFRAN 4 MG IV (03:35)
[2024-01-23 03:49] VITALS: BP 157/80
[2024-01-23] MEDS: SYNTHROID PO (05:33)
[2024-01-23] MEDS: COMPAZINE 5 MG IV (05:37)
[2024-01-23 06:00] VITALS: BMI 37.3
[2024-01-23 06:59] LABS: Hematocrit 43.7 % (37.0-47.0); Hemoglobin 12.9 g/dL (12.0-16.0); Mean Corp Hgb Conc. 29.5 g/dL (33.0-37.0); Mean Corpuscular Hgb 27.3 pg (27.0-31.0); Mean Corpuscular Volume 92.6 fL (81.0-99.0); Mean Platelet Volume 9.6 fL (7.4-10.4); Platelet Count 266 10^3/uL (130-400); Red Blood Cell Count 4.72 10^6/uL (4.20-5.40); White Blood Cell Count 12.1 10^3/uL (4.8-10.8)
[2024-01-23 07:23] LABS: Blood Urea Nitrogen 22 mg/dl (7-17); Calcium 9.5 mg/dl (8.4-10.2); Carbon Dioxide 39 mmol/L (22-30); Chloride 89 mmol/L (98-107); Estimated Creatinine Clearance 70 ml/min; Glucose 101 mg/dl (70-99); Potassium 4.1 mmol/L (3.5-5.1); Sodium 137 mmol/L (135-145); eGFR > 60.00
[2024-01-23 07:40] VITALS: BP 148/74
[2024-01-23] MEDS: SODIUM CHLORIDE 3% FOR INHALATION 1 VIAL INH ×2 (08:08→20:43)
[2024-01-23] MEDS: PULMICORT 0.5 MG INH ×2 (08:08→20:43)
[2024-01-23] MEDS: DUONEB 3 ML INH ×3 (08:08→20:43)
[2024-01-23 08:36] VITALS: BP 148/74
[2024-01-23] MEDS: SPIRIVA RESPIMAT 2.5 MCG 2 PUFF INH (09:02)
[2024-01-23] MEDS: SYMBICORT 160/4.5 MCG INHALER 2 PUFF INH ×2 (09:03→20:43)
[2024-01-23] MEDS: NEURONTIN 100 MG PO (09:11)
[2024-01-23] MEDS: COREG 6.25 MG PO (09:12)
--- NOTE | 2024-01-23 11:52 | CON.GS ---
Consultation
-
Date/Time Consultation Requested: 01/22/242041
Requesting Provider: Armando
Medical History
-
Chief Complaint: abdominal pain with n/v
History of Present Illness:
Ms Levin is a 73 yo female with a history of DVT/PE on Xarelto with LD on 01/19, HF, bronchiectasis on chronic o2, diverticulitis with perforation of bowel and emergent total colectomy and ileostomy creation in 2008 with subsequent reversal at [facility]
in 2012 (?VHR repair with mesh at the time) with a prior SBO in July of this year which resolved without surgical intervention who presents with symptoms of nausea, vomiting and abdominal pain since 01/19 after eating bratwurst with sauerkraut. She
reports abdominal pain is mild and generalized with generalized tenderness and mild distention on exam. She has been NPO since presentation yesterday but with persistent nausea and vomiting during the night. Since her ileostomy reversal, she has had
chronic diarrhea for which she take Imodium regularly, but since Thursday (01/19), she has not passed any stool or flatus.
Past Medical History
Past Medical History: CAD, Cancer (breast), CHF, COPD (bronchiectasis on chronic O2), Diverticulitis (complicated with perforation requiring surgery 2008), HTN, Hypercholesterolemia, Hypothyroidism, Psychiatric (bipolar) and Other (dvt/pe on Xarelto)
Past Surgical History: Bowel Resection (Total colectomy with ileostomy creation emergently in 2008, reversal of ileostomy at [facility] in 2012), Cholecystectomy, Gynecological (hysteroscopy), Hernia Repair (?VHR with mesh), Orthopedic (BL TKR, Left
shoulder) and Other (left mastectomy)
Social History
Tobacco: Former Smoker (quit )
Alcohol: Occasional
Family History
Family History: Reviewed & Not Pertinent
Allergies / Home Medications
Allergy/AdvReac Type Severity Reaction Status Date / Time
carbamazepine Allergy Hives, rash Verified 01/22/24 12:12
chlorhexidine Allergy Itching, Verified 01/22/24 12:12
[From Hibiclens] rash,
'chemical
burn'
ciprofloxacin [From Cipro] Allergy neuropathy Verified 01/22/24 12:12
after
stopping it
doxycycline Allergy Rash Verified 01/22/24 12:12
house dust Allergy Sneezing, Verified 01/22/24 12:12
eyes watery
Penicillins Allergy Hives as a Verified 01/22/24 12:12
child -
tolerates
ampicillin
Sulfa (Sulfonamide Allergy Hives Verified 01/22/24 12:12
Antibiotics)
venom-honey bee Allergy Rash Verified 01/22/24 12:12
�Medication �Instructions �Recorded �Confirmed �Type
levothyroxine 175 mcg tablet 175 mcg PO DAILY Thyroid 11/10/16 01/22/24 History
carvedilol 6.25 mg tablet 6.25 mg PO BID 02/26/18 01/22/24 Rx
lamotrigine 100 mg tablet 100 mg PO BID 02/26/18 01/22/24 Rx
atorvastatin 10 mg tablet 10 mg PO MOWEFR High cholesterol 02/05/21 01/22/24 History
losartan 25 mg tablet 25 mg PO HS Blood pressure 02/05/21 01/22/24 History
rivaroxaban 20 mg tablet (Xarelto) 20 mg PO QPM Blood clot 02/05/21 01/22/24 History
prevention/tx
aripiprazole 5 mg tablet 5 mg PO HS mental health 01/15/22 01/22/24 History
clonazepam 0.5 mg tablet 0.5 mg PO HS sleep/mental health 01/15/22 01/22/24 History
fluticasone fur. 200 mcg-umeclid 1 inh inhalation R DAILY 01/15/22 01/22/24 History
62.5 mcg-vilant 25 mcg Lung/breathing issues
inhalat.powder (Trelegy Ellipta)
cholecalciferol (vitamin D3) 25 25 mcg PO DAILY Supplement 05/21/22 01/22/24 History
mcg (1,000 unit) tablet (Vitamin
D3)
budesonide 0.5 mg/2 mL suspension 0.5 mg inhalation R BID 08/01/22 01/22/24 History
for nebulization Lung/Breathing Issues
bupropion HCl 100 mg tablet,12 hr 100 mg PO BID Mental Health/Anxiety 08/01/22 01/22/24 History
sustained-release
ipratropium 0.5 mg-albuterol 3 mg 3 ml inhalation R TID 08/01/22 01/22/24 History
(2.5 mg base)/3 mL nebulization Lung/Breathing Issues
soln
gabapentin 100 mg capsule 100 mg PO TID Pain 11/24/22 01/22/24 History
guaifenesin 600 mg tablet, 1,200 mg PO BID MUCUS/COUGH 11/24/22 01/22/24 History
extended release 12 hr (Mucinex)
loperamide 2 mg tablet 4 mg PO QID 11/24/22 01/22/24 History
albuterol sulfate 90 mcg/actuation 1 puff inhalation R Q6HPRN PRN sob 06/30/23 01/22/24 History
aerosol inhaler
omeprazole 40 mg capsule,delayed 40 mg PO DAILY Gastrointestinal 06/30/23 01/22/24 History
release Issue
Lactobac no.2-Bifidobac no.1-S. 1 cap PO DAILY 01/22/24 01/22/24 History
thermo 112.5 billion cell capsule
(Visbiome)
acetaminophen 500 mg tablet 500 mg PO TID 01/22/24 01/22/24 History
(Tylenol Extra Strength)
ascorbic acid (vitamin C) 500 mg 500 mg PO DAILY 01/22/24 01/22/24 History
tablet (Vitamin C)
benzonatate 200 mg capsule 200 mg PO TID 01/22/24 01/22/24 History
calcium 500 mg 1 tab PO DAILY 01/22/24 01/22/24 History
(carb,gluconate)-magnesium 250 mg
(gluc,oxide) tablet (Calcium
Magnesium)
cefdinir 300 mg capsule 300 mg PO BID 01/22/24 01/22/24 History
coenzyme Q10 100 mg capsule 100 mg PO DAILY 01/22/24 01/22/24 History
(CoQ-10)
ferrous sulfate 325 mg (65 mg 325 mg PO DAILY 01/22/24 01/22/24 History
iron) tablet
furosemide 40 mg tablet 40 mg PO NOON 01/22/24 01/22/24 History
furosemide 40 mg tablet 80 mg PO DAILY 01/22/24 01/22/24 History
methenamine hippurate 1 gram tablet 1 g PO DAILY 01/22/24 01/22/24 History
phosphatidylserine 100 mg capsule 400 mg PO DAILY 01/22/24 01/22/24 History
potassium chloride 10 mEq 10 meq PO DAILY 01/22/24 01/22/24 History
tablet,extended release(part/cryst)
prednisone 10 mg tablet 10 mg PO MOWEFR 01/22/24 01/22/24 History
sodium chloride 3 % for 4 ml inhalation R BID 01/22/24 01/22/24 History
nebulization
therapeutic multivitamin 1 tab PO DAILY 01/22/24 01/22/24 History
Review of Systems
-
History Source: Patient
All other systems: Negative unless noted
A 10 point review of systems was completed, and was negative except as per HPI.
Physical Exam
Vital Signs
Temp Pulse Resp BP Pulse Ox
98.3 F 97 16 148/74 92
01/23/24 07:40 01/23/24 08:20 01/23/24 08:20 01/23/24 07:40 01/23/24 09:04
01/22/24 01/23/24 01/24/24
06:59 06:59 06:59
Actual Weight 98.515 kg
Body Mass Index (BMI) 37.3
Lab Results
01/23/24 06:13
01/23/24 06:13
WBC 12.1 10^3/uL (4.8-10.8) H 01/23/24 06:13
Hgb 12.9 g/dL (12.0-16.0) 01/23/24 06:13
Hct 43.7 % (37.0-47.0) 01/23/24 06:13
Plt Count 266 10^3/uL (130-400) 01/23/24 06:13
Abs Immat Gran (auto) 0.0 10^3/uL (0-0.05) 01/22/24 13:16
Neutrophils % 85.0 % (42.2-75.2) H 01/22/24 13:16
Physical Exam
General: Well Developed and No Apparent Distress
HEENT: Moist Mucous Membranes
Respiratory: Non Labored Respirations
GI: Soft, Tender (mild and generalized), Distended (mild without rebound, rigidity or guarding) and Obese
Skin: Warm and Dry
Neuro: Awake, Alert and AO x 3
Psych: Calm
Data Reviewed
-
CT Scan: Image Personally Visualized and interpreted, Report Reviewed by me, Discussed with Physician and Discussed with Patient
Labs: Labs Reviewed by me, Discussed with Physician and Discussed with Patient
Old Records: Reviewed
Assessment / Plan
-
Ms Levin is a 73 yo female with a history of DVT/PE on Xarelto with LD on 01/19, HF, bronchiectasis on chronic o2, diverticulitis with perforation of bowel and emergent total colectomy and ileostomy creation in 2008 with subsequent reversal at [facility]
in 2012 (?VHR repair with mesh at the time), chronic diarrhea and a prior SBO in July of this year which resolved without surgical intervention who presents with symptoms of nausea, vomiting and abdominal pain since 01/19. She has had no passage of
BM/flatus since onset of symptoms. NPO overnight but with persistent n/v. Afebrile with stable vital signs. Mild leukocytosis present.
Will follow with medical management at this time, hopefully she will improve without the need for surgery. 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
surgery/anesthesia
Plan:
Keep NPO
Place NGT to continuous wall suction
IVF as per primary team
PRN Analgesics/antiemetics
Hold PO xarelto at this time, ok for IV heparin if deemed necessary by medical team
Consider changing PO meds to IV
VTE ppx with lovenox and scd's
[2024-01-23] MEDS: ANESTHETIC LOZENGE 1 LOZENGE PO ×3 (12:13→22:44)
--- NOTE | 2024-01-23 12:40 | W.PN.HOSP.TC ---
Today's Communication/Plan
-
npo
ivf
ngt
surgery eval
Assessment / Plan
Assessment / Plan
Sbo with transition point
-NPO
-IVF
-NGT to be placed by surgery
-Abd xray from this AM review
-Surgery following
Chronic HFpEF
-Hold lasix
-Euvolemic
-
Chronic respiratory failure
-maintain spo2 of between 88-92%
-continue mdi's
-prednisone 10mg MWF
Bipolar Disorder
-Continue Abilify, Lamictal and Wellbutrin
-Continue Klonopin prn as prior to admission
Hypothyroidism
-Continue Levothyroxine
Hx DVT/PE
-Hold Xarelto should patient require intervention for bowel obstruction
Anticipated Discharge: > 48 hours
Subjective/Interval History
-
Date of Service: January 23, 2024
seen and examined
no new complaints
no acute overnight events
did state she continues to vomit.
-last time was 230am
abd pain when abd is pressed on
Objective Data
-
Labs:
Laboratory Results
01/23/24
06:13
WBC 12.1 H
Hgb 12.9
Hct 43.7
Plt Count 266
Sodium 137
Potassium 4.1
Chloride 89 L
Carbon Dioxide 39 H
BUN 22 H
Creatinine 0.8
Glucose 101 H
Calcium 9.5
Vital Signs:
Vital Signs
Temp Pulse Resp BP Pulse Ox
98.3 F 97 16 148/74 94
01/23/24 07:40 01/23/24 08:20 01/23/24 08:20 01/23/24 07:40 01/23/24 12:27
Physical Exam
-
General: Well Developed and Well Nourished
HEENT: Normocephalic, Atraumatic, Moist Mucous Membranes, Anicteric, No Ptosis and Ears Appear Normal
Respiratory: Clear to Auscultation and Non Labored Respirations
Cardiac: Regular Rhythm and S1/S2
GI: Soft and Other (grimaces to touch through out worse in ruq)
Musculoskeletal: No Clubbing, No Cyanosis and No Edema
Neuro: Awake, Alert, Oriented and AO x 3
Psych: Calm
--- NOTE | 2024-01-23 14:27 | CM ---
Pt seen bedside. Initial assessment completed.
Pt lives alone at [facility] at [facility]. Single story home-no steps
Pt uses walker at night to walk to the bathroom and rollator when in the community for support. Pt has shower chair, raised toilet seat and grab bars in the bathroom. Pt has 24/7 home O2 (3L), currently on 6L in hospital
Pt was at [facility] in the past
Pt stated she had [facility] in the past
Address, point of contact and insurance
PCP: Dr. Kumar
Pharmacy: [facility]
Surg eval pending
Plan: CM will cont to follow for d/c planning
[2024-01-23 15:40] VITALS: BP 143/70
[2024-01-23] MEDS: NEURONTIN PO ×2 (16:18→22:01)
[2024-01-23] MEDS: LOVENOX 40 MG SC (17:02)
[2024-01-23] MEDS: COREG PO (22:00)
[2024-01-23 23:14] VITALS: BP 149/82
[2024-01-24] MEDS: ANESTHETIC LOZENGE 1 LOZENGE PO ×3 (05:05→20:55)
[2024-01-24] MEDS: SYNTHROID PO (05:14)
[2024-01-24 06:00] VITALS: BMI 36.2
[2024-01-24] MEDS: PULMICORT 0.5 MG INH ×2 (07:44→19:17)
[2024-01-24] MEDS: DUONEB 3 ML INH ×3 (07:44→19:17)
[2024-01-24] MEDS: SPIRIVA RESPIMAT 2.5 MCG 2 PUFF INH (07:44)
[2024-01-24] MEDS: SODIUM CHLORIDE 3% FOR INHALATION 1 VIAL INH ×2 (07:44→19:17)
[2024-01-24 07:45] VITALS: BP 142/82
[2024-01-24] MEDS: SYMBICORT 160/4.5 MCG INHALER 2 PUFF INH ×2 (07:45→19:17)
[2024-01-24 09:15] LABS: Hematocrit 43.5 % (37.0-47.0); Hemoglobin 13.1 g/dL (12.0-16.0); Mean Corp Hgb Conc. 30.1 g/dL (33.0-37.0); Mean Corpuscular Hgb 27.6 pg (27.0-31.0); Mean Corpuscular Volume 91.8 fL (81.0-99.0); Mean Platelet Volume 9.3 fL (7.4-10.4); Platelet Count 248 10^3/uL (130-400); Red Blood Cell Count 4.74 10^6/uL (4.20-5.40); Red Cell Dist. Width 14.8 % (11.5-14.5); White Blood Cell Count 10.7 10^3/uL (4.8-10.8)
[2024-01-24 09:25] LABS: Blood Urea Nitrogen 30 mg/dl (7-17); Calcium 9.8 mg/dl (8.4-10.2); Chloride 85 mmol/L (98-107); Estimated Creatinine Clearance 69 ml/min; Glucose 101 mg/dl (70-99); Magnesium 2.6 mg/dl (1.6-2.3); Potassium 3.9 mmol/L (3.5-5.1); Sodium 139 mmol/L (135-145); eGFR > 60.00
[2024-01-24] MEDS: NEURONTIN PO ×3 (09:35→22:07)
[2024-01-24] MEDS: COREG PO ×2 (09:35→22:05)
[2024-01-24 09:37] LABS: Carbon Dioxide 38 mmol/L (22-30)
--- NOTE | 2024-01-24 14:17 | W.PN.HOSP.TC ---
Today's Communication/Plan
-
Assessment / Plan
Assessment / Plan
Sbo with transition point
-NPO
-IVF
-NGT to low suction
-Abd xray from this AM review
-Surgery following
Chronic HFpEF
-Hold lasix
-Euvolemic
Chronic respiratory failure
-maintain spo2 of between 88-92%
-continue mdi's
-prednisone 10mg MWF
Bipolar Disorder
-Continue Abilify, Lamictal and Wellbutrin
-Continue Klonopin prn as prior to admission
Hypothyroidism
-Continue Levothyroxine
Hx DVT/PE
-Hold Xarelto should patient require intervention for bowel obstruction
Anticipated Discharge: > 48 hours
Subjective/Interval History
-
Date of Service: January 24, 2024
sage nd examined
no new complaints
no acute overnight events
has ngt in
throat is sore
states if she needs surgery she does nto think she would be a good candidate
Objective Data
-
Labs:
Laboratory Results
01/24/24
08:56
WBC 10.7
Hgb 13.1
Hct 43.5
Plt Count 248
Sodium 139
Potassium 3.9
Chloride 85 L
Carbon Dioxide 38 H
BUN 30 H
Creatinine 0.8
Glucose 101 H
Calcium 9.8
Vital Signs:
Vital Signs
Temp Pulse Resp BP Pulse Ox
98.7 F 90 16 142/82 93
01/24/24 07:45 01/24/24 14:05 01/24/24 14:05 01/24/24 07:45 01/24/24 12:15
I&O
01/23/24 01/24/2401/24/24
06:59 06:59 06:59
Intake Total 50 / 50
Output Total 800 / 800
Balance -770 / -770
[2024-01-24 15:15] VITALS: BP 159/77
--- NOTE | 2024-01-24 15:41 | W.PN.GS2 ---
Addendum entered and electronically signed by Saran Ruiz MD 01/24/24 19:02:
I saw and examined the patient.
The VACCINATOR's note was reviewed and I agree with the note.
Original Note:
Today's Communication / Plan
-
NPO/NGT/IVF
Assessment / Plan
-
Ms Levin is a 73 yo female with a history of DVT/PE on Xarelto with LD on 01/19, HF, bronchiectasis on chronic o2, diverticulitis with perforation of bowel and emergent total colectomy and ileostomy creation in 2008 with subsequent reversal at [facility]
in 2012 (?VHR repair with mesh at the time), chronic diarrhea and a prior SBO in July of this year which resolved without surgical intervention who presents with symptoms of nausea, vomiting and abdominal pain since 01/19.
CT imaging consistent with small bowel obstruction secondary to adhesions from prior surgeries. Follow up abd xr on 01/22 and 01/23 with persistent obstruction.
NGT placed on 01/22 with some improvement in symptoms, bilious outputs present
No passage of flatus/stools as of yet
Leukocytosis resolved
Plan:
Keep NPO
Continue with NGT to continuous wall suction
IVF as per primary team
PRN Analgesics/antiemetics
Hold PO xarelto at this time, ok for IV heparin if deemed necessary by medical team
Consider changing PO meds to IV
VTE ppx with lovenox and scd's
No immediate plans for surgery, will continue to follow for improvement with supportive/medical measures but may require surgery if no improvement.
Subjective Data
-
Date of Service: January 24, 2024
Patient seen and examined at bedside with Dr. Ruiz. Denies n/v. Feels a little better than yesterday. Has not yet passed flatus or stools. Abdominal pain mostly relieved but still present on the right.
Objective Data
-
Intake and Output
01/23/24 01/24/24 01/25/24
06:59 06:59 06:59
Intake Total 30 / 30 50 / 50
Output Total 800 / 800
Balance -770 / -770 50 / 50
Intake:
Oral fluids 50 / 50
Amount instilled into GI Tube ( 30 / 30
Total)
[place] Sump 30 / 30
Output:
Gastrointestinal tube output ( 500 / 500
Total)
[place] Sump 500 / 500
Urine, Voided 300 / 300
Other:
Number of approximated SMALL 1
amounts of urine
Number of approximated MODERATE 1 1
amounts of urine
Number of immeasurable emeses? 1 1
Vital Signs
Temp Pulse Resp BP Pulse Ox
98.7 F 90 16 142/82 93
01/24/24 07:45 01/24/24 14:05 01/24/24 14:05 01/24/24 07:45 01/24/24 12:15
Lab Results
01/24/24 08:56
01/24/24 08:56
Calcium 9.8 mg/dl (8.4-10.2) 01/24/24 08:56
Magnesium 2.6 mg/dl (1.6-2.3) H 01/24/24 08:56
Total Bilirubin 2.0 mg/dl (0.2-1.3) H 01/22/24 13:16
AST 22 U/L (14-36) 01/22/24 13:16
ALT 20 U/L (0-35) 01/22/24 13:16
Alkaline Phosphatase 71 U/L (38-126) 01/22/24 13:16
Total Protein 6.7 g/dl (6.3-8.2) 01/22/24 13:16
Albumin 3.9 g/dl (3.5-5.0) 01/22/24 13:16
Physical Exam
-
NAD
NGT with bilious outputs
ABD softly distended, mild tenderness to right abdomen, nonperitoneal
[2024-01-24] MEDS: 0.45%NACL 1000 IV (16:51)
[2024-01-24] MEDS: LOVENOX 40 MG SC (17:12)
[2024-01-24 23:27] VITALS: BP 123/79
[2024-01-25] MEDS: ANESTHETIC LOZENGE 1 LOZENGE PO (01:16)
[2024-01-25] MEDS: SYNTHROID PO (05:49)
[2024-01-25] MEDS: SPIRIVA RESPIMAT 2.5 MCG 2 PUFF INH (07:28)
[2024-01-25] MEDS: SODIUM CHLORIDE 3% FOR INHALATION 1 VIAL INH ×2 (07:28→19:46)
[2024-01-25] MEDS: PULMICORT 0.5 MG INH ×2 (07:28→19:46)
[2024-01-25] MEDS: DUONEB 3 ML INH ×3 (07:28→19:46)
[2024-01-25] MEDS: SYMBICORT 160/4.5 MCG INHALER 2 PUFF INH ×2 (07:29→19:46)
[2024-01-25 08:14] VITALS: BP 147/89
[2024-01-25 08:15] LABS: Hematocrit 43.7 % (37.0-47.0); Hemoglobin 13.2 g/dL (12.0-16.0); Mean Corp Hgb Conc. 30.2 g/dL (33.0-37.0); Mean Corpuscular Hgb 27.6 pg (27.0-31.0); Mean Corpuscular Volume 91.2 fL (81.0-99.0); Mean Platelet Volume 9.2 fL (7.4-10.4); Platelet Count 272 10^3/uL (130-400); Red Blood Cell Count 4.79 10^6/uL (4.20-5.40); Red Cell Dist. Width 14.8 % (11.5-14.5); White Blood Cell Count 9.3 10^3/uL (4.8-10.8)
[2024-01-25 08:39] LABS: Blood Urea Nitrogen 35 mg/dl (7-17); Calcium 9.5 mg/dl (8.4-10.2); Chloride 83 mmol/L (98-107); Estimated Creatinine Clearance 69 ml/min; Glucose 104 mg/dl (70-99); Potassium 3.8 mmol/L (3.5-5.1); Sodium 138 mmol/L (135-145); eGFR > 60.00
[2024-01-25 08:51] LABS: Carbon Dioxide 39 mmol/L (22-30)
--- NOTE | 2024-01-25 09:53 | W.PN.GS2 ---
Today's Communication / Plan
-
Obtain operative report records.
Pulmonary consult for preoperative optimization.
Mobilize, out of bed and ambulate as much as possible today
Assessment / Plan
-
Ms Levin is a 73 yo female with a history of DVT/PE on Xarelto with LD on 01/19, HF, bronchiectasis on chronic o2, diverticulitis with perforation of bowel and emergent total colectomy and ileostomy creation in 2008 with subsequent reversal at [facility]
in 2012 (?VHR repair with mesh at the time), chronic diarrhea and a prior SBO in July of this year which resolved without surgical intervention who presents with symptoms of nausea, vomiting and abdominal pain since 01/19.
CT imaging consistent with small bowel obstruction secondary to adhesions from prior surgeries. Follow up abd xr on 01/22 and 01/23 with persistent obstruction.
NGT placed on 01/22 with some improvement in symptoms, bilious outputs present
No passage of flatus/stools as of yet. X-ray from 01/25/2024 demonstrates persistent small bowel obstruction
Plan:
Keep NPO, NG tube to low intermittent wall suction
IVF as per primary team
PRN Analgesics/antiemetics
No acute surgical intervention at this time however it does appear that surgery may ultimately be needed this admission.
Request pulmonary consult for risk stratification and preoperative optimization.
May plan for a small bowel follow-through tomorrow depending on clinical course.
Patient explained to the patient that this would be a fairly challenging operation and recovery given her medical comorbidities including pulmonary status, and obesity. It does appear like she has mesh which may also add to the complexity of the
case.
Operative report records from [facility] requested.
Hold PO xarelto at this time, ok for IV heparin if deemed necessary by medical team
Consider changing PO meds to IV
VTE ppx with lovenox and scd's
Time Spent
Total Time Spent with Patient (in minutes): 40
Subjective Data
-
Date of Service: January 25, 2024
Interval Events:
No acute events overnight. Slept ok. Pain Controlled. Denies Nausea/Vomiting, but no bowel function.
Objective Data
-
Intake and Output
01/24/24 01/25/24 01/26/24
06:59 06:59 06:59
Intake Total 30 / 30 500 / 500
Output Total 800 / 800 1165 / 1165
Balance -770 / -770 -665 / -665
Intake:
Oral fluids 230 / 230
IV fluids (Total) 60 / 60
Amount instilled into GI Tube ( 210 / 210
Total)
[place] Sump 210 / 210
Output:
Gastrointestinal tube output ( 500 / 500 1165 / 1165
Total)
[place] Sump 500 / 500 1165 / 1165
Urine, Voided 300 / 300
Other:
Number of approximated SMALL 1
amounts of urine
Number of approximated MODERATE 1 2
amounts of urine
Number of immeasurable emeses? 1
Vital Signs
Temp Pulse Resp BP Pulse Ox
97.2 F 102 20 147/89 97
01/25/24 08:14 01/25/24 08:14 01/25/24 08:14 01/25/24 08:14 01/25/24 08:14
Lab Results
01/25/24 07:42
01/25/24 07:42
Calcium 9.5 mg/dl (8.4-10.2) 01/25/24 07:42
Magnesium 2.6 mg/dl (1.6-2.3) H 01/24/24 08:56
Total Bilirubin 2.0 mg/dl (0.2-1.3) H 01/22/24 13:16
AST 22 U/L (14-36) 01/22/24 13:16
ALT 20 U/L (0-35) 01/22/24 13:16
Alkaline Phosphatase 71 U/L (38-126) 01/22/24 13:16
Total Protein 6.7 g/dl (6.3-8.2) 01/22/24 13:16
Albumin 3.9 g/dl (3.5-5.0) 01/22/24 13:16
Physical Exam
-
GENERAL/NEURO: Awake, Alert, no distress
CHEST: Unlabored breathing on RA
ABDOMEN: Soft, Non-Tender, distended. NG with bilious output
[2024-01-25] MEDS: NEURONTIN PO (10:16)
[2024-01-25] MEDS: COREG PO (10:16)
[2024-01-25] MEDS: 0.45%NACL 1000 IV (10:17)
--- NOTE | 2024-01-25 10:38 | CON.PUL ---
Consultation
Consultation Request
Date/Time Consultation Requested: 01/25/2024-10 AM
Date/Time Consultation Performed: 01/25/2024-11:30 AM
Requesting Provider: Hospitalist
Performing Provider: Dr. Carrizales
Reason for Consultation: COPD/preoperative clearance
Medical History
-
Chief Complaint: Shortness of breath/small bowel obstruction
History of Present Illness:
73-year-old female with a history of COPD, bronchiectasis, CAD, CHF, DVT and pulmonary embolism who presented with small bowel obstruction likely requiring surgery-pulmonary consulted for preoperative clearance and pulmonary management in the
perioperative period-01/25/2024.. She denies any worsening shortness breath from her baseline. She actually feels like her lungs are pretty good shape. She has some mild chest congestion, nonproductive cough, no chest pain, pleurisy, has
abdominal pain as before mild nausea. She does not complain of increased lower extremity swelling.
Past Medical History
Past Medical History: None (COPD. Bronchiectasis. DVT/PE. Chronic lower extremity lymphedema. Bipolar. Hypothyroid. Breast cancer. Heart failure preserved EF. CAD. Left mastectomy. Cholecystectomy. Left shoulder surgery. Bilateral total
knee.)
Social History
Tobacco: Former Smoker (Quit )
Alcohol: Occasional
Drug: None
Occupational Exposures: No known asbestos exposure
Allergies / Home Medications
Allergies
Allergy/AdvReac Type Severity Reaction Status Date / Time
carbamazepine Allergy Hives, rash Verified 01/22/24 12:12
chlorhexidine Allergy Itching, Verified 01/22/24 12:12
[From Hibiclens] rash,
'chemical
burn'
ciprofloxacin [From Cipro] Allergy neuropathy Verified 01/22/24 12:12
after
stopping it
doxycycline Allergy Rash Verified 01/22/24 12:12
house dust Allergy Sneezing, Verified 01/22/24 12:12
eyes watery
Penicillins Allergy Hives as a Verified 01/22/24 12:12
child -
tolerates
ampicillin
Sulfa (Sulfonamide Allergy Hives Verified 01/22/24 12:12
Antibiotics)
venom-honey bee Allergy Rash Verified 01/22/24 12:12
Home Medications
�Medication �Instructions �Recorded �Confirmed �Last Taken �Type
levothyroxine 175 mcg tablet 175 mcg PO DAILY Thyroid 11/10/16 01/22/24 07/14/23 History
carvedilol 6.25 mg tablet 6.25 mg PO BID 02/26/18 01/22/24 07/14/23 Rx
lamotrigine 100 mg tablet 100 mg PO BID 02/26/18 01/22/24 07/14/23 Rx
atorvastatin 10 mg tablet 10 mg PO MOWEFR High cholesterol 02/05/21 01/22/24 07/13/23 History
losartan 25 mg tablet 25 mg PO HS Blood pressure 02/05/21 01/22/24 07/13/23 History
rivaroxaban 20 mg tablet (Xarelto) 20 mg PO QPM Blood clot 02/05/21 01/22/24 07/13/23 History
prevention/tx
aripiprazole 5 mg tablet 5 mg PO HS mental health 01/15/22 01/22/24 07/13/23 History
clonazepam 0.5 mg tablet 0.5 mg PO HS sleep/mental health 01/15/22 01/22/24 07/13/23 History
fluticasone fur. 200 mcg-umeclid 1 inh inhalation R DAILY 01/15/22 01/22/24 07/14/23 History
62.5 mcg-vilant 25 mcg Lung/breathing issues
inhalat.powder (Trelegy Ellipta)
cholecalciferol (vitamin D3) 25 25 mcg PO DAILY Supplement 05/21/22 01/22/24 07/14/23 History
mcg (1,000 unit) tablet (Vitamin
D3)
budesonide 0.5 mg/2 mL suspension 0.5 mg inhalation R BID 08/01/22 01/22/24 07/14/23 History
for nebulization Lung/Breathing Issues
bupropion HCl 100 mg tablet,12 hr 100 mg PO BID Mental Health/Anxiety 08/01/22 01/22/24 07/14/23 History
sustained-release
ipratropium 0.5 mg-albuterol 3 mg 3 ml inhalation R TID 08/01/22 01/22/24 07/14/23 History
(2.5 mg base)/3 mL nebulization Lung/Breathing Issues
soln
gabapentin 100 mg capsule 100 mg PO TID Pain 11/24/22 01/22/24 07/14/23 History
guaifenesin 600 mg tablet, 1,200 mg PO BID MUCUS/COUGH 11/24/22 01/22/24 07/14/23 History
extended release 12 hr (Mucinex)
loperamide 2 mg tablet 4 mg PO QID 11/24/22 01/22/24 07/14/23 History
albuterol sulfate 90 mcg/actuation 1 puff inhalation R Q6HPRN PRN sob 06/30/23 01/22/24 Unknown History
aerosol inhaler
omeprazole 40 mg capsule,delayed 40 mg PO DAILY Gastrointestinal 06/30/23 01/22/24 07/14/23 History
release Issue
Lactobac no.2-Bifidobac no.1-S. 1 cap PO DAILY 01/22/24 01/22/24 Unknown History
thermo 112.5 billion cell capsule
(Visbiome)
acetaminophen 500 mg tablet 500 mg PO TID 01/22/24 01/22/24 Unknown History
(Tylenol Extra Strength)
ascorbic acid (vitamin C) 500 mg 500 mg PO DAILY 01/22/24 01/22/24 Unknown History
tablet (Vitamin C)
benzonatate 200 mg capsule 200 mg PO TID 01/22/24 01/22/24 Unknown History
calcium 500 mg 1 tab PO DAILY 01/22/24 01/22/24 Unknown History
(carb,gluconate)-magnesium 250 mg
(gluc,oxide) tablet (Calcium
Magnesium)
cefdinir 300 mg capsule 300 mg PO BID 01/22/24 01/22/24 Unknown History
coenzyme Q10 100 mg capsule 100 mg PO DAILY 01/22/24 01/22/24 Unknown History
(CoQ-10)
ferrous sulfate 325 mg (65 mg 325 mg PO DAILY 01/22/24 01/22/24 Unknown History
iron) tablet
furosemide 40 mg tablet 40 mg PO NOON 01/22/24 01/22/24 Unknown History
furosemide 40 mg tablet 80 mg PO DAILY 01/22/24 01/22/24 Unknown History
methenamine hippurate 1 gram tablet 1 g PO DAILY 01/22/24 01/22/24 Unknown History
phosphatidylserine 100 mg capsule 400 mg PO DAILY 01/22/24 01/22/24 Unknown History
potassium chloride 10 mEq 10 meq PO DAILY 01/22/24 01/22/24 Unknown History
tablet,extended release(part/cryst)
prednisone 10 mg tablet 10 mg PO MOWEFR 01/22/24 01/22/24 Unknown History
sodium chloride 3 % for 4 ml inhalation R BID 01/22/24 01/22/24 Unknown History
nebulization
therapeutic multivitamin 1 tab PO DAILY 01/22/24 01/22/24 Unknown History
Review of Systems
-
Unable to Obtain full review of systems at this time due to: Other (Per HPI)
Vitals / Labs / Diagnostic Testing
Vital Signs
Temp Pulse Resp BP Pulse Ox
97.2 F 102 20 147/89 97
01/25/24 08:14 01/25/24 08:14 01/25/24 08:14 01/25/24 08:14 01/25/24 08:14
Lab Data
01/25/24 07:42
01/25/24 07:42
Microbiology
01/22/24 16:44 Urine Urine Culture - Final
Enterococcus faecium
01/23/24 01:03 Nose MRSA Screen - Final
No Methicillin Resistant Staphylococcus aureus isolated.
Diagnostic Testing:
Physical Exam
-
Exam:
Well-nourished and well-developed in no apparent distress
HEENT-atraumatic, normocephalic
Neck-supple, no JVD, no bruit
Heart-regular rate and rhythm-no murmurs, rubs or gallops
Chest with diminished breath sounds, prolonged expiratory time, no wheezes or crackles
Back without tenderness
Abdomen soft, distended, mild tenderness
Extremities-no cyanosis, clubbing, edema and good peripheral pulses
Integument-intact, no rashes, lesions or ecchymosis
Neurology-alert and oriented, nonfocal motor and sensory exam
Assessment
-
73-year-old female with a history of COPD, bronchiectasis, CAD, CHF, DVT and pulmonary embolism on Xarelto who presented with small bowel obstruction likely requiring surgery-pulmonary consulted for preoperative clearance and pulmonary management in
the perioperative period-01/25/2024.
Small bowel obstruction
COPD without acute exacerbation
Chronic heart failure preserved EF
Conditions present prior to admission:
COPD-followed by Dr. Boyd-maintained on Trelegy, 3% sodium chloride nebulizer twice daily, prednisone 10 mg Fqfpbr-Jwmvtwpof-Chlewh
Bronchiectasis.
Previous sputum cultures-Serratia 09/22/2023, Pseudomonas multiphilia 07/15/2023 sensitive to Bactrim and levofloxacin
Former vjyrly-05-qoxa-year quit 1998
Cough variant asthma
Chronic cough
Restrictive lung disease
Vocal cord paralysis
DVT/PE-saddle
IVC filter
1/3 sputum culture positive AFB May 2023-does not meet criteria for OLIVIA-Mycobacterium fortuitum culture 10/09/2021
History of [id number] cytology negative
Chronic lower extremity lymphedema.
Bipolar.
Hypothyroid.
Breast cancer.
Heart failure preserved EF.
CAD.
Previous obstructive sleep apnea
Obesity
Left mastectomy. Cholecystectomy. Left shoulder surgery. Bilateral total knee.
Plan
Respiratory status is relatively stable for her underlying pulmonary conditions.
Supplemental oxygen as needed.
Continue nebulizers-dual nebs and Pulmicort nebulizers
Incentive spirometry.
Mucus clearing devices.
Encouraged mucus clearance.
Chronically on Prednisone 10 mg Pfivbu-Pobvacqey-Qoeokz-changed to Solu-Medrol 20 mg daily.
Symbicort and Spiriva continues-as an outpatient she is on Trelogy
Mucolytic's continued.
Outpatient pulmonary diagnostics are summarized below, including PFTs and sleep studies as well as radiographs
Cleared for proposed surgical intervention with moderate risk for perioperative pulmonary complications including prolonged mechanical ventilation-reviewed with patient.
Importance of mucus clearance postoperatively, avoidance of plugs/atelectasis/development of pneumonia was reviewed with patient..
Surgery following-correspondence reviewed.
Nasogastric tube to low intermittent wall suction.
Previous operative records from [facility] have been requested.
Xarelto on hold-okay for heparin if deemed necessary.
DVT prophylaxis-on anticoagulation.
Eventual nutrition per surgery.
Bedside range of motion/early mobilization
Last seen by 01/13/2486-phirob-rx as an outpatient. Postoperatively
Diagnostic data:
Chest x-ray 04/14/2023-stable pleural-parenchymal scarring, no other abnormalities
Chest x-ray 09/01/2023-NAD, stable pleural-parenchymal scarring lower portions of both lungs
Obstruction series 01/25/2024-no evidence for free intraperitoneal air, highly suggestive of small bowel obstruction
CT chest-bilateral lower lobe parenchymal opacifications and bronchiectasis
CT abdomen and pelvis 01/22/2024-left breast implant, small collapsed right breast implant, soft tissue density likely mucous plugging right lower lobe with some atelectasis, small bowel obstruction
Echocardiogram 06/29/2023-EF 50%, no valvular disease
Pulmonary function studies-10/14/23: Spirometry demonstrated moderate restrictive lung disease.The forced vital capacity was 1.39 L or 49% of predicted.� The FEV1 was 1.11 L or 52% of predicted.� The FEV1/FVC ratio was 80%.
She cough throughout the study and was unable to exhale for 6 seconds.� Saturation dropped to 86% on room air and no further testing was done. Saturation returned to 93% on 3 L.
Compared to 12/2022, the forced vital capacity has declined from 1.47 L to 1.39 L.� The FEV1 was unchanged.
Sleep nghua-0-78-12: AHI of 10.9 with oxyhemoglobin desaturation betsy of 85%. With 4 cm CPAP H2O
pressure the AHI was reduced to one event per hour and he oxyhemoglobin desaturation betsy improved to 92%.
Sleep study-08/13/14: AHI was 23.4 with oxyhemoglobin desaturation betsy of 64%.
At home sleep study-01/09/18: Respiratory event index 0.2 events per hour. Lowest saturation 89%. Percentage of the study time spent with a saturation below 90% was 0.1%.
Home sleep study-09/10/23: AHI 0.4 events per hour.� Saturation betsy 90%.
Data Reviewed
-
PFT: Report reviewed by me
EKG: Report reviewed by me
Radiology: Report reviewed by me
CT Scan: Image personally visualized and interpreted and Report reviewed by me
Medical Tests (Nuc Med, Echo etc): Report reviewed by me
Old Records: Reviewed
Total Time Spent with Patient (in minutes): 65
[2024-01-25] MEDS: SOLU-MEDROL PF 20 MG IV (11:21)
--- NOTE | 2024-01-25 13:05 | CS.PSYCHR ---
Consult Summary - Psychiatry
-
Pt is a 73 yo female with history of Bipolar disorder, admitted for small bowel obstruction. Pt presented to ED with nausea, vomiting, abdominal pain after eating perogies, bratwurst and sauerkraut. She stated her symptoms were very similar to
previous episodes of bowel obstruction. Psychiatry asked to assess/ assist with mgt of psych meds, since pt is NPO/unable to take po meds.
PMH: CAD, CHF, COPD/Bronchiectasis, DVT/PE
Psych Hx: Bipolar d/o, with hospitalizations for depression years ago, was on when it was a psychiatric unit. Followed at [facility] with outpatient medication mgt, stable for years on current psych regimen; states it took years of trials to
reach her effective combination
Meds: Abilify 5 mg QD, Wellbutrin SR 100 mg BID, Lamictal 100 mg BID, Klonopin 0.5 mg HS
SH: lives alone at [facility]
MSE: alert, oriented, calm, cooperative. No signs of mood disturbance. No agitation, no psychosis. Speech/thought coherent/goal-directed/clear. Mood stable, affect appropriate. Insight good
Imp: Unspecified Bipolar d/o, stable on established med regimen.
Rec: There is no IV/IM option for pt's current psychotropic med regimen. I would not recommend changing. Could use Ativan 0.[address] of Klonopin 0.5 mg HS, although pt states she does not need it at present
Would resume pt's existing psych medications as soon as she is able to take po
Will follow
[2024-01-25 14:36] VITALS: BMI 35.6
--- NOTE | 2024-01-25 14:58 | W.PN.HOSP.TC ---
Today's Communication/Plan
-
Assessment / Plan
Assessment / Plan
Sbo with transition point
-NPO
-IVF
-NGT to low suction
-Abd xray from this AM review
-May need to go to the OR with surgery as she has not made improvement with NGT
--Will consult pulm for
-Surgery following
Chronic HFpEF
-Hold lasix
-Euvolemic
Chronic respiratory failure
-maintain spo2 of between 88-92%
-continue mdi's
-prednisone 10mg MWF, as NPO with NGT, will start steroids 20mg solumed daily
Bipolar Disorder
-Hold Abilify, Lamictal and Wellbutrin
-Hold Klonopin prn as prior to admission
--Refusing ativan at this time
--Psych consult as these psych meds do not have IV/IM conversions
Hypothyroidism
-Hold Levothyroxine, if still NPO then provide IV levothyroxine at 75% po dose
Hx DVT/PE
-Hold Xarelto should patient require intervention for bowel obstruction
Anticipated Discharge: 24 - 48 hours
Subjective/Interval History
-
Date of Service: January 25, 2024
seen and examined.
feels like her bowels are going to move soon, felt like she was going to pass gas but did not
Objective Data
-
Labs:
Laboratory Results
01/25/24
07:42
WBC 9.3
Hgb 13.2
Hct 43.7
Plt Count 272
Sodium 138
Potassium 3.8
Chloride 83 L
Carbon Dioxide 39 H
BUN 35 H
Creatinine 0.8
Glucose 104 H
Calcium 9.5
Vital Signs:
Vital Signs
Temp Pulse Resp BP Pulse Ox
97.2 F 88 15 147/89 97
01/25/24 08:14 01/25/24 13:14 01/25/24 13:14 01/25/24 08:14 01/25/24 09:05
I&O
01/24/24 01/25/24 01/26/24
06:59 06:59 06:59
Intake Total 30 / 30 500 / 500
Output Total 800 / 800 1165 / 1165
Balance -770 / -770 -665 / -665
Physical Exam
-
General: Well Nourished and Other (NGT tube drain, bilious output )
HEENT: Normocephalic, Atraumatic and Moist Mucous Membranes
Respiratory: Clear to Auscultation
Cardiac: Regular Rhythm and S1/S2
GI: Soft, Nontender, Nondistended and Other (ttp epigastric)
Neuro: Awake, Alert, Oriented and AO x 3
Psych: Calm
[2024-01-25 15:47] VITALS: BP 138/73
--- NOTE | 2024-01-25 18:04 | CM ---
CM continues to follow for discharge planning needs. Pt with persistent SBO and planned surgery pending records from [place] related to previous surgeries.
CM to continue to follow hospital course and coordinate all identified discharge planning needs.
[2024-01-25] MEDS: LOVENOX 40 MG SC (18:15)
[2024-01-25 23:44] VITALS: BP 177/92
[2024-01-26 00:30] VITALS: BP 165/87
[2024-01-26] MEDS: COMPAZINE 5 MG IV ×2 (02:20→21:28)
[2024-01-26] MEDS: OFIRMEV 100 IV (02:20)
[2024-01-26] MEDS: 0.45%NACL 1000 IV ×2 (02:33→20:10)
--- NOTE | 2024-01-26 02:54 | PTCARENOTE ---
Pt c/o nausea & abd pain which she describes as 'achy' and rates it '8'. Order obtained and given for Compazine & Ofirmev; effective.
[2024-01-26] MEDS: SYNTHROID PO (03:59)
[2024-01-26 06:00] VITALS: BMI 35.6
--- NOTE | 2024-01-26 06:41 | PTCARENOTE ---
Pt did not void this shift. Bladder scan @ 0430 showed 141ml. At 0600, assisted OOB to BSC to attempt to void; unable.
[2024-01-26 07:35] VITALS: BP 150/95
[2024-01-26] MEDS: DUONEB INH ×2 (07:49→19:44)
[2024-01-26] MEDS: SODIUM CHLORIDE 3% FOR INHALATION INH ×2 (07:49→19:45)
[2024-01-26] MEDS: PULMICORT INH ×2 (07:49→19:45)
[2024-01-26] MEDS: SPIRIVA RESPIMAT 2.5 MCG INH (07:49)
[2024-01-26] MEDS: SYMBICORT 160/4.5 MCG INHALER INH ×2 (07:50→19:45)
[2024-01-26 07:54] LABS: INR 1.08; PT 14.3 Sec (11.4-14.6)
[2024-01-26 07:55] LABS: APTT 31.9 Sec (23.4-35.0)
[2024-01-26 08:01] LABS: Hematocrit 44.8 % (37.0-47.0); Hemoglobin 13.6 g/dL (12.0-16.0); Mean Corp Hgb Conc. 30.4 g/dL (33.0-37.0); Mean Corpuscular Hgb 27.8 pg (27.0-31.0); Mean Corpuscular Volume 91.4 fL (81.0-99.0); Mean Platelet Volume 9.5 fL (7.4-10.4); Platelet Count 297 10^3/uL (130-400); Red Cell Dist. Width 14.6 % (11.5-14.5); White Blood Cell Count 9.4 10^3/uL (4.8-10.8)
[2024-01-26 08:25] LABS: ALT (SGPT) 53 U/L (0-35); AST (SGOT) 46 U/L (14-36); Alkaline Phosphatase 105 U/L (38-126); Blood Urea Nitrogen 51 mg/dl (7-17); Calcium 9.6 mg/dl (8.4-10.2); Chloride 81 mmol/L (98-107); Estimated Creatinine Clearance 69 ml/min; Glucose 97 mg/dl (70-99); Phosphorus 4.6 mg/dl (2.5-4.5); Potassium 3.5 mmol/L (3.5-5.1); Sodium 138 mmol/L (135-145); Total Bilirubin 1.9 mg/dl (0.2-1.3); Triglycerides 118 mg/dl (10-149); eGFR > 60.00
[2024-01-26 08:26] LABS: Prealbumin (Transthyretin) 14.9 mg/dl (17.6-36.0)
[2024-01-26 08:37] LABS: Carbon Dioxide 38 mmol/L (22-30)
[2024-01-26] MEDS: SOLU-MEDROL PF 20 MG IV (09:21)
--- NOTE | 2024-01-26 09:49 | W.PN.PUL.V3 ---
Today's Communication / Plan
-
No change in Solu-Medrol
Nebulizers
Oxygen
Mucus clearing devices
Tentatively scheduled for OR tomorrow
Assessment
-
73-year-old female with a history of COPD, bronchiectasis, CAD, CHF, DVT and pulmonary embolism on Xarelto who presented with small bowel obstruction likely requiring surgery-pulmonary consulted for preoperative clearance and pulmonary management in
the perioperative period-01/25/2024.
Small bowel obstruction
COPD without acute exacerbation
Chronic heart failure preserved EF
Conditions present prior to admission:
COPD-followed by Dr. Boyd-maintained on Trelegy, 3% sodium chloride nebulizer twice daily, prednisone 10 mg Tjvapl-Llnnlceku-Reqacf
Bronchiectasis.
Previous sputum cultures-Serratia 09/22/2023, Pseudomonas multiphilia 07/15/2023 sensitive to Bactrim and levofloxacin
Former fdipft-75-odpp-year quit 1998
Cough variant asthma
Chronic cough
Restrictive lung disease
Vocal cord paralysis
DVT/PE-saddle
IVC filter
/ sputum culture positive AFB May 2023-does not meet criteria for OLIVIA-Mycobacterium fortuitum culture 10/09/2021
History of [id number]-bhonpq cytology negative
Chronic lower extremity lymphedema.
Bipolar.
Hypothyroid.
Breast cancer.
Heart failure preserved EF.
CAD.
Previous obstructive sleep apnea
Obesity
Left mastectomy. Cholecystectomy. Left shoulder surgery. Bilateral total knee.
Plan
Respiratory status is relatively stable for her underlying chronic pulmonary conditions.
Supplemental oxygen as needed.
Continue nebulizers-duonebs and Pulmicort nebulizers
Incentive spirometry.
Mucus clearing devices.
Encouraged mucus clearance.
Chronically on Prednisone 10 mg Hudnis-Batzekqho-Lqlnux-changed to Solu-Medrol 20 mg daily.
Symbicort and Spiriva continues-as an outpatient she is on Trelogy
Mucolytic's continued.
Outpatient pulmonary diagnostics are summarized below, including PFTs and sleep studies as well as radiographs
Cleared for proposed surgical intervention with moderate risk for perioperative pulmonary complications including prolonged mechanical ventilation-reviewed with patient.
Importance of mucus clearance postoperatively, avoidance of plugs/atelectasis/development of pneumonia was reviewed with patient..
Surgery following-correspondence reviewed.
Nasogastric tube to low intermittent wall suction.
Previous operative records from [facility] have been requested.
Xarelto on hold-okay for heparin if deemed necessary.
DVT prophylaxis-on anticoagulation.
Eventual nutrition per surgery.
Bedside range of motion/early mobilization
Reviewed with surgery-tentatively scheduled for the OR tomorrow
Last seen by 01/13/2409-adyhec-xz as an outpatient. Postoperatively
Diagnostic data:
Chest x-ray 04/14/2023-stable pleural-parenchymal scarring, no other abnormalities
Chest x-ray 09/01/2023-NAD, stable pleural-parenchymal scarring lower portions of both lungs
Obstruction series 01/25/2024-no evidence for free intraperitoneal air, highly suggestive of small bowel obstruction
CT chest/-bilateral lower lobe parenchymal opacifications and bronchiectasis
CT abdomen and pelvis 01/22/2024-left breast implant, small collapsed right breast implant, soft tissue density likely mucous plugging right lower lobe with some atelectasis, small bowel obstruction
Echocardiogram 06/29/2023-EF 50%, no valvular disease
Pulmonary function studies-10/14/23: Spirometry demonstrated moderate restrictive lung disease.The forced vital capacity was 1.39 L or 49% of predicted.� The FEV1 was 1.11 L or 52% of predicted.� The FEV1/FVC ratio was 80%.
She cough throughout the study and was unable to exhale for 6 seconds.� Saturation dropped to 86% on room air and no further testing was done. Saturation returned to 93% on 3 L.
Compared to 12/2022, the forced vital capacity has declined from 1.47 L to 1.39 L.� The FEV1 was unchanged.
Sleep nkazr-8-56-12: AHI of 10.9 with oxyhemoglobin desaturation betsy of 85%. With 4 cm CPAP H2O
pressure the AHI was reduced to one event per hour and he oxyhemoglobin desaturation betsy improved to 92%.
Sleep study-08/13/14: AHI was 23.4 with oxyhemoglobin desaturation betsy of 64%.
At home sleep study-01/09/18: Respiratory event index 0.2 events per hour. Lowest saturation 89%. Percentage of the study time spent with a saturation below 90% was 0.1%.
Home sleep study-09/10/23: AHI 0.4 events per hour.� Saturation betsy 90%.
Subjective Data
-
Date of Service:
Date of Service: January 26, 2024
Chief Complaint: Pulmonary Follow Up and Dyspnea Follow Up
Subjective:
Complains of nausea, had episode of emesis, no complaints of worsening shortness of breath, no chest pain, increased chest congestion
Review of Systems
General: Other (Per HPI)
Objective Data
Data Reviewed
Vital Signs / I&O:
Vital Signs
Temp Pulse Resp BP Pulse Ox
97.9 F 107 18 150/95 94
01/26/24 07:35 01/26/24 07:35 01/26/24 07:35 01/26/24 07:35 01/26/24 09:36
Intake and Output
01/25/24 01/26/24 01/27/24
06:59 06:59 06:59
Intake Total 500 / 500 1000 / 1000
Output Total 1165 / 1165 2500 / 2500
Balance -665 / -665 -1500 / -1500
SaO2: 94
Nasal Cannula flow liters per minute: 3
Physical Exam
General: Respiratory Distress (n) and Comfortable
HEENT: Normocephalic, Anicteric and Moist Mucous Membranes
Cardiovascular: Regular Rhythm
Respiratory: Wheeze (n), Crackles (Rare basilar), Rhonchi (Few expiratory), Non-Labored Respirations, Accessory Resp Muscle Use (n) and Stridor (n)
GI: Soft, Distended and Tender
Neurology: Awake, Alert and No Motor Deficits
Skin: Warm, Good Color, Cyanosis (n), Jaundice (n) and Rash (n)
Labs/Micro/Reports
Lab Data
01/26/24 06:50
01/26/24 06:50
Laboratory Results
01/26/24
06:50
PT 14.3
INR 1.08
APTT 31.9
Microbiology
01/22/24 16:44 Urine Urine Culture - Final
Enterococcus faecium
01/23/24 01:03 Nose MRSA Screen - Final
No Methicillin Resistant Staphylococcus aureus isolated.
--- NOTE | 2024-01-26 10:08 | W.PN.GS2 ---
Today's Communication / Plan
-
-- NPO, NGT
-- Tentatively added to OR schedule tomorrow for ex lap, ALESSANDRA, possible bowel resection
Assessment / Plan
-
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 in
2012 (?VHR repair with mesh at the time), chronic diarrhea and a prior SBO in July of this year which resolved without surgical intervention who presents with symptoms of nausea, vomiting and abdominal pain since 01/19.
CT imaging consistent with small bowel obstruction with transition point in RIGHT mid-abdomen likely secondary to adhesions from prior surgeries.
Follow up abd X-ray on 01/22 and 01/23 with persistent obstruction.
NGT placed on 01/22 with some improvement in symptoms, bilious outputs present
X-ray from 01/25/2024 demonstrates persistent small bowel obstruction
No passage of flatus/stools as of yet.
AVSS
Labs stable
High NGT output, likely component of PO intake and non-compliance with limites insight into complete medical issues
Persistent SBO likely secondary to adhesions and despite medical management over the past several days. Options for management were reviewed including continued medical management with bowel rest and NGT decompression versus surgical management.
She is at increased risk for operative complications given her prior surgeries including increased adhesion formation from bowel perforation with intra-abdominal sepsis and prior mesh repair (details unknown), pulmonary complications, and wound
infections given active immunosuppression and obesity. Need for bowel resection may expose her to worsening of underlying function and QOL. She is also at risk for postoperative hernia formation. That being said, she has not seen improvement with
medical management and would ultimately recommend surgical intervention. Patient agrees and willing to proceed.
Plan for a exploratory laparotomy, lysis of adhesions, and possible bowel resection. The procedure itself, as well as the risks, benefits, and alternatives was discussed. Specifically, we discussed the risks of bleeding, infection, injury to
surrounding structures (bowel), wound complications, hernia formation, cardiopulmonary failure postoperatively, general anesthetic complications, and recurrence. Typical postprocedure recovery including the need for hospitalization for at least
several days postoperatively while awaiting return of bowel function and the need for 4 to 6 weeks no heavy lifting or strenuous activities was discussed. All questions answered. Tentatively added to OR schedule tomorrow.
Plan:
-- Exploratory laparotomy, ALESSANDRA, possible bowel resection, added to OR tomorrow
-- NPO, NG tube to low intermittent wall suction
-- IVF as per primary team, may need TPN post-operatively
-- PRN Analgesics/antiemetics
-- Continue to hold PO xarelto at this time, ok for IV heparin if deemed necessary by medical team
-- VTE ppx with lovenox and scd's
Subjective Data
-
Date of Service: January 26, 2024
Issues with nausea and vomiting overnight. No flatus or BM. No fevers. Admits to drinking water and ice chips.
Objective Data
-
Intake and Output
01/25/24 01/26/24 01/27/24
06:59 06:59 06:59
Intake Total 500 / 500 1000 / 1000
Output Total 1165 / 1165 2500 / 2500
Balance -665 / -665 -1500 / -1500
Intake:
Oral fluids 230 / 230 100 / 100
IV fluids (Total) 60 / 60 720 / 720
Amount instilled into GI Tube ( 210 / 210 180 / 180
Total)
[place] Sump 210 / 210 180 / 180
Output:
Gastrointestinal tube output ( 1165 / 1165 2500 / 2500
Total)
[place] Sump 1165 / 1165 2500 / 2500
Urine, Voided 0 / 0
Other:
Number of approximated MODERATE 2
amounts of urine
Vital Signs
Temp Pulse Resp BP Pulse Ox
97.9 F 107 18 150/95 94
01/26/24 07:35 01/26/24 07:35 01/26/24 07:35 01/26/24 07:35 01/26/24 09:49
Lab Results
01/26/24 06:50
01/26/24 06:50
Calcium 9.6 mg/dl (8.4-10.2) 01/26/24 06:50
Phosphorus 4.6 mg/dl (2.5-4.5) H 01/26/24 06:50
Magnesium 3.0 mg/dl (1.6-2.3) H 01/26/24 06:50
Total Bilirubin 1.9 mg/dl (0.2-1.3) H 01/26/24 06:50
AST 46 U/L (14-36) H 01/26/24 06:50
ALT 53 U/L (0-35) H 01/26/24 06:50
Alkaline Phosphatase 105 U/L (38-126) 01/26/24 06:50
Total Protein 7.0 g/dl (6.3-8.2) 01/26/24 06:50
Albumin 4.0 g/dl (3.5-5.0) 01/26/24 06:50
Physical Exam
-
Gen: NAD
HEENT: bilious NGT output
Abd: obese, soft, mild tenderness, distended, tympanitic, non-peritoneal, midline incision well healed
--- NOTE | 2024-01-26 11:04 | PN.CDI ---
CDI
- -
CDI:
Physician Documentation Request
Admit Date: 01/22/24 19:19
Dear Doctor Jimi,
H&P contains a diagnosis of '' ED record states 'on home O2 3-5L'
Documented vital signs show patient on 6 L on 01/22
Please clarify which of the following accurately represents the acuity of the Chronic Hypoxia Respiratory Failure
Acute on Chronic
Chronic
____ Other
Use of terms such as suspected, likely, concern for, or probable (associated with a specific diagnosis that is being evaluated, monitored, or treated as if it exists) are acceptable and can be coded in the inpatient setting, when documented at the
time of discharge.
Thank you,
Kelly Davis RN, BSN
CDI Specialist
tiger text
Please use your independent medical judgment in providing your response.
[2024-01-26 12:17] VITALS: BMI 35.6
[2024-01-26] MEDS: DUONEB 3 ML INH (13:52)
--- NOTE | 2024-01-26 15:00 | CHAP ---
Msgr. Tio Edwards of [facility] in [place] gave [place] the Sacrament of the Sick, Holy Communion and an Apostolic Pardon. Exact time uncertain.
--- NOTE | 2024-01-26 15:33 | W.PN.HOSP.TC ---
Today's Communication/Plan
-
Tentatively plan for OR tomorrow
Assessment / Plan
Assessment / Plan
Sbo with transition point
-NPO
-IVF
-NGT to low suction
-Cleared by pulmonary for surgery
-Surgery will plan to take to the OR for ex lap, ALESSANDRA, ?bowel resection
-Surgery following
Chronic HFpEF
-Hold lasix
-Euvolemic
Chronic respiratory failure
-maintain spo2 of between 88-92%
-continue mdi's
-prednisone 10mg MWF, as NPO with NGT, will start steroids 20mg solumed daily
Bipolar Disorder
-Hold Abilify, Lamictal and Wellbutrin
-Hold Klonopin prn as prior to admission
--Refusing ativan at this time
--Psych consult as these psych meds do not have IV/IM conversions
Hypothyroidism
-Hold Levothyroxine, if still NPO then provide IV levothyroxine at 75% po dose
Hx DVT/PE
-Hold Xarelto should patient require intervention for bowel obstruction
Anticipated Discharge: > 48 hours
Subjective/Interval History
-
Date of Service: January 26, 2024
Seen and examined. No new complaints. No acute overnight events.
Continues to have NGT that is draining. Still has not passed flatus nor bowels.
States she is uncomfortable asking for something to help her to sleep.
Objective Data
-
Labs:
Laboratory Results
01/26/24
06:50
WBC 9.4
Hgb 13.6
Hct 44.8
Plt Count 297
PT 14.3
INR 1.08
APTT 31.9
Sodium 138
Potassium 3.5
Chloride 81 L
Carbon Dioxide 38 H
BUN 51 H
Creatinine 0.8
Glucose 97
Calcium 9.6
Total Bilirubin 1.9 H
AST 46 H
ALT 53 H
Alkaline Phosphatase 105
Vital Signs:
Vital Signs
Temp Pulse Resp BP Pulse Ox
97.9 F 99 16 150/95 94
01/26/24 07:35 01/26/24 13:59 01/26/24 13:59 01/26/24 07:35 01/26/24 13:59
I&O
01/25/24 01/26/24 01/27/24
06:59 06:59 06:59
Intake Total 500 / 500 1000 / 1000 90 / 90
Output Total 1165 / 1165 2500 / 2500 700 / 700
Balance -665 / -665 -1500 / -1500 -610 / -610
Physical Exam
-
General: Well Nourished and Obese
HEENT: Normocephalic and Atraumatic
Respiratory: Clear to Auscultation
Cardiac: Regular Rhythm and S1/S2
GI: Soft, Tender and Distended
Musculoskeletal: No Clubbing and No Cyanosis
Skin: Warm
Neuro: Awake, Alert, Oriented and AO x 3
Psych: Calm
[2024-01-26 15:34] VITALS: BP 143/77
[2024-01-26] MEDS: LOVENOX 40 MG SC (17:04)
[2024-01-26] MEDS: DILAUDID 0.25 MG IV ×2 (17:14→21:28)
[2024-01-26 23:55] VITALS: BP 168/91
[2024-01-27] VITALS (23 sets, daily range): BP systolic 125–160; BP diastolic 71–96; BMI 35.1; BMI 35.6
[2024-01-27] MEDS: SYNTHROID PO (01:46)
--- NOTE | 2024-01-27 05:40 | PTCARENOTE ---
Pt vomited 100cc of green bile. Instructed pt to reduce the amount of ice chips
[2024-01-27] MEDS: SYMBICORT 160/4.5 MCG INHALER 2 PUFF INH (07:15)
[2024-01-27] MEDS: SPIRIVA RESPIMAT 2.5 MCG 2 PUFF INH (07:15)
[2024-01-27] MEDS: DUONEB INH ×2 (07:24→13:22)
[2024-01-27] MEDS: PULMICORT INH (07:24)
[2024-01-27] MEDS: SODIUM CHLORIDE 3% FOR INHALATION INH (08:04)
[2024-01-27] MEDS: SOLU-MEDROL PF 20 MG IV (08:40)
--- NOTE | 2024-01-27 09:52 | W.PN.PUL.V3 ---
Today's Communication / Plan
-
Supplemental oxygen
Nasogastric tube per surgery
For surgery today
Postoperative pulmonary toilet/mucus clearing devices/BiPAP if needed
Assessment
-
73-year-old female with a history of COPD, bronchiectasis, CAD, CHF, DVT and pulmonary embolism on Xarelto who presented with small bowel obstruction likely requiring surgery-pulmonary consulted for preoperative clearance and pulmonary management in
the perioperative period-01/25/2024.
Small bowel obstruction
COPD without acute exacerbation
Chronic heart failure preserved EF
Conditions present prior to admission:
COPD-followed by Dr. Boyd-maintained on Trelegy, 3% sodium chloride nebulizer twice daily, prednisone 10 mg Qqkyds-Xxawckfna-Tfmrvo
Bronchiectasis.
Previous sputum cultures-Serratia 09/22/2023, Pseudomonas multiphilia 07/15/2023 sensitive to Bactrim and levofloxacin
Former [id number]-year quit 1998
Cough variant asthma
Chronic cough
Restrictive lung disease
Vocal cord paralysis
DVT/PE-saddle
IVC filter
/ sputum culture positive AFB May 2023-does not meet criteria for OLIVIA-Mycobacterium fortuitum culture 10/09/2021
History of [id number] cytology negative
Chronic lower extremity lymphedema.
Bipolar.
Hypothyroid.
Breast cancer.
Heart failure preserved EF.
CAD.
Previous obstructive sleep apnea
Obesity
Left mastectomy. Cholecystectomy. Left shoulder surgery. Bilateral total knee.
Plan
Respiratory status is relatively stable for her underlying chronic pulmonary conditions.
Supplemental oxygen as needed
Continue nebulizers-duonebs and Pulmicort nebulizers
Incentive spirometry-encouraged
Mucus clearing devices.
Encouraged mucus clearance.
Chronically on Prednisone 10 mg Exgqdi-Ljromddmp-Rebgvk-changed to Solu-Medrol 20 mg daily.
Symbicort and Spiriva continues-as an outpatient she is on Trelogy
Mucolytic's continued.
Outpatient pulmonary diagnostics are summarized below, including PFTs and sleep studies as well as radiographs
Cleared for proposed surgical intervention with moderate risk for perioperative pulmonary complications including prolonged mechanical ventilation-reviewed with patient.
Importance of mucus clearance postoperatively, avoidance of plugs/atelectasis/development of pneumonia was reviewed with patient..
Surgery following-correspondence reviewed.
For OR 01/27/2024
Nasogastric tube to low intermittent wall suction.
Previous operative records from [facility] have been requested.
Xarelto on hold-okay for heparin if deemed necessary.
DVT prophylaxis-on anticoagulation.
Eventual nutrition per surgery.
Bedside range of motion/early mobilization
Last seen by 01/13/2470-ergiht-eq as an outpatient. Postoperatively
Diagnostic data:
Chest x-ray 04/14/2023-stable pleural-parenchymal scarring, no other abnormalities
Chest x-ray 09/01/2023-NAD, stable pleural-parenchymal scarring lower portions of both lungs
Obstruction series 01/25/2024-no evidence for free intraperitoneal air, highly suggestive of small bowel obstruction
CT chest/-bilateral lower lobe parenchymal opacifications and bronchiectasis
CT abdomen and pelvis 01/22/2024-left breast implant, small collapsed right breast implant, soft tissue density likely mucous plugging right lower lobe with some atelectasis, small bowel obstruction
Echocardiogram 06/29/2023-EF 50%, no valvular disease
Pulmonary function studies-10/14/23: Spirometry demonstrated moderate restrictive lung disease.The forced vital capacity was 1.39 L or 49% of predicted.� The FEV1 was 1.11 L or 52% of predicted.� The FEV1/FVC ratio was 80%.
She cough throughout the study and was unable to exhale for 6 seconds.� Saturation dropped to 86% on room air and no further testing was done. Saturation returned to 93% on 3 L.
Compared to 12/2022, the forced vital capacity has declined from 1.47 L to 1.39 L.� The FEV1 was unchanged.
Sleep zhawy-1-95-12: AHI of 10.9 with oxyhemoglobin desaturation betsy of 85%. With 4 cm CPAP H2O
pressure the AHI was reduced to one event per hour and he oxyhemoglobin desaturation betsy improved to 92%.
Sleep study-08/13/14: AHI was 23.4 with oxyhemoglobin desaturation betsy of 64%.
At home sleep study-01/09/18: Respiratory event index 0.2 events per hour. Lowest saturation 89%. Percentage of the study time spent with a saturation below 90% was 0.1%.
Home sleep study-09/10/23: AHI 0.4 events per hour.� Saturation betsy 90%.
Subjective Data
-
Date of Service:
Date of Service: January 27, 2024
Chief Complaint: Pulmonary Follow Up and Dyspnea Follow Up
Subjective:
Continues to complain significant nausea, emesis, abdominal discomfort, no increase shortness of breath
Review of Systems
General: Other (Per HPI)
Objective Data
Data Reviewed
Vital Signs / I&O:
Vital Signs
Temp Pulse Resp BP Pulse Ox
98.4 F 99 18 157/86 93
01/27/24 07:45 01/27/24 07:45 01/27/24 07:45 01/27/24 07:45 01/27/24 07:45
Intake and Output
01/26/24 01/27/24 01/28/24
06:59 06:59 06:59
Intake Total 1000 / 1000 750 / 750
Output Total 2500 / 2500 2135 / 2135
Balance -1500 / -1500 -1385 / -1385
SaO2: 93
Nasal Cannula flow liters per minute: 3
Physical Exam
General: Respiratory Distress (n) and Comfortable
HEENT: Normocephalic, Anicteric and Moist Mucous Membranes
Cardiovascular: Regular Rhythm
Respiratory: Wheeze (n), Crackles (Rare basilar), Rhonchi (Few expiratory), Non-Labored Respirations, Accessory Resp Muscle Use (n) and Stridor (n)
GI: Soft, Distended and Tender
Neurology: Awake, Alert and No Motor Deficits
Skin: Warm, Good Color, Cyanosis (n), Jaundice (n) and Rash (n)
Labs/Micro/Reports
Lab Data
01/26/24 06:50
01/26/24 06:50
Microbiology
01/22/24 16:44 Urine Urine Culture - Final
Enterococcus faecium
01/23/24 01:03 Nose MRSA Screen - Final
No Methicillin Resistant Staphylococcus aureus isolated.
--- NOTE | 2024-01-27 11:08 | W.PN.HOSP.TC ---
Today's Communication/Plan
-
for the or with surgery today
continue ngtls
Assessment / Plan
Assessment / Plan
Sbo with transition point
-NPO
-IVF
-NGT to low suction
-Cleared by pulmonary for surgery
-Surgery will plan to take to the OR for ex lap, ALESSANDRA, ?bowel resection
-Surgery following
Chronic HFpEF
-Hold lasix
-Euvolemic
Chronic respiratory failure
-maintain spo2 of between 88-92%
-continue mdi's
-prednisone 10mg MWF, as NPO with NGT, will start steroids 20mg solumed daily
Bipolar Disorder
-Hold Abilify, Lamictal and Wellbutrin
-Hold Klonopin prn as prior to admission
--Refusing ativan at this time
--Psych consult as these psych meds do not have IV/IM conversions
Hypothyroidism
-Hold Levothyroxine, if still NPO then provide IV levothyroxine at 75% po dose
Hx DVT/PE
-Hold Xarelto should patient require intervention for bowel obstruction
Anticipated Discharge: > 48 hours
Subjective/Interval History
-
Date of Service: January 27, 2024
seen and examined
no new complaints
no acute overnight events
Objective Data
-
Vital Signs:
Vital Signs
Temp Pulse Resp BP Pulse Ox
98.4 F 99 18 157/86 93
01/27/24 07:45 01/27/24 07:45 01/27/24 07:45 01/27/24 07:45 01/27/24 10:32
I&O
01/26/24 01/27/24 01/28/24
06:59 06:59 06:59
Intake Total 1000 / 1000 750 / 750
Output Total 2500 / 2500 2135 / 2135
Balance -1500 / -1500 -1385 / -1385
Physical Exam
-
General: Well Developed and Well Nourished
HEENT: Normocephalic and Atraumatic
Respiratory: Clear to Auscultation
Cardiac: Regular Rhythm and S1/S2
GI: Soft, Nontender, Nondistended and Normal Bowel Sounds
Musculoskeletal: No Clubbing, No Cyanosis and No Edema
Neuro: Awake, Alert, Oriented and AO x 3
Psych: Calm
--- NOTE | 2024-01-27 12:44 | W.PN.UPDATE ---
Update Note
Progress Note Update
patient seen chart reviewed. discussed with nursing. patient was very engaged in discussion. she has a long hx of psych issues but has been stable for some time. currently being rx at [facility]. her prescriber is yancy blood
susan. patient 's medications for psych are currently being held. i dc'ed them for now as i don't want them necessarily started at the same dosage post surgery. explained this to patient particularly in the case of lamictal which generally you
don't start at full dose if the medications have been held for more than four days. she reports she has taken it for many years. she tried to stop the klonopin and abilify in the past but could not do without it. the klonopin is a low dose.
without abilify her thoughts were constantly racing. the patient tells me she may not survive the surgery but she is trusting in god and his will be done. she is quite calm. she also told me a bit about her life. she does not have a close
relationship w her son who left his . she remains close to his who is like a daughter. she shared with me some details of her younger life. 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 will talk w her out pt provider as well and the psych fri
sat sun coverage re restarting her meds after surgery.
--- NOTE | 2024-01-27 13:44 | W.SUR.PREOP ---
Pre-Operative Surgical Note
-
I have examined this patient prior to the performance of the scheduled procedure.
The patient's condition is unchanged from the time of the current History and
Physical and the patient is able to undergo the scheduled procedure.
--- NOTE | 2024-01-27 13:45 | W.PN.GS2 ---
Today's Communication / Plan
-
-- Exploratory laparotomy, ALESSANDRA, possible bowel resection
Assessment / Plan
-
Patient is a 73 yo F with a history of DVT/PE on Xarelto with LD on 01/19, HF, bronchiectasis on chronic O2, diverticulitis with perforation of bowel and emergent total colectomy and ileostomy creation in 2008 with subsequent reversal at [facility] in
2012 (?VHR repair with mesh at the time), chronic diarrhea and a prior SBO in July of this year which resolved without surgical intervention who presents with symptoms of nausea, vomiting and abdominal pain since 01/19.
CT imaging consistent with small bowel obstruction with transition point in RIGHT mid-abdomen likely secondary to adhesions from prior surgeries.
Follow up abd X-ray on 01/22 and 01/23 with persistent obstruction.
NGT placed on 01/22 with some improvement in symptoms, bilious outputs present
X-ray from 01/25/2024 demonstrates persistent small bowel obstruction
AVSS
Labs stable
Continued bilious output
Persistent SBO likely secondary to adhesions and despite medical management over the past several days. Options for management were reviewed including continued medical management with bowel rest and NGT decompression versus surgical management.
She is at increased risk for operative complications given her prior surgeries including increased adhesion formation from bowel perforation with intra-abdominal sepsis and prior mesh repair (details unknown), pulmonary complications, and wound
infections given active immunosuppression and obesity. Need for bowel resection may expose her to worsening of underlying function and QOL. She is also at risk for postoperative hernia formation. That being said, she has not seen improvement with
medical management and would ultimately recommend surgical intervention. Patient agrees and willing to proceed.
Plan for a exploratory laparotomy, lysis of adhesions, and possible bowel resection. The procedure itself, as well as the risks, benefits, and alternatives was discussed. Specifically, we discussed the risks of bleeding, infection, injury to
surrounding structures (bowel), wound complications, hernia formation, cardiopulmonary failure postoperatively, general anesthetic complications, and recurrence. Typical postprocedure recovery including the need for hospitalization for at least
several days postoperatively while awaiting return of bowel function and the need for 4 to 6 weeks no heavy lifting or strenuous activities was discussed. All questions answered.
Plan:
-- Exploratory laparotomy, ALESSANDRA, possible bowel resection
-- NPO, NG tube to low intermittent wall suction
-- IVF as per primary team, may need TPN post-operatively
-- PRN Analgesics/antiemetics
-- Continue to hold PO Xarelto at this time, OK for IV Heparin if deemed necessary by medical team
-- VTE ppx with Lovenox and SCD's
Subjective Data
-
Date of Service: January 27, 2024
Persistent nausea and vomiting. Does report passing some green her stools, though overall feels worse. Worse abdominal pain and distention. No fevers.
Objective Data
-
Intake and Output
01/26/24 01/27/24 01/28/24
06:59 06:59 06:59
Intake Total 1000 / 1000 750 / 750
Output Total 2500 / 2500 2135 / 2135
Balance -1500 / -1500 -1385 / -1385
Intake:
Oral fluids 100 / 100 0 / 0
IV fluids (Total) 720 / 720 660 / 660
Amount instilled into GI Tube ( 180 / 180 90 / 90
Total)
[place] Sump 180 / 180 90 / 90
Output:
Gastrointestinal tube output ( 2500 / 2500 1400 / 1400
Total)
[place] Sump 2500 / 2500 1400 / 1400
Urine, Voided 0 / 0 735 / 735
Other:
Number of approximated MODERATE 2
amounts of urine
Number of approximated LARGE 1
amounts of urine
Number of immeasurable emeses? 1
Vital Signs
Temp Pulse Resp BP Pulse Ox
98.4 F 99 18 157/86 93
01/27/24 07:45 01/27/24 07:45 01/27/24 07:45 01/27/24 07:45 01/27/24 10:32
Lab Results
01/26/24 06:50
01/26/24 06:50
Calcium 9.6 mg/dl (8.4-10.2) 01/26/24 06:50
Phosphorus 4.6 mg/dl (2.5-4.5) H 01/26/24 06:50
Magnesium 3.0 mg/dl (1.6-2.3) H 01/26/24 06:50
Total Bilirubin 1.9 mg/dl (0.2-1.3) H 01/26/24 06:50
AST 46 U/L (14-36) H 01/26/24 06:50
ALT 53 U/L (0-35) H 01/26/24 06:50
Alkaline Phosphatase 105 U/L (38-126) 01/26/24 06:50
Total Protein 7.0 g/dl (6.3-8.2) 01/26/24 06:50
Albumin 4.0 g/dl (3.5-5.0) 01/26/24 06:50
Physical Exam
-
Gen: NAD
HEENT: bilious output
Abd: soft, diffusely tender, distended, non-peritoneal, prior incision well healed
--- NOTE | 2024-01-27 18:18 | W.IMMPOSTOP ---
Surgical Immed Post Op Note
-
Primary Surgeon: Katty
Assisting Surgeon: Hugh
Pre-op Diagnosis: SBO
Post-op Diagnosis: SBO
Procedure Performed: Exploratory laparotomy, extensive lysis of adhesions
Anesthesia Type: General
Specimen / Cultures: None
Estimated Blood Loss: 71 cc
Complications: None
Operative Findings:
1. Dense small bowel adhesions to prior mesh underlay repair as well as intraloop adhesions
2. Extensive complete lysis for approximately 3.5 hrs
3. SB able to be run from LT to ileorectal anastomosis
4. Small serosal tears x 3 oversewn, no enterotomies
5. Primary closure of abdominal wall with #1 Prolene interrupted [id number]
[2024-01-27] MEDS: SUBLIMAZE 100 IV (19:07)
[2024-01-27] MEDS: DIPRIVAN 100 IV ×2 (19:08→23:16)
[2024-01-27] MEDS: NSS 1000 IV (19:08)
--- NOTE | 2024-01-27 20:00 | PTCARENOTE ---
rec`d pt from PACU intubated. prop and fent gtt started. SR w/ a BBB on monitor. HR in the 80s. scds . #8 ETT at 22 center. vent settings 14/450/50%/ 5 of peep. POX 98%. NGT up to LIWS maked at 70cm- draining brown fluid. pickard in place draining
samir urine. restraints for #1 justification. pt has abdominal binder w/ 1 LAYLA draining sanguinous drainage. rt AC w/ 4 vietnamese catheter ( placed in OR by anesthesia). rt upper arm 22 flushed and patent. safe environment maintained. call mckeon in
reach.
[2024-01-27] MEDS: LOVENOX SC (20:07)
[2024-01-27] MEDS: SODIUM CHLORIDE 3% FOR INHALATION 1 VIAL INH (20:19)
[2024-01-27] MEDS: DUONEB 3 ML INH (20:19)
[2024-01-27] MEDS: PULMICORT 0.5 MG INH (20:19)
[2024-01-27] MEDS: SYMBICORT 160/4.5 MCG INHALER INH (20:25)
[2024-01-27] MEDS: OFIRMEV 100 IV (21:20)
[2024-01-27 22:13] LABS: B.E. 14.7 mmol/L; HCO3 38.5 mmol/L (21-28); O2 Saturation % 99.1 % (94-98); PCO2 43 mmHg (32-35); PO2 88 mmHg (83-108); pH 7.56 (7.35-7.45)
[2024-01-28] VITALS (89 sets, daily range): BP systolic 77–164; BP diastolic 51–87
--- NOTE | 2024-01-28 00:32 | SUR.PHASEI ---
pt reassessed. no changes in pt assessment. safe environment maintained.
[2024-01-28] MEDS: OFIRMEV 100 IV ×3 (01:22→14:04)
[2024-01-28] MEDS: LR 1000 IV ×3 (01:22→20:49)
[2024-01-28 03:26] LABS: Hematocrit 38.4 % (37.0-47.0); Hemoglobin 11.9 g/dL (12.0-16.0); Mean Corpuscular Hgb 27.9 pg (27.0-31.0); Mean Corpuscular Volume 89.9 fL (81.0-99.0); Mean Platelet Volume 9.5 fL (7.4-10.4); Platelet Count 267 10^3/uL (130-400); Red Blood Cell Count 4.27 10^6/uL (4.20-5.40); Red Cell Dist. Width 14.8 % (11.5-14.5)
[2024-01-28 04:01] LABS: Blood Urea Nitrogen 62 mg/dl (7-17); Calcium 7.8 mg/dl (8.4-10.2); Carbon Dioxide 38 mmol/L (22-30); Chloride 89 mmol/L (98-107); Estimated Creatinine Clearance 61 ml/min; Glucose 123 mg/dl (70-99); Magnesium 2.7 mg/dl (1.6-2.3); Phosphorus 4.6 mg/dl (2.5-4.5); Potassium 3.6 mmol/L (3.5-5.1); Sodium 136 mmol/L (135-145); eGFR > 60.00
[2024-01-28 04:13] LABS: B.E. 13.6 mmol/L; HCO3 39.8 mmol/L (21-28); O2 Saturation % 99.1 % (94-98); PCO2 56 mmHg (32-35); PO2 113 mmHg (83-108); pH 7.46 (7.35-7.45)
[2024-01-28 04:17] LABS: O2 Therapy VENT
[2024-01-28 04:26] LABS: Triglycerides 135 mg/dl (10-149)
[2024-01-28] MEDS: SYNTHROID 175 MCG PO (05:24)
--- NOTE | 2024-01-28 06:14 | PTCARENOTE ---
weaning prop per MD orders. 300 out of NGT, green in color. hypoactive bowel sounds.
--- NOTE | 2024-01-28 07:20 | PTCARENOTE ---
Received pt intubated, sedated with bilateral soft wrist restraints and 4 side rails. She easily opens her eyes to verbal and gentle tactile stimuli. She was informed of where she was, the date, time and that surgery was successful. She nodded her
head in understanding. She is able to follow simple commands, BARNEY. She was made aware that the plan for today was to extubate her. She nodded her head in understanding. Right upper arm #22g protective catheter with LR@100ml/hr, Right AC #4 microbore
catheter with Biopatch, propofol and fentanyl infusing. Good peripheral pulses. +2 lower extremity edema, trace to +1 hand edema. Knee-hi SCD's intact, pitting edema noted. #8 ETT secured 22cm left lip. Tolerating AC settings on ventilator.
Expiratory wheeze throughout posteriorly. Aspiration precautions. Absent bowel sounds, morbidly obese with abdominal binder intact. Dressings CDI, Right abdominal LAYLA drain with bloody drainage in bulb. Indwelling Harris catheter with samir urine.
Safe environment maintained.
[2024-01-28] MEDS: PULMICORT 0.5 MG INH ×2 (07:38→19:53)
[2024-01-28] MEDS: DUONEB 3 ML INH ×3 (07:38→19:53)
[2024-01-28] MEDS: SODIUM CHLORIDE 3% FOR INHALATION 1 VIAL INH ×2 (07:38→19:53)
--- NOTE | 2024-01-28 08:00 | PTCARENOTE ---
Incontinent for loose green bilious stool. Pooled around her Harris catheter. Pericare performed and thorough Harris catheter care performed.
[2024-01-28] MEDS: NSS (PRESERVATIVE FREE) 10 ML IV (08:14)
[2024-01-28] MEDS: PROTONIX IV 40 MG IV (08:14)
[2024-01-28] MEDS: SOLU-MEDROL PF 20 MG IV (08:14)
--- NOTE | 2024-01-28 08:27 | W.PN.INTV ---
Today's Communication / Plan
Recommendations
Postoperative management as per general surgery
Keep NGT to LIWS and monitor output
IVF while NPO
DuoNebs, nebulized 3% + budesonide
Mucolytics with mucinex + 3% NS
Acapella
Resume home inhalers upon discharge
Restart Lasix at 40 mg BID --> if she tolerates this then can transition to her home dose of 80mg daily + 40 mg every afternoon
Outpatient office follow-up with Dr. Boyd will be arranged
Patient is stable for downgrade out of ICU to telemetry. No additional recommendations at this time - Paper Pattern Folder/Pulmonary service will now sign off. Please call back if there are any additional questions or concerns.
Assessment
-
73-year-old female with a history of COPD, bronchiectasis, CAD, CHF, DVT and pulmonary embolism on Xarelto who presented with small bowel obstruction likely requiring surgery-pulmonary consulted for preoperative clearance and pulmonary management in
the perioperative period-01/25/2024.
Impression:
Small bowel obstruction s/p exploratory laparotomy with extensive lysis of adhesions (POD #1)
COPD without acute exacerbation
Chronic heart failure preserved EF
Conditions present prior to admission:
COPD-followed by Dr. Boyd-maintained on Trelegy 200mcg, 3% sodium chloride nebulizer twice daily, prednisone 10 mg Nrtlqg-Pvzyvqntg-Abfreh
Bronchiectasis.
Previous sputum cultures-Serratia 09/22/2023, Pseudomonas multiphilia 07/15/2023 sensitive to Bactrim and levofloxacin
Former fwnhct-13-uhmt-year quit 1998
Cough variant asthma
Chronic cough
Restrictive lung disease
Vocal cord paralysis
DVT/PE-saddle
IVC filter
02/11 sputum culture positive AFB May 2023-does not meet criteria for OLIVIA-Mycobacterium fortuitum culture 10/09/2021
History of [id number] cytology negative
Chronic lower extremity lymphedema.
Bipolar.
Hypothyroid.
Breast cancer.
Heart failure preserved EF.
CAD.
Previous obstructive sleep apnea
Obesity
Left mastectomy. Cholecystectomy. Left shoulder surgery. Bilateral total knee.
Plan
Patient underwent ex lap with extensive lysis of adhesions on 01/27/2024 and remained intubated overnight
- This morning patient went on a spontaneous breathing trial and was successfully extubated to nasal cannula and is currently saturating well on 3 L/min with SpO2 97%
- Titrate down supplemental O2 flow rate as tolerated to maintain SpO2 88-95% --> she chronically uses oxygen at 3 L/min [id number] and may raise it to 4�5 with exertion
- Continue aspiration precautions
Postoperative management as per general surgery
- Pain control
- Continue NGT for decompression and continue at LIWS
- Monitor NGT output
- Surgery correspondence + operative report were personally reviewed
- Previous operative records from [facility] have been requested
- Xarelto to remain on hold --> given her Hx of DVT/PE on chronic NOAC at home, start therapeutic LMWH for now and then TRX back to Xarelto over next 1-2 days
- Continue with DuoNebs TID + budesonide BID
- Incentive spirometry-encouraged
- Mucus clearing devices + mucinex
- Chronically on Prednisone 10 mg Kiooli-Qgixpdslm-Qugpzs-changed to Solu-Medrol 20 mg daily --> can likely change back to her home prednisone dose in next 1-2 days
DVT prophylaxis-take Xarelto at home; in the setting of her recent surgery will start therapeutic Lovenox for 48 hours and then restart her home NOAC afterwards
Eventual nutrition per surgery
Bedside range of motion/early mobilization
Last seen by Dr. Boyd on 01/13/[id number]-[id number]-zw as an outpatient- recommend continued outpatient follow-up (was advised to follow up in 6 months).
Patient is stable for downgrade out of ICU to telemetry. She is back to her home dose of oxygen already after being extubated this morning and is doing well. No additional recommendations at this time. Please resume her home inhalers upon
discharge (Trelegy 200mcg, nebulized NS 3% BID, DuoNebs TID + Budesonide 0.5mg BID). Paper Pattern Folder/Pulmonary service will now sign off. Thank you for allowing us to be involved in the care of this patient. Please call back if there are any
additional questions or concerns.
Diagnostic data:
Chest x-ray 04/14/2023-stable pleural-parenchymal scarring, no other abnormalities
Chest x-ray 09/01/2023-NAD, stable pleural-parenchymal scarring lower portions of both lungs
Obstruction series 01/25/2024-no evidence for free intraperitoneal air, highly suggestive of small bowel obstruction
CT chest/-bilateral lower lobe parenchymal opacifications and bronchiectasis
CT abdomen and pelvis 01/22/2024-left breast implant, small collapsed right breast implant, soft tissue density likely mucous plugging right lower lobe with some atelectasis, small bowel obstruction
Echocardiogram 06/29/2023-EF 50%, no valvular disease
Pulmonary function studies-10/14/23: Spirometry demonstrated moderate restrictive lung disease.The forced vital capacity was 1.39 L or 49% of predicted.� The FEV1 was 1.11 L or 52% of predicted.� The FEV1/FVC ratio was 80%.
She cough throughout the study and was unable to exhale for 6 seconds.� Saturation dropped to 86% on room air and no further testing was done. Saturation returned to 93% on 3 L.
Compared to 12/2022, the forced vital capacity has declined from 1.47 L to 1.39 L.� The FEV1 was unchanged.
Sleep yuntk-[id number]: AHI of 10.9 with oxyhemoglobin desaturation betsy of 85%. With 4 cm CPAP H2O
pressure the AHI was reduced to one event per hour and he oxyhemoglobin desaturation betsy improved to 92%.
Sleep study-08/13/14: AHI was 23.4 with oxyhemoglobin desaturation betsy of 64%.
At home sleep study-01/09/18: Respiratory event index 0.2 events per hour. Lowest saturation 89%. Percentage of the study time spent with a saturation below 90% was 0.1%.
Home sleep study-09/10/23: AHI 0.4 events per hour.� Saturation betsy 90%.
Total time spent today was 76 minutes for this encounter. Time includes reviewing laboratory test/imaging results, reviewing pertinent medical records, obtaining and reviewing medical history, performing an appropriate exam, ordering medications,
tests and procedures. Time also includes documentation of this encounter, coordinating patient care and communicating with other healthcare professionals. Total time does not include separately billed tests performed on this date of service.
Subjective Dataa
Subjective Data
Date of Service:
Date of Service: January 28, 2024
Chief Complaint: Paper Pattern Folder Follow Up
Subjective:
Patient was seen and evaluated this morning. She was placed onto a ventilator wean this morning at PS: 8, PEEP of 5. Pt following commands. She was extubated to nasal cannula at 3L/min. Heart rate 100, saturating 95% and BP 149/82. She has some
sore throat complaints but otherwise denies chest pain, SALES, nausea, fevers or chills.
Review of Systems
General: Other (Negative unless mentioned above)
Objective Data
Data Reviewed
Vital Signs / I&O / Oxygen:
Vital Signs
Temp Pulse Resp BP Pulse Ox
98.8 F 102 17 138/79 97
01/28/24 05:02 01/28/24 08:51 01/28/24 08:51 01/28/24 08:00 01/28/24 08:51
Intake and Output
01/27/24 01/28/24 01/29/24
06:59 06:59 06:59
Intake Total 750 / 750 1218.5 / 1334.8 246.3 / 246.3
Output Total 2135 / 2135 1660 / 1660 180 / 180
Balance -1385 / -1385 -441.5 / -325.2 66.3 / 66.3
SaO2 [CPAP/PSV] 96
SaO2 [A/C] 97
SaO2 97
Nasal Cannula flow liters per 3
minute
Physical Exam
General: Respiratory Distress (negative), Comfortable, Chills (negative) and Sweats (negative)
HEENT: Normocephalic, Anicteric and Other (ETT in place)
Cardiovascular: S1-S2, Rub (n) and Peripheral Edema (negative)
Respiratory: Wheeze (negative), Crackles (negative), Rhonchi (negative), Non-Labored Respirations, Stridor (n) and ET Tube (Mechanical breath sounds heard bilaterally)
GI: Soft, Non Distended, Non Tender and Normal Bowel Sounds
Neurology: Awake, Alert and Tremors (negative)
Skin: Warm, Dry, Cyanosis (negative) and Jaundice (negative)
Labs/Micro/Reports
Lab Data
01/28/24 03:19
01/28/24 03:19
Laboratory Results
01/27/24 01/28/24 01/28/24
22:08 04:03 08:48
pH 7.56 H 7.46 H 7.55 H
pCO2 43 H 56 H 45 H
pO2 88 113 H 73 L
HCO3 38.5 H 39.8 H 39.4 H
O2 Delivery Level Vent
[2024-01-28] MEDS: SUBLIMAZE 50 MCG IV (08:40)
[2024-01-28 08:56] LABS: B.E. 15.2 mmol/L; HCO3 39.4 mmol/L (21-28); O2 Saturation % 97.2 % (94-98); PCO2 45 mmHg (32-35); PO2 73 mmHg (83-108); pH 7.55 (7.35-7.45)
--- NOTE | 2024-01-28 09:23 | W.PN.GS2 ---
Addendum entered and electronically signed by Baltazar Alaniz MD 01/29/24 15:18:
High grade partial obstruction
Original Note:
Today's Communication / Plan
-
-- No major changes from surgical perspective continue NPO and NGT decompression
Assessment / Plan
-
Patient is a 73 yo F with a history of DVT/PE on Xarelto with LD on 01/19, HF, bronchiectasis on chronic O2, diverticulitis with perforation of bowel and emergent total colectomy and ileostomy creation in 2008 with subsequent reversal at [facility] in
2012 (?VHR repair with mesh at the time), chronic diarrhea and a prior SBO in July of this year which resolved without surgical intervention who presents with symptoms of nausea, vomiting and abdominal pain since 01/19.
CT imaging consistent with small bowel obstruction with transition point in RIGHT mid-abdomen likely secondary to adhesions from prior surgeries.
Follow up abd X-ray on 01/22 and 01/23 with persistent obstruction.
NGT placed on 01/22 with some improvement in symptoms, bilious outputs present
X-ray from 01/25/2024 demonstrates persistent small bowel obstruction
AVSS
Reactive leukocytosis, postoperative anemia likely secondary to acute blood loss during surgery and hemodilution
Low volume gastric outputs
Plan:
-- NPO, NGT decompression
-- IVF per ICU and pulmonary, balance btw resuscitation and minimizing pulm edema, may need TPN postoperatively though holding given stool output potential for return to oral intake
-- Pain control: IV Tylenol and Dilaudid
-- VTE ppx with Lovenox and SCD's, no PO therapeutic anticoagulation for at least 48 to 72 hours postoperatively, OK for Heparin drip if needed
-- Vent wean per ICU
Subjective Data
-
Date of Service: January 28, 2024
On ventilator able to respond to questions with shake of head. Pain well-controlled.
Objective Data
-
Intake and Output
01/27/24 01/28/24 01/29/24
06:59 06:59 06:59
Intake Total 750 / 750 1218.5 / 1334.8 246.3 / 246.3
Output Total 2135 / 2135 1660 / 1660 180 / 180
Balance -1385 / -1385 -441.5 / -325.2 66.3 / 66.3
Intake:
Oral fluids 0 / 0
IV fluids (Total) 660 / 660 1188.5 / 1304.8 216.3 / 216.3
Fent 47.5 / 52.5 5 / 5
Lr 1,000 ml @ 100 mls/hr IV . 500 / 600 200 / 200
Q10H CARLINE Rx#:[id number]
NS 500 / 500
Prop 141.0 / 152.3 11.3 / 11.3
Amount instilled into GI Tube ( 90 / 90 30 / 30 30 / 30
Total)
Sanger Sump 90 / 90 30 / 30 30 / 30
Output:
Drain Output (Total) 60 / 60
Right Lower Abdomen Luiz- 60 / 60
Stapleton
Gastrointestinal tube output ( 1400 / 1400 300 / 300
Total)
Sanger Sump 1400 / 1400 300 / 300
Urine, Harris 1300 / 1300 180 / 180
Urine, Voided 735 / 735
Other:
Number of approximated MODERATE 2
amounts of urine
Number of approximated LARGE 1
amounts of urine
Number of immeasurable emeses? 1
Vital Signs
Temp Pulse Resp BP Pulse Ox
98.8 F 102 17 138/79 97
01/28/24 05:02 01/28/24 08:51 01/28/24 08:51 01/28/24 08:00 01/28/24 08:51
Lab Results
01/28/24 03:19
01/28/24 03:19
Calcium 7.8 mg/dl (8.4-10.2) L D 01/28/24 03:19
Phosphorus 4.6 mg/dl (2.5-4.5) H 01/28/24 03:19
Magnesium 2.7 mg/dl (1.6-2.3) H 01/28/24 03:19
Total Bilirubin 1.9 mg/dl (0.2-1.3) H 01/26/24 06:50
AST 46 U/L (14-36) H 01/26/24 06:50
ALT 53 U/L (0-35) H 01/26/24 06:50
Alkaline Phosphatase 105 U/L (38-126) 01/26/24 06:50
Total Protein 7.0 g/dl (6.3-8.2) 01/26/24 06:50
Albumin 4.0 g/dl (3.5-5.0) 01/26/24 06:50
Physical Exam
-
Gen: NAD
HEENT: on vent
Abd: soft, NT/ND, non-peritoneal, midline c/d/i, LAYLA serosang
Rectal: Stool noted
[2024-01-28] MEDS: DILAUDID 0.5 MG IV ×7 (09:45→23:12)
[2024-01-28] MEDS: KCL ELIXIR 40 MEQ TUBE (12:04)
[2024-01-28] MEDS: LAMICTAL 25 MG TUBE (12:04)
[2024-01-28] MEDS: LASIX 40 MG TUBE ×2 (12:05→16:07)
[2024-01-28] MEDS: COREG 6.25 MG TUBE ×2 (12:05→20:49)
[2024-01-28] MEDS: LOVENOX 90 MG SC ×2 (12:56→22:21)
[2024-01-28] MEDS: ROBITUSSIN 200 MG TUBE ×3 (12:57→22:21)
--- NOTE | 2024-01-28 13:32 | CM ---
CM following re: discharge planning.
Discussed in rounds, reviewed pt's chart, met with pt. Per Rounds meeting, pt is s/p Exploratory laparotomy 01/27/24, extubated this morning to 3L NC of O2, continue supportive care.
Pt stated she has son Andrez Levin [phone] lives in [place], supportive daughter in law (son's ex-) Radha [phone]. Pt stated [employer] office is her POA.
Pt expressed her desire to return back to her living arrangement at [facility]. Pt stated she was at [facility] and feels she will be able to manage herself at home. Pt is known to [facility].
PT and OT will evaluate the pt when clinically appropriate to determine a level of care at discharge.
D/C plan: pt feels home with [facility]. Awaiting PT and OT evaluations.
CM will follow with discharge plan updates as hospitalization progresses
--- NOTE | 2024-01-28 15:10 | PTCARENOTE ---
Incontinent for large amount of loose green bilious stool, pooled again around her indwelling Harris catheter. Thorough anirudh and Harris care performed.
--- NOTE | 2024-01-28 15:39 | W.PN.UPDATE ---
Update Note
Progress Note Update
patient seen chart reviewed. ms reyes was successfully extubated. she had confided in me yesterday that she feared she would or that her lung function would prevent her from being extubated. in her words she is doing 'reasonably well'. spoke
with nursing. she has had some pain and is receiving dilaudid. she is trying to be optimistic about her recovery. we discussed restarting psych meds. given the qtc would hold off on abilify. abilify is not known to affect qtc in healthy adults
and is NOT on a list of drugs to avoid from [facility] in patients w known qtc but there is still some ? although it is likely safe. would resume lamictal at a higher dose as she has been on it for many many years without incident (50 mg bid) but at
present pharmacy is refusing to increase it as per their protocol. awaiting a call from pharmacy head to discuss. would restart wellbutrin at half the dose 100 mg of sr. neither of these is thought to be associated with long qtc. psych will see
her tomorrow. .
--- NOTE | 2024-01-28 15:55 | W.PN.HOSP.TC ---
Today's Communication/Plan
-
Follow surgery recs
downgrade per ICU recs
Assessment / Plan
Assessment / Plan
Sbo with transition point
-S/p ex lap with extensive lysis of adhesions on 01/27/2024
-NPO
-IVF
-NGT to low suction for decompression
-Surgery following
Chronic HFpEF
-Hold lasix
-Euvolemic
Chronic respiratory failure
-maintain spo2 of between 88-92%
-continue mdi's
-prednisone 10mg MWF, as NPO with NGT, started on steroids 20mg solumed daily
Bipolar Disorder
-Hold Abilify, Lamictal and Wellbutrin
-Hold Klonopin prn as prior to admission
--Refusing ativan at this time
--Psych consult as these psych meds do not have IV/IM conversions
Hypothyroidism
-Hold Levothyroxine, if still NPO then provide IV levothyroxine at 75% po dose
Hx DVT/PE
-Hold Xarelto should patient require intervention for bowel obstruction
Anticipated Discharge: > 48 hours
Subjective/Interval History
-
Date of Service: January 28, 2024
seen and examined
no new complaints
no acute ovenright events
was successfully extubated this am
would like the ngt out
rob drain is inplace ith drainage, she did not realize she had one
Objective Data
-
Labs:
Laboratory Results
01/28/24 01/28/24 01/28/24
03:19 04:03 08:48
HCO3 39.8 H 39.4 H
Sodium 136
Potassium 3.6
Chloride 89 L
Carbon Dioxide 38 H
BUN 62 H
Creatinine 0.9
Glucose 123 H
Calcium 7.8 L D
Vital Signs:
Vital Signs
Temp Pulse Resp BP Pulse Ox
98.1 F 101 22 128/71 97
01/28/24 12:06 01/28/24 14:42 01/28/24 14:42 01/28/24 14:15 01/28/24 14:42
I&O
01/27/24 01/28/24 01/29/24
06:59 06:59 06:59
Intake Total 750 / 750 1218.5 / 1334.8 1116.3 / 1116.3
Output Total 2135 / 2135 1660 / 1660 600 / 600
Balance -1385 / -1385 -441.5 / -325.2 516.3 / 516.3
Physical Exam
-
General: Well Developed, Well Nourished and No Apparent Distress
HEENT: Normocephalic and Atraumatic
Respiratory: Decreased Breath Sounds
Cardiac: Regular Rhythm and S1/S2
GI: Soft, Nontender, Nondistended and Normal Bowel Sounds
Neuro: Awake, Alert, Oriented and AO x 3
Psych: Calm
[2024-01-28] MEDS: NEURONTIN 100 MG TUBE ×2 (16:06→22:21)
[2024-01-28] MEDS: COZAAR 25 MG TUBE (22:22)
[2024-01-28] MEDS: TYLENOL 650 MG TUBE (22:29)
[2024-01-28] MEDS: KLONOPIN 0.5 MG TUBE (22:29)
--- NOTE | 2024-01-28 23:11 | PTCARENOTE ---
Received pt at 1900 resting in bed AAOx3, BARNEY but weak, c/o 10/10 abd pain. Dilaudid given with good effect. SR on tele, HR 70s, BP 140s/80s. Afebrile. + 2 LE edema, +1 UE edema. SCDs maintained. On 3L NC. Coarse on auscultation with exp wheezing
and crackles bibasilar. NG tube to LIWS with minimal green output. NPO except meds down tube. Rectal trumpet draining loose brown stool. Hypoactive bowel sounds x4. Pickard draining yellow urine. At 1900, pt rectal tube leaking and stool went up
towards anirudh/pickard area- cleaned well. Excoriated in anirudh area- barrier cream applied. Mid abdominal incision dsg c/d/i with abdominal binder in place. R LAYLA drain with serosang output. R AC with LR @ 100ml/hr. Call mckeon in reach
Tele orders- pt transferred to [phone]. Report given to AVILA Mehta. Belongings transferred to [facility] room.
[2024-01-29] VITALS (8 sets, daily range): BP systolic 122–145; BP diastolic 58–81; PULSE 74–82; O2SAT 99; BMI 35.9
--- NOTE | 2024-01-29 02:24 | PTCARENOTE ---
2300 pt rec'vd from ICU, tele, abd binder with r j-p drain, midline incision drsg. rectal trumpet and pickard, excoriated groin area and inter buttock folds.LUE restriction. L nare NG tube at 70cm to low inter suction. LR infusing. pt oriented to
unit
[2024-01-29] MEDS: DILAUDID 0.5 MG IV ×4 (04:20→16:11)
[2024-01-29] MEDS: SYNTHROID 175 MCG TUBE (05:30)
[2024-01-29 06:37] LABS: Hematocrit 37.3 % (37.0-47.0); Hemoglobin 11.3 g/dL (12.0-16.0); Mean Corp Hgb Conc. 30.3 g/dL (33.0-37.0); Mean Corpuscular Volume 92.3 fL (81.0-99.0); Mean Platelet Volume 10.1 fL (7.4-10.4); Platelet Count 268 10^3/uL (130-400); Red Blood Cell Count 4.04 10^6/uL (4.20-5.40); Red Cell Dist. Width 14.9 % (11.5-14.5)
[2024-01-29 07:06] LABS: ALT (SGPT) 31 U/L (0-35); AST (SGOT) 25 U/L (14-36); Alkaline Phosphatase 62 U/L (38-126); Blood Urea Nitrogen 48 mg/dl (7-17); Calcium 8.7 mg/dl (8.4-10.2); Chloride 93 mmol/L (98-107); Direct Bilirubin 0.3 mg/dl (0.0-0.4); Estimated Creatinine Clearance 79 ml/min; Glucose 81 mg/dl (70-99); Magnesium 2.6 mg/dl (1.6-2.3); Phosphorus 2.4 mg/dl (2.5-4.5); Potassium 3.4 mmol/L (3.5-5.1); Sodium 140 mmol/L (135-145); Total Protein 5.6 g/dl (6.3-8.2); eGFR > 60.00
[2024-01-29] MEDS: LR 1000 IV ×2 (07:13→17:21)
[2024-01-29] MEDS: PULMICORT 0.5 MG INH (07:21)
[2024-01-29] MEDS: DUONEB 3 ML INH ×2 (07:22→14:32)
[2024-01-29] MEDS: SODIUM CHLORIDE 3% FOR INHALATION 1 VIAL INH (07:22)
[2024-01-29 07:29] LABS: Carbon Dioxide 38 mmol/L (22-30)
--- NOTE | 2024-01-29 08:06 | W.PN.GS2 ---
Today's Communication / Plan
-
-- Clamp NGT for today (no plans for removal until 24 hours tolerance)
-- NPO, OK for sips for comfort
Assessment / Plan
-
Patient is a 73 yo F with a history of DVT/PE on Xarelto with LD on 01/19, HF, bronchiectasis on chronic O2, diverticulitis with perforation of bowel and emergent total colectomy and ileostomy creation in 2008 with subsequent reversal at [facility] in
2012 (?VHR repair with mesh at the time), chronic diarrhea and a prior SBO in July of this year which resolved without surgical intervention who presents with symptoms of nausea, vomiting and abdominal pain since 01/19.
CT imaging consistent with small bowel obstruction with transition point in RIGHT mid-abdomen likely secondary to adhesions from prior surgeries.
Follow up abd X-ray on 01/22 and 01/23 with persistent obstruction.
NGT placed on 01/22 with some improvement in symptoms, bilious outputs present
X-ray from 01/25/2024 demonstrates persistent small bowel obstruction
POD#2 s/p exploratory laparotomy, extensive ALESSANDRA
AVSS
Reactive leukocytosis trending down, postoperative anemia likely secondary to acute blood loss during surgery and hemodilution, stable
Low volume gastric outputs
Plan:
-- Clamp NGT for today (no plans for removal until 24 hours tolerance)
-- NPO, OK for sips for comfort
-- IVF per ICU and pulmonary, balance btw and resuscitation and minimizing pulm edema, may need TPN postoperatively though holding given stool output potential for return to oral intake
-- Pain control: IV Tylenol and Dilaudid
-- VTE ppx with Lovenox and SCD's, no PO therapeutic anticoagulation for at least 48 to 72 hours postoperatively, OK for Heparin drip if needed
-- OOB/ambulate as able, correct lytes
Subjective Data
-
Date of Service: January 29, 2024
Reports throat irritation. Denies any worsening abdominal pain. No nausea. Passing liquid stool and some flatus. Afebrile. No ambulation.
Objective Data
-
Intake and Output
01/28/24 01/29/24 01/30/24
06:59 06:59 06:59
Intake Total 1218.5 / 1334.8 2836.3 / 2836.3
Output Total 1660 / 1660 2315 / 2315
Balance -441.5 / -325.2 521.3 / 521.3
Intake:
IV fluids (Total) 1188.5 / 1304.8 2416.3 / 2416.3
Fent 47.5 / 52.5 5 / 5
Lr 1,000 ml @ 100 mls/hr IV . 500 / 600 1600 / 1600
Q10H CARLINE Rx#:[id number]
NS 500 / 500
Prop 141.0 / 152.3 11.3 / 11.3
IV piggybacks 100 / 100
Amount instilled into GI Tube ( 30 / 30 320 / 320
Total)
Barton Sump 30 / 30 320 / 320
Output:
Drain Output (Total) 60 / 60 75 / 75
Right Lower Abdomen Luiz- 60 / 60 75 / 75
Stapleton
Gastrointestinal tube output ( 300 / 300 210 / 210
Total)
Barton Sump 300 / 300 210 / 210
Urine, Harris 1300 / 1300 2029 / 2029
Vital Signs
Temp Pulse Resp BP Pulse Ox
98 F 86 18 145/78 97
01/29/24 07:10 01/29/24 07:26 01/29/24 07:26 01/29/24 07:10 01/29/24 07:26
Lab Results
01/29/24 05:37
01/29/24 05:37
Calcium 8.7 mg/dl (8.4-10.2) 01/29/24 05:37
Phosphorus 2.4 mg/dl (2.5-4.5) L 01/29/24 05:37
Magnesium 2.6 mg/dl (1.6-2.3) H 01/29/24 05:37
Total Bilirubin 1.0 mg/dl (0.2-1.3) 01/29/24 05:37
Direct Bilirubin 0.3 mg/dl (0.0-0.4) 01/29/24 05:37
AST 25 U/L (14-36) 01/29/24 05:37
ALT 31 U/L (0-35) 01/29/24 05:37
Alkaline Phosphatase 62 U/L (38-126) 01/29/24 05:37
Total Protein 5.6 g/dl (6.3-8.2) L 01/29/24 05:37
Albumin 3.0 g/dl (3.5-5.0) L 01/29/24 05:37
Physical Exam
-
Gen: NAD
HEENT: light bilious output
Abd: soft, minimal tenderness, mild distension, non-peritoneal, midline dressing c/d/i - no erythema, ecchymosis or drainage, LAYLA serosang
[2024-01-29] MEDS: ROBITUSSIN 200 MG TUBE ×4 (08:28→21:07)
[2024-01-29] MEDS: LAMICTAL 25 MG TUBE (08:28)
[2024-01-29] MEDS: LOVENOX 90 MG SC ×2 (08:28→20:30)
[2024-01-29] MEDS: WELLBUTRIN REGULAR RELEASE 100 MG TUBE (08:28)
[2024-01-29] MEDS: NSS (PRESERVATIVE FREE) 10 ML IV (08:29)
[2024-01-29] MEDS: PROTONIX IV 40 MG IV (08:29)
[2024-01-29] MEDS: HIPREX 1 GRAM TUBE (08:29)
[2024-01-29] MEDS: VITAMIN D3 (cholecalciferol) 25 MCG TUBE (08:30)
[2024-01-29] MEDS: LASIX 40 MG TUBE ×2 (08:30→16:12)
[2024-01-29] MEDS: COREG 6.25 MG TUBE ×2 (08:30→20:30)
[2024-01-29] MEDS: SOLU-MEDROL PF 20 MG IV (08:31)
[2024-01-29] MEDS: CHLORASEPTIC/SORE THROAT SPRAY 1 SPRAY PO (08:32)
[2024-01-29] MEDS: NEURONTIN 100 MG TUBE ×3 (08:32→21:07)
[2024-01-29] MEDS: POTASSIUM PHOSPHATE 259.0909 MEQ IV (09:05)
--- NOTE | 2024-01-29 09:52 | W.PN.PUL.V3 ---
Today's Communication / Plan
-
Wean oxygen
No change in nebulizers
Mucus clearing devices
Nasogastric tube per surgery
Stable respiratory-pulmonary will sign off-outpatient follow-up recommended
Assessment
-
73-year-old female with a history of COPD, bronchiectasis, CAD, CHF, DVT and pulmonary embolism on Xarelto who presented with small bowel obstruction likely requiring surgery-pulmonary consulted for preoperative clearance and pulmonary management in
the perioperative period-01/25/2024.
Small bowel obstruction
Status post exploratory laparotomy and extensive lysis of uxgjpjicc-4-1/2 hours-Dr. Alaniz 01/28/2024
COPD without acute exacerbation
Chronic heart failure preserved EF
Conditions present prior to admission:
COPD-followed by Dr. Boyd-maintained on Trelegy, 3% sodium chloride nebulizer twice daily, prednisone 10 mg Vjxnaj-Rnjcmlrvw-Prrppp
Bronchiectasis.
Previous sputum cultures-Serratia 09/22/2023, Pseudomonas multiphilia 07/15/2023 sensitive to Bactrim and levofloxacin
Former [id number]-[id number]-year quit 1998
Cough variant asthma
Chronic cough
Restrictive lung disease
Vocal cord paralysis
DVT/PE-saddle
IVC filter
02/11 sputum culture positive AFB May 2023-does not meet criteria for OLIVIA-Mycobacterium fortuitum culture 10/09/2021
History of [id number] cytology negative
Chronic lower extremity lymphedema.
Bipolar.
Hypothyroid.
Breast cancer.
Heart failure preserved EF.
CAD.
Previous obstructive sleep apnea
Obesity
Left mastectomy. Cholecystectomy. Left shoulder surgery. Bilateral total knee.
Plan
Respiratory status is stable postoperatively-extubated without difficulties
Supplemental oxygen as needed-currently on room air
DuoNebs and Pulmicort nebulizers continue
Incentive spirometry-encouraged
Mucus clearing devices.
Encouraged mucus clearance.
Chronically on Prednisone 10 mg Cnskzm-Tvwavjoud-Fbpsvr-changed to Solu-Medrol 20 mg daily-eventually convert back to oral
Symbicort and Spiriva continues-as an outpatient she is on Trelogy
Mucolytic's continued.
Outpatient pulmonary diagnostics are summarized below, including PFTs and sleep studies as well as radiographs
Cleared for proposed surgical intervention with moderate risk for perioperative pulmonary complications including prolonged mechanical ventilation-reviewed with patient.
Importance of mucus clearance postoperatively, avoidance of plugs/atelectasis/development of pneumonia was reviewed with patient..
Surgery following-correspondence reviewed.
OR 01/27/2024-extensive lysis of adhesions
Nasogastric tube clamped today-ice chips
Previous operative records from [facility] have been requested.
Xarelto on hold-okay for heparin if deemed necessary.
DVT prophylaxis-on anticoagulation.
GI prophylaxis-on pantoprazole
Eventual nutrition per surgery.
Bedside range of motion/early mobilization
Stable from a pulmonary perspective-no new recommendations-pulmonary will sign off
Last seen by 01/13/2411-jnflhz-mg as an outpatient
Diagnostic data:
Chest x-ray 04/14/2023-stable pleural-parenchymal scarring, no other abnormalities
Chest x-ray 09/01/2023-NAD, stable pleural-parenchymal scarring lower portions of both lungs
Obstruction series 01/25/2024-no evidence for free intraperitoneal air, highly suggestive of small bowel obstruction
CT chest-bilateral lower lobe parenchymal opacifications and bronchiectasis
CT abdomen and pelvis 01/22/2024-left breast implant, small collapsed right breast implant, soft tissue density likely mucous plugging right lower lobe with some atelectasis, small bowel obstruction
Echocardiogram 06/29/2023-EF 50%, no valvular disease
Pulmonary function studies-10/14/23: Spirometry demonstrated moderate restrictive lung disease.The forced vital capacity was 1.39 L or 49% of predicted.� The FEV1 was 1.11 L or 52% of predicted.� The FEV1/FVC ratio was 80%.
She cough throughout the study and was unable to exhale for 6 seconds.� Saturation dropped to 86% on room air and no further testing was done. Saturation returned to 93% on 3 L.
Compared to 12/2022, the forced vital capacity has declined from 1.47 L to 1.39 L.� The FEV1 was unchanged.
Sleep fsxdx-8-50-12: AHI of 10.9 with oxyhemoglobin desaturation betsy of 85%. With 4 cm CPAP H2O
pressure the AHI was reduced to one event per hour and he oxyhemoglobin desaturation betsy improved to 92%.
Sleep study-08/13/14: AHI was 23.4 with oxyhemoglobin desaturation betsy of 64%.
At home sleep study-01/09/18: Respiratory event index 0.2 events per hour. Lowest saturation 89%. Percentage of the study time spent with a saturation below 90% was 0.1%.
Home sleep study-09/10/23: AHI 0.4 events per hour.� Saturation betsy 90%.
Subjective Data
-
Date of Service:
Date of Service: January 29, 2024
Chief Complaint: Pulmonary Follow Up and Dyspnea Follow Up
Subjective:
Doing well, no complaints of shortness of breath, has some abdominal pain and mild nausea
Review of Systems
General: Other (Per HPI)
Objective Data
Data Reviewed
Vital Signs / I&O:
Vital Signs
Temp Pulse Resp BP Pulse Ox
98 F 86 18 145/78 97
01/29/24 07:10 01/29/24 08:30 01/29/24 07:26 01/29/24 08:30 01/29/24 07:26
Intake and Output
01/28/24 01/29/24 01/30/24
06:59 06:59 06:59
Intake Total 1218.5 / 1334.8 2836.3 / 2836.3
Output Total 1660 / 1660 2315 / 2315
Balance -441.5 / -325.2 521.3 / 521.3
SaO2: 97
Nasal Cannula flow liters per minute: 3
Physical Exam
General: Respiratory Distress (n) and Comfortable
HEENT: Normocephalic, Anicteric and Moist Mucous Membranes
Cardiovascular: Regular Rhythm
Respiratory: Wheeze (n), Crackles (Rare basilar), Rhonchi (Few expiratory), Non-Labored Respirations, Accessory Resp Muscle Use (n) and Stridor (n)
GI: Soft, Distended and Tender
Neurology: Awake, Alert and No Motor Deficits
Skin: Warm, Good Color, Cyanosis (n), Jaundice (n) and Rash (n)
Labs/Micro/Reports
Lab Data
01/29/24 05:37
01/29/24 05:37
--- NOTE | 2024-01-29 11:27 | PN.CDI ---
CDI
- -
CDI:
Physician Documentation Request
Admit Date: 01/22/24 19:19
Dear Doctor Jimi,
H&P contains a diagnosis of 'chronic hypoxic respiratory failure'
ED record states 'on home O2 3-5L'
Documented vital signs show patient on 6 L on 01/22
Please clarify which of the following accurately represents the acuity of the Chronic Hypoxia Respiratory Failure
Acute on Chronic
Chronic
____ Other
Use of terms such as suspected, likely, concern for, or probable (associated with a specific diagnosis that is being evaluated, monitored, or treated as if it exists) are acceptable and can be coded in the inpatient setting, when documented at the
time of discharge.
Thank you,
Kelly Davis RN, BSN
CDI Specialist
tiger text
Please use your independent medical judgment in providing your response.
--- NOTE | 2024-01-29 11:30 | PN.CDI ---
CDI
- -
CDI:
Physician Documentation Request
Admit Date: 01/22/24 19:19
Dear Doctor Katty,
Patient underwent exploratory laparotomy with extensive lysis of adhesions for a small bowel obstruction
Please further specify the bowel obstruction:
Partial
Complete
Other
Use of terms such as suspected, likely, concern for, or probable (associated with a specific diagnosis that is being evaluated, monitored, or treated as if it exists) are acceptable and can be coded in the inpatient setting, when documented at the
time of discharge.
Thank you,
Kelly Davis RN, BSN
CDI Specialist
tiger text
Please use your independent medical judgment in providing your response.
--- NOTE | 2024-01-29 11:44 | PN.CDI ---
CDI
- -
CDI:
Physician Documentation Request
Admit Date: 01/22/24 19:19
Dear Doctor Jimi,
Urine culture positive for Enterococcus faecium
UA results:
Laboratory Tests
01/22/24
16:44
Urine Color Yellow
Urine Clarity Clear
Ur Occult Blood Reflex 1+ A
Urine Nitrite (Reflex) Negative
Leukocyte Esterase Rfl 1+ A
Urine RBC 11-15 A
Urine WBC (Reflex) 0-2
Could you please provide a diagnosis that supports the above lab abnormalities and additional evaluation/ monitoring and/or treatment rendered:
UTI
Asymptomatic bacteruria
Other
Use of terms such as suspected, likely, concern for, or probable (associated with a specific diagnosis that is being evaluated, monitored, or treated as if it exists) are acceptable and can be coded in the inpatient setting, when documented at the
time of discharge.
Thank you,
Kelly Davis RN, BSN
CDI Specialist
tiger text
Please use your independent medical judgment in providing your response.
--- NOTE | 2024-01-29 13:00 | W.PN.HOSP.TC ---
Today's Communication/Plan
-
Assessment / Plan
Assessment / Plan
Sbo with transition point
-S/p ex lap with extensive lysis of adhesions on 01/27/2024
-NPO, p.o. meds via NGT
-IVF
-NGT clamp
-Surgery following
-Rectal tube with output
Chronic HFpEF
-Hold lasix
-Euvolemic
Chronic respiratory failure
-maintain spo2 of between 88-92%
-continue mdi's
-prednisone 10mg MWF, as NPO with NGT, started on steroids 20mg solumed daily
Bipolar Disorder
-Resume Abilify, Lamictal and Wellbutrin
-Resume Klonopin prn as prior to admission
--Refusing ativan at this time
--Psych consult as these psych meds do not have IV/IM conversions
Hypothyroidism
-Resume levothyroxine via tube
Hx DVT/PE
-Hold Xarelto should patient require intervention for bowel obstruction for at least 48 to 72 hours postoperatively
Anticipated Discharge: > 48 hours
Subjective/Interval History
-
Date of Service: January 29, 2024
Seen and examined. No new complaints. No acute overnight events.
Objective Data
-
Labs:
Laboratory Results
01/29/24
05:37
WBC 12.0 H
Hgb 11.3 L
Hct 37.3
Plt Count 268
Sodium 140
Potassium 3.4 L
Chloride 93 L
Carbon Dioxide 38 H
BUN 48 H
Creatinine 0.7
Glucose 81
Calcium 8.7
Total Bilirubin 1.0
AST 25
ALT 31
Alkaline Phosphatase 62
Vital Signs:
Vital Signs
Temp Pulse Resp BP Pulse Ox
97.8 F 89 17 139/81 98
01/29/24 11:44 01/29/24 11:44 01/29/24 11:44 01/29/24 11:44 01/29/24 11:44
I&O
01/28/24 01/29/24 01/30/24
06:59 06:59 06:59
Intake Total 1218.5 / 1334.8 2836.3 / 2836.3
Output Total 1660 / 1660 2315 / 2315
Balance -441.5 / -325.2 521.3 / 521.3
Physical Exam
-
General: No Apparent Distress and Other (NGT clamped)
HEENT: Normocephalic and Atraumatic
Respiratory: Clear to Auscultation
Cardiac: Regular Rhythm and S1/S2
GI: Soft, Nondistended, Normal Bowel Sounds and Tender (Mild tenderness, midline dressing CDI, LAYLA drain serosanguineous)
Musculoskeletal: No Clubbing, No Cyanosis and No Edema
Skin: Warm
Neuro: Awake, Alert, Oriented and AO x 3
Psych: Calm
--- NOTE | 2024-01-29 14:22 | W.PN.UPDATE ---
Update Note
Progress Note Update
Pt seen at bedside, chart reviewed. Has resumed wellbutrin 100mg & lamictal 25mg daily - pharmacy was not ok with resuming at higher dose after this length of time. Pt reports that mood is good and stable, has not noticed any changes in mood thus
far and she is ok with remaining at current titration schedule for the time being. Smiling spontaneously today, had visitor and observed to be interactign appropriately.
Continue current psychotropics, no indication for changes at this time - would defer increasing wellbutrin for the time being as may not necessarily need the increase, continue to monitor qtc for the time being
--- NOTE | 2024-01-29 14:49 | CM ---
Chart reviewed. Met with pt
NPO. NGT, IVF's
Pain management
Updates sent in [facility] to [facility]
Plan - TBD based on pt needs. CM will follow
[2024-01-29] MEDS: ANESTHETIC LOZENGE 1 LOZENGE PO (16:23)
[2024-01-29] MEDS: OFIRMEV 100 IV ×2 (17:21→23:02)
--- NOTE | 2024-01-29 17:48 | PTCARENOTE ---
Pt rectal trumpet came out while on the commode. Pt refusing new rectal trumpet. Dr. Krause notified.
[2024-01-29] MEDS: DESENEX/MITRAZOL/ZEASORB 1 APPLIC TOPICAL (20:30)
[2024-01-29] MEDS: DUONEB INH (20:33)
[2024-01-29] MEDS: SODIUM CHLORIDE 3% FOR INHALATION INH (20:33)
[2024-01-29] MEDS: PULMICORT INH (20:33)
[2024-01-29] MEDS: DILAUDID 1 MG IV (21:05)
[2024-01-29] MEDS: COZAAR 25 MG TUBE (21:30)
[2024-01-30] MEDS: LR 1000 IV ×3 (02:23→22:01)
[2024-01-30] MEDS: DILAUDID 0.5 MG IV ×2 (02:26→17:40)
[2024-01-30 03:26] VITALS: BP 139/75
[2024-01-30 05:36] LABS: % Basophils 0.1 % (0-2); % Eosinophils 0.5 % (0-6); % Lymphocytes 8.9 % (20.5-51.1); % Monocytes 7.2 % (1.7-9.3); % Neutrophils 82.3 % (42.2-75.2); Absolute Eosinophils 0.1 10^3/uL (0-0.7); Absolute Immature Granulocytes 0.1 10^3/uL (0-0.05); Absolute Lymphocytes 1.2 10^3/uL (1.2-3.4); Absolute Monocytes 0.9 10^3/uL (0.1-0.6); Absolute Neutrophils 10.6 10^3/uL (1.4-6.5); Hematocrit 34.8 % (37.0-47.0); Hemoglobin 10.2 g/dL (12.0-16.0); Mean Corp Hgb Conc. 29.3 g/dL (33.0-37.0); Mean Corpuscular Hgb 27.9 pg (27.0-31.0); Mean Corpuscular Volume 95.3 fL (81.0-99.0); Mean Platelet Volume 9.5 fL (7.4-10.4); Nucleated Red Blood Cells % 0 %; Platelet Count 247 10^3/uL (130-400); Red Blood Cell Count 3.65 10^6/uL (4.20-5.40); Red Cell Dist. Width 14.8 % (11.5-14.5); White Blood Cell Count 12.9 10^3/uL (4.8-10.8)
[2024-01-30 06:00] VITALS: BMI 36.2
[2024-01-30 06:01] LABS: Blood Urea Nitrogen 42 mg/dl (7-17); Calcium 8.5 mg/dl (8.4-10.2); Chloride 94 mmol/L (98-107); Estimated Creatinine Clearance 79 ml/min; Glucose 74 mg/dl (70-99); Magnesium 2.2 mg/dl (1.6-2.3); Potassium 3.6 mmol/L (3.5-5.1); Sodium 141 mmol/L (135-145); Triglycerides 163 mg/dl (10-149); eGFR > 60.00
[2024-01-30 06:12] LABS: Carbon Dioxide 39 mmol/L (22-30)
[2024-01-30] MEDS: SYNTHROID 175 MCG TUBE (06:16)
[2024-01-30] MEDS: OFIRMEV 100 IV (06:18)
[2024-01-30] MEDS: DILAUDID 1 MG IV ×4 (06:30→20:05)
[2024-01-30 07:15] VITALS: BP 140/69
[2024-01-30] MEDS: DUONEB INH ×3 (07:36→18:04)
[2024-01-30] MEDS: PULMICORT INH (07:37)
[2024-01-30] MEDS: SODIUM CHLORIDE 3% FOR INHALATION INH ×2 (07:37→18:04)
[2024-01-30] MEDS: COREG 6.25 MG TUBE (08:07)
[2024-01-30] MEDS: WELLBUTRIN REGULAR RELEASE 100 MG TUBE (08:07)
[2024-01-30] MEDS: LAMICTAL 25 MG TUBE (08:07)
[2024-01-30] MEDS: HIPREX 1 GRAM TUBE (08:07)
[2024-01-30] MEDS: LASIX 40 MG TUBE (08:07)
[2024-01-30] MEDS: VITAMIN D3 (cholecalciferol) 25 MCG TUBE (08:08)
[2024-01-30] MEDS: PROTONIX IV 40 MG IV (08:08)
[2024-01-30] MEDS: ROBITUSSIN 200 MG TUBE (08:08)
[2024-01-30] MEDS: NSS (PRESERVATIVE FREE) 10 ML IV (08:08)
[2024-01-30] MEDS: NEURONTIN 100 MG TUBE (08:09)
[2024-01-30] MEDS: SOLU-MEDROL PF 20 MG IV (08:11)
[2024-01-30] MEDS: LOVENOX 90 MG SC ×2 (08:13→20:03)
[2024-01-30] MEDS: DESENEX/MITRAZOL/ZEASORB 1 APPLIC TOPICAL ×2 (08:17→20:03)
--- NOTE | 2024-01-30 09:30 | W.PN.GS2 ---
Addendum entered and electronically signed by Baltazar Alaniz MD 01/30/24 09:49:
Patient seen and examined. Agree with assessment plan as documented below.
No worsening abdominal pain. No nausea or vomiting. Continues to pass flatus and loose stools. Throat irritation. Afebrile. Minimal ambulation.
Gen: NAD
HEENT: NGT clamp
Abd: soft, mild tenderness, ND, non-peritoneal, incision c/d/i - no erythema, or drainage, mild ecchymosis, LAYLA serosang, binder replaced
Patient is a 73 yo F with a history of DVT/PE on Xarelto with LD on 01/19, HF, bronchiectasis on chronic O2, diverticulitis with perforation of bowel and emergent total colectomy and ileostomy creation in 2008 with subsequent reversal at [facility] in
2012 (?VHR repair with mesh at the time), chronic diarrhea and a prior SBO in July of this year which resolved without surgical intervention who presents with symptoms of nausea, vomiting and abdominal pain since 01/19.
CT imaging consistent with small bowel obstruction with transition point in RIGHT mid-abdomen likely secondary to adhesions from prior surgeries.
Follow up abd X-ray on 01/22 and 01/23 with persistent obstruction.
NGT placed on 01/22 with some improvement in symptoms, bilious outputs present
X-ray from 01/25/2024 demonstrates persistent small bowel obstruction
POD#3 s/p exploratory laparotomy, extensive ALESSANDRA
AVSS
Reactive leukocytosis stable, acute postoperative anemia likely secondary to blood loss during surgery and hemodilution
Tolerated clamp trial with +flatus/bm's
Plan:
-- D/C NGT
-- Clear liquid diet as tolerated
-- ABD binder at all times
-- IVF per Hospitalist, would HLIV
-- Pain control: Tylenol and Dilaudid
-- VTE ppx with Lovenox and SCD's, continue to hold PO therapeutic anticoagulation, OK for Heparin drip if needed without bolus dosing
-- OOB/ambulate as able
Original Note:
Today's Communication / Plan
-
D/C NGT
Clears as tolerated
Assessment / Plan
-
Patient is a 73 yo F with a history of DVT/PE on Xarelto with LD on 01/19, HF, bronchiectasis on chronic O2, diverticulitis with perforation of bowel and emergent total colectomy and ileostomy creation in 2008 with subsequent reversal at [facility] in
2012 (?VHR repair with mesh at the time), chronic diarrhea and a prior SBO in July of this year which resolved without surgical intervention who presents with symptoms of nausea, vomiting and abdominal pain since 01/19.
CT imaging consistent with small bowel obstruction with transition point in RIGHT mid-abdomen likely secondary to adhesions from prior surgeries.
Follow up abd X-ray on 01/22 and 01/23 with persistent obstruction.
NGT placed on 01/22 with some improvement in symptoms, bilious outputs present
X-ray from 01/25/2024 demonstrates persistent small bowel obstruction
POD#3 s/p exploratory laparotomy, extensive ALESSANDRA
AVSS
Reactive leukocytosis stable, acute postoperative anemia likely secondary to blood loss during surgery and hemodilution
Tolerated clamp trial with +flatus/bm's
Plan:
-- D/C NGT
-- Clear liquid diet as tolerated
-- ABD binder with activity
-- IVF per ICU and pulmonary, balance btw and resuscitation and minimizing pulm edema, may need TPN postoperatively though holding for now as she will be starting clears
-- Pain control: Tylenol and Dilaudid
-- VTE ppx with Lovenox and SCD's, continue to hold PO therapeutic anticoagulation, OK for Heparin drip if needed without bolus dosing
-- OOB/ambulate as able
Subjective Data
-
Date of Service: January 30, 2024
Patient seen and examined at bedside with Dr. Alaniz. Denies N/V with clamp trial. No worsening pain. Passing stools/flatus.
Objective Data
-
Intake and Output
01/29/24 01/30/24 01/31/24
06:59 06:59 06:59
Intake Total 2836.3 / 2836.3 1760 / 1760
Output Total 2315 / 2315 595 / 595
Balance 521.3 / 521.3 1165 / 1165
Intake:
Oral fluids 560 / 560
IV fluids (Total) 2416.3 / 2416.3 1200 / 1200
Fent 5 / 5
Lr 1,000 ml @ 100 mls/hr IV . 1600 / 1600
Q10H CARLINE Rx#:[id number]
Prop 11.3 / 11.3
IV piggybacks 100 / 100
Amount instilled into GI Tube ( 320 / 320 0 / 0
Total)
[place] Sump 320 / 320 0 / 0
Output:
Liquid stool amount 500 / 500
Rectum 500 / 500
Drain Output (Total) 75 / 75 95 / 95
Right Lower Abdomen Luiz- 75 / 75 95 / 95
[place]
Gastrointestinal tube output ( 210 / 210
Total)
[place] Sump 210 / 210
Urine, Harris 2029 / 2029
Other:
Number of approximated SMALL 1
amounts of urine
Number of approximated MODERATE 2
amounts of urine
Number of approximated LARGE 4
amounts of urine
Vital Signs
Temp Pulse Resp BP Pulse Ox
98.1 F 69 16 140/69 98
01/30/24 07:15 01/30/24 08:07 01/30/24 07:15 01/30/24 08:07 01/30/24 07:15
Lab Results
01/30/24 04:49
01/30/24 04:49
Calcium 8.5 mg/dl (8.4-10.2) 01/30/24 04:49
Phosphorus 3.0 mg/dl (2.5-4.5) 01/30/24 04:49
Magnesium 2.2 mg/dl (1.6-2.3) 01/30/24 04:49
Total Bilirubin 1.0 mg/dl (0.2-1.3) 01/29/24 05:37
Direct Bilirubin 0.3 mg/dl (0.0-0.4) 01/29/24 05:37
AST 25 U/L (14-36) 01/29/24 05:37
ALT 31 U/L (0-35) 01/29/24 05:37
Alkaline Phosphatase 62 U/L (38-126) 01/29/24 05:37
Total Protein 5.6 g/dl (6.3-8.2) L 01/29/24 05:37
Albumin 3.0 g/dl (3.5-5.0) L 01/29/24 05:37
Physical Exam
-
Gen: NAD
HEENT:NGT clamped
Abd: soft, minimal tenderness, no distention, non-peritoneal, midline incision with intact massimo - no erythema, ecchymosis or drainage, LAYLA serosang
[2024-01-30 11:14] VITALS: BP 138/72
--- NOTE | 2024-01-30 12:43 | W.PN.HOSP.TC ---
Addendum entered and electronically signed by Arnold Krause MD 01/30/24 17:29:
Asymptomatic bacteruria
Acute on Chronic Hypoxia Respiratory Failure
Original Note:
Today's Communication/Plan
-
Assessment / Plan
Assessment / Plan
Sbo with transition point
-S/p ex lap with extensive lysis of adhesions on 01/27/2024
-NPO
-NGT removed
-Speech eval
-IVF
-Surgery following
Chronic HFpEF
-Hold lasix
-Euvolemic
Chronic respiratory failure
-maintain spo2 of between 88-92%
-continue mdi's
-prednisone 10mg MWF, as NPO with NGT, started on steroids 20mg solumed daily
Bipolar Disorder
-Hold Abilify, Lamictal and Wellbutrin
-Hold Klonopin prn as prior to admission
--Refusing ativan at this time
--Psych consult as these psych meds do not have IV/IM conversions
Hypothyroidism
-Hold levothyroxine via tube
Hx DVT/PE
-Hold Xarelto should patient require intervention for bowel obstruction for at least 48 to 72 hours postoperatively
Anticipated Discharge: > 48 hours
Subjective/Interval History
-
Date of Service: January 30, 2024
Seen and examined. No new complaints. No acute overnight events
ngt removed
Objective Data
-
Labs:
Laboratory Results
01/30/24
04:49
WBC 12.9 H
Hgb 10.2 L
Hct 34.8 L
Plt Count 247
Sodium 141
Potassium 3.6
Chloride 94 L
Carbon Dioxide 39 H
BUN 42 H
Creatinine 0.7
Glucose 74
Calcium 8.5
Vital Signs:
Vital Signs
Temp Pulse Resp BP Pulse Ox
97.7 F 77 16 138/72 96
01/30/24 11:14 01/30/24 11:14 01/30/24 11:14 01/30/24 11:14 01/30/24 11:14
I&O
01/29/24 01/30/24 01/31/24
06:59 06:59 06:59
Intake Total 2836.3 / 2836.3 1760 / 1760
Output Total 2315 / 2315 595 / 595
Balance 521.3 / 521.3 1165 / 1165
Physical Exam
-
General: Well Developed and Well Nourished
HEENT: Normocephalic and Atraumatic
Respiratory: Clear to Auscultation
Cardiac: Regular Rhythm and S1/S2
GI: Soft, Nontender, Tender (mild) and Other (rob drain serosangg)
Skin: Warm
Neuro: Awake, Alert and Oriented
Psych: Calm
[2024-01-30] MEDS: ROBITUSSIN 200 MG PO ×2 (13:41→21:52)
[2024-01-30] MEDS: ROBITUSSIN TUBE (13:41)
--- NOTE | 2024-01-30 14:42 | PTOTSP ---
Speech Therapy
Presentation: Patient's speech and language is WNL during conversation.
Swallowing Function: Patient was observed with several cup sips (small, single) of thin liquids and bites of Jell-O in which patient appeared to tolerate as he did not exhibit any overt clinical s/sx of aspiration or difficulty with mastication. Of
note, patient utilized (independently) compensatory strategies (chin tuck, small, single bites and sips, cough and re-swallow).
Recommendations:
1) Clear liquids (per MD)
2) Aspiration precautions
3) Medications as tolerated
4) Compensatory strategies with PO
Plan: SULPHATE TESTER will continue to follow; pending hospitalization.
[2024-01-30 15:05] VITALS: BP 152/75
[2024-01-30] MEDS: NEURONTIN 100 MG PO ×2 (15:36→21:53)
[2024-01-30] MEDS: LASIX 40 MG PO (15:53)
[2024-01-30] MEDS: TYLENOL 650 MG PO (15:57)
[2024-01-30] MEDS: ROBITUSSIN PO (17:43)
[2024-01-30] MEDS: PULMICORT 0.5 MG INH (18:00)
[2024-01-30 19:33] VITALS: BP 140/73
[2024-01-30] MEDS: COREG 6.25 MG PO (20:02)
[2024-01-30] MEDS: COZAAR 25 MG PO (21:53)
[2024-01-30 23:06] VITALS: BP 149/62
[2024-01-31] MEDS: DILAUDID 0.5 MG IV ×2 (01:22→06:04)
[2024-01-31 03:21] VITALS: BP 148/63
[2024-01-31 06:00] VITALS: BMI 37.3
[2024-01-31] MEDS: SYNTHROID 175 MCG PO (06:04)
[2024-01-31 06:35] LABS: Hemoglobin 9.8 g/dL (12.0-16.0); Mean Corp Hgb Conc. 30.6 g/dL (33.0-37.0); Mean Corpuscular Hgb 28.2 pg (27.0-31.0); Mean Corpuscular Volume 92.2 fL (81.0-99.0); Mean Platelet Volume 9.6 fL (7.4-10.4); Platelet Count 246 10^3/uL (130-400); Red Blood Cell Count 3.47 10^6/uL (4.20-5.40); Red Cell Dist. Width 14.9 % (11.5-14.5); White Blood Cell Count 13.1 10^3/uL (4.8-10.8)
[2024-01-31 06:59] LABS: Blood Urea Nitrogen 30 mg/dl (7-17); Calcium 8.5 mg/dl (8.4-10.2); Carbon Dioxide 40 mmol/L (22-30); Chloride 92 mmol/L (98-107); Estimated Creatinine Clearance 94 ml/min; Glucose 82 mg/dl (70-99); Potassium 3.8 mmol/L (3.5-5.1); Sodium 136 mmol/L (135-145); eGFR > 60.00
[2024-01-31 07:05] VITALS: BP 143/57
[2024-01-31] MEDS: DUONEB INH ×2 (07:32→19:28)
[2024-01-31] MEDS: SODIUM CHLORIDE 3% FOR INHALATION INH ×2 (07:32→19:28)
[2024-01-31] MEDS: PULMICORT INH ×2 (07:32→19:28)
[2024-01-31] MEDS: TYLENOL 650 MG PO ×4 (07:41→21:40)
[2024-01-31] MEDS: WELLBUTRIN REGULAR RELEASE 100 MG PO (07:42)
[2024-01-31] MEDS: HIPREX 1 GRAM PO (07:42)
[2024-01-31] MEDS: ROBITUSSIN 200 MG PO ×4 (07:42→21:47)
[2024-01-31] MEDS: LAMICTAL 25 MG PO (07:43)
[2024-01-31] MEDS: PROTONIX IV 40 MG IV (07:43)
[2024-01-31] MEDS: NSS (PRESERVATIVE FREE) 10 ML IV (07:43)
[2024-01-31] MEDS: NEURONTIN 100 MG PO ×3 (07:45→21:46)
[2024-01-31] MEDS: LASIX 40 MG PO ×2 (07:45→16:00)
[2024-01-31] MEDS: COREG 6.25 MG PO ×2 (07:45→21:40)
[2024-01-31] MEDS: VITAMIN D3 (cholecalciferol) 25 MCG PO (07:50)
[2024-01-31] MEDS: LOVENOX 90 MG SC (07:51)
[2024-01-31] MEDS: SOLU-MEDROL PF 20 MG IV (07:56)
[2024-01-31] MEDS: DESENEX/MITRAZOL/ZEASORB 1 APPLIC TOPICAL (08:00)
--- NOTE | 2024-01-31 08:38 | W.PN.GS2 ---
Today's Communication / Plan
-
-- Clears
-- Plan to start PICC/TPN
-- Pain control: Tylenol, Toradol, Tramadol, and Dilaudid
-- Check UA
Assessment / Plan
-
Patient is a 73 yo F with a history of DVT/PE on Xarelto with LD on 01/19, HF, bronchiectasis on chronic O2, diverticulitis with perforation of bowel and emergent total colectomy and ileostomy creation in 2008 with subsequent reversal at [facility] in
2012 (?VHR repair with mesh at the time), chronic diarrhea and a prior SBO in July of this year which resolved without surgical intervention who presents with symptoms of nausea, vomiting and abdominal pain since 01/19.
CT imaging consistent with small bowel obstruction with transition point in RIGHT mid-abdomen likely secondary to adhesions from prior surgeries.
Follow up abd X-ray on 01/22 and 01/23 with persistent obstruction.
NGT placed on 01/22 with some improvement in symptoms, bilious outputs present
X-ray from 01/25/2024 demonstrates persistent small bowel obstruction
POD#4 s/p exploratory laparotomy, extensive ALESSANDRA
AVSS
Reactive leukocytosis stable, possibly related to steroids, acute postoperative anemia likely secondary to blood loss during surgery and hemodilution, stable
Tolerated clamp trial with +flatus/bm's
High risk for ileus given degree of adhesions and chronic SBO, some signs. Plan to maintain on clears, will start TPN. Check UA given persistent WBC and prior stooling with Harris. Needs pulmonary work.
Plan:
-- Clears
-- ABD binder at all times
-- Plan to start PICC/TPN
-- Pain control: Tylenol, Toradol, Tramadol, and Dilaudid
-- Check UA
-- VTE ppx with Lovenox and SCD's, continue to hold PO therapeutic anticoagulation, OK for Heparin drip if needed without bolus dosing
-- OOB/ambulate as able
Subjective Data
-
Date of Service: January 31, 2024
Reports some upper abdominal discomfort. No nausea, but does report burping. Continues to pass flatus and loose stools. No fevers.
Objective Data
-
Intake and Output
01/30/24 01/31/24 02/01/24
06:59 06:59 06:59
Intake Total 1760 / 1760 960 / 960 1000 / 1000
Output Total 595 / 595 85 / 85 100 / 100
Balance 1165 / 1165 875 / 875 900 / 900
Intake:
Oral fluids 560 / 560 960 / 960
IV fluids (Total) 1200 / 1200 1000 / 1000
Amount instilled into GI Tube ( 0 / 0
Total)
[place] Sump 0 / 0
Output:
Liquid stool amount 500 / 500
Rectum 500 / 500
Drain Output (Total) 95 / 95 85 / 85 100 / 100
Right Lower Abdomen Luiz- 95 / 95 85 / 85 100 / 100
[place]
Other:
Number of approximated SMALL 1
amounts of urine
Number of approximated MODERATE 2 3
amounts of urine
Number of approximated LARGE 4
amounts of urine
Vital Signs
Temp Pulse Resp BP Pulse Ox
97.9 F 73 16 143/57 93
01/31/24 07:05 01/31/24 07:45 01/31/24 07:05 01/31/24 07:45 01/31/24 08:02
Lab Results
01/31/24 06:07
01/31/24 06:07
Calcium 8.5 mg/dl (8.4-10.2) 01/31/24 06:07
Phosphorus 3.0 mg/dl (2.5-4.5) 01/30/24 04:49
Magnesium 2.2 mg/dl (1.6-2.3) 01/30/24 04:49
Total Bilirubin 1.0 mg/dl (0.2-1.3) 01/29/24 05:37
Direct Bilirubin 0.3 mg/dl (0.0-0.4) 01/29/24 05:37
AST 25 U/L (14-36) 01/29/24 05:37
ALT 31 U/L (0-35) 01/29/24 05:37
Alkaline Phosphatase 62 U/L (38-126) 01/29/24 05:37
Total Protein 5.6 g/dl (6.3-8.2) L 01/29/24 05:37
Albumin 3.0 g/dl (3.5-5.0) L 01/29/24 05:37
Physical Exam
-
Gen: NAD
Abd: soft, mild tenderness in upper abdomen, mild distension, obese, non-peritoneal, binder in place, incision c/d/i - no erythema, ecchymosis or drainage, LAYLA serosang
[2024-01-31] MEDS: DILAUDID 1 MG IV ×3 (10:15→22:45)
--- NOTE | 2024-01-31 11:04 | CM ---
Patient seen at bedside, patient for possible PICC/TPN per chart review. Patient plan is for SNF, [facility] is plan, pending bed availability and will need auth. CM will continue to follow for discharge planning needs.
[2024-01-31 11:10] VITALS: BP 126/76
[2024-01-31] MEDS: LR 1000 IV (11:30)
--- NOTE | 2024-01-31 11:33 | W.PN.HOSP.TC ---
Today's Communication/Plan
-
Assessment / Plan
Assessment / Plan
Sbo with transition point
-S/p ex lap with extensive lysis of adhesions on 01/27/2024
-Started on CLD, follow surgery recs on advancing
-Concern for ilieus
--Surgery starting TPN
-IVF
-Surgery following
-Incentive shay
---Crackles and atelectasis on exam/cxr
Chronic HFpEF
-Hold lasix
-Euvolemic
Chronic respiratory failure
-maintain spo2 of between 88-92%
-continue mdi's
-prednisone 10mg MWF, as NPO with NGT, started on steroids 20mg solumed daily
Bipolar Disorder
-Resumed Abilify, Lamictal and Wellbutrin
-Resume Klonopin prn as prior to admission
--Refusing ativan at this time
--Psych consult as these psych meds do not have IV/IM conversions
Hypothyroidism
-Resume levothyroxine via tube
Hx DVT/PE
-Hold Xarelto should patient require intervention for bowel obstruction for at least 48 to 72 hours postoperatively
-Not sure how well she is absorbing, therefore, will start hep gtt, q6ptt, no bolus, follow hep protocol
Anticipated Discharge: > 48 hours
Subjective/Interval History
-
Date of Service: January 31, 2024
seen and examined
no new complaints
watery diarrhea
spoke with surgery
----concern for ileus, start tpn
Objective Data
-
Labs:
Laboratory Results
01/31/24
06:07
WBC 13.1 H
Hgb 9.8 L
Hct 32.0 L
Plt Count 246
Sodium 136
Potassium 3.8
Chloride 92 L
Carbon Dioxide 40 H
BUN 30 H
Creatinine 0.6
Glucose 82
Calcium 8.5
Vital Signs:
Vital Signs
Temp Pulse Resp BP Pulse Ox
97.9 F 73 16 143/57 93
01/31/24 07:05 01/31/24 07:45 01/31/24 07:05 01/31/24 07:45 01/31/24 08:02
I&O
01/30/24 01/31/24 02/01/24
06:59 06:59 06:59
Intake Total 1760 / 1760 960 / 960 1000 / 1000
Output Total 595 / 595 85 / 85 300 / 300
Balance 1165 / 1165 875 / 875 700 / 700
Physical Exam
-
General: No Apparent Distress
HEENT: Normocephalic and Atraumatic
Respiratory: Rhonchi
Cardiac: Regular Rhythm and S1/S2
GI: Soft, Normal Bowel Sounds, Tender, Distended and Other (LAYLA drain with serosang output)
Neuro: Awake, Alert, Oriented and AO x 3
Psych: Calm
[2024-01-31 12:34] LABS: Hematocrit 30.8 % (37.0-47.0); Hemoglobin 9.5 g/dL (12.0-16.0); Mean Corp Hgb Conc. 30.8 g/dL (33.0-37.0); Mean Corpuscular Hgb 27.9 pg (27.0-31.0); Mean Corpuscular Volume 90.6 fL (81.0-99.0); Mean Platelet Volume 9.2 fL (7.4-10.4); Platelet Count 257 10^3/uL (130-400); Red Cell Dist. Width 14.8 % (11.5-14.5); White Blood Cell Count 14.1 10^3/uL (4.8-10.8)
[2024-01-31] MEDS: THIAMINE INJECTION 100 MG IV (12:50)
[2024-01-31] MEDS: NOVOLOG FLEXPEN-LOW RESISTANCE SC ×2 (12:51→17:31)
[2024-01-31] MEDS: DUONEB 3 ML INH (13:13)
[2024-01-31 15:10] VITALS: BP 149/77
[2024-01-31] MEDS: ULTRAM 50 MG PO (15:59)
[2024-01-31 16:01] LABS: Urine Albumin Negative (Neg - Trace); Urine Bilirubin Negative (Negative); Urine Character Clear (Clear); Urine Color Yellow; Urine Glucose Negative (Negative); Urine Ketone Negative (Negative); Urine Leukocyte 1+ (Negative); Urine Nitrite Positive (Negative); Urine Occult Blood Trace (Negative); Urine Urobilinogen Negative (Neg - 1+)
--- NOTE | 2024-01-31 16:12 | W.PN.UPDATE ---
Update Note
Progress Note Update
Pt seen at bedside, chart reviewed. Pt reports that mood remains stable, has not been feeling labile or depressed, has not been feeling overly anxious or distressed. Says that main benefit from Abilify was that it helped to stop 'racing thoughts',
however has not noticed any of that returning thus far and is confident that if symptoms did start to surface she would be able to identify them early on so as to manage appropriately. Remains pleasant and smiling spontaneously. Fully oriented.
Continue current psychotropics, no indication for changes at this time - would defer increasing wellbutrin for the time being as may not necessarily need the increase, may need to recheck qtc if does resume abilify at some point
[2024-01-31 16:20] LABS: Urine Bacteria Few (Negative); Urine Red Blood Cell 0-2 /HPF (0-2); Urine Squamous Cell 0-2 /LPF (Few)
[2024-01-31] MEDS: HEPARIN 25000 UNITS/250 ML IV (17:14)
[2024-01-31 19:05] VITALS: BP 155/85
[2024-01-31] MEDS: Parenteral Nutrition, Central 890 IV (21:02)
[2024-01-31] MEDS: COZAAR 25 MG PO (21:47)
[2024-01-31 23:05] VITALS: BP 176/71
[2024-01-31 23:41] LABS: APTT 183.3 Sec (23.4-35.0)
[2024-02-01 00:23] LABS: Glucose - Point of Care 137 mg/dl (70-99)
[2024-02-01] MEDS: NOVOLOG FLEXPEN-LOW RESISTANCE SC ×2 (00:42→06:14)
[2024-02-01] MEDS: DESENEX/MITRAZOL/ZEASORB 1 APPLIC TOPICAL ×3 (00:42→19:59)
[2024-02-01] MEDS: KLONOPIN 0.5 MG PO (00:49)
[2024-02-01] MEDS: TYLENOL 650 MG PO ×6 (00:49→21:09)
[2024-02-01 03:05] VITALS: BP 116/75
[2024-02-01] MEDS: SYNTHROID 175 MCG PO (04:23)
[2024-02-01] MEDS: DILAUDID 1 MG IV ×4 (04:23→21:08)
[2024-02-01 06:00] VITALS: BMI 37.9
[2024-02-01 06:13] LABS: Glucose - Point of Care 139 mg/dl (70-99)
[2024-02-01 06:33] LABS: Hematocrit 26.4 % (37.0-47.0); Hemoglobin 8.1 g/dL (12.0-16.0); Mean Corp Hgb Conc. 30.7 g/dL (33.0-37.0); Mean Corpuscular Hgb 28.4 pg (27.0-31.0); Mean Corpuscular Volume 92.6 fL (81.0-99.0); Mean Platelet Volume 9.5 fL (7.4-10.4); Platelet Count 252 10^3/uL (130-400); Red Blood Cell Count 2.85 10^6/uL (4.20-5.40); Red Cell Dist. Width 14.6 % (11.5-14.5)
[2024-02-01 07:00] VITALS: BP 157/67
[2024-02-01 07:00] LABS: APTT > 200 Sec (23.4-35.0)
[2024-02-01 07:21] LABS: ALT (SGPT) 23 U/L (0-35); AST (SGOT) 21 U/L (14-36); Albumin 2.4 g/dl (3.5-5.0); Alkaline Phosphatase 38 U/L (38-126); Blood Urea Nitrogen 20 mg/dl (7-17); Calcium 8.4 mg/dl (8.4-10.2); Chloride 91 mmol/L (98-107); Estimated Creatinine Clearance 95 ml/min; Glucose 136 mg/dl (70-99); Magnesium 1.7 mg/dl (1.6-2.3); Phosphorus 2.4 mg/dl (2.5-4.5); Potassium 3.1 mmol/L (3.5-5.1); Sodium 134 mmol/L (135-145); Total Bilirubin 0.7 mg/dl (0.2-1.3); Total Protein 4.7 g/dl (6.3-8.2); Triglycerides 127 mg/dl (10-149); eGFR > 60.00
[2024-02-01] MEDS: SODIUM CHLORIDE 3% FOR INHALATION 1 VIAL INH (07:29)
[2024-02-01] MEDS: DUONEB 3 ML INH (07:29)
[2024-02-01] MEDS: PULMICORT 0.5 MG INH (07:29)
[2024-02-01 07:32] LABS: Carbon Dioxide 36 mmol/L (22-30)
--- NOTE | 2024-02-01 08:20 | W.PN.HOSP.TC ---
Today's Communication/Plan
-
.
Assessment / Plan
Assessment / Plan
Ms. Alexandrea Levin is a 73yo F pmh HFpEF, chronic respiratory failure, bipolar disorder, hypothyroidism admitted for SBO.
Sbo with transition point
-S/p ex lap with extensive lysis of adhesions on 01/27/2024
-Started on CLD, follow surgery recs on advancing
-Concern for ilieus
--Surgery started TPN
-IVF
-Surgery following
-Incentive shay
---Crackles and atelectasis on exam/cxr
Anemia
-repeat H&H at noon
-if Hb going down, consider holding heparin drip
Chronic HFpEF
-Hold lasix
-Euvolemic
Chronic respiratory failure
-maintain spo2 of between 88-92%
-continue mdi's
-prednisone 10mg MWF, as NPO with NGT, started on steroids 20mg solumed daily
Bipolar Disorder
-Resumed Abilify, Lamictal and Wellbutrin
-Resume Klonopin prn as prior to admission
- prn ativan as needed for agitation
--Psych consult as these psych meds do not have IV/IM conversions
Hypothyroidism
Obesity
-Resume levothyroxine
Hx DVT/PE
-Hold Xarelto should patient require intervention for bowel obstruction for at least 48 to 72 hours postoperatively
-Not sure how well she is absorbing, therefore, on heparin
Diet: Full liquids
DVT ppx: heparin
Code status: FULL CODE
Anticipated Discharge: 24 - 48 hours
Subjective/Interval History
-
Date of Service: February 01, 2024
Ms. Alexandrea Levin is a 73yo F pmh HFpEF, chronic respiratory failure, bipolar disorder, hypothyroidism admitted for SBO. She has had a normal bowel movement and flatus.
Objective Data
-
Labs:
Laboratory Results
01/31/24 02/01/24
23:03 06:14
WBC 15.0 H
Hgb 8.1 L
Hct 26.4 L
Plt Count 252
APTT 183.3 H* > 200 H*
Sodium 134 L
Potassium 3.1 L
Chloride 91 L
Carbon Dioxide 36 H
BUN 20 H
Creatinine 0.6
Glucose 136 H
Calcium 8.4
Total Bilirubin 0.7
AST 21
ALT 23
Alkaline Phosphatase 38
Vital Signs:
Vital Signs
Temp Pulse Resp BP Pulse Ox
97.8 F 76 18 116/75 96
02/01/24 03:05 02/01/24 07:33 02/01/24 07:33 02/01/24 03:05 02/01/24 07:33
I&O
01/31/24 02/01/24 02/02/24
06:59 06:59 06:59
Intake Total 960 / 960 3000 / 3000
Output Total 85 / 85 450 / 450
Balance 875 / 875 2550 / 2550
Review of Systems
-
History Source: Patient
Constitutional: Reports No Symptoms
EENT: Reports No Symptoms Reported
Respiratory: Reports No Symptoms
Cardiac: Reports No Symptoms
Abdomen/GI: Reports No Symptoms
Musculoskeletal: Reports No Symptoms
Physical Exam
-
General: Well Developed and Well Nourished
HEENT: Normocephalic, Atraumatic and Oxygen (12L O2 midflow)
Respiratory: Wheezes
Cardiac: Regular Rhythm and S1/S2; Negative Murmur, Rub or Gallop
GI: Soft, Nondistended, Normal Bowel Sounds and Tender
Musculoskeletal: No Clubbing, No Cyanosis and No Edema
Skin: Warm and Dry
Neuro: AO x 3
[2024-02-01] MEDS: POTASSIUM PHOSPHATE 259.0909 MEQ IV (08:25)
[2024-02-01] MEDS: HIPREX 1 GRAM PO (08:25)
[2024-02-01] MEDS: NEURONTIN 100 MG PO ×2 (08:26→15:43)
[2024-02-01] MEDS: LASIX 40 MG PO ×2 (08:26→15:42)
[2024-02-01] MEDS: ROBITUSSIN 200 MG PO ×2 (08:26→12:10)
[2024-02-01] MEDS: LAMICTAL 25 MG PO (08:27)
[2024-02-01] MEDS: SOLU-MEDROL PF 20 MG IV (08:28)
[2024-02-01] MEDS: THIAMINE INJECTION 100 MG IV (08:28)
[2024-02-01] MEDS: WELLBUTRIN REGULAR RELEASE 100 MG PO (08:31)
[2024-02-01] MEDS: PROTONIX IV 40 MG IV (08:32)
[2024-02-01] MEDS: VITAMIN D3 (cholecalciferol) 25 MCG PO (08:32)
[2024-02-01] MEDS: COREG 6.25 MG PO ×2 (08:32→19:59)
[2024-02-01] MEDS: NSS (PRESERVATIVE FREE) 10 ML IV (08:33)
[2024-02-01] MEDS: FLUSH (NSS) 2 FLUSH IV (08:33)
--- NOTE | 2024-02-01 08:51 | W.PN.GS2 ---
Addendum entered and electronically signed by Baltazar Alaniz MD 02/01/24 09:17:
Patient seen and examined. Agree with assessment plan as documented below.
Abdominal pain improved. Continues to pass flatus and loose stools. Notes some nausea with breathing treatments and taking Robitussin, but denies any nausea, increased volvulus, or abdominal pain with clear liquids. Afebrile. Denies any
worsening SOB. No dizziness.
Gen: NAD
Abd: soft, minimal tenderness, obese, mild distension, non-peritoneal, incision with ecchymosis at inferior LEFT, mild ooze, dressing and binder replaced
Patient is a 73 yo F with a history of DVT/PE on Xarelto with LD on 01/19, HF, bronchiectasis on chronic O2, diverticulitis with perforation of bowel and emergent total colectomy and ileostomy creation in 2008 with subsequent reversal at [facility] in
2012 (?VHR repair with mesh at the time), chronic diarrhea and a prior SBO in July of this year which resolved without surgical intervention who presents with symptoms of nausea, vomiting and abdominal pain since 01/19.
POD#5 s/p exploratory laparotomy, extensive ALESSANDRA
AVSS
Leukocytosis present, possibly related to steroids. Urine cx pending.
Acute postoperative anemia likely secondary to blood loss during surgery and hemodilution, drop today with supratherapeutic anticoagulation. Will monitor closely for bleeding.
Tolerating clears, +flatus/stools
High risk for ileus given degree of adhesions and chronic SBO, some signs.
Plan:
-- Fulls as tolerated
-- ABD binder at all times
-- Continue TPN, thiamine daily x5 days, replete k/phos
-- Pain control: Tylenol, Toradol, Tramadol, and Dilaudid
-- Trend labs, H/H with type and screen at noon
-- On therapeutic AC with supratherapeutic aPTT, may need to hold if h/h continues to drop
-- OOB/ambulate as able
Original Note:
Today's Communication / Plan
-
FLD, TPN
Assessment / Plan
-
Patient is a 73 yo F with a history of DVT/PE on Xarelto with LD on 01/19, HF, bronchiectasis on chronic O2, diverticulitis with perforation of bowel and emergent total colectomy and ileostomy creation in 2008 with subsequent reversal [facility] (?VHR repair with mesh at the time), chronic diarrhea and a prior SBO in July of this year which resolved without surgical intervention who presents with symptoms of nausea, vomiting and abdominal pain since 01/19.
POD#5 s/p exploratory laparotomy, extensive ALESSANDRA
AVSS
Leukocytosis present, possibly related to steroids. Urine cx pending.
Acute postoperative anemia likely secondary to blood loss during surgery and hemodilution, drop today with supratherapeutic anticoagulation. Will monitor closely for bleeding.
tolerating clears, +flatus/stools
High risk for ileus given degree of adhesions and chronic SBO, some signs.
Plan:
-- Fulls as tolerated
-- ABD binder at all times
-- Continue TPN, thiamine daily x5 days, replete k/phos
-- Pain control: Tylenol, Toradol, Tramadol, and Dilaudid
-- Trend labs, H/H with type and screen at noon
-- On therapeutic AC with supratherapeutic aPTT, may need to hold if h/h continues to drop
-- OOB/ambulate as able
Subjective Data
-
Date of Service: February 01, 2024
Patient seen and examined at bedside with Dr. Alaniz. Denies n/v. Not belching today. Denies pain. Passing flatus and some liquid BM's.
Objective Data
-
Intake and Output
01/31/24 02/01/24 02/02/24
06:59 06:59 06:59
Intake Total 960 / 960 3000 / 3000
Output Total 450 / 450
Balance 875 / 875 2550 / 2550
Intake:
Oral fluids 960 / 960 800 / 800
IV fluids (Total) 2200 / 2200
Output:
Liquid stool amount 200 / 200
Rectum 200 / 200
Drain Output (Total) 250 / 250
Right Lower Abdomen Luiz- 250 / 250
[place]
Other:
Number of approximated MODERATE 3 1
amounts of urine
Number of approximated LARGE 1
amounts of urine
How many times incontinent 1
MODERATE amount urine
Vital Signs
Temp Pulse Resp BP Pulse Ox
98.1 F 67 18 157/67 96
02/01/24 07:00 02/01/24 08:32 02/01/24 07:33 02/01/24 08:32 02/01/24 07:33
Lab Results
02/01/24 06:14
02/01/24 06:14
Calcium 8.4 mg/dl (8.4-10.2) 02/01/24 06:14
Phosphorus 2.4 mg/dl (2.5-4.5) L 02/01/24 06:14
Magnesium 1.7 mg/dl (1.6-2.3) 02/01/24 06:14
Total Bilirubin 0.7 mg/dl (0.2-1.3) 02/01/24 06:14
Direct Bilirubin 0.3 mg/dl (0.0-0.4) 01/29/24 05:37
AST 21 U/L (14-36) 02/01/24 06:14
ALT 23 U/L (0-35) 02/01/24 06:14
Alkaline Phosphatase 38 U/L (38-126) 02/01/24 06:14
Total Protein 4.7 g/dl (6.3-8.2) L 02/01/24 06:14
Albumin 2.4 g/dl (3.5-5.0) L 02/01/24 06:14
Physical Exam
-
Gen: NAD
Abd: soft, NT, mild distension, obese, non-peritoneal, binder in place, incision c/d/i - no erythema, ecchymosis or drainage, LAYLA serosang
Hematoma to lower pelvis at injection site
[2024-02-01 11:00] VITALS: BP 162/82
[2024-02-01 11:47] LABS: Glucose - Point of Care 189 mg/dl (70-99)
[2024-02-01] MEDS: NOVOLOG FLEXPEN-LOW RESISTANCE 1 UNITS SC ×2 (12:08→17:07)
--- NOTE | 2024-02-01 12:26 | CM ---
Chart reviewed
Advanced to full liquids
PT/OT - recs SNF - referral sent previously
Will need auth
Plan - SNF when medically stable
[2024-02-01 12:28] LABS: Hematocrit 29.7 % (37.0-47.0); Hemoglobin 8.7 g/dL (12.0-16.0)
[2024-02-01 12:42] LABS: APTT 40.1 Sec (23.4-35.0)
[2024-02-01] MEDS: KCL 270 MEQ IV (14:15)
[2024-02-01 15:00] VITALS: BP 153/72
[2024-02-01] MEDS: HEPARIN 25000 UNITS/250 ML IV (16:38)
[2024-02-01 16:57] LABS: Glucose - Point of Care 171 mg/dl (70-99)
[2024-02-01] MEDS: ROBITUSSIN PO ×2 (17:07→21:16)
[2024-02-01 19:40] VITALS: BP 153/98
[2024-02-01] MEDS: PULMICORT INH (19:49)
[2024-02-01] MEDS: Parenteral Nutrition, Central 900 IV (20:55)
[2024-02-01] MEDS: NEURONTIN PO (21:16)
[2024-02-01] MEDS: COZAAR 25 MG PO (21:19)
[2024-02-01] MEDS: ULTRAM 50 MG PO (23:22)
[2024-02-01 23:30] VITALS: BP 174/82
[2024-02-02] VITALS (23 sets, daily range): BP systolic 46–160; BP diastolic 32–83; BMI 39.2
[2024-02-02] MEDS: TYLENOL 650 MG PO ×2 (00:04→08:19)
[2024-02-02] MEDS: KLONOPIN 0.5 MG PO ×2 (00:04→09:45)
[2024-02-02 00:25] LABS: Glucose - Point of Care 131 mg/dl (70-99)
[2024-02-02] MEDS: NOVOLOG FLEXPEN-LOW RESISTANCE SC ×3 (00:50→18:18)
[2024-02-02] MEDS: DILAUDID 1 MG IV (02:04)
[2024-02-02] MEDS: COMPAZINE 5 MG IV ×2 (02:13→08:19)
[2024-02-02] MEDS: ROBITUSSIN 200 MG PO ×2 (03:09→08:18)
[2024-02-02] MEDS: TUMS CHEWABLE TABLET 200 MG PO (03:10)
[2024-02-02] MEDS: DUONEB 3 ML INH ×3 (04:31→11:42)
[2024-02-02] MEDS: LASIX 40 MG PO (04:50)
[2024-02-02] MEDS: TYLENOL PO ×5 (04:55→23:12)
[2024-02-02 05:04] LABS: Hematocrit 29.5 % (37.0-47.0); Hemoglobin 9.1 g/dL (12.0-16.0); Mean Corp Hgb Conc. 30.8 g/dL (33.0-37.0); Mean Corpuscular Hgb 28.6 pg (27.0-31.0); Mean Corpuscular Volume 92.8 fL (81.0-99.0); Mean Platelet Volume 9.5 fL (7.4-10.4); Platelet Count 333 10^3/uL (130-400); Red Blood Cell Count 3.18 10^6/uL (4.20-5.40); Red Cell Dist. Width 14.8 % (11.5-14.5); White Blood Cell Count 21.9 10^3/uL (4.8-10.8)
[2024-02-02 05:07] LABS: APTT 132.3 Sec (23.4-35.0)
[2024-02-02 05:14] LABS: Glucose - Point of Care 127 mg/dl (70-99)
[2024-02-02 05:40] LABS: B.E. 14.6 mmol/L; O2 Saturation % 87.1 % (94-98); PCO2 62 mmHg (32-35); pH 7.43 (7.35-7.45)
[2024-02-02 05:41] LABS: O2 Therapy 4L
[2024-02-02 05:42] LABS: HCO3 41.2 mmol/L (21-28); PO2 52 mmHg (83-108)
[2024-02-02] MEDS: SOLU-MEDROL PF 20 MG IV (05:42)
[2024-02-02] MEDS: NSS (PRESERVATIVE FREE) 10 ML IV (05:44)
[2024-02-02] MEDS: PROTONIX IV 40 MG IV (05:44)
[2024-02-02] MEDS: LASIX 20 MG IV (05:46)
[2024-02-02 05:48] LABS: Blood Urea Nitrogen 20 mg/dl (7-17); Calcium 8.8 mg/dl (8.4-10.2); Chloride 93 mmol/L (98-107); Estimated Creatinine Clearance 95 ml/min; Glucose 122 mg/dl (70-99); Phosphorus 3.3 mg/dl (2.5-4.5); Potassium 3.9 mmol/L (3.5-5.1); Sodium 138 mmol/L (135-145); eGFR > 60.00
[2024-02-02 05:54] LABS: Carbon Dioxide 36 mmol/L (22-30)
[2024-02-02 06:03] LABS: Lactic Acid 1.6 mmol/L (0.7-2.0)
[2024-02-02] MEDS: ZOFRAN 4 MG IV (06:04)
[2024-02-02 06:13] LABS: NT-proBNP 519 pg/ml
[2024-02-02 06:14] LABS: COVID-19 Antigen Negative (Negative)
[2024-02-02 06:15] LABS: Troponin I < 0.012 ng/ml
--- NOTE | 2024-02-02 06:20 | PTCARENOTE ---
at approximately 0430 pt complaining of SOB and coughing. went in to assess. auscultated course and crackles lung sounds. Pt in obvious distress. OFFICE SUPPORT SPECIALIST notified and quickly at bedside to assess. as per orders stat chest xray, stat labs, non
rebreather, and meds given per order. Pt vomited large brown liquid emesis. Pt stabilized and ordered to call rapid to be transferred to ICU. report given to ICU nurse.
[2024-02-02] MEDS: TORADOL 10 MG IV (06:32)
[2024-02-02 06:33] LABS: Procalcitonin 0.07 ng/ml (0.0-0.25)
--- NOTE | 2024-02-02 06:37 | PTCARENOTE ---
patient received as transfer, oriented x3. Sinus Tach with BBC on monitor, afebrile, blood pressure as documented. Weak but palpable pulses, trace anasarca noted. Lungs with coarse crackles bilaterally, on NRB and MFNC, placed on Bipap 12/5 with
100% FIO2. RR 29, pulse ox 97%. Abdomen round with positive bowel sounds. Complaints of nausea prior to transfer, medicated per MAR. Incontinent of urine. Ashlyn area cleaned. RDL PICC with TPN infusing.
--- NOTE | 2024-02-02 06:43 | W.PN.UPDATE ---
Update Note
Progress Note Update
Reported by the nursing staff that the patient is hypoxic complaining of SOB. Patient was received her morning dose of lasix 40 po earlier and received due nebs. This morning WBC 21.9. Afebrile
EAR FLAP BINDER called patient is hypoxic with SPO2 in 80s%
On exam, crackle noted on lung bases.
Solu-Medrol 20MG IV morning dose given
One time dose of IV lasix 20mg was given.
Patient was placed on mid flow 15L/ NRB mask
Chest x-ray, abg, cbc, bmp, lactic acid, procal Pro BNP, and troponin ordered.
Discussed the case with senior software analyst and patient transferred to ICU.
--- NOTE | 2024-02-02 07:27 | W.PN.HOSP.TC ---
Today's Communication/Plan
-
.
Assessment / Plan
Assessment / Plan
Ms. Alexandrea Levin is a 73yo F pmh HFpEF, chronic respiratory failure, bipolar disorder, hypothyroidism admitted for SBO.
Sbo with transition point
-S/p ex lap with extensive lysis of adhesions on 01/27/2024
-Started on CLD, follow surgery recs on advancing
-Concern for ilieus
--Surgery started TPN
-IVF
-Surgery following
-Incentive shay
Acute hypoxic respiratory distress
Respiratory acidosis w metabolic alkalosis
- lasix
- solumedrol IV
- midflow 15L O2 w NRB
- lactate 1.6 wnl, troponin undetectable, proBNP 519 indeterminate cause, procalcitonin 0.07 wnl
- abg - resp acidosis, metabolic alkalosis
- CXR - b/l costophrenic angle blunting, increased congestion, widened trachea
Anemia
-stable
-follow cbc
Chronic HFpEF
-Hold lasix
-Euvolemic
Chronic respiratory failure
-maintain spo2 of between 88-92%
-continue mdi's
-prednisone 10mg MWF, as NPO with NGT, started on steroids 20mg solumed daily
Bipolar Disorder
-Resumed Abilify, Lamictal and Wellbutrin
-Resume Klonopin prn as prior to admission
- prn ativan as needed for agitation
--Psych consult as these psych meds do not have IV/IM conversions
Hypothyroidism
Obesity
-Resume levothyroxine
Hx DVT/PE
-Hold Xarelto should patient require intervention for bowel obstruction for at least 48 to 72 hours postoperatively
-Not sure how well she is absorbing, therefore, on heparin
Diet: NPO
DVT ppx: heparin
Code status: FULL CODE
Anticipated Discharge: > 48 hours
Subjective/Interval History
-
Date of Service: February 02, 2024
Ms. Alexandrea Levin is a 73yo F pmh HFpEF, chronic respiratory failure, bipolar disorder, hypothyroidism admitted for SBO. Overnight, she became hypoxic w SpO2 in 80s. Pt transferred to ICU. Feeling short of breath.
Objective Data
-
Labs:
Laboratory Results
02/01/24 02/02/24 02/02/24
22:39 04:47 05:31
WBC 21.9 H
Hgb 9.1 L
Hct 29.5 L
Plt Count 333 D
APTT 89.0 H 132.3 H
HCO3 41.2 H*
Sodium 138
Potassium 3.9 D
Chloride 93 L
Carbon Dioxide 36 H
BUN 20 H
Creatinine 0.6
Glucose 122 H
Calcium 8.8
02/02/24 02/02/24
07:30 12:45
WBC
Hgb
Hct
Plt Count
APTT Pending
HCO3 Pending
Sodium
Potassium
Chloride
Carbon Dioxide
BUN
Creatinine
Glucose
Calcium
Vital Signs:
Vital Signs
Temp Pulse Resp BP Pulse Ox
98.0 F 86 20 160/83 91
02/01/24 23:30 02/02/24 04:56 02/02/24 04:56 02/02/24 04:56 02/02/24 04:56
I&O
02/01/24 02/02/24 02/03/24
06:59 06:59 06:59
Intake Total 3000 / 3000 2063
Output Total 450 / 450 720 / 720
Balance 2550 / 2550 1344 / 1344
Review of Systems
-
History Source: Patient
Constitutional: Reports No Symptoms
EENT: Reports No Symptoms Reported
Respiratory: Reports Cough and Trouble Breathing; Denies Hemoptysis
Cardiac: Reports No Symptoms
Abdomen/GI: Reports Abdominal Pain and Other (+flatus); Denies Nausea, Vomiting or Diarrhea
Musculoskeletal: Reports No Symptoms
Skin: Reports No Symptoms
Neuro: Reports No Symptoms
Psych: Reports Anxious
Physical Exam
-
General: Well Developed, Well Nourished and Respiratory Distress
HEENT: Normocephalic, Atraumatic, Moist Mucous Membranes, Anicteric and Oxygen
Respiratory: Wheezes, Rales and Accessory Resp Muscle Use
Cardiac: Regular Rhythm, S1/S2 and Tachycardic; Negative Murmur, Rub or Gallop
GI: Soft, Nontender, Nondistended and Normal Bowel Sounds
Musculoskeletal: No Clubbing, No Cyanosis and No Edema
Neuro: AO x 3
Psych: Anxious
--- NOTE | 2024-02-02 07:43 | W.PN.INTV ---
Today's Communication / Plan
Recommendations
Transfer to ICU-aspiration suspected
Ileus suspected
Noninvasive ventilation-attempt to liberate periodically
Mucus clearing devices
Begin antibiotics
Pressors if needed
Methylprednisolone
Diuresis
Assessment
-
73-year-old female with a history of COPD, bronchiectasis, CAD, CHF, DVT and pulmonary embolism on Xarelto who presented with small bowel obstruction likely requiring surgery-pulmonary consulted for preoperative clearance and pulmonary management in
the perioperative period-01/25/2024-did well postoperatively and developed fairly sudden shortness of breath and transferred to ICU 01/29/2024 responding to NIV and Lasix.
Small bowel obstruction
Status post exploratory laparotomy and extensive lysis of efegeryiy-8-1/2 hours-Dr. Alaniz 01/28/2024
COPD without acute exacerbation
Chronic hypercapnia
Chronic heart failure preserved EF
Leukocytosis
Anemia
Aspiration event necessitating transfer due to severe hypoxemia to ICU 02/02/2024
Ileus suspected
Conditions present prior to admission:
COPD-followed by Dr. Boyd-maintained on Trelegy, 3% sodium chloride nebulizer twice daily, prednisone 10 mg Vroume-Flhyikazs-Ljdejt
Bronchiectasis.
Previous sputum cultures-Serratia 09/22/2023, Pseudomonas multiphilia 07/15/2023 sensitive to Bactrim and levofloxacin
Former [id number] quit 1998
Cough variant asthma
Chronic cough
Restrictive lung disease
Vocal cord paralysis
DVT/PE-saddle
IVC filter
1/3 sputum culture positive AFB May 2023-does not meet criteria for OLIVIA-Mycobacterium fortuitum culture 10/09/2021
History of [id number] cytology negative
Chronic lower extremity lymphedema.
Bipolar.
Hypothyroid.
Breast cancer.
Heart failure preserved EF.
CAD.
Previous obstructive sleep apnea
Obesity
Left mastectomy. Cholecystectomy. Left shoulder surgery. Bilateral total knee.
Plan
Critically ill transferred with significant hypoxemia and mild hypercapnia-suspect decompensation combination of COPD and mild volume overload in addition to probable aspiration event
Noninvasive ventilation-V60 reviewed with BULLET SLUG CASTING MACHINE OPERATOR-15/8 cm, rate 12, 100% FiO2
ABG 02/02/2024--62/52/7.43-on 4 L
Repeat ABG 01/29/24-60 2/130/7.38-on 100% nonrebreather
Continue DuoNebs
Chronically on Prednisone 10 mg Fpmdku-Ypsnnucrw-Qzvoyn-changed to Solu-Medrol 20 mg daily-while she was n.p.o.
Symbicort and Spiriva continues-as an outpatient she is on Trelogy
Steroids-methylprednisolone 20 mg daily continues
Mucolytic's
Mucus clearing devices
Chest physiotherapy-reviewed with BULLET SLUG CASTING MACHINE OPERATOR
Vest therapy
Noninvasive ventilation-attempt to liberate
Chest x-ray 02/02/2024-no new abnormalities, basilar atelectasis
Follow chest x-ray
Diuresis as tolerated
Monitor renal function, electrolytes, intake/output, lower extremity edema and weight
Replace electrolytes as needed
Aspiration suspected
Check cultures
Empiric antibiotics-Zosyn initiated 02/01/2024
Surgery following
OR 01/27/2024-extensive lysis of adhesions
Nasogastric tube clamped today-ice chips
Previous operative records from [facility] have been requested.
Xarelto on hold--now on heparin
DVT prophylaxis-on anticoagulation.
GI prophylaxis-on pantoprazole
Eventual nutrition per surgery.
Bedside range of motion/early mobilization
Last seen by 01/13/2415-aztaux-bm as an outpatient
Critical care statement: A total of 55 minutes of critical care time was provided for this patient today. This includes management of unstable vital signs, evaluation of the patient at bedside, reviewing the patient's pertinent medical records
including radiographs, management of respiratory failure, noninvasive ventilation management, microbiology, laboratory evaluations, and discussion with primary team, consultants, pharmacy, nutrition, physical therapy, case management, charge nurse,
critical care nursing, and respiratory therapy.
Diagnostic data:
Chest x-ray 04/14/2023-stable pleural-parenchymal scarring, no other abnormalities
Chest x-ray 09/01/2023-NAD, stable pleural-parenchymal scarring lower portions of both lungs
Obstruction series 01/25/2024-no evidence for free intraperitoneal air, highly suggestive of small bowel obstruction
CT chest-bilateral lower lobe parenchymal opacifications and bronchiectasis
CT abdomen and pelvis 01/22/2024-left breast implant, small collapsed right breast implant, soft tissue density likely mucous plugging right lower lobe with some atelectasis, small bowel obstruction
Echocardiogram 06/29/2023-EF 50%, no valvular disease
Pulmonary function studies-10/14/23: Spirometry demonstrated moderate restrictive lung disease.The forced vital capacity was 1.39 L or 49% of predicted.� The FEV1 was 1.11 L or 52% of predicted.� The FEV1/FVC ratio was 80%.
She cough throughout the study and was unable to exhale for 6 seconds.� Saturation dropped to 86% on room air and no further testing was done. Saturation returned to 93% on 3 L.
Compared to 12/2022, the forced vital capacity has declined from 1.47 L to 1.39 L.� The FEV1 was unchanged.
Sleep [id number]: AHI of 10.9 with oxyhemoglobin desaturation betsy of 85%. With 4 cm CPAP H2O
pressure the AHI was reduced to one event per hour and he oxyhemoglobin desaturation betsy improved to 92%.
Sleep study-08/13/14: AHI was 23.4 with oxyhemoglobin desaturation betsy of 64%.
At home sleep study-01/09/18: Respiratory event index 0.2 events per hour. Lowest saturation 89%. Percentage of the study time spent with a saturation below 90% was 0.1%.
Home sleep study-09/10/23: AHI 0.4 events per hour.� Saturation betsy 90%.
Subjective Dataa
Subjective Data
Date of Service:
Date of Service: February 02, 2024
Chief Complaint: Foundation Relations Manager Follow Up and Pulmonary Follow Up
Subjective:
Complained of increasing shortness of breath, some chest congestion, difficulties mobilizing secretions and placed on noninvasive ventilation and transferred to ICU, complains of heartburn
Review of Systems
General: Other (Per HPI)
Objective Data
Data Reviewed
Vital Signs / I&O / Oxygen:
Vital Signs
Temp Pulse Resp BP Pulse Ox
98.0 F 86 20 160/83 91
02/01/24 23:30 02/02/24 04:56 02/02/24 04:56 02/02/24 04:56 02/02/24 04:56
Intake and Output
02/01/24 02/02/24 02/03/24
06:59 06:59 06:59
Intake Total 3000 / 3000 2063
Output Total 450 / 450 720 / 720
Balance 2550 / 2550 1344 / 1344
SaO2 [CPAP/PSV] 96
SaO2 [A/C] 97
SaO2 91
Nasal Cannula flow liters per 4
minute
Physical Exam
General: Respiratory Distress (negative), Comfortable, Chills (negative) and Sweats (negative)
HEENT: Normocephalic, Anicteric and Other (ETT in place)
Cardiovascular: Regular Rhythm, Rub (n) and Peripheral Edema (negative)
Respiratory: Wheeze (negative), Crackles (negative), Rhonchi (negative), Non-Labored Respirations, Stridor (n) and ET Tube (Mechanical breath sounds heard bilaterally)
GI: Soft, Non Distended, Non Tender and Normal Bowel Sounds
Neurology: Awake, Alert and Tremors (negative)
Skin: Warm, Dry, Cyanosis (negative) and Jaundice (negative)
Labs/Micro/Reports
Lab Data
02/02/24 04:47
02/02/24 04:47
Laboratory Results
02/01/24 02/01/24 02/02/24
12:19 22:39 04:47
APTT 40.1 H 89.0 H 132.3 H
pH
pCO2
pO2
HCO3
O2 Delivery Level
02/02/24
05:31
APTT
pH 7.43
pCO2 62 H
pO2 52 L*
HCO3 41.2 H*
O2 Delivery Level 4l
Microbiology
02/02/24 05:30 Nasal Swab Influenza Types A & B (CM) - Final
Negative for Influenza A & B, NAAT
Negative results must be combined with clinical observations
and patient history.
Nucleic Acid Amplification test (NAAT)performed on the
[employer] platform.
[2024-02-02] MEDS: LAMICTAL 25 MG PO (08:18)
[2024-02-02] MEDS: HIPREX 1 GRAM PO (08:18)
[2024-02-02] MEDS: VITAMIN D3 (cholecalciferol) 25 MCG PO (08:18)
[2024-02-02] MEDS: NEURONTIN 100 MG PO (08:19)
[2024-02-02] MEDS: WELLBUTRIN REGULAR RELEASE 100 MG PO (08:20)
[2024-02-02] MEDS: COREG 6.25 MG PO (08:20)
[2024-02-02] MEDS: THIAMINE INJECTION 100 MG IV (08:20)
[2024-02-02] MEDS: DESENEX/MITRAZOL/ZEASORB 1 APPLIC TOPICAL ×2 (08:21→20:47)
[2024-02-02] MEDS: SYNTHROID 175 MCG PO (08:22)
[2024-02-02] MEDS: PULMICORT 0.5 MG INH (08:35)
[2024-02-02 08:46] LABS: B.E. 9.8 mmol/L; HCO3 36.7 mmol/L (21-28); PCO2 62 mmHg (32-35); PO2 130 mmHg (83-108); pH 7.38 (7.35-7.45)
--- NOTE | 2024-02-02 10:00 | PTCARENOTE ---
pt awake and oriented , anxious , on NIV , and asking to switch to NC she was started on 10L and then sats dropped to 88 she was placed back on NIV , stats range 90- 95% ,she is coughing up brown secretions , sinus tach on monitor , she is taking
sips of clear liquids with Meds without difficulty ,
--- NOTE | 2024-02-02 11:13 | W.PN.GS2 ---
Today's Communication / Plan
-
TPN
Sips of clears
IV abx
Assessment / Plan
-
Patient is a 73 yo F with a history of DVT/PE on Xarelto with LD on 01/19, HF, bronchiectasis on chronic O2, diverticulitis with perforation of bowel and emergent total colectomy and ileostomy creation in 2008 with subsequent reversal [facility] (?VHR repair with mesh at the time), chronic diarrhea and a prior SBO in July of this year which resolved without surgical intervention who presents with symptoms of nausea, vomiting and abdominal pain since 01/19.
POD#6 s/p exploratory laparotomy, extensive ALESSANDRA
New tachycardia and tachypnea, cuff pressures on calf are likely inaccurate
Leukocytosis present, possibly related to steroids. Trending up. Urine cx pending with >100K CFU GNR.
Acute postoperative anemia likely secondary to blood loss during surgery and hemodilution, compounded by supratherapeutic anticoagulation. Will monitor closely for bleeding. Drain appears bloody today but low volume and Hb trending up.
tolerating clears, +flatus/stools
High risk for ileus given degree of adhesions and chronic SBO, some signs.
Plan:
-- Sips of clears for today
-- Can remove abd binder if needed to help pulmonary status
-- Continue TPN, thiamine daily x5 days
-- Pain control: Tylenol, Toradol, Tramadol, and Dilaudid
-- Trend labs, H/H
-- On therapeutic AC with supratherapeutic aPTT, may need to hold if h/h continues to drop
-- OOB/ambulate as able
Subjective Data
-
Date of Service: February 02, 2024
Vomiting last night with concern for aspiration, new tachycardia and tachypnea, currently on bipap
Objective Data
-
Intake and Output
02/01/24 02/02/24 02/03/24
06:59 06:59 06:59
Intake Total 3000 / 3000 2063 / 2063
Output Total 450 / 450 720 / 720
Balance 2550 / 2550 1344 / 1344
Intake:
Oral fluids 800 / 800 1080 / 1080
IV fluids (Total) 2200 / 2200
IV piggybacks 540 / 540
TPN/PPN 444 / 444
Output:
Liquid stool amount 200 / 200
Rectum 200 / 200
Drain Output (Total) 250 / 250 120 / 120
Right Lower Abdomen Luiz- 250 / 250 120 / 120
[place]
Urine, Voided 600 / 600
Other:
Number of approximated MODERATE 1 1
amounts of urine
Number of approximated LARGE 1
amounts of urine
How many times incontinent 1 1
MODERATE amount urine
How many times incontinent 2
SATURATED amount urine
Vital Signs
Temp Pulse Resp BP Pulse Ox
98.0 F 114 24 132/61 94
02/01/24 23:30 02/02/24 08:40 02/02/24 08:40 02/02/24 08:20 02/02/24 08:40
Lab Results
02/02/24 04:47
02/02/24 04:47
Calcium 8.8 mg/dl (8.4-10.2) 02/02/24 04:47
Phosphorus 3.3 mg/dl (2.5-4.5) 02/02/24 04:47
Magnesium 1.7 mg/dl (1.6-2.3) 02/01/24 06:14
Total Bilirubin 0.7 mg/dl (0.2-1.3) 02/01/24 06:14
Direct Bilirubin 0.3 mg/dl (0.0-0.4) 01/29/24 05:37
AST 21 U/L (14-36) 02/01/24 06:14
ALT 23 U/L (0-35) 02/01/24 06:14
Alkaline Phosphatase 38 U/L (38-126) 02/01/24 06:14
Total Protein 4.7 g/dl (6.3-8.2) L 02/01/24 06:14
Albumin 2.4 g/dl (3.5-5.0) L 02/01/24 06:14
Physical Exam
-
Gen: NAD, bipap
Abd: soft, nd, nt, incision cdi, drain bloody with clot
--- NOTE | 2024-02-02 11:36 | PTOTSP ---
Reviewed chart and noted pt transferred from [address] [place] [address] to ICU this AM. PT orders were not continued upon transfer. Will need new orders for PT (and OT) when stable to resume therapy activities.
--- NOTE | 2024-02-02 12:02 | W.PN.UPDATE ---
Addendum entered and electronically signed by Jose Carrizales MD 02/02/24 15:05:
Called power of qhenfxzn-jbnjlafa-dt-law Radha Alcantara-[phone]-updated on change in status, events leading to change in status including ileus, emesis, probable aspiration pneumonia, realistic expectations in regards to the next several
days-supportive care, antibiotics, ventilator support with subsequent trials at removal from the ventilator once stabilized-answered all questions-encouraged her to call daily for updates from nursing or physicians
Original Note:
Update Note
Progress Note Update
Called to reevaluate patient multiple times throughout the day
Progressive respiratory distress, complains of some chest pressure
Saturations marginal-on noninvasive ventilation, 100%-saturations in the low 80s
Exam with rhonchi
Impression-impending respiratory failure
Discussed need for intubation with patient-patient appears to not want long-term intubation, however, I explained that there are potential reversible processes in the temporary intubation would be advised
If it appears as though she would not be able to come off the ventilator and say 7-10 days she may want withdrawal-we will certainly respect her wishes
Intubated mechanically ventilated
Ventilator settings reviewed with COUNSELOR/ART THERAPIST
Propofol and fentanyl as needed
Sputum culture
Antibiotics
Pressors if needed
Nasogastric tube for feeding and medications
Reviewed with critical care nursing
--- NOTE | 2024-02-02 12:05 | W.PN.UPDATE ---
Update Note
Progress Note Update
Chart reviewed/ pt seen briefly/ discussed with staff
Pt moved to ICU this morning after hypoxic event and spike in WBC count. About to be placed on ventilator.
Acc to nursing staff she has been needy and anxious- some of which can be attributed to oxygen hunger.
Pt with bipolar disorder.
All po meds on hold. Ativan can be given IV or IM; if agitated Abiify Maintena could be considered.
Will follow.
[2024-02-02 12:22] LABS: B.E. 6.4 mmol/L; O2 Saturation % 85.9 % (94-98); PCO2 57 mmHg (32-35); pH 7.37 (7.35-7.45)
[2024-02-02 12:25] LABS: PO2 52 mmHg (83-108)
--- NOTE | 2024-02-02 12:27 | W.PN.ANESINT ---
Anesthesia Intubation Note
- Intubation Note
Intubation Note:
Respiratory Distress, Hypoxia, Hypercapnia
Diagnosis:
Blade: Glidescope 4
Tube Size: 8.0
Depth: 22
Side Taped: Right
Drugs Used:Versed 2 mg, Succinylcholine 120 mg
Grade View: I
EtCO2 Present: Yes
Atraumatic: Yes
Attempts: 1
Insertion Start and Stop Time: 1210 pm, 1211pm
SaO2 Pre: 78
SaO2 Post: 86
Glidescope Used: Yes
Other Airway Adjustments: RSI
Pre-Oxygenated: Yes
Portable Chest X-Ray: Pending
RSI: Yes
Suctioned: Yes
Bilateral Breath Sounds Confirmed: Yes
Vent Settings:
Settings per ICU_Attending Physician
Gastric contents present in the airway pre-intubation
[2024-02-02] MEDS: PITRESSIN 100 IV ×2 (12:35→19:40)
[2024-02-02] MEDS: SUBLIMAZE 50 MCG IV ×2 (12:36→13:27)
--- NOTE | 2024-02-02 12:58 | W.PN.ANS.LIN ---
Anesthesia IV & A-Line Note
- IV/Arterial Line
Left Radial Arrow 20 (04/12)
IV Line Comments: Uneventful Procedure
Allens test completed pre-procedure: Yes
A-Line Comments: Sterile technique as per standard protocol, Uneventful procedure, Ultrasound guided insertion, Biopatch applied
Funtioning A-line in situ: No
A-line Insertion Start Time: 12:49
A-line Insertion Stop Time: 12:59
--- NOTE | 2024-02-02 13:00 | PTCARENOTE ---
pt started to decline at 1130 her sats drown to 85-88% , Resp rate up to 40s , she stated nausea , abg was done and Dr Dickens notified , pt was intubated at 1210 , she became hypotensive and then was started on norepinephrine and then vasopressin
, her Bp then improved at 1330 and was given fentanyl bolus for agitation and propofol for sedation , her norepinephrine gtt at 20mcg , and vasopressin 0.04 mcg , Dr Dickens spoke to pts daughter in law re plan of care
[2024-02-02 13:45] LABS: APTT 39.9 Sec (23.4-35.0)
[2024-02-02 13:46] LABS: Triglycerides 97 mg/dl (10-149)
[2024-02-02] MEDS: ZOSYN 100 IV ×3 (13:53→23:07)
[2024-02-02] MEDS: DIPRIVAN 100 IV (13:55)
[2024-02-02] MEDS: ROBITUSSIN PO ×3 (13:56→21:00)
[2024-02-02 13:57] LABS: Troponin I < 0.012 ng/ml
[2024-02-02 14:19] LABS: Glucose - Point of Care 165 mg/dl (70-99)
[2024-02-02 14:43] LABS: B.E. 7.5 mmol/L; HCO3 34.1 mmol/L (21-28); O2 Saturation % 94.3 % (94-98); PCO2 59 mmHg (32-35); PO2 63 mmHg (83-108); pH 7.37 (7.35-7.45)
--- NOTE | 2024-02-02 15:04 | CM ---
CM following re: discharge planning.
Discussed in rounds, reviewed pt's chart, met with pt.
Pt intubated today due to progressive respiratory distress, continue supportive care.
D/C plan: uncertain at this time and will depend on pt's progress.
CM will follow with discharge plan updates as hospitalization progresses
[2024-02-02] MEDS: LEVOPHED 250 IV ×2 (15:18→18:14)
[2024-02-02] MEDS: NOVOLOG FLEXPEN-LOW RESISTANCE 1 UNITS SC ×2 (15:27→18:00)
[2024-02-02] MEDS: HEPARIN 25000 UNITS/250 ML IV (16:40)
[2024-02-02] MEDS: LR 1000 IV (16:42)
[2024-02-02] MEDS: LASIX PO (17:43)
[2024-02-02] MEDS: NEURONTIN PO ×2 (17:43→21:00)
[2024-02-02] MEDS: OFIRMEV 100 IV ×2 (18:03→23:43)
[2024-02-02 18:23] LABS: Glucose - Point of Care 184 mg/dl (70-99)
--- NOTE | 2024-02-02 18:30 | PTCARENOTE ---
pt temp up to 101.3 Dr Weeks aware and pt medicated with IV Tylenol , pt also dropping BP and norepinephrine increased to max dose of 30mcg
[2024-02-02] MEDS: SOLU-CORTEF 100 MG IV (19:28)
[2024-02-02] MEDS: COREG PO (19:28)
[2024-02-02] MEDS: FLOVENT 110 MCG INHALER 4 PUFF INH (19:45)
--- NOTE | 2024-02-02 20:00 | PTCARENOTE ---
Rec'd pt w/ wrist restraints on for pt safety, on lat rotation bed, follows commands, MARIO, sluggish, fent gtt at 50mic, diprivan gtt at 10mic, ST w/ pac's, left rad venessa w/ good wave form, flushes well, accurate to cuff; to keep MAP > 65, rec'd pt
on levophed gtt at 30mic, vasopressin gtt at 0.04 units; lana gtt started at 20mic, see flow sheet for titrations, hep gtt at 1300 units/hr,weak distal pulses, + LE edema, #8 oral ett- 23 cm - moved to left side, ac 20, tv 450, 10 peep, 100%, sat
88-90%, ; lungs coarse, decr, suct for brown secretions, percussion done, R nares [place] to low inter suction draining brown liquid, irrigated w/ 30nss, abd obese, round, tender to palpation, thermister pickard draining yellow urine
[2024-02-02] MEDS: NEO-SYNEPHRINE 1% 260 MG IV (20:03)
[2024-02-02] MEDS: LEVOPHED 258 MG IV (20:28)
[2024-02-02] MEDS: COZAAR PO (20:48)
[2024-02-02] MEDS: Parenteral Nutrition, Central 1210 IV (20:53)
[2024-02-02 20:59] LABS: APTT 83.5 Sec (23.4-35.0)
--- NOTE | 2024-02-02 21:00 | PTCARENOTE ---
levophed & lana gtts double conc, dr Campos updated on pt status- sat 88-90%, 3 pressors, no further orders obtained
[2024-02-02 21:11] LABS: Troponin I 0.018 ng/ml
[2024-02-02 22:07] LABS: INR 1.21; PT 15.6 Sec (11.4-14.6)
[2024-02-02] MEDS: SOLU-CORTEF 50 MG IV (23:06)
[2024-02-02] MEDS: NOVOLOG FLEXPEN-LOW RESISTANCE 2 UNITS SC (23:07)
[2024-02-02 23:17] LABS: Glucose - Point of Care 245 mg/dl (70-99)
[2024-02-03] VITALS (62 sets, daily range): BP systolic 34–148; BP diastolic 19–102; BMI 39.1
--- NOTE | 2024-02-03 | PTCARENOTE ---
sys reviewed, changes noted, CHG bath done, linens changed, ofirmev given for temp
[2024-02-03] MEDS: TYLENOL PO ×2 (00:28→09:09)
[2024-02-03] MEDS: LEVOPHED 258 MG IV ×5 (00:32→23:32)
--- NOTE | 2024-02-03 01:10 | PTCARENOTE ---
Sherif Cuevas NP notified of max on lana, levo & vaso gtt and poor urine output
[2024-02-03] MEDS: DIPRIVAN 100 IV ×2 (01:58→14:34)
--- NOTE | 2024-02-03 02:30 | PTCARENOTE ---
Dr Biswas updated on pt- 3 pressors maxed, pooer urine output, 500nss bolus ordered, Dr biswas stated he will 'call dtr in law now and leave a message if she doesn't answer', no further orders at this time
--- NOTE | 2024-02-03 02:31 | W.PN.UPDATE ---
Update Note
Progress Note Update
Unfortunately, patient continues to clinically deteriorate over the last 12 hours. Maximum pressors continue with vasopressin, norepinephrine, Rodney-Synephrine. Patient remains on maximum ventilatory support. Urine output is decreasing. Additional
fluids will be given, as able.
Patient was transitioned to stress dose steroids yesterday p.m., remains on broad-spectrum antibiotics
Contacted Radha Alcantara-[phone] (POA) left message regarding progressive decline and extremely poor prognosis
detention prognosis extremely poor at this point
Continue supportive care
Reviewed briefly with CCN
[2024-02-03] MEDS: NSS 500 IV (02:32)
[2024-02-03 02:55] LABS: Hematocrit 31.6 % (37.0-47.0); Hemoglobin 9.3 g/dL (12.0-16.0); Mean Corp Hgb Conc. 29.4 g/dL (33.0-37.0); Mean Corpuscular Hgb 28.8 pg (27.0-31.0); Mean Corpuscular Volume 97.8 fL (81.0-99.0); Mean Platelet Volume 9.9 fL (7.4-10.4); Platelet Count 376 10^3/uL (130-400); Red Blood Cell Count 3.23 10^6/uL (4.20-5.40); Red Cell Dist. Width 15.5 % (11.5-14.5); White Blood Cell Count 58.4 10^3/uL (4.8-10.8)
[2024-02-03 02:56] LABS: APTT 90.8 Sec (23.4-35.0)
--- NOTE | 2024-02-03 03:05 | PTCARENOTE ---
unable to draw blood from venessa despite repos and redressing, venessa jo'stephany
[2024-02-03 03:14] LABS: Troponin I 0.085 ng/ml
[2024-02-03 03:26] LABS: ALT (SGPT) 32 U/L (0-35); AST (SGOT) 38 U/L (14-36); Albumin 2.4 g/dl (3.5-5.0); Alkaline Phosphatase 63 U/L (38-126); Blood Urea Nitrogen 43 mg/dl (7-17); Calcium 8.2 mg/dl (8.4-10.2); Carbon Dioxide 31 mmol/L (22-30); Chloride 93 mmol/L (98-107); Estimated Creatinine Clearance 41 ml/min; Glucose 261 mg/dl (70-99); Magnesium 1.8 mg/dl (1.6-2.3); Phosphorus 6.3 mg/dl (2.5-4.5); Potassium 5.5 mmol/L (3.5-5.1); Sodium 133 mmol/L (135-145); Total Bilirubin 1.2 mg/dl (0.2-1.3); Total Protein 4.8 g/dl (6.3-8.2); eGFR 39.48
[2024-02-03] MEDS: NEO-SYNEPHRINE 1% 260 MG IV ×4 (03:34→18:14)
[2024-02-03] MEDS: LR 1000 IV (03:35)
[2024-02-03 03:40] LABS: Absolute Neutrophils -Man Diff 51.9 10^3/uL (1.4-6.5); Band Neutrophils 43 % (0-3); Segmented Neutrophils 46 % (42-75)
[2024-02-03 03:41] LABS: Lymphocytes 5 % (20-51); Metamyelocytes 6 % (-); Normal RBC Morphology Yes; Platelets Checked Yes; Total Cells Counted 100
[2024-02-03 03:44] LABS: B.E. 0.7 mmol/L; HCO3 30.2 mmol/L (21-28); O2 Saturation % 86.3 % (94-98)
[2024-02-03 03:47] LABS: O2 Therapy 100%
[2024-02-03 03:48] LABS: PCO2 81 mmHg (32-35); PO2 55 mmHg (83-108); pH 7.18 (7.35-7.45)
--- NOTE | 2024-02-03 04:00 | PTCARENOTE ---
Sys reviewed, Sherif Cuevas SECURITIES AND REAL ESTATE DIRECTOR aware of critical values, AC incr to 24 by resp therapist per order, ett repos on R side at 23 cm, percussion done
[2024-02-03] MEDS: SYNTHROID PO (04:06)
[2024-02-03] MEDS: VANCOCIN 540 MG IV (04:19)
[2024-02-03 05:07] LABS: Procalcitonin 20.31 ng/ml (0.0-0.25)
--- NOTE | 2024-02-03 06:00 | PTCARENOTE ---
ofirmev given for temp
[2024-02-03] MEDS: OFIRMEV 100 IV ×3 (06:04→19:05)
[2024-02-03] MEDS: NOVOLOG FLEXPEN-LOW RESISTANCE 3 UNITS SC (06:05)
[2024-02-03] MEDS: SOLU-CORTEF 50 MG IV ×4 (06:05→23:09)
[2024-02-03 06:10] LABS: Glucose - Point of Care 258 mg/dl (70-99)
[2024-02-03] MEDS: ZOSYN 100 IV (06:19)
--- NOTE | 2024-02-03 06:31 | PTCARENOTE ---
Dtr in [id number]-xakjzf in after she awoke and heard Mark Campos's message from [phone], updated on pt status, would like MD to call her this am after she has time to process situation
--- NOTE | 2024-02-03 06:59 | W.PN.INTV ---
Today's Communication / Plan
Recommendations
Continue volume-cycled ventilation, increase minute ventilation
Daily chest x-ray
Continue pressors, wean as able
Transition from LR to normal saline, follow electrolytes
Hold TPN
Monitor urine output
Continue broad-spectrum antibiotics for aspiration pneumonitis. Infectious disease has been consulted
Assessment
-
73-year-old female with a history of COPD, bronchiectasis, CAD, CHF, DVT and pulmonary embolism on Xarelto who presented with small bowel obstruction likely requiring surgery-pulmonary consulted for preoperative clearance and pulmonary management in
the perioperative period-01/25/2024-did well postoperatively and developed fairly sudden shortness of breath and transferred to ICU 01/29/2024 responding to NIV and Lasix.
VDRF, Intubated 02/02/2024
Aspiration pneumonitis, transferred to ICU 02/01
Small bowel obstruction
Status post exploratory laparotomy and extensive lysis of mojdkyfon-7-5/2 hours-Dr. Alaniz 01/28/2024
COPD without acute exacerbation
Chronic hypercapnia
Chronic heart failure preserved EF
Leukocytosis
Anemia
Ileus suspected
Conditions present prior to admission:
COPD-followed by Dr. Boyd-maintained on Trelegy, 3% sodium chloride nebulizer twice daily, prednisone 10 mg Alcjfh-Utbnoafms-Plrvzs
Bronchiectasis.
Previous sputum cultures-Serratia 09/22/2023, Pseudomonas multiphilia 07/15/2023 sensitive to Bactrim and levofloxacin
Former lhmczz-73-nlfh-year quit 1998
Cough variant asthma
Chronic cough
Restrictive lung disease
Vocal cord paralysis
DVT/PE-saddle
IVC filter
1/3 sputum culture positive AFB May 2023-does not meet criteria for OLIVIA-Mycobacterium fortuitum culture 10/09/2021
History of [id number] cytology negative
Chronic lower extremity lymphedema.
Bipolar.
Hypothyroid.
Breast cancer.
Heart failure preserved EF.
CAD.
Previous obstructive sleep apnea
Obesity
Left mastectomy. Cholecystectomy. Left shoulder surgery. Bilateral total knee.
Plan/Recs
At this time, patient remains critically ill
Required intubation mechanical ventilation 02/01
Subsequently developed progressive hypotension requiring titration of pressors, currently on norepinephrine, Rodney-Synephrine, vasopressin, max
Hyperkalemia noted, poor urine output noted
NG tube output 1100
Elevated airway pressures on volume-cycled ventilation
Moving forward
Continue with volume-cycled ventilation
AC 24/450/10/100%
Ppk 34, Pplat 30
Chest x-ray with progressive bilateral infiltrates, left worse than right. Worried about lung injury process
Continue with broad-spectrum antibiotics, remains on Zosyn/vancomycin
A-line discontinued overnight, no blood flow, poor waveform
Will try to place another A-line later p.m. as able
Daily chest x-ray
Continue with sedation, fentanyl/propofol
Hyperkalemia noted, creatinine elevated to 1.4
Urine output has decreased
Presently receiving LR at 100
Transition to normal saline given hyperkalemia. Hold TPN
Fluid boluses as able
Continue to monitor urine output
Hypotension likely secondary to underlying sepsis, aspiration pneumonitis
Chronically on Prednisone 10 mg Ydibku-Tvpzgmxid-Jzjzal-changed to Solu-Medrol 20 mg daily-while she was n.p.o.
Transition to stress dose steroids with hydrocortisone 02/01. This will continue
Airway pressures currently more consistent with decreased compliance as opposed to airways resistance
Continue Flovent for now
EKG with right bundle branch block, tachycardia
Echocardiogram 06/29/23 with EF 50%, normal RV size and function, right heart pressures cannot be determined
Will order echocardiogram 02/03
Currently remains on norepinephrine, Rodney-Synephrine, vasopressin
Hold Lasix
Monitor electrolytes
Aspiration suspected
Empiric antibiotics-Zosyn initiated 02/01/2024, vancomycin continues
ID has been consulted
Surgery following
OR 01/27/2024-extensive lysis of adhesions
Nasogastric tube remains in place
Xarelto on hold, currently on heparin therapy
Remains on Protonix
DVT prophylaxis-on Xarelto as outpatient for history of DVT/saddle embolism. IVC filter in place. Patient remains on heparin therapy.
GI prophylaxis-on pantoprazole
On TPN for nutrition. Will hold given hyperkalemia
Updated power of commercial attorney overnight by myself at approximately 2 AM on 02/02. Left message for Radha regarding multisystem organ failure, poor prognosis.
Attempted to contact again at 9:15 in the morning, no answer
Able to discuss with Radha (ARLEY) and Radha's Mother (RN) by phone. Reviewed clinical course and updated at length. They are considering DNR but would like to discuss amongst family. Pt apparently has AD per intake but not on file. Will; see if
CM can identifya or obtain from [place]
We will continue with updates as able throughout the day
Critical care statement: A total of 76 minutes of critical care time was provided for this patient today. This includes management of unstable vital signs, evaluation of the patient at bedside, reviewing the patient's pertinent medical records
including radiographs, management of respiratory failure, noninvasive ventilation management, microbiology, laboratory evaluations, and discussion with primary team, consultants, pharmacy, nutrition, physical therapy, case management, charge nurse,
critical care nursing, and respiratory therapy.
Diagnostic data:
Chest x-ray 04/14/2023-stable pleural-parenchymal scarring, no other abnormalities
Chest x-ray 09/01/2023-NAD, stable pleural-parenchymal scarring lower portions of both lungs
Obstruction series 01/25/2024-no evidence for free intraperitoneal air, highly suggestive of small bowel obstruction
CT chest/-bilateral lower lobe parenchymal opacifications and bronchiectasis
CT abdomen and pelvis 01/22/2024-left breast implant, small collapsed right breast implant, soft tissue density likely mucous plugging right lower lobe with some atelectasis, small bowel obstruction
Echocardiogram 06/29/2023-EF 50%, no valvular disease
Pulmonary function studies-10/14/23: Spirometry demonstrated moderate restrictive lung disease.The forced vital capacity was 1.39 L or 49% of predicted.� The FEV1 was 1.11 L or 52% of predicted.� The FEV1/FVC ratio was 80%.
She cough throughout the study and was unable to exhale for 6 seconds.� Saturation dropped to 86% on room air and no further testing was done. Saturation returned to 93% on 3 L.
Compared to 12/2022, the forced vital capacity has declined from 1.47 L to 1.39 L.� The FEV1 was unchanged.
Sleep qfmxv-3-14-12: AHI of 10.9 with oxyhemoglobin desaturation betsy of 85%. With 4 cm CPAP H2O
pressure the AHI was reduced to one event per hour and he oxyhemoglobin desaturation betsy improved to 92%.
Sleep study-08/13/14: AHI was 23.4 with oxyhemoglobin desaturation betsy of 64%.
At home sleep study-01/09/18: Respiratory event index 0.2 events per hour. Lowest saturation 89%. Percentage of the study time spent with a saturation below 90% was 0.1%.
Home sleep study-09/10/23: AHI 0.4 events per hour.� Saturation betsy 90%.
Subjective Dataa
Subjective Data
Date of Service:
Date of Service: February 03, 2024
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
Subjective:
Patient remains critically ill. Events overnight reviewed. Remains ventilator dependent, maximum FiO2 100%. Also remains hypotensive on triple pressors. Temperature noted. Minimal secretions per ET tube. LAYLA drain with minimal drainage. NG
tube in place
Objective Data
Data Reviewed
Vital Signs / I&O / Oxygen:
Vital Signs
Temp Pulse Resp BP Pulse Ox
101 F H 102 24 100/56 87
02/03/24 06:00 02/03/24 06:30 02/03/24 06:30 02/03/24 06:30 02/03/24 04:00
Intake and Output
02/01/24 02/02/24 02/03/24
06:59 06:59 06:59
Intake Total 3000 / 3000 2064 / 2111 7450.5 / 7450.5
Output Total 450 / 450 720 / 720 1622 / 1622
Balance 2550 / 2550 1344 / 1391 5828.5 / 5828.5
SaO2 [NIV (Non Invasive 84
Ventilation)]
SaO2 [CPAP/PSV] 96
SaO2 [A/C] 87
SaO2 88
Nasal Cannula flow liters per 4
minute
Physical Exam
General: Comfortable (Sedated) and Other (Right upper extremity PICC, abdominal LAYLA drain)
HEENT: Normocephalic, Anicteric and Other (pupils reactive)
Cardiovascular: S1-S2, Regular Rhythm, Murmur (n), Rub (n), Peripheral Edema (negative) and Cool Extremities (Mild mottling)
Respiratory: Wheeze (negative), Crackles (negative), Rhonchi (negative), Non-Labored Respirations, Stridor (n) and ET Tube (Mechanical breath sounds heard bilaterally)
GI: Soft, Non Distended, Non Tender and Other (Abdominal dressing in place, LAYLA drain in place)
Neurology: Unresponsive (Sedated) and Lethargic
Skin: Good Color (Mild peripheral mottling, poor capillary refill), Cyanosis (negative) and Jaundice (negative)
Labs/Micro/Reports
Lab Data
02/03/24 02:29
02/03/24 02:27
Laboratory Results
02/02/24 02/02/24 02/02/24
08:28 11:56 13:21
PT
INR
APTT 39.9 H
pH 7.38 7.37
pCO2 62 H 57 H
pO2 130 H 52 L*
HCO3 36.7 H 33.0 H
O2 Delivery Level Not Reportable Not Reportable
02/02/24 02/02/24 02/03/24
14:15 20:42 02:27
PT 15.6 H
INR 1.21
APTT 83.5 H 90.8 H
pH 7.37
pCO2 59 H
pO2 63 L
HCO3 34.1 H
O2 Delivery Level Not Reportable
02/03/24
03:18
PT
INR
APTT
pH 7.18 L*
pCO2 81 H*
pO2 55 L*
HCO3 30.2 H
O2 Delivery Level 100%
Microbiology
02/02/24 14:15 Tracheal Aspirate Gram Stain - Preliminary
01/31/24 15:53 Urine Urine Culture - Preliminary
Gram negative bacilli
02/02/24 05:30 Nasal Swab Influenza Types A & B (CM) - Final
Negative for Influenza A & B, NAAT
Negative results must be combined with clinical observations
and patient history.
Nucleic Acid Amplification test (NAAT)performed on the
[employer] platform.
[2024-02-03] MEDS: SUBLIMAZE 100 IV (07:18)
--- NOTE | 2024-02-03 07:33 | W.PN.HOSP.TC ---
Today's Communication/Plan
-
.
Assessment / Plan
Assessment / Plan
Ms. Alexandrea Levin is a 73yo F pmh HFpEF, chronic respiratory failure, bipolar disorder, hypothyroidism admitted for SBO.
Sbo with transition point
-S/p ex lap with extensive lysis of adhesions on 01/27/2024
-Started on CLD, follow surgery recs on advancing
-Concern for ilieus
- TPN per surgery
-IVF
-Surgery following
-Incentive shay
Acute hypoxic respiratory distress
Septic shock
- intubated, on max ventilatory support
- maxed on 3 vasopressors
- CXR - b/l costophrenic angle blunting, increased congestion, widened trachea
Anemia
-stable
-follow cbc
Chronic HFpEF
-Hold lasix
-Euvolemic
Chronic respiratory failure
-maintain spo2 of between 88-92%
-continue mdi's
Bipolar Disorder
-Resumed Abilify, Lamictal and Wellbutrin
-Resume Klonopin prn as prior to admission
- prn ativan as needed for agitation
Hx DVT/PE
-Hold Xarelto should patient require intervention for bowel obstruction for at least 48 to 72 hours postoperatively
-Not sure how well she is absorbing, therefore, on heparin
Diet: NPO
DVT ppx: heparin
Code status: FULL CODE
Anticipated Discharge: > 48 hours
Subjective/Interval History
-
Date of Service: February 03, 2024
Ms. Alexandrea Levin is a 73yo F pmh HFpEF, chronic respiratory failure, bipolar disorder, hypothyroidism admitted for SBO. Clinically deteriorating. On maximum pressors w vasopressin, norepinephrine, lana-synephrine. On max ventilatory support.
Oliguric w a pickard.
Objective Data
-
Labs:
Laboratory Results
02/02/24 02/03/24 02/03/24
20:42 02:27 02:29
WBC 58.4 H*
Hgb 9.3 L
Hct 31.6 L
Plt Count 376
PT 15.6 H
INR 1.21
APTT 83.5 H 90.8 H
HCO3
Sodium 133 L
Potassium 5.5 H D
Chloride 93 L
Carbon Dioxide 31 H
BUN 43 H
Creatinine 1.4 H
Glucose 261 H
Calcium 8.2 L
Total Bilirubin 1.2
AST 38 H
ALT 32
Alkaline Phosphatase 63
02/03/24 02/03/24
03:18 07:30
WBC
Hgb
Hct
Plt Count
PT
INR
APTT
HCO3 30.2 H Pending
Sodium
Potassium
Chloride
Carbon Dioxide
BUN
Creatinine
Glucose
Calcium
Total Bilirubin
AST
ALT
Alkaline Phosphatase
Vital Signs:
Vital Signs
Temp Pulse Resp BP Pulse Ox
101 F H 102 24 100/56 87
02/03/24 06:00 02/03/24 06:30 02/03/24 06:30 02/03/24 06:30 02/03/24 04:00
I&O
02/02/24 02/03/24 02/04/24
06:59 06:59 06:59
Intake Total 4 / 2111 7450.5 / 7450.5
Output Total 720 / 720 1172 / 1172
Balance 1344 / 1391 6278.5 / 6278.5
Review of Systems
-
Unable to obtain full review of systems at this time due to: Patient Intubation
Physical Exam
-
General: Well Developed, Well Nourished, Respiratory Distress and Intubated
HEENT: Normocephalic, Atraumatic, Moist Mucous Membranes, Anicteric and Oxygen (ET tube)
Respiratory: Wheezes, Rhonchi and Decreased Breath Sounds
Cardiac: Regular Rhythm and S1/S2; Negative Murmur, Rub or Gallop
GI: Soft, Nontender, Nondistended and Other (hypoactive BS)
Musculoskeletal: No Clubbing, No Cyanosis and No Edema
[2024-02-03] MEDS: FLOVENT 110 MCG INHALER 4 PUFF INH ×2 (08:10→19:56)
--- NOTE | 2024-02-03 08:36 | CON.ID ---
Consultation
-
Date/Time Consultation Requested: 02/03/2024 0639
Date/Time Consultation Performed: 02/03/2024 0830
Requesting Provider: Alejandro
Performing Provider: Dr. Lozoya
Reason for Consultation: Sepsis
Chief Complaint / Past History
History of Present Illness
Alexandrea Levin is a 73-year-old female being evaluated regarding clinical sepsis. History is obtained from chart review alone as the patient is currently intubated.
The patient presented to [facility] on 01/21 secondary to abdominal discomfort. She subsequently was found to have a bowel obstruction and underwent an expiratory lap and lysis of adhesions on 01/26. Hospital course has been mitch with the
development of postop ileus. Last evening, she was found to have increasing shortness of breath and a marked elevation in her white count. Overnight she developed respiratory insufficiency requiring intubation.
Currently she is maxed out on 3 pressors.
Past History
Additional Past Medical History:
COPD (maintained on home O2, 3�5 L)
Bronchiectasis
CHF
CAD
DVT
Diverticulitis
GERD
Hx breast cancer
Dyslipidemia
Bipolar disease
Allergy History:
carbamazepine Allergy (Verified 01/22/24 12:12)
Hives, rash
chlorhexidine [From Hibiclens] Allergy (Verified 01/22/24 12:12)
Itching, rash, 'chemical burn'
ciprofloxacin [From Cipro] Allergy (Verified 01/22/24 12:12)
neuropathy after stopping it
doxycycline Allergy (Verified 01/22/24 12:12)
Rash
house dust Allergy (Verified 01/22/24 12:12)
Sneezing, eyes watery
Penicillins Allergy (Verified 01/22/24 12:12)
Hives as a child - tolerates ampicillin
Sulfa (Sulfonamide Antibiotics) Allergy (Verified 01/22/24 12:12)
Hives
venom-honey bee Allergy (Verified 01/22/24 12:12)
Rash
Review of Systems
Vital Signs
Temp Pulse Resp BP Pulse Ox
101.2 F H 113 22 100/56 100
02/03/24 08:33 02/03/24 08:28 02/03/24 08:28 02/03/24 06:30 02/03/24 08:29
Physical Exam
Lab / Diagnostic Study Results
02/03/24 02:29
02/03/24 02:27
Abs Immat Gran (auto) 0.1 10^3/uL (0-0.05) H 01/30/24 04:49
Absolute Neuts (auto) 10.6 10^3/uL (1.4-6.5) H 01/30/24 04:49
Absolute Lymphs (auto) 1.2 10^3/uL (1.2-3.4) 01/30/24 04:49
Absolute Monos (auto) 0.9 10^3/uL (0.1-0.6) H 01/30/24 04:49
Absolute Basos (auto) 0.0 10^3/uL (0-0.2) 01/30/24 04:49
Total Counted 100 02/03/24 02:29
Immature Gran % 1.0 % (0-0.5) H 01/30/24 04:49
Neutrophils % 82.3 % (42.2-75.2) H 01/30/24 04:49
Lymphocytes % 8.9 % (20.5-51.1) L 01/30/24 04:49
Monocytes % 7.2 % (1.7-9.3) 01/30/24 04:49
Eosinophils % 0.5 % (0-6) 01/30/24 04:49
Basophils % 0.1 % (0-2) 01/30/24 04:49
Abs Neuts (Manual) 51.9 10^3/uL (1.4-6.5) H 02/03/24 02:29
Segmented Neutrophils 46 % (42-75) 02/03/24 02:29
Band Neutrophils 43 % (0-3) H 02/03/24 02:29
Lymphocytes (Manual) 5 % (20-51) L 02/03/24 02:29
PT 15.6 Sec (11.4-14.6) H 02/02/24 20:42
INR 1.21 02/02/24 20:42
Lactic Acid 1.6 mmol/L (0.7-2.0) 02/02/24 05:31
Procalcitonin 20.31 ng/ml (0.0-0.25) H* 02/03/24 03:58
Ur Squamous Epith Cells 0-2 /LPF (Few) 01/31/24 15:53
Microbiology Results
Micro:
02/03/24 01:25 Blood Culture - Pending
Blood/Venous
02/02/24 14:15 Respiratory Culture - Pending
Tracheal Aspirate Gram Stain - Preliminary
01/31/24 15:53 Urine Culture - Preliminary
Urine Gram negative bacilli
02/02/24 05:30 Influenza Types A & B (CM) - Final
Nasal Swab Negative for Influenza A & B, NAAT
Negative results must be combined with clinical observations
and patient history.
Nucleic Acid Amplification test (NAAT)performed on the
[employer] platform.
01/22/24 16:44 Urine Culture - Final
Urine Enterococcus faecium
01/23/24 01:03 MRSA Screen - Final
Nose No Methicillin Resistant Staphylococcus aureus isolated.
Assessment / Plan
Septic shock
Leukocytosis
Fever
POD #6 s/p exp lap/ALESSANDRA for SBO
ABIGAIL
Elevated Pro-Duay
Suspected aspiration pneumonia
COPD (maintained on home O2, 3�5 L)
Bronchiectasis
CHF
CAD
DVT
Diverticulitis
GERD
Hx breast cancer
Dyslipidemia
Bipolar disease
Recommendations:
Patient currently maxed on 3 pressors. Overall prognosis appears exceedingly dismal.
Continue with empiric Zosyn and vancomycin.
Further methenamine can be discontinued
Continue with pressor therapy to maintain MAP greater than 65
Await blood culture and respiratory culture. Urine culture currently with GNR's; await ID and susceptibilities
Patient currently critically ill in ICU. Risk of worsening morbidity and mortality very high.
[2024-02-03] MEDS: THIAMINE INJECTION 100 MG IV (08:49)
[2024-02-03] MEDS: PROTONIX IV 40 MG IV (08:49)
[2024-02-03] MEDS: LAMICTAL PO (08:50)
[2024-02-03] MEDS: MIRALAX TUBE (08:50)
[2024-02-03] MEDS: LASIX PO (08:50)
[2024-02-03] MEDS: ROBITUSSIN PO (08:50)
[2024-02-03] MEDS: COREG PO (08:50)
[2024-02-03] MEDS: NSS (PRESERVATIVE FREE) 10 ML IV (08:50)
[2024-02-03] MEDS: DESENEX/MITRAZOL/ZEASORB TOPICAL (08:50)
[2024-02-03] MEDS: NEURONTIN PO (08:50)
[2024-02-03] MEDS: WELLBUTRIN REGULAR RELEASE PO (08:51)
[2024-02-03] MEDS: VITAMIN D3 (cholecalciferol) PO (08:51)
--- NOTE | 2024-02-03 09:00 | PTCARENOTE ---
sedated on vent , max vasopressor support , goal of map > 65 , neosynephrine 300mcg , norepinephrine 30mcg and vasopressin 0.04 , on AC on vent with 90% fio2 sats are 92% , labs noted , WBC up to 58.4 , creatinine 1.4 , from 0.6 , low urine output ,
consult for ID , awaiting for sputum and blood cultures , Dr Campos spoke to patients daugher in law regarding goals of care and pts status , family attempting to locate living will , pt is a resident of [facility]
[2024-02-03] MEDS: PITRESSIN 100 IV ×2 (09:59→18:13)
--- NOTE | 2024-02-03 10:57 | PHA.VAN.IN ---
Assessment
- Assessment
Renal Function: Appears elevated from baseline
Renal Function may be Overestimated due to: Obesity. BMI = 39
Maximum Temperature: 101.2
Minimum Temperature: 98
Concomitant Antimicrobials: Piperacillin-tazobactam
- Previous Dosing Experience
Previous Regimen: Vanc 1250mg q12
Date of Regimen: 06/30/23
Provided Trough of: DCED before levels obtained
Provided AUC of: DCED before levels obtained
Patient's SCR is: Elevated compared to previous dosing experience
Patient's weight is: Similar to previous dosing experience
Plan
- Plan
Initial / Loading Dose: Vanc 2000mg given 02/02 at 0419
Maintenance Regimen: Dose by level
Monitoring: Random level in AM
Pharmacokinetics Vancomycin I
- -
Patient Age: 73
Patient Sex: Female
Vancomycin Day #: 1
Indication: Other
Requesting Provider: Faith
Pertinent Antimicrobial Allergies:
PCN = hives as child, tolerates ampicillin; Sulfa = hives; Doxycycline = rash
Height / Weight:
Height 5 ft 4 in
Actual Weight 103.2 kg
IBW in k.7
Adjusted BW in k.1
Pertinent Past Medical History: BMI = 39; ABIGAIL; s/p exp lap/ALESSANDRA for SBO
- Vital Signs / Lab Results
Temp Pulse Resp BP Pulse Ox
101.2 F H 113 22 100/56 100
02/03/24 08:33 02/03/24 08:28 02/03/24 08:28 02/03/24 06:30 02/03/24 08:29
Lab Results - Hematology
01/31/24 02/01/24 02/02/24
06:14 04:47
WBC 14.1 H 15.0 H 21.9 H
Band Neutrophils
02/03/24
02:29
WBC 58.4 H*
Band Neutrophils 43 H
Lab Results - Chemistry
02/01/24 02/02/24 02/03/24
06:14 04:47 02:27
BUN 20 H 20 H 43 H
Creatinine 0.6 0.6 1.4 H
Estimated Creat Clear 95 95 41
Albumin 2.4 L 2.4 L
02/02/24
05:31
Lactic Acid 1.6
Lab Results - Urine
01/31/24
15:53
Urine Nitrite (Reflex) Positive A
Leukocyte Esterase Rfl 1+ A
Urine WBC (Reflex) 3-5
Ur Squamous Epith Cells 0-2
Urine Bacteria (Reflex) Few A
Microbiology Results
01/31/24 15:53 Urine Culture - Preliminary
Urine Gram negative bacilli
02/02/24 14:15 Respiratory Culture - Preliminary
Tracheal Aspirate Gram Stain - Preliminary
02/02/24 05:30 Influenza Types A & B (CM) - Final
Nasal Swab Negative for Influenza A & B, NAAT
Negative results must be combined with clinical observations
and patient history.
Nucleic Acid Amplification test (NAAT)performed on the
[employer] platform.
[2024-02-03] MEDS: HIPREX PO (11:15)
[2024-02-03] MEDS: HEPARIN 25000 UNITS/250 ML IV (11:23)
--- NOTE | 2024-02-03 11:30 | W.PN.GS2 ---
Today's Communication / Plan
-
TPN
Assessment / Plan
-
Patient is a 73 yo F with a history of DVT/PE on Xarelto with LD on 01/19, HF, bronchiectasis on chronic O2, diverticulitis with perforation of bowel and emergent total colectomy and ileostomy creation in 2008 with subsequent reversal at [facility] in
2012 (?VHR repair with mesh at the time), chronic diarrhea and a prior SBO in July of this year which resolved without surgical intervention who presents with symptoms of nausea, vomiting and abdominal pain since 01/19.
POD#7 s/p exploratory laparotomy, extensive ALESSANDRA
New tachycardia and tachypnea, cuff pressures on calf are likely inaccurate
Leukocytosis present, possibly related to steroids. Trending up. Urine cx pending with >100K CFU GNR.
Acute postoperative anemia likely secondary to blood loss during surgery and hemodilution, compounded by supratherapeutic anticoagulation. Will monitor closely for bleeding. Drain appears bloody but remains low volume and Hb trending up.
tolerating clears, +flatus/stools
02/01 - inubated after suspected aspration event, now maxed on 3 pressors
Plan:
-- Wean vent/pressors as val[place]
-- Can remove abd binder if needed to help pulmonary status
-- Continue TPN, thiamine daily x5 days
-- Pain control: Tylenol, Toradol, Tramadol, and Dilaudid
-- Trend labs, H/H
-- On therapeutic AC with supratherapeutic aPTT, may need to hold if h/h continues to drop
-- OOB/ambulate as able
Subjective Data
-
Date of Service: February 03, 2024
Intubated yesterday after suspected aspiration event, currently sedated and maxed on 3 pressors
Objective Data
-
Intake and Output
02/02/24 02/03/24 02/04/24
06:59 06:59 06:59
Intake Total 2063 / 2110 7450.5 / 7450.5
Output Total 720 / 720 1172 / 1172
Balance 1344 / 1391 6278.5 / 6278.5
Intake:
Oral fluids 1080 / 1080 100 / 100
IV fluids (Total) 5159.5 / 5159.5
LR bolus 1000 / 1000
Lr 1,000 ml @ 100 mls/hr IV . 1300 / 1300
Q10H CARLINE Rx#:[id number]
fentanyl 87.5 / 87.5
heparin gtt 275 / 275
lana double conc 354 / 354
norepinephrine 1315.0 / 1315.0
nss bolus 500 / 500
propofol 112 / 112
vasopressin 216 / 216
IV piggybacks 540 / 540 800 / 800
TPN/PPN 444 / 482 1331 / 1331
Amount instilled into GI Tube ( 60 / 60
Total)
Bibb Sump 60 / 60
Output:
Drain Output (Total) 120 / 120
Right Lower Abdomen Luiz- 120 / 120
[place]
Gastrointestinal tube output ( 700 / 700
Total)
Bibb Sump 700 / 700
Urine, Harris 460 / 460
Urine, Voided 600 / 600
Other:
Number of approximated MODERATE 1
amounts of urine
How many times incontinent 1
MODERATE amount urine
How many times incontinent 2
SATURATED amount urine
Vital Signs
Temp Pulse Resp BP Pulse Ox
101.2 F H 113 22 100/56 100
02/03/24 08:33 02/03/24 08:28 02/03/24 08:28 02/03/24 06:30 02/03/24 08:29
Lab Results
02/03/24 02:29
Calcium 8.2 mg/dl (8.4-10.2) L 02/03/24 02:27
Phosphorus 6.3 mg/dl (2.5-4.5) H 02/03/24 02:
Magnesium 1.8 mg/dl (1.6-2.3) 02/03/24 02:
Total Bilirubin 1.2 mg/dl (0.2-1.3) 02/03/24 02:
Direct Bilirubin 0.3 mg/dl (0.0-0.4) 01/29/24 05:37
AST 38 U/L (14-36) H 02/03/24 02:27
ALT 32 U/L (0-35) 02/03/24 02:27
Alkaline Phosphatase 63 U/L (38-126) 02/03/24 02:
Total Protein 4.8 g/dl (6.3-8.2) L 02/03/24 02:
Albumin 2.4 g/dl (3.5-5.0) L 02/03/24 02:27
Physical Exam
-
Gen: intubated/sedated
Abd: soft, incision cdi, unable to appreciate tenderness
[2024-02-03] MEDS: NOVOLOG FLEXPEN-LOW RESISTANCE SC ×3 (12:25→23:08)
[2024-02-03 12:36] LABS: Glucose - Point of Care 125 mg/dl (70-99)
[2024-02-03 12:52] LABS: Blood Urea Nitrogen 48 mg/dl (7-17); Calcium 7.1 mg/dl (8.4-10.2); Carbon Dioxide 29 mmol/L (22-30); Chloride 97 mmol/L (98-107); Estimated Creatinine Clearance 36 ml/min; Glucose 114 mg/dl (70-99); Potassium 5.9 mmol/L (3.5-5.1); Sodium 132 mmol/L (135-145); eGFR 33.63
--- NOTE | 2024-02-03 13:00 | PTCARENOTE ---
pt daughter in law at bedside , updated on patients condition , no change since this am , awaiting for repeat chemistry results , Dr Campos here and spoke to them in person , emotional support provided , pastoral care consulted as per family
request
[2024-02-03] MEDS: NSS 1000 IV ×2 (13:34→23:08)
[2024-02-03] MEDS: ZOSYN 50 IV ×3 (13:35→23:09)
--- NOTE | 2024-02-03 13:37 | CM ---
Addendum entered by PEGGY Sosa 02/03/24 13:45:
copy of advanced directive on chart.
Original Note:
Chart read, called Special care RN at [facility] to ask about getting copy of patient's living will/advanced directive. Special care nurse said she had talked to Radha and provided her with copy. MEt Radha and volunteer armament installer of who knows
patient in her room. Radha has advanced directive which after she reads she will give to Rn to put on chart.
[2024-02-03] MEDS: LR IV (13:57)
[2024-02-03] MEDS: ZOSYN IV (13:58)
[2024-02-03] MEDS: CALCIUM GLUCONATE 1000 MG IV (14:52)
[2024-02-03] MEDS: NOVOLIN R 5 UNITS IV (14:53)
[2024-02-03] MEDS: DEXTROSE 50% SYRINGE 25 GRAMS IV (14:54)
[2024-02-03] MEDS: SUBLIMAZE 50 MCG IV (15:16)
--- NOTE | 2024-02-03 17:12 | PTCARENOTE ---
repeat potassium 5.9 , continuing to hold todays TPN , pt had 5 units of IV insulin , 1000 mg of calcium gluconate and 25 grams of IV dextrose , pts next TPN due is ordered without potassium , pt temp up to 102.8 , urine output poor 70ml for shift
[2024-02-03 17:55] LABS: Glucose - Point of Care 134 mg/dl (70-99)
[2024-02-03 18:56] LABS: Glucose - Point of Care 132 mg/dl (70-99)
--- NOTE | 2024-02-03 19:05 | PTCARENOTE ---
ofirmev 1 gm iv given for temp
[2024-02-03] MEDS: DESENEX/MITRAZOL/ZEASORB 1 APPLIC TOPICAL (19:38)
--- NOTE | 2024-02-03 20:00 | PTCARENOTE ---
Rec'd pt w/ wrists restrained for pt safety, diprivan gtt at 10mic, fent gtt at 50mic, MARIO at 3mm, sluggish, SR w/ BBB , ocas pacs, to keep MAP > 65, levo at 30 elyse, vasopressin at 0.04 units, lana at 180 elyse- see flow sheet for titrations, weak
pulses, + anasarca, extremities cool, #8 oral ett- 23 cm - moved to R side, ac 24, tv 450, 10 peep, fio2 decr to 80% by resp therapist, sat 99-100, lungs coarse, decr, percussion done, abscent bowel sounds, abd obese, round, R salem to low inter
suction drainng brown liquid,irrigated q 4hr w/ 30nss, thermister pickard w/ scant urine output- B Carlene, [employer] aware
[2024-02-03 21:32] LABS: Glucose - Point of Care 118 mg/dl (70-99)
--- NOTE | 2024-02-03 22:15 | PTCARENOTE ---
Aleja Concepcion NP aware of no urine output, no orders at this time
--- NOTE | 2024-02-03 22:42 | PTCARENOTE ---
Christian clifford inserted by Aleja Concepcion NP
[2024-02-03 23:09] LABS: B.E. -7.2 mmol/L; HCO3 20.1 mmol/L (21-28); O2 Saturation % 99.1 % (94-98); PCO2 48 mmHg (32-35); PO2 127 mmHg (83-108); pH 7.23 (7.35-7.45)
[2024-02-03 23:10] LABS: Glucose - Point of Care 104 mg/dl (70-99)
--- NOTE | 2024-02-03 23:36 | PTCARENOTE ---
sys reviewed, changes noted, venessa very difficult to draw blood back from, using cuff bp for titration of gtts, Aleja Concepcion NP aware of abg results, fio2 decr to 70% by resp therapist
[2024-02-04] VITALS (74 sets, daily range): BP systolic 89–186; BP diastolic 20–95; BMI 41.8
[2024-02-04] MEDS: OFIRMEV 100 IV ×4 (00:52→22:14)
[2024-02-04] MEDS: DIPRIVAN 100 IV (00:53)
--- NOTE | 2024-02-04 00:54 | PTCARENOTE ---
ofirmev 1 gm iv given for temp
--- NOTE | 2024-02-04 00:56 | W.PN.UPDATE ---
Addendum entered and electronically signed by ARIANNA Mansfield 02/04/24 04:16:
Hyperkalemia K= 7.0. �Patient given D50 and insulin, sodium bicarbonate, calcium gluconate. Repeat BMP at 0600.
Original Note:
Update Note
Progress Note Update
Procedure Note: Arterial Line�
� Right Wrist Arrow 20 (1 04/12)�
Diagnosis:��Septic shock
IV Line Comments: Uneventful Procedure�
Jamal's test completed pre-procedure: Yes�
A-Line Comments: Sterile technique as per standard protocol, Ultrasound guided insertion�
Functioning A-line in situ: Yes�
A-line Insertion Start Time:�1015�
A-line in at:�1030�
[2024-02-04] MEDS: PITRESSIN 100 IV ×3 (01:55→17:11)
[2024-02-04 03:30] LABS: Hematocrit 30.6 % (37.0-47.0); Hemoglobin 8.9 g/dL (12.0-16.0); Mean Corp Hgb Conc. 29.1 g/dL (33.0-37.0); Mean Corpuscular Hgb 28.3 pg (27.0-31.0); Mean Corpuscular Volume 97.5 fL (81.0-99.0); Mean Platelet Volume 9.9 fL (7.4-10.4); Platelet Count 285 10^3/uL (130-400); Red Blood Cell Count 3.14 10^6/uL (4.20-5.40); Red Cell Dist. Width 15.9 % (11.5-14.5); White Blood Cell Count 40.6 10^3/uL (4.8-10.8)
[2024-02-04 03:32] LABS: B.E. -10.2 mmol/L; HCO3 17.2 mmol/L (21-28); PCO2 44 mmHg (32-35); PO2 109 mmHg (83-108)
[2024-02-04] MEDS: HEPARIN 25000 UNITS/250 ML IV ×2 (03:34→16:56)
[2024-02-04 03:44] LABS: APTT 60.8 Sec (23.4-35.0)
[2024-02-04 03:52] LABS: Blood Urea Nitrogen 60 mg/dl (7-17); Carbon Dioxide 20 mmol/L (22-30); Chloride 93 mmol/L (98-107); Estimated Creatinine Clearance 20 ml/min; Glucose 95 mg/dl (70-99); Magnesium 1.7 mg/dl (1.6-2.3); Phosphorus 8.7 mg/dl (2.5-4.5); Sodium 129 mmol/L (135-145); eGFR 16.48
[2024-02-04 03:53] LABS: Vancomycin Random 18.9 ug/ml
--- NOTE | 2024-02-04 04:00 | PTCARENOTE ---
sys david, Aleja Concepcion NP aware of abg, chemistry & cbc results; ett repos on left side at 23 cm, percussion done, CHG bath done,,linens changed
0415- ac incr to 28, fio2 decr to 60%, 10 units reg insulin IV and 1 am d50 IV & 1 amp sodium bicarb IV given per order, hep gtt incr to 1700 units per protocal
[2024-02-04] MEDS: NOVOLIN R 10 UNITS IV ×2 (04:06→22:50)
[2024-02-04] MEDS: DEXTROSE 50% SYRINGE 25 GRAMS IV ×2 (04:08→22:41)
[2024-02-04] MEDS: SODIUM BICARBONATE 50 MEQ IV (04:08)
[2024-02-04] MEDS: LEVOPHED 258 MG IV ×4 (04:19→18:29)
[2024-02-04] MEDS: CALCIUM GLUCONATE 130 MG IV (04:38)
--- NOTE | 2024-02-04 04:38 | PTCARENOTE ---
3 gm sergey gluconate hung over 1 hr per order
[2024-02-04] MEDS: ZOSYN 50 IV (05:02)
[2024-02-04] MEDS: SOLU-CORTEF 50 MG IV ×4 (05:02→23:05)
[2024-02-04 05:10] LABS: Glucose - Point of Care 161 mg/dl (70-99)
[2024-02-04] MEDS: NSS IV (05:46)
[2024-02-04] MEDS: NEO-SYNEPHRINE 1% 260 MG IV (05:46)
[2024-02-04] MEDS: NOVOLOG FLEXPEN-LOW RESISTANCE SC ×3 (05:56→17:40)
[2024-02-04 06:05] LABS: Glucose - Point of Care 126 mg/dl (70-99)
[2024-02-04 06:40] LABS: Blood Urea Nitrogen 57 mg/dl (7-17); Calcium 6.8 mg/dl (8.4-10.2); Carbon Dioxide 17 mmol/L (22-30); Chloride 97 mmol/L (98-107); Estimated Creatinine Clearance 24 ml/min; Glucose 124 mg/dl (70-99); Potassium 6.2 mmol/L (3.5-5.1); Sodium 131 mmol/L (135-145); eGFR 19.69
--- NOTE | 2024-02-04 06:40 | PTCARENOTE ---
BdNUZHAT carlos notified of calcium & K results, order to repeat lab at 0800
[2024-02-04] MEDS: MIRALAX TUBE (07:26)
[2024-02-04] MEDS: MAGNESIUM SULFATE 100 IV ×2 (07:29→23:36)
[2024-02-04] MEDS: NSS (PRESERVATIVE FREE) 10 ML IV (07:30)
[2024-02-04] MEDS: PROTONIX IV 40 MG IV (07:30)
[2024-02-04] MEDS: THIAMINE INJECTION 100 MG IV (07:30)
[2024-02-04] MEDS: DESENEX/MITRAZOL/ZEASORB 1 APPLIC TOPICAL ×2 (07:34→19:36)
[2024-02-04] MEDS: FLOVENT 110 MCG INHALER 4 PUFF INH ×2 (07:35→20:22)
--- NOTE | 2024-02-04 07:35 | W.PN.HOSP.TC ---
Today's Communication/Plan
-
.
Assessment / Plan
Assessment / Plan
Ms. Alexandrea Levin is a 73yo F pmh HFpEF, chronic respiratory failure, bipolar disorder, hypothyroidism admitted for SBO.
Sbo with transition point
-S/p ex lap with extensive lysis of adhesions on 01/27/2024
-Started on CLD, follow surgery recs on advancing
-Concern for ilieus
- TPN x5 days per surgery - day 3
-IVF
-Surgery following
-Incentive shay
Acute hypoxic respiratory distress
Septic shock
Leukocytosis
- intubated, on max ventilatory support
- maxed on 3 vasopressors
- CXR - b/l costophrenic angle blunting, decreased congestion
- abg improving
Oliguria
- pickard
Anemia
-stable
-follow cbc
Chronic HFpEF
-Hold lasix
-Euvolemic
Chronic respiratory failure
-maintain spo2 of between 88-92%
-continue mdi's
Bipolar Disorder
-Resumed Abilify, Lamictal and Wellbutrin
-Resume Klonopin prn as prior to admission
- prn ativan as needed for agitation
Hx DVT/PE
-Hold Xarelto should patient require intervention for bowel obstruction for at least 48 to 72 hours postoperatively
-Not sure how well she is absorbing, therefore, on heparin
Diet: NPO
DVT ppx: heparin
Code status: FULL CODE
Anticipated Discharge: > 48 hours
Subjective/Interval History
-
Date of Service: February 04, 2024
Ms. Alexandrea Levin is a 73yo F pmh HFpEF, chronic respiratory failure, bipolar disorder, hypothyroidism admitted for SBO. R radial A-line inserted last night. Hyperkalemic overnight, treated with D5W and insulin.
Objective Data
-
Labs:
Laboratory Results
02/03/24 02/04/24 02/04/24
23:03 03:18 03:27
WBC 40.6 H*
Hgb 8.9 L
Hct 30.6 L
Plt Count 285 D
APTT 60.8 H
HCO3 20.1 L 17.2 L
Sodium 129 L
Potassium 7.0 H*
Chloride 93 L
Carbon Dioxide 20 L
BUN 60 H
Creatinine 2.9 H
Glucose 95
Calcium 7.0 L
02/04/24 02/04/24 02/04/24
04:59 08:00 10:00
WBC
Hgb
Hct
Plt Count
APTT Pending
HCO3
Sodium 131 L Pending
Potassium 6.2 H* Pending
Chloride 97 L Pending
Carbon Dioxide 17 L Pending
BUN 57 H Pending
Creatinine 2.5 H Pending
Glucose 124 H Pending
Calcium 6.8 L* Pending
Vital Signs:
Vital Signs
Temp Pulse Resp BP Pulse Ox
101.4 F H 97 28 129/68 100
02/04/24 04:00 02/04/24 06:00 02/04/24 06:00 02/04/24 06:00 02/04/24 06:00
I&O
02/03/24 02/04/24 02/05/24
06:59 06:59 06:59
Intake Total 7450.5 / 7737.8 6049.2 / 6049.2
Output Total 1172 / 1172 340 / 340
Balance 6278.5 / 6565.8 5709.2 / 5709.2
Review of Systems
-
Unable to obtain full review of systems at this time due to: Patient Intubation
Physical Exam
-
General: Well Developed, Well Nourished and Morbidly Obese
HEENT: Normocephalic, Atraumatic, Moist Mucous Membranes and Oxygen (ET tube)
Respiratory: Wheezes and Rhonchi
Cardiac: S1/S2 and Irregular Rhythm
GI: Soft, Nontender, Nondistended, Normal Bowel Sounds and Other (LAYLA drain)
Genito-urinary: Pickard
Musculoskeletal: No Clubbing, No Cyanosis and No Edema
Skin: Warm and Dry
--- NOTE | 2024-02-04 08:15 | PTCARENOTE ---
Received patient from awake overnight counselor. Patient is intubated and sedated. Sedation is minimal, propofol at 5mcg/kg and Fentanyl gtt at 25. Patient did move her right arm during time of assessment but remains mostly somnolent/sedate. Pupils are
sluggish at 3mm. Oxygen saturation is 100% on AC settings 28/450/10/50%. minimal ETT secretions, mouth care completed, minimal gag reflex. Patient is in a sinus rhythm/sinus tach on monitor. right radial Alize pressure with MAP>65, LUE manual
cuff correlating. Remains on Rodney/Levo/Vaso gtt as charted in worklist. Patient has right salem sump to low intermittent wall suction, greenish drainage, nothing to be administered through tube per order. Patient's abdomen is obese, midline
incision with LAYLA drain. skin to left of incision is ecchymotic. Patient has a pickard catheter with minimal urine output, 12cc from [id number]. SCDs are on and patient is on heparin gtt at 1700 units/hr. PTT at 1000. Order for Magnesium repletion
obtained, administered. Patient's contact, Luis called this morning for any further updates. Will continue to turn and reposition while maintaining safe environment.
--- NOTE | 2024-02-04 08:19 | W.PN.INTV ---
Today's Communication / Plan
Recommendations
Continue with antibiotics per ID, switched to meropenem
TPN remains on hold, can resume without potassium. Will discuss with surgery
May require Lasix therapy. Nephrology now following
Continue with heparin drip
Wean pressors as able
Echocardiogram today
Continue with following electrolytes, treat hyperkalemia
Assessment
-
73-year-old female with a history of COPD, bronchiectasis, CAD, CHF, DVT and pulmonary embolism on Xarelto who presented with small bowel obstruction likely requiring surgery-pulmonary consulted for preoperative clearance and pulmonary management in
the perioperative period-01/25/2024-did well postoperatively and developed fairly sudden shortness of breath and transferred to ICU 01/29/2024 responding to NIV and Lasix.
VDRF, Intubated 02/02/2024
Aspiration pneumonitis, transferred to ICU 02/01
Small bowel obstruction
Status post exploratory laparotomy and extensive lysis of cbektckxk-5-1/2 hours-Dr. Alaniz 01/28/2024
COPD without acute exacerbation
Chronic hypercapnia
Chronic heart failure preserved EF
Leukocytosis
Anemia
Ileus suspected
Conditions present prior to admission:
COPD-followed by Dr. Boyd-maintained on Trelegy, 3% sodium chloride nebulizer twice daily, prednisone 10 mg Tvdenv-Cltyztcai-Qguebk
Bronchiectasis.
Previous sputum cultures-Serratia 09/22/2023, Pseudomonas multiphilia 07/15/2023 sensitive to Bactrim and levofloxacin
Former sistob-73-srks-year quit 1998
Cough variant asthma
Chronic cough
Restrictive lung disease
Vocal cord paralysis
DVT/PE-saddle
IVC filter
1/3 sputum culture positive AFB May 2023-does not meet criteria for OLIVIA-Mycobacterium fortuitum culture 10/09/2021
History of [id number] cytology negative
Chronic lower extremity lymphedema.
Bipolar.
Hypothyroid.
Breast cancer.
Heart failure preserved EF.
CAD.
Previous obstructive sleep apnea
Obesity
Left mastectomy. Cholecystectomy. Left shoulder surgery. Bilateral total knee.
Plan/Recs
At this time, patient remains critically ill, on 3 pressors
Required intubation mechanical ventilation 02/01
Hyperkalemia this morning noted, treated with IV bicarbonate, insulin, D50
urine output poor, creatinine rising
NG tube output has decreased, 200
LAYLA drain output 118 cc
Elevated airway pressures on volume-cycled ventilation
Moving forward
Continue with volume-cycled ventilation
AC 24/450/10/60%
Ppk 39, Pplat 33
Chest x-ray with persistent bilateral infiltrate but improvement of the left side noted
Continue with broad-spectrum antibiotics, remains on Zosyn/vancomycin
Daily chest x-ray
Continue with sedation, fentanyl/propofol
Decreased PEEP. Patient with decreased pulmonary compliance
Will have to except a component of acidemia
Hyperkalemia noted, creatinine elevated to 2.9
Urine output has decreased
Continue with normal saline
TPN remains on hold, if would like to continue, would like to remove potassium. Surgery notified
Fluid boluses as able
Continue to monitor urine output
May require nephrology evaluation
Hypotension likely secondary to underlying sepsis, aspiration pneumonitis
Chronically on Prednisone 10 mg Bfjomw-Zozzymiap-Kyfkqw-changed to Solu-Medrol 20 mg daily-while she was n.p.o.
Transition to stress dose steroids with hydrocortisone 02/01. This will continue
Airway pressures currently more consistent with decreased compliance as opposed to airways resistance
Continue Flovent for now
EKG with right bundle branch block, tachycardia
Echocardiogram 06/29/23 with EF 50%, normal RV size and function, right heart pressures cannot be determined
Will order echocardiogram 02/03
Currently remains on norepinephrine, Rodney-Synephrine, vasopressin
Lasix has been held but may require with worsening renal function. Will defer to nephrology
Monitor electrolytes
Aspiration suspected
Empiric antibiotics-Zosyn initiated 02/01/2024, vancomycin.
Renal adjustment
Positive blood culture, positive urine culture noted
Abx changed to Meropenem
ID following
Surgery following
OR 01/27/2024-extensive lysis of adhesions
Nasogastric tube remains in place
Xarelto on hold, currently on heparin therapy
Remains on Protonix
DVT prophylaxis-on Xarelto as outpatient for history of DVT/saddle embolism. IVC filter in place. Patient remains on heparin therapy.
GI prophylaxis-on pantoprazole
On TPN for nutrition. Will hold given hyperkalemia
Updated Radha (DIL) by phone. She has been trying to contact son without success. She has been able to identify recent will and is awaiting contact by patient supervisor [employer] to confirm it is up-to-date. Case management is involved
All questions answered
We will continue with updates as able
Critical care statement: A total of 37 minutes of critical care time was provided for this patient today. This includes management of unstable vital signs, evaluation of the patient at bedside, reviewing the patient's pertinent medical records
including radiographs, management of respiratory failure, noninvasive ventilation management, microbiology, laboratory evaluations, and discussion with primary team, consultants, pharmacy, nutrition, physical therapy, case management, charge nurse,
critical care nursing, and respiratory therapy.
Diagnostic data:
Chest x-ray 04/14/2023-stable pleural-parenchymal scarring, no other abnormalities
Chest x-ray 09/01/2023-NAD, stable pleural-parenchymal scarring lower portions of both lungs
Obstruction series 01/25/2024-no evidence for free intraperitoneal air, highly suggestive of small bowel obstruction
CT chest/-bilateral lower lobe parenchymal opacifications and bronchiectasis
CT abdomen and pelvis 01/22/2024-left breast implant, small collapsed right breast implant, soft tissue density likely mucous plugging right lower lobe with some atelectasis, small bowel obstruction
Echocardiogram 06/29/2023-EF 50%, no valvular disease
Pulmonary function studies-10/14/23: Spirometry demonstrated moderate restrictive lung disease.The forced vital capacity was 1.39 L or 49% of predicted.� The FEV1 was 1.11 L or 52% of predicted.� The FEV1/FVC ratio was 80%.
She cough throughout the study and was unable to exhale for 6 seconds.� Saturation dropped to 86% on room air and no further testing was done. Saturation returned to 93% on 3 L.
Compared to 12/2022, the forced vital capacity has declined from 1.47 L to 1.39 L.� The FEV1 was unchanged.
Sleep uybhl-[id number]: AHI of 10.9 with oxyhemoglobin desaturation betsy of 85%. With 4 cm CPAP H2O
pressure the AHI was reduced to one event per hour and he oxyhemoglobin desaturation betsy improved to 92%.
Sleep study-08/13/14: AHI was 23.4 with oxyhemoglobin desaturation betsy of 64%.
At home sleep study-01/09/18: Respiratory event index 0.2 events per hour. Lowest saturation 89%. Percentage of the study time spent with a saturation below 90% was 0.1%.
Home sleep study-09/10/23: AHI 0.4 events per hour.� Saturation betsy 90%.
Subjective Dataa
Subjective Data
Date of Service:
Date of Service: February 04, 2024
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
Subjective:
Patient remains critically ill. Remains on 3 pressors, persistent fevers noted. Urine output remains poor, creatinine rising. Has been off TPN.
Objective Data
Data Reviewed
Vital Signs / I&O / Oxygen:
Vital Signs
Temp Pulse Resp BP Pulse Ox
101.4 F H 94 28 146/62 100
02/04/24 08:00 02/04/24 07:46 02/04/24 07:46 02/04/24 07:30 02/04/24 08:00
Intake and Output
02/03/24 02/04/24 02/05/24
06:59 06:59 06:59
Intake Total 7450.5 / 7737.8 6049.2 / 6255.0 308.6 / 308.6
Output Total 1172 / 1172 340 / 340 72 / 72
Balance 6278.5 / 6565.8 5709.2 / 5915.0 236.6 / 236.6
SaO2 [NIV (Non Invasive 84
Ventilation)]
SaO2 [CPAP/PSV] 96
SaO2 [A/C] 100
SaO2 98
Nasal Cannula flow liters per 4
minute
Physical Exam
General: Comfortable (Sedated) and Other (Right upper extremity PICC, abdominal LAYLA drain)
HEENT: Normocephalic, Anicteric and Other (pupils reactive)
Cardiovascular: S1-S2, Regular Rhythm, Murmur (n), Rub (n), Peripheral Edema (negative) and Cool Extremities (Mild mottling, lower extremities)
Respiratory: Wheeze (negative), Crackles (negative), Rhonchi (negative), Non-Labored Respirations, Stridor (n) and ET Tube (Mechanical breath sounds heard bilaterally)
GI: Soft, Non Distended, Non Tender and Other (Abdominal dressing in place, LAYLA drain in place)
Neurology: Unresponsive (Sedated) and Lethargic
Skin: Good Color (Mild peripheral mottling, poor capillary refill), Cyanosis (negative) and Jaundice (negative)
Labs/Micro/Reports
Lab Data
02/04/24 03:18
Laboratory Results
02/03/24 02/03/24 02/04/24
07:30 23:03 03:18
APTT 60.8 H
pH Cancelled 7.23 L
pCO2 Cancelled 48 H
pO2 Cancelled 127 H
HCO3 Cancelled 20.1 L
O2 Delivery Level Cancelled
02/04/24
03:27
APTT
pH 7.20 L
pCO2 44 H
pO2 109 H
HCO3 17.2 L
O2 Delivery Level
Microbiology
02/03/24 01:25 Blood/Venous Blood Culture - Preliminary
Positive culture in progress
02/03/24 01:25 Blood/Venous Gram Stain - Preliminary
01/31/24 15:53 Urine Urine Culture - Final
Serratia marcescens
02/02/24 14:15 Tracheal Aspirate Respiratory Culture - Preliminary
02/02/24 14:15 Tracheal Aspirate Gram Stain - Preliminary
02/02/24 05:30 Nasal Swab Influenza Types A & B (CM) - Final
Negative for Influenza A & B, NAAT
Negative results must be combined with clinical observations
and patient history.
Nucleic Acid Amplification test (NAAT)performed on the
Open[employer] platform.
[2024-02-04 08:30] LABS: Glucose - Point of Care 124 mg/dl (70-99)
[2024-02-04] MEDS: SUBLIMAZE 100 IV (08:38)
--- NOTE | 2024-02-04 09:26 | W.PN.ID1 ---
Date of Service
Date of Service: February 04, 2024
Today's Communication
Transition Zosyn to meropenem. Discontinue vancomycin
Assessment / Plan
Septic shock
Leukocytosis
Fever
POD #7 s/p exp lap/ALESSANDRA for SBO
ABIGAIL
Elevated Pro-Uday
Suspected aspiration pneumonia
COPD (maintained on home O2, 3�5 L)
Bronchiectasis
CHF
CAD
DVT
Diverticulitis
GERD
Hx breast cancer
Dyslipidemia
Bipolar disease
Recommendations:
Patient remains on 3 pressors, although currently being weaned.
Blood cultures now noted to be positive for gram-negative rods.
Serratia recovered from the urine.
Transition antibiotics to empiric meropenem for the time being. Discontinue further vancomycin.
Patient currently critically ill in ICU. Risk of worsening morbidity and mortality very high.
����������������������������������������������������������
Chief Complaint
-: Fever, Leukocytosis, Clinical Sepsis and Bacteremia
Subjective / Review of Systems
Patient seen and examined. Chart reviewed. Fevers ongoing. Pressor requirements somewhat lessened today.
Vital Signs / Physical Exam
Vital Signs
Vital Signs
Temp Pulse Resp BP Pulse Ox
101.4 F (core) 96 28 111/63 100
02/04/24 08:00 02/04/24 09:15 02/04/24 09:15 02/04/24 09:15 02/04/24 09:15
Physical Exam
Constitutional: Acutely Ill, Chronically Ill and Toxic
Head: Other (ET tube in place.)
Cardiovascular: Regular Rate and S1/S2; Negative S3/S4
Pulmonary: Coarse and Other (ET tube to vent.)
Gastrointestinal: Soft, Decreased Bowel Sounds and Other (LAYLA with serosanguineous fluid)
Extremities: Edema
Neurological: Other (Minimal responsiveness)
Objective Data
Lab Data
Lab Results
02/04/24 03:18
PT 15.6 Sec (11.4-14.6) H 02/02/24 20:42
INR 1.21 02/02/24 20:42
APTT 60.8 Sec (23.4-35.0) H 02/04/24 03:18
Estimated Creat Clear 24 ml/min 02/04/24 04:59
Lactic Acid 1.6 mmol/L (0.7-2.0) 02/02/24 05:31
Total Bilirubin 1.2 mg/dl (0.2-1.3) 02/03/24 02:27
AST 38 U/L (14-36) H 02/03/24 02:27
ALT 32 U/L (0-35) 02/03/24 02:27
Alkaline Phosphatase 63 U/L (38-126) 02/03/24 02:27
Most recent labs reviewed.
Micro Results:
02/03/24 01:25 Blood Culture - Preliminary
Blood/Venous Positive culture in progress (GNR's)
Gram Stain - Preliminary
01/31/24 15:53 Urine Culture - Final
Urine Serratia marcescens
02/02/24 14:15 Respiratory Culture - Preliminary
Tracheal Aspirate Gram Stain - Preliminary
02/02/24 05:30 Influenza Types A & B (CM) - Final
Nasal Swab Negative for Influenza A & B, NAAT
Negative results must be combined with clinical observations
and patient history.
Nucleic Acid Amplification test (NAAT)performed on the
[employer] platform.
01/22/24 16:44 Urine Culture - Final
Urine Enterococcus faecium
01/23/24 01:03 MRSA Screen - Final
Nose No Methicillin Resistant Staphylococcus aureus isolated.
Care Review
Plan reviewed with: Physician (Critical Care)
--- NOTE | 2024-02-04 09:42 | PTCARENOTE ---
Patient now on 40% oxygen with Peep at 8. Will stop sedation, propofol and fentanyl. Will restart maintenance fluids. continues to have minimal urinary output.
[2024-02-04 10:28] LABS: Glucose - Point of Care 123 mg/dl (70-99)
[2024-02-04 10:44] LABS: APTT 55.1 Sec (23.4-35.0)
--- NOTE | 2024-02-04 10:49 | W.PN.GS2 ---
Today's Communication / Plan
-
TPN renewed
Assessment / Plan
-
Patient is a 73 yo F with a history of DVT/PE on Xarelto with LD on 01/19, HF, bronchiectasis on chronic O2, diverticulitis with perforation of bowel and emergent total colectomy and ileostomy creation in 2008 with subsequent reversal at [facility] in
2012 (?VHR repair with mesh at the time), chronic diarrhea and a prior SBO in July of this year which resolved without surgical intervention who presents with symptoms of nausea, vomiting and abdominal pain since 01/19.
POD#7 s/p exploratory laparotomy, extensive ALESSANDRA
New tachycardia and tachypnea, cuff pressures on calf are likely inaccurate
Leukocytosis present, possibly related to steroids. Trending up. Urine cx pending with >100K CFU GNR.
Acute postoperative anemia likely secondary to blood loss during surgery and hemodilution, compounded by supratherapeutic anticoagulation. Will monitor closely for bleeding. Drain appears bloody but remains low volume and Hb trending up.
tolerating clears, +flatus/stools
02/01 - inubated after suspected aspration event, now maxed on 3 pressors
02/03 - remains on 3 pressors
Plan:
-- Wean vent/pressors as valent[place]
-- Continue TPN, thiamine daily x5 days
-- Pain control: IV PRN
-- Trend labs, H/H
-- OK for Hep gtt, Hb stable
Subjective Data
-
Date of Service: February 04, 2024
Remains sedated and vented
Objective Data
-
Intake and Output
02/03/24 02/04/24 02/05/24
06:59 06:59 06:59
Intake Total 7450.5 / 7737.8 6049.2 / 6255.0 599.2 / 599.2
Output Total 1172 / 1172 340 / 340 96 / 96
Balance 6278.5 / 6565.8 5709.2 / 5915.0 503.2 / 503.2
Intake:
Oral fluids 100 / 100
IV fluids (Total) 5159.5 / 5396.8 5169.2 / 5275.0 399.2 / 399.2
LR bolus 1000 / 1000
Lr 1,000 ml @ 100 mls/hr IV . 1300 / 1400 700 / 700
Q10H CARLINE Rx#:[id number]
Nss 1,000 ml @ 75 mls/hr IV . 1525 / 1525
[id number] CARLINE Rx#:[id number]
fentanyl 87.5 / 92.5 100.0 / 102.5 10.0 / 10.0
heparin gtt 275 / 288 320 / 337 68 / 68
lana double conc 354 / 399 762 / 777 39 / 39
norepinephrine 1315.0 / 1371.3 1351.2 / 1407.5 225.2 / 225.2
nss bolus 500 / 500
propofol 112 / 118 123 / 126 9 / 9
vasopressin 216 / 228 288 / 300 48 / 48
IV piggybacks 800 / 800 680 / 780 200 / 200
TPN/PPN 1331 / 1381 50 / 50
Amount instilled into GI Tube ( 60 / 60 150 / 150
Total)
Gerton Sump 60 / 60 150 / 150
Output:
Drain Output (Total) 58 60 / 60
Right Lower Abdomen Luiz- 60 / 60
[place]
Gastrointestinal tube output ( 700 / 700 200 / 200
Total)
Gerton Sump 700 / 700 200 / 200
Urine, Harris 460 / 460 82 / 82 36 / 36
Vital Signs
Temp Pulse Resp BP Pulse Ox
101.4 F H 97 28 116/57 93
02/04/24 08:00 02/04/24 10:15 02/04/24 10:15 02/04/24 10:15 02/04/24 10:36
Lab Results
02/04/24 03:18
Calcium 6.8 mg/dl (8.4-10.2) L* 02/04/24 04:59
Phosphorus 8.7 mg/dl (2.5-4.5) H 02/04/24 03:18
Magnesium 1.7 mg/dl (1.6-2.3) 02/04/24 03:18
Total Bilirubin 1.2 mg/dl (0.2-1.3) 02/03/24 02:27
Direct Bilirubin 0.3 mg/dl (0.0-0.4) 01/29/24 05:37
AST 38 U/L (14-36) H 02/03/24 02:27
ALT 32 U/L (0-35) 02/03/24 02:27
Alkaline Phosphatase 63 U/L (38-126) 02/03/24 02:27
Total Protein 4.8 g/dl (6.3-8.2) L 02/03/24 02:27
Albumin 2.4 g/dl (3.5-5.0) L 02/03/24 02:27
Physical Exam
-
Gen: sedated/intubated
Abd: soft, incision cdi
[2024-02-04 11:14] LABS: Blood Urea Nitrogen 59 mg/dl (7-17); Calcium 6.9 mg/dl (8.4-10.2); Carbon Dioxide 17 mmol/L (22-30); Chloride 96 mmol/L (98-107); Estimated Creatinine Clearance 23 ml/min; Glucose 116 mg/dl (70-99); Potassium 6.1 mmol/L (3.5-5.1); Sodium 129 mmol/L (135-145); eGFR 18.78
--- NOTE | 2024-02-04 11:41 | W.CON.NEPH ---
Consultation
-
Date/Time Consultation Requested: 02/04/2024 at 5:30 AM
Date/Time Consultation Performed: 02/04/2024 at 10 AM
Requesting Provider: ARIANNA Mansfield
Performing Provider: Dr. Skip Cui DO
Reason for Consultation: Acute kidney injury
Medical History
-
Chief Complaint: Acute kidney injury
History of Present Illness:
73 y/o female past medical history of CAD, CHF, COPD/Bronchiectasis, DVT/PE who presents with nausea, vomiting and abdominal pain. She ultimately underwent ex lap and lysis of adhesions ileus was a rapid response transferred to the ICU February 01
hypotensive intubated aspiration pneumonia on multiple pressors
Renal consultation for acute kidney injury and hyperkalemia with a creatinine of 2.5 and potassium of 7
History was obtained in reviewing chart discussion with intensive care team
Past Medical History
CAD, CHF, COPD/Bronchiectasis, DVT/PE, bipolar, hypothyroid, breast cancer status post left mastectomy
Social History
Former smoker quit in the s
Family History
No renal disease per chart
Allergies / Home Medications
Allergy/AdvReac Type Severity Reaction Status Date / Time
carbamazepine Allergy Hives, rash Verified 01/22/24 12:12
chlorhexidine Allergy Itching, Verified 01/22/24 12:12
[From Hibiclens] rash,
'chemical
burn'
ciprofloxacin [From Cipro] Allergy neuropathy Verified 01/22/24 12:12
after
stopping it
doxycycline Allergy Rash Verified 01/22/24 12:12
house dust Allergy Sneezing, Verified 01/22/24 12:12
eyes watery
Penicillins Allergy Hives as a Verified 01/22/24 12:12
child -
tolerates
ampicillin
Sulfa (Sulfonamide Allergy Hives Verified 01/22/24 12:12
Antibiotics)
venom-honey bee Allergy Rash Verified 01/22/24 12:12
�Medication �Instructions �Recorded �Confirmed �Type
levothyroxine 175 mcg tablet 175 mcg PO DAILY Thyroid 11/10/16 01/22/24 History
carvedilol 6.25 mg tablet 6.25 mg PO BID 02/26/18 01/22/24 Rx
lamotrigine 100 mg tablet 100 mg PO BID 02/26/18 01/22/24 Rx
atorvastatin 10 mg tablet 10 mg PO MOWEFR High cholesterol 02/05/21 01/22/24 History
losartan 25 mg tablet 25 mg PO HS Blood pressure 02/05/21 01/22/24 History
rivaroxaban 20 mg tablet (Xarelto) 20 mg PO QPM Blood clot 02/05/21 01/22/24 History
prevention/tx
aripiprazole 5 mg tablet 5 mg PO HS mental health 01/15/22 01/22/24 History
clonazepam 0.5 mg tablet 0.5 mg PO HS sleep/mental health 01/15/22 01/22/24 History
fluticasone fur. 200 mcg-umeclid 1 inh inhalation R DAILY 01/15/22 01/22/24 History
62.5 mcg-vilant 25 mcg Lung/breathing issues
inhalat.powder (Trelegy Ellipta)
cholecalciferol (vitamin D3) 25 25 mcg PO DAILY Supplement 05/21/22 01/22/24 History
mcg (1,000 unit) tablet (Vitamin
D3)
budesonide 0.5 mg/2 mL suspension 0.5 mg inhalation R BID 08/01/22 01/22/24 History
for nebulization Lung/Breathing Issues
bupropion HCl 100 mg tablet,12 hr 100 mg PO BID Mental Health/Anxiety 08/01/22 01/22/24 History
sustained-release
ipratropium 0.5 mg-albuterol 3 mg 3 ml inhalation R TID 08/01/22 01/22/24 History
(2.5 mg base)/3 mL nebulization Lung/Breathing Issues
soln
gabapentin 100 mg capsule 100 mg PO TID Pain 11/24/22 01/22/24 History
guaifenesin 600 mg tablet, 1,200 mg PO BID MUCUS/COUGH 11/24/22 01/22/24 History
extended release 12 hr (Mucinex)
loperamide 2 mg tablet 4 mg PO QID DIARRHEA 11/24/22 01/22/24 History
albuterol sulfate 90 mcg/actuation 1 puff inhalation R Q6HPRN PRN sob 06/30/23 01/22/24 History
aerosol inhaler
omeprazole 40 mg capsule,delayed 40 mg PO DAILY Gastrointestinal 06/30/23 01/22/24 History
release Issue
Lactobac no.2-Bifidobac no.1-S. 1 cap PO DAILY Gastrointestinal 01/22/24 01/22/24 History
thermo 112.5 billion cell capsule Issue
(Visbiome)
acetaminophen 500 mg tablet 500 mg PO TID Pain 01/22/24 01/22/24 History
(Tylenol Extra Strength)
ascorbic acid (vitamin C) 500 mg 500 mg PO DAILY Supplement 01/22/24 01/22/24 History
tablet (Vitamin C)
benzonatate 200 mg capsule 200 mg PO TID Cough 01/22/24 01/22/24 History
calcium 500 mg 1 tab PO DAILY Supplement 01/22/24 01/22/24 History
(carb,gluconate)-magnesium 250 mg
(gluc,oxide) tablet (Calcium
Magnesium)
cefdinir 300 mg capsule 300 mg PO BID Infection 01/22/24 01/22/24 History
coenzyme Q10 100 mg capsule 100 mg PO DAILY Supplement 01/22/24 01/22/24 History
(CoQ-10)
ferrous sulfate 325 mg (65 mg 325 mg PO DAILY Supplement 01/22/24 01/22/24 History
iron) tablet
furosemide 40 mg tablet 40 mg PO NOON Fluid 01/22/24 01/22/24 History
Retention/Swelling
furosemide 40 mg tablet 80 mg PO DAILY Fluid 01/22/24 01/22/24 History
Retention/Swelling
methenamine hippurate 1 gram tablet 1 g PO DAILY Infection 01/22/24 01/22/24 History
phosphatidylserine 100 mg capsule 400 mg PO DAILY Supplement 01/22/24 01/22/24 History
potassium chloride 10 mEq 10 meq PO DAILY Electrolyte 01/22/24 01/22/24 History
tablet,extended release(part/cryst) Repletion
prednisone 10 mg tablet 10 mg PO MOWEFR INFLAMMATION 01/22/24 01/22/24 History
sodium chloride 3 % for 4 ml inhalation R BID 01/22/24 01/22/24 History
nebulization Lung/Breathing Issues
therapeutic multivitamin 1 tab PO DAILY Supplement 01/22/24 01/22/24 History
Review of Systems
-
Unobtainable secondary to mechanical ventilation
Unable to obtain full review of systems at this time due to: Patient Intubation
Physical Exam
Vital Signs
Vital Signs
Temp Pulse Resp BP Pulse Ox
101.4 F H 97 28 116/57 93
02/04/24 08:00 02/04/24 10:15 02/04/24 10:15 02/04/24 10:15 02/04/24 10:36
Lab Results
WBC 40.6 10^3/uL (4.8-10.8) H* 02/04/24 03:18
RBC 3.14 10^6/uL (4.20-5.40) L 02/04/24 03:18
Hgb 8.9 g/dL (12.0-16.0) L 02/04/24 03:18
Hct 30.6 % (37.0-47.0) L 02/04/24 03:18
Plt Count 285 10^3/uL (130-400) D 02/04/24 03:18
Sodium 129 mmol/L (135-145) L 02/04/24 08:10
Potassium 6.1 mmol/L (3.5-5.1) H* 02/04/24 08:10
Chloride 96 mmol/L (98-107) L 02/04/24 08:10
Carbon Dioxide 17 mmol/L (22-30) L 02/04/24 08:10
BUN 59 mg/dl (7-17) H 02/04/24 08:10
Creatinine 2.6 mg/dL (0.6-1.0) H 02/04/24 08:10
eGFR 18.78 02/04/24 08:10
Glucose 116 mg/dl (70-99) H 02/04/24 08:10
Calcium 6.9 mg/dl (8.4-10.2) L* 02/04/24 08:10
Phosphorus 8.7 mg/dl (2.5-4.5) H 02/04/24 03:18
Zek-K-Ugnxdqahkcx Pept 519 pg/ml 02/02/24 05:31
Albumin 2.4 g/dl (3.5-5.0) L 02/03/24 02:27
Physical Exam
General no acute distress
HEENT ET tube
lungs coarse bilateral
heart regular S1-S2 positive
abdomen decreased bowel sounds
extremities trace edema
Neurologically intubated gag reflex positive
Skin no lesions no abrasions no petechiae
Psych sedated
Data Reviewed
-
Radiology: Image Personally Visualized and interpreted (Multifocal pneumonia no cephalization noted)
Labs: Labs Reviewed by me
Assessment/Plan
-
Impression:
Acute kidney injury with creatinine of 2.5 (admission creatinine 0.6) secondary to shock hemodynamic instability
Hyperkalemia
VDRF
Multifocal pneumonia
CHF
Small bowel obstruction status post ex lap 01/27/2024
Anemia
Plan:
Patient is oligoanuric with hyperkalemia on 2 pressors likely early ATN with a systolic blood pressure of 68 on presentation to the ICU
Urinalysis bland on 01/30
Renal dose all medications appropriate for GFR less than 20
Temporizing measures for hyperkalemia with insulin
I will give 100 mg IV Lasix now
Discussed with beveller operator and ICU nurse
No acute need for dialysis at this time will monitor closely
Total Time Spent with Patient (in minutes): 35 minutes
[2024-02-04] MEDS: MERREM 500 MG IV ×2 (11:44→19:10)
[2024-02-04] MEDS: NSS 1000 IV (11:44)
[2024-02-04] MEDS: STERILE WATER FOR INJECTION 10 ML IV ×2 (11:45→19:10)
[2024-02-04 12:10] LABS: Glucose - Point of Care 121 mg/dl (70-99)
[2024-02-04] MEDS: LASIX 100 MG IV (12:33)
--- NOTE | 2024-02-04 13:37 | PTCARENOTE ---
Have weaned off lana gtt, gave 100mg of lasix as charted in MAR. marine technician here to complete study at bedside.
--- NOTE | 2024-02-04 14:11 | W.PN.UPDATE ---
Update Note
Progress Note Update
reviewed chart. patient is intubated currently and unable to interact w this residential mortgage underwriter. being on a vent and not being able to be weaned was mrs reyes' big fear which she expressed to me prior to surgery. hopefully that will not be the case. her
psychotropic medication not being given currently. will follow her case loosely given her psych hx and make recs for psych meds as appropriate .
[2024-02-04 17:36] LABS: Glucose - Point of Care 112 mg/dl (70-99)
[2024-02-04 17:48] LABS: Fibrinogen 302 MG/DL (199-459)
[2024-02-04 17:49] LABS: APTT 76.9 Sec (23.4-35.0)
[2024-02-04] MEDS: SUBLIMAZE 50 MCG IV (19:09)
--- NOTE | 2024-02-04 20:36 | PTCARENOTE ---
Addendum entered by Blanche Omalley RN 02/04/24 20:59:
Percussion provided Q4 for 10 mins.
Original Note:
Received pt from previous RN. Pt is drowsy/lethargic @ times. NSR w/ BBB, +3 general edema. #8 ETT 23 @ lip moved to the left side. AC settings 28/450/40%/5, O2 sat 90%, lungs coarse/rhonchi. Right nare [place] to low int. Harris in place. Midline
incision, right LAYLA drain in place. Heparin, levo, fent and vaso gtt (see MAR). Pt tachypneic, moving her arms up, PRN Fent given (see MAR). Mouth care and Q2T provided. Safe environment maintained.
[2024-02-04] MEDS: Parenteral Nutrition, Central 1190 IV (21:37)
[2024-02-04 21:57] LABS: Blood Urea Nitrogen 78 mg/dl (7-17); Calcium 6.5 mg/dl (8.4-10.2); Carbon Dioxide 20 mmol/L (22-30); Chloride 91 mmol/L (98-107); Glucose 108 mg/dl (70-99); Potassium 6.5 mmol/L (3.5-5.1); Sodium 125 mmol/L (135-145)
[2024-02-04 22:07] LABS: Estimated Creatinine Clearance 18 ml/min; eGFR 13.61
[2024-02-04] MEDS: LOKELMA 10 GRAM PO (23:00)
[2024-02-04] MEDS: CALCIUM CHLORIDE 10% SYRINGE 60 MG IV (23:03)
[2024-02-04 23:20] LABS: Magnesium 1.8 mg/dl (1.6-2.3)
[2024-02-04] MEDS: CORDARONE 103 MG IV (23:20)
[2024-02-04] MEDS: SODIUM BICARBONATE 100 MEQ IV (23:28)
[2024-02-04] MEDS: ATROPINE 0.1 MG/ML SYRINGE 0.5 MG IV (23:34)
[2024-02-05 00:02] LABS: Glucose - Point of Care 230 mg/dl (70-99)
[2024-02-05] MEDS: CORDARONE 518 MG IV (00:04)
[2024-02-05] MEDS: LASIX 100 MG IV (00:05)
[2024-02-05] MEDS: NOVOLOG FLEXPEN-LOW RESISTANCE 2 UNITS SC (00:06)
--- NOTE | 2024-02-05 00:10 | PTCARENOTE ---
Potassium level 6.5, treated with Lokalma and Dextrose/insulin as ordered. Pt having runs of vtach and eventually sustained. EKG done. BP stable on previous pressor amounts throughout. TPN on hold 2/2 lack of access. Calcium and Magnesium repleted.
Amio bolus mixed and given. TAX PROCESSOR Concepcion at bedside. Bicarb push. Ryan to 30-40, SBP 60s, levo titrated, Atropine 1 mg given. Additional Bicarb push as per TAX PROCESSOR Concepcion. Cards made aware. 100mg IV Lasix given as ordered per renal rec. Amio gtt
initiated. TAX PROCESSOR Concepcion attempting to reach POA.
[2024-02-05 00:17] LABS: APTT 113.2 Sec (23.4-35.0)
[2024-02-05] MEDS: PITRESSIN 100 IV (00:19)
--- NOTE | 2024-02-05 00:40 | W.PN.UPDATE ---
Update Note
Progress Note Update
02/04 2220 BMP resulted with a K of 6.5. Meds ordered to correct hyperkalemia (Calcium, D50/insulin, lokelma) 2244 Patient starting to have 10 to 30 beats of V Tach.�2304 patient went into sustain Vtach with pulses, Amiodarone bolus given, sodium
bicarb, and mag given. �Vtach broke into sinus bradycardia in the 40s. �Patient received 0.5mg of atropine. �Heart rate responded appropriately. ��Amiodarone drip started at 1 mg/hr. �Cardiology updated and consult placed. �Nephrology updated and
suggested giving 100mg of lasix and possible dialysis in AM. ��
Updated Yamileth Alcantara (primary contract); discussed recent event and continued declinea and decision was made to make patient a Limited DNR (No CPR).�
[2024-02-05] MEDS: LEVOPHED 258 MG IV ×3 (01:05→10:01)
[2024-02-05 01:47] LABS: Blood Urea Nitrogen 79 mg/dl (7-17); Calcium 6.8 mg/dl (8.4-10.2); Carbon Dioxide 20 mmol/L (22-30); Chloride 92 mmol/L (98-107); Glucose 144 mg/dl (70-99); Magnesium 2.1 mg/dl (1.6-2.3); Potassium 5.9 mmol/L (3.5-5.1); Sodium 128 mmol/L (135-145)
[2024-02-05 01:55] LABS: Estimated Creatinine Clearance 17 ml/min; eGFR 13.15
[2024-02-05 02:00] LABS: B.E. -7.1 mmol/L; HCO3 20.1 mmol/L (21-28); O2 Saturation % 99.3 % (94-98); PCO2 48 mmHg (32-35); PO2 136 mmHg (83-108); pH 7.23 (7.35-7.45)
[2024-02-05 02:05] LABS: Hematocrit 26.1 % (37.0-47.0); Mean Corp Hgb Conc. 30.7 g/dL (33.0-37.0); Mean Corpuscular Hgb 28.5 pg (27.0-31.0); Mean Corpuscular Volume 92.9 fL (81.0-99.0); Mean Platelet Volume 10.4 fL (7.4-10.4); Platelet Count 233 10^3/uL (130-400); Red Blood Cell Count 2.81 10^6/uL (4.20-5.40); Red Cell Dist. Width 15.9 % (11.5-14.5); White Blood Cell Count 35.1 10^3/uL (4.8-10.8)
[2024-02-05] MEDS: CALCIUM CHLORIDE 10% SYRINGE 60 MG IV ×2 (02:14→11:12)
[2024-02-05] MEDS: DEXTROSE 50% SYRINGE 25 GRAMS IV ×2 (02:31→12:04)
[2024-02-05] MEDS: SODIUM BICARBONATE 50 MEQ IV (02:31)
[2024-02-05] MEDS: NOVOLIN R 10 UNITS IV ×2 (02:31→12:05)
[2024-02-05] MEDS: NEO-SYNEPHRINE 250 IV (03:01)
[2024-02-05] MEDS: HEPARIN 25000 UNITS/250 ML IV (03:18)
[2024-02-05] MEDS: MERREM 500 MG IV (04:28)
[2024-02-05] MEDS: STERILE WATER FOR INJECTION 10 ML IV (04:28)
[2024-02-05 04:47] VITALS: BMI 42.7
--- NOTE | 2024-02-05 04:49 | PTCARENOTE ---
Rodney gtt restarted for MAP (see worklist). Amio, Fent, Heparin, levo and vaso gtt (see worklist). Systems reviewed. Pt allergic to chlorhexidine, bathing cloths provided. Safe environment maintained.
[2024-02-05] MEDS: SOLU-CORTEF 50 MG IV ×2 (05:36→11:15)
[2024-02-05] MEDS: NOVOLOG FLEXPEN-LOW RESISTANCE 1 UNITS SC (05:44)
[2024-02-05 05:56] LABS: Glucose - Point of Care 165 mg/dl (70-99)
[2024-02-05 06:21] LABS: Blood Urea Nitrogen 83 mg/dl (7-17); Carbon Dioxide 24 mmol/L (22-30); Chloride 92 mmol/L (98-107); Glucose 154 mg/dl (70-99); Sodium 127 mmol/L (135-145); Triglycerides 94 mg/dl (10-149)
[2024-02-05 06:32] LABS: Estimated Creatinine Clearance 18 ml/min; eGFR 13.61
[2024-02-05 07:03] LABS: APTT 169.2 Sec (23.4-35.0)
[2024-02-05] MEDS: FLOVENT 110 MCG INHALER 4 PUFF INH (07:19)
--- NOTE | 2024-02-05 07:29 | W.PN.HOSP.TC ---
Today's Communication/Plan
-
.
Assessment / Plan
Assessment / Plan
Ms. Alexandrea Levin is a 73yo F pmh HFpEF, chronic respiratory failure, bipolar disorder, hypothyroidism admitted for SBO.
Sbo with transition point
-S/p ex lap with extensive lysis of adhesions on 01/27/2024
-Started on CLD, follow surgery recs on advancing
-Concern for ilieus
- TPN x5 days per surgery - on hold
-IVF
-Surgery following
-Incentive shay
Acute hypoxic respiratory distress
Septic shock secondary to bacteremia
Leukocytosis
- intubated, on max ventilatory support
- wean vasopressors as able
- CXR - b/l costophrenic angle blunting, decreased congestion
- abg stable
- leukocytosis improving
- urine cx: Serratia marscesens
- blood cx: Klebsiella pneumoniae
- tracheal aspirate cx: gram negative rods
- meropenem per ID
Chronic HFpEF
Ventricular tachycardia
- echo: EF 55-60%. Enlarged RV w systolic dysfunction. RV pressure overload. Moderate TR (worsening). Pulm HTN
- amiodarone drip
ABIGAIL secondary to shock and hemodynamic instability
Hyponatremia
Hyperkalemia
Hypocalcemia
Oliguria
- treat electrolytes medically - calcium chloride, insulin 10 w D50
- serum osmolality
- nephro consulted - renally dose meds
Acute blood loss anemia
- likely secondary to procedure, hemodilution, and supratherapeutic INR
- transfuse Hb<7
Anemia
-stable
-follow cbc
Chronic respiratory failure
-maintain spo2 of between 88-92%
-continue mdi's
Bipolar Disorder
-Resumed Abilify, Lamictal and Wellbutrin
-Resume Klonopin prn as prior to admission
- prn ativan as needed for agitation
Hx DVT/PE
-Not sure how well she is absorbing, therefore, on heparin
Diet: NPO
DVT ppx: heparin
Code status: Limited DNR - no CPR
Anticipated Discharge: > 48 hours
Subjective/Interval History
-
Date of Service: February 05, 2024
Ms. Alexandrea Levin is a 73yo F pmh HFpEF, chronic respiratory failure, bipolar disorder, hypothyroidism admitted for SBO. Her hyperkalemia has been treated w D50, insulin, and lokelma. Developed Vtach last night, appropriately treated, amiodarone
drip started, resuscitation status updated to limited DNR.
Objective Data
-
Labs:
Laboratory Results
02/04/24 02/04/24 02/05/24
21:34 23:47 00:57
WBC
Hgb
Hct
Plt Count
APTT 113.2 H
HCO3
Sodium 125 L 128 L
Potassium 6.5 H* 5.9 H
Chloride 91 L 92 L
Carbon Dioxide 20 L 20 L
BUN 78 H 79 H
Creatinine 3.4 H 3.5 H
Glucose 108 H 144 H
Calcium 6.5 L* 6.8 L*
02/05/24 02/05/24 02/05/24
01:51 01:52 05:43
WBC 35.1 H
Hgb 8.0 L
Hct 26.1 L
Plt Count 233
APTT
HCO3 Cancelled 20.1 L
Sodium 127 L
Potassium 6.0 H
Chloride 92 L
Carbon Dioxide 24
BUN 83 H
Creatinine 3.4 H
Glucose 154 H
Calcium 7.0 L
02/05/24 02/05/24
06:28 14:30
WBC
Hgb
Hct
Plt Count
APTT 169.2 H* Pending
HCO3
Sodium
Potassium
Chloride
Carbon Dioxide
BUN
Creatinine
Glucose
Calcium
Vital Signs:
Vital Signs
Temp Pulse Resp BP Pulse Ox
98.2 F 73 30 118/60 97
02/05/24 03:00 02/05/24 07:21 02/05/24 07:21 02/04/24 19:00 02/05/24 07:21
I&O
02/04/24 02/05/24 02/06/24
06:59 06:59 06:59
Intake Total 6049.2 / 6255.0 3207.8 / 3207.8
Output Total 340 / 340 1255 / 1255
Balance 5709.2 / 5915.0 2.8 / 1951.8
Review of Systems
-
Unable to obtain full review of systems at this time due to: Patient Intubation
Physical Exam
-
General: Well Developed, Well Nourished and Intubated
HEENT: Normocephalic, Atraumatic and Other (scleral icterus)
Respiratory: Wheezes
Cardiac: S1/S2 and Irregular Rhythm
GI: Soft, Nontender, Nondistended and Other (hypoactive BS)
Musculoskeletal: No Clubbing, No Cyanosis, Edema, Right Lower Extrem and Edema, Left Lower Extrem
Skin: Warm and Dry
Neuro: Awake
--- NOTE | 2024-02-05 07:30 | PTCARENOTE ---
Received patient from shift nurse manager. Patient is intubated-Fentanyl gtt at 50 mcg/hr. Patient responsive to verbal stim, able to wiggle toes, opens eyes. Sats high 90's on AC settings 30/450/5/75%. minimal ETT secretions, mouth care completed,
minimal gag reflex. Patient is in a sinus rhythm with BBC on tele, per report pt had mult runs VT overnight, then sustained, then converted and was bradycardic requiring atropine. Right radial [place] pressure with MAP>65, Left calf manual cuff
correlating. [place] leveled and zeroed. Remains on Rodney/Levo/Vaso gtt as charted in worklist. Weaing off pressors as able, see worklist. Patient has right [place] sump to low intermittent wall suction,blue/ greenish drainage per report. Patient's
abdomen is obese, midline incision with LAYLA drain. skin to left of incision is ecchymotic. Patient has a pickard catheter with minimal urine output, 15-30 ml/hr overnight per report despite lasix administration. SCDs are on and patient is on heparin
gtt at 1900 units/hr. Plan discussed at bedside with MDs Dr. Campos, Micky Washburn and resident. Safe environment maintained. Oral, anirudh and pickard care performed, Q2T maintained.
--- NOTE | 2024-02-05 07:52 | W.PN.INTV ---
Today's Communication / Plan
Recommendations
HD access today, await decision on hemodialysis per family
Amiodarone continues
Lasix therapy per nephrology
Maintain fentanyl drip, minimize propofol
Wean pressors as able
Maintain active type and screen
Continue antibiotics
Daily chest x-ray, ABG
Continue heparin therapy
Poor prognosis moving forward
Assessment
-
73-year-old female with a history of COPD, bronchiectasis, CAD, CHF, DVT and pulmonary embolism on Xarelto who presented with small bowel obstruction likely requiring surgery-pulmonary consulted for preoperative clearance and pulmonary management in
the perioperative period-01/25/2024-did well postoperatively and developed fairly sudden shortness of breath and transferred to ICU 01/29/2024 responding to NIV and Lasix.
VDRF, Intubated 02/02/2024
Aspiration pneumonitis, transferred to ICU 02/01
Small bowel obstruction
Status post exploratory laparotomy and extensive lysis of iedkwynnn-1-6/2 hours-Dr. Alaniz 01/28/2024
COPD without acute exacerbation
Acute renal insufficiency, worsening
Metabolic acidemia
Chronic hypercapnia
Volume overload, weight increase 12 kg since admission
Chronic heart failure preserved EF
Leukocytosis
Anemia
Ileus suspected
Conditions present prior to admission:
COPD-followed by Dr. Boyd-maintained on Trelegy, 3% sodium chloride nebulizer twice daily, prednisone 10 mg Wfswci-Qhbwiibre-Ocxzns
Bronchiectasis.
Previous sputum cultures-Serratia 09/22/2023, Pseudomonas multiphilia 07/15/2023 sensitive to Bactrim and levofloxacin
Former [id number]-16-[id number]-year quit 1998
Cough variant asthma
Chronic cough
Restrictive lung disease
Vocal cord paralysis
DVT/PE-saddle
IVC filter
1/3 sputum culture positive AFB May 2023-does not meet criteria for OLIVIA-Mycobacterium fortuitum culture 10/09/2021
History of [id number] cytology negative
Chronic lower extremity lymphedema.
Bipolar.
Hypothyroid.
Breast cancer.
Heart failure preserved EF.
CAD.
Previous obstructive sleep apnea
Obesity
Left mastectomy. Cholecystectomy. Left shoulder surgery. Bilateral total knee.
Plan/Recs
At this time, patient remains critically ill, on 3 pressors
Episode of VT overnight noted without loss of pulse, given amiodarone, developed bradycardia, required 1 dose of atropine
Now on amiodarone drip
Echocardiogram noted with significant RV volume and pressure overload, normal LV
Likely secondary to volume overload
Fibrinogen level normal
Remains on heparin therapy, therapeutic
Hyperkalemia t overnight treated with bicarbonate, insulin, D50
LAYLA drain output noted, stable
Airway pressures improved with decreasing PEEP from 10 down to 5
Briefly required 100% saturation overnight, now down to 60% and
Moving forward
Continue with volume-cycled ventilation
AC 30/450/5/60%
Ppk 38, Pplat 28
Chest x-ray with persistent bilateral infiltrate but improvement of the left side noted
Suspect component of heart failure
Continue with broad-spectrum antibiotics, transition to meropenem from Zosyn/vancomycin
Daily chest x-ray
Continue with sedation, fentanyl, will try to minimize propofol
Hyperkalemia noted, creatinine elevated to 3.5
Received Lasix therapy overnight, nephrology following
Plan for HD catheter placement, discussion regarding possible dialysis. Family would like to hold off at this time per nephrology
TPN remains on hold, will continue once better access
Continue to monitor urine output
Significant metabolic acidemia noted. Await possible dialysis pending family approval
Hypotension likely secondary to underlying sepsis, aspiration pneumonitis, RV dysfunction
Chronically on Prednisone 10 mg Nwhcrg-Zhghpqryx-Ntdhtf-changed to Solu-Medrol 20 mg daily-while she was n.p.o.
Transitioned to stress dose steroids with hydrocortisone 02/01. This will continue
Airway pressures currently more consistent with decreased compliance as opposed to airways resistance
Continue Flovent for now
EKG with right bundle branch block, tachycardia now on amiodarone
Echocardiogram 06/29/23 with EF 50%, normal RV size and function, right heart pressures cannot be determined
Echocardiogram 02/03 with normal LV, reduced RV size and function with evidence of pressure and volume overload
Currently remains on norepinephrine, Rodney-Synephrine, vasopressin. Vasopressin to be discontinued
Now on amiodarone drip
Cardiology following
Aspiration suspected
Empiric antibiotics-Zosyn initiated 02/01/2024, vancomycin, transition to meropenem
Renal adjustment
Positive blood culture, positive urine culture noted, consistent with Klebsiella
ID following
Surgery following
OR 01/27/2024-extensive lysis of adhesions
Nasogastric tube remains in place
Xarelto on hold, currently on heparin therapy, therapeutic
Abrasion level normal
Remains on Protonix
DVT prophylaxis-on Xarelto as outpatient for history of DVT/saddle embolism. IVC filter in place. Patient remains on heparin therapy.
GI prophylaxis-on pantoprazole
On TPN for nutrition. Resume once access is optimized
Updated Radha WHITTAKER) by phone ([phone]) at length 02/04. She has been trying to contact son without success. She has contacted the police to do a well search in [place] where he lives. She is aware that she has read her text messages but
he has not responded. She continues to await updated advance directive/living well from offices of the patient. Hopefully case management can help in this regard as well.
All questions answered
We will continue with updates as able
Critical care statement: A total of 40 minutes of critical care time was provided for this patient today. This includes management of unstable vital signs, evaluation of the patient at bedside, reviewing the patient's pertinent medical records
including radiographs, management of respiratory failure, noninvasive ventilation management, microbiology, laboratory evaluations, and discussion with primary team, consultants, pharmacy, nutrition, physical therapy, case management, charge nurse,
critical care nursing, and respiratory therapy.
Diagnostic data:
Chest x-ray 04/14/2023-stable pleural-parenchymal scarring, no other abnormalities
Chest x-ray 09/01/2023-NAD, stable pleural-parenchymal scarring lower portions of both lungs
Obstruction series 01/25/2024-no evidence for free intraperitoneal air, highly suggestive of small bowel obstruction
CT chest/-bilateral lower lobe parenchymal opacifications and bronchiectasis
CT abdomen and pelvis 01/22/2024-left breast implant, small collapsed right breast implant, soft tissue density likely mucous plugging right lower lobe with some atelectasis, small bowel obstruction
Echocardiogram 06/29/2023-EF 50%, no valvular disease
Pulmonary function studies-10/14/23: Spirometry demonstrated moderate restrictive lung disease.The forced vital capacity was 1.39 L or 49% of predicted.� The FEV1 was 1.11 L or 52% of predicted.� The FEV1/FVC ratio was 80%.
She cough throughout the study and was unable to exhale for 6 seconds.� Saturation dropped to 86% on room air and no further testing was done. Saturation returned to 93% on 3 L.
Compared to 12/2022, the forced vital capacity has declined from 1.47 L to 1.39 L.� The FEV1 was unchanged.
Sleep xxygq-6-67-12: AHI of 10.9 with oxyhemoglobin desaturation betsy of 85%. With 4 cm CPAP H2O
pressure the AHI was reduced to one event per hour and he oxyhemoglobin desaturation betsy improved to 92%.
Sleep study-08/13/14: AHI was 23.4 with oxyhemoglobin desaturation betsy of 64%.
At home sleep study-01/09/18: Respiratory event index 0.2 events per hour. Lowest saturation 89%. Percentage of the study time spent with a saturation below 90% was 0.1%.
Home sleep study-09/10/23: AHI 0.4 events per hour.� Saturation betsy 90%.
Subjective Dataa
Subjective Data
Date of Service:
Date of Service: February 05, 2024
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
Subjective:
patient remains critically ill. Overnight developed intermittent runs of VT which then progressed to VT without loss of pulse. Amiodarone was given complicated by bradycardia, given atropine. Remains on pressors. Patient does move upper
extremities intermittently. Low-grade fever noted. Creatinine worsening, responded to Lasix but remains profoundly positive fluid balance.
Objective Data
Data Reviewed
Vital Signs / I&O / Oxygen:
Vital Signs
Temp Pulse Resp BP Pulse Ox
99.1 F 71 30 118/60 96
02/05/24 07:45 02/05/24 07:45 02/05/24 07:45 02/04/24 19:00 02/05/24 07:45
Intake and Output
02/04/24 02/05/24 02/06/24
06:59 06:59 06:59
Intake Total 6049.2 / 6255.0 3207.8 / 3319.0 111.2 / 111.2
Output Total 340 / 340 1255 / 1280 /
Balance 5709.2 / 5915.0 1952.8 / 2039.0 86.2 / 86.2
SaO2 [NIV (Non Invasive 84
Ventilation)]
SaO2 [CPAP/PSV] 96
SaO2 [A/C] 97
SaO2 96
Nasal Cannula flow liters per 4
minute
Physical Exam
General: Comfortable (Sedated) and Other (Right upper extremity PICC, abdominal LAYLA drain)
HEENT: Normocephalic, Anicteric and Other (pupils reactive)
Cardiovascular: S1-S2, Regular Rhythm, Murmur (n), Rub (n), Peripheral Edema (negative) and Cool Extremities (Mild mottling, lower extremities)
Respiratory: Wheeze (negative), Crackles (negative), Rhonchi (negative), Non-Labored Respirations, Stridor (n) and ET Tube (Mechanical breath sounds heard bilaterally)
GI: Soft, Non Distended, Non Tender and Other (Abdominal dressing in place, LAYLA drain in place)
Neurology: No Motor Deficits (Spontaneously moves upper extremities, remains in restraints) and Lethargic (Sedated)
Skin: Good Color (Mild peripheral mottling, poor capillary refill), Cyanosis (negative) and Jaundice (negative)
Labs/Micro/Reports
Lab Data
02/05/24 01:52
02/05/24 05:43
Laboratory Results
02/04/24 02/04/24 02/04/24
10:14 17:25 23:47
APTT 55.1 H 76.9 H 113.2 H
pH
pCO2
pO2
HCO3
O2 Delivery Level
02/05/24 02/05/24 02/05/24
01:51 01:52 06:28
APTT 169.2 H*
pH Cancelled 7.23 L
pCO2 Cancelled 48 H
pO2 Cancelled 136 H
HCO3 Cancelled 20.1 L
O2 Delivery Level Cancelled
Microbiology
02/02/24 14:15 Tracheal Aspirate Respiratory Culture - Preliminary
Gram negative bacilli
02/02/24 14:15 Tracheal Aspirate Gram Stain - Preliminary
02/03/24 01:25 Blood/Venous Blood Culture - Preliminary
Klebsiella pneumoniae
02/03/24 01:25 Blood/Venous Gram Stain - Preliminary
01/31/24 15:53 Urine Urine Culture - Final
Serratia marcescens
02/02/24 05:30 Nasal Swab Influenza Types A & B (CM) - Final
Negative for Influenza A & B, NAAT
Negative results must be combined with clinical observations
and patient history.
Nucleic Acid Amplification test (NAAT)performed on the
[employer] platform.
[2024-02-05] MEDS: NSS (PRESERVATIVE FREE) 10 ML IV (07:53)
[2024-02-05] MEDS: PROTONIX IV 40 MG IV (07:53)
[2024-02-05] MEDS: MIRALAX 17 GRAMS TUBE (07:53)
[2024-02-05] MEDS: DESENEX/MITRAZOL/ZEASORB 1 APPLIC TOPICAL (07:53)
[2024-02-05 08:06] VITALS: BP 136/80
--- NOTE | 2024-02-05 09:07 | W.PN.NEPH.PH ---
Today's Communication / Plan
-
CVV
Assessment/Plan
-
Impression:
ABIGAIL
hypotension
RV failure
Hyperkalemia
VDRF
Multifocal pneumonia
CHF
Small bowel obstruction status post ex lap 01/27/2024
Anemia
hypocalcemia
Plan:
If family wishes, start CVV
wean pressors as allowed, vasopressin first
treat K medically
replete Calcium
serial labs
left message for Radha to call unit
trialysis CVC
TPN on hold (no IV sites)
critical care time 50 minutes
-
-
Date of Service: February 05, 2024
CC / HPI / ROS
-
Chief Complaint:
ABIGAIL
History of Present Illness:
ABIGAIL/Cr 3.4
K still elevated at 6
Na low 127
calcium low 7
hypotense after VT, on pressors
on vent, sedated
critically ill in ICU
pickard oliguric
Review of Systems:
intubated sedated
Labs
-
Labs:
WBC 35.1 10^3/uL (4.8-10.8) H 02/05/24 01:52
RBC 2.81 10^6/uL (4.20-5.40) L 02/05/24 01:52
Hgb 8.0 g/dL (12.0-16.0) L 02/05/24 01:52
Hct 26.1 % (37.0-47.0) L 02/05/24 01:52
Plt Count 233 10^3/uL (130-400) 02/05/24 01:52
Sodium 127 mmol/L (135-145) L 02/05/24 05:43
Potassium 6.0 mmol/L (3.5-5.1) H 02/05/24 05:43
Chloride 92 mmol/L (98-107) L 02/05/24 05:43
Carbon Dioxide 24 mmol/L (22-30) 02/05/24 05:43
BUN 83 mg/dl (7-17) H 02/05/24 05:43
Creatinine 3.4 mg/dL (0.6-1.0) H 02/05/24 05:43
eGFR 13.61 02/05/24 05:43
Glucose 154 mg/dl (70-99) H 02/05/24 05:43
Calcium 7.0 mg/dl (8.4-10.2) L 02/05/24 05:43
Phosphorus 8.7 mg/dl (2.5-4.5) H 02/04/24 03:18
Pzi-D-Igacajuuxwc Pept 519 pg/ml 02/02/24 05:31
Albumin 2.4 g/dl (3.5-5.0) L 02/03/24 02:27
Physical Exam
-
Vital Signs:
Vital Signs
Temp Pulse Resp BP Pulse Ox
99.1 F 74 30 136/80 92
02/05/24 07:45 02/05/24 08:45 02/05/24 08:45 02/05/24 08:06 02/05/24 08:30
Cardiovascular:: Regular rate and rhythm
Respiratory:: Bilateral: CTA
Lung Excursion:: Normal
Abdomen:: Nontender and Soft
Bowel Sounds:: Normal
Extremity Edema:: +3: Bilateral:
Pickard Catheter: Yes
[2024-02-05] MEDS: SUBLIMAZE 100 IV (09:58)
--- NOTE | 2024-02-05 10:20 | PTCARENOTE ---
IR team at bedside to place HD cath.
--- NOTE | 2024-02-05 10:28 | CON.CAR ---
Addendum entered and electronically signed by Juan Diego Montenegro MD 02/05/24 12:06:
I saw and examined the patient.
The LOOM FIXER HELPER's note was reviewed and I agree with the note.
Comment:
EKG 02/04/2024 23:32 hrs most c/s sustained VT (mostly monomorphic) at 220 bpm. Broke just before External SHOCK was to be delivered
EKG 02/04/2024 23:30 hrs WCT 122 bpm could be VT or SVT with Hyperkalemia ekg changes, although K+ was only modestly elevated at
Echo with good LVEF but dilated hypo RV with pulm HTN raising question of Pulm Embolus => on OAT for prior DVT/PE and now on Heparin IV
Prognosis is poor but if she makes good recovery we will need to consider if we attribute her VT to reversible causes and STOP amio prior to discharge or if we will be more aggressive, depends on clinical course.
Check trop and EKG in AM
Original Note:
Consultation
Consultation Request
Date/Time Consultation Requested: 02/04/2024 23:30
Date/Time Consultation Performed: 02/05/2024 10:00
Requesting Provider: ARIANNA Mansfield
Performing Provider: ARIANNA Solano for Dr. Montenegro
Reason for Consultation: VT
Medical History
-
Chief Complaint: Nausea/vomiting, abdominal pain
History of Present Illness:
Lakisha Levin is a 73 year old female (known to Dr. Pearson, her primary legal cashier), with resolved NICM (25% in 2014, now 55%, HFpEF, nonobstructive CAD, moderate TR, mild to moderate MR, HLD, RBBB, obesity with chronic edema, previous PE/DVT
(on chronic Xarelto), DILLON, COPD/RLD (on O2), and bipolar disorder who presented with nausea, vomiting, and abdominal pain on 01/22/2024. She was diagnosed with a small bowel obstruction. She had an ex lap with extensive lysis of adhesions
01/27/2024. She is currently on ventilatory support. She suffered septic shock secondary to bacteremia. Her leukocytosis is improving. Her urine culture was positive for serratia marcescens and her blood culture positive for Klebsiella
pneumoniae. Tracheal aspirate positive for GNR. ID is following. She has an ABIGAIL likely secondary to shock and her hemodynamic instability. She is currently on Rodney-Synephrine at 40 mcg per, vasopressin at 0.04 units/min, and Levophed at 30
mcg/min. Last night she had sustained ventricular tachycardia. She was given an amiodarone bolus and started on a drip. Cardiology was consulted.
Past Medical History
Past Medical History: CAD (Nonobstructive CAD), CHF, COPD, Valvular Disease, Psychiatric (Bipolar disorder) and Other (RBBB, obesity, DVT/PE)
Social History
Tobacco: Former Smoker
Alcohol: None
Drug: None
Living: Assisted Living
Employment: Retired
Family History
Family History: Reviewed & Not Pertinent
Allergies / Home Medications
Allergy/AdvReac Type Severity Reaction Status Date / Time
carbamazepine Allergy Hives, rash Verified 01/22/24 12:12
chlorhexidine Allergy Itching, Verified 01/22/24 12:12
[From Hibiclens] rash,
'chemical
burn'
ciprofloxacin [From Cipro] Allergy neuropathy Verified 01/22/24 12:12
after
stopping it
doxycycline Allergy Rash Verified 01/22/24 12:12
house dust Allergy Sneezing, Verified 01/22/24 12:12
eyes watery
Penicillins Allergy Hives as a Verified 01/22/24 12:12
child -
tolerates
ampicillin
Sulfa (Sulfonamide Allergy Hives Verified 01/22/24 12:12
Antibiotics)
venom-honey bee Allergy Rash Verified 01/22/24 12:12
�Medication �Instructions �Recorded �Confirmed �Type
levothyroxine 175 mcg tablet 175 mcg PO DAILY Thyroid 11/10/16 01/22/24 History
carvedilol 6.25 mg tablet 6.25 mg PO BID 02/26/18 01/22/24 Rx
lamotrigine 100 mg tablet 100 mg PO BID 02/26/18 01/22/24 Rx
atorvastatin 10 mg tablet 10 mg PO MOWEFR High cholesterol 02/05/21 01/22/24 History
losartan 25 mg tablet 25 mg PO HS Blood pressure 02/05/21 01/22/24 History
rivaroxaban 20 mg tablet (Xarelto) 20 mg PO QPM Blood clot 02/05/21 01/22/24 History
prevention/tx
aripiprazole 5 mg tablet 5 mg PO HS mental health 01/15/22 01/22/24 History
clonazepam 0.5 mg tablet 0.5 mg PO HS sleep/mental health 01/15/22 01/22/24 History
fluticasone fur. 200 mcg-umeclid 1 inh inhalation R DAILY 01/15/22 01/22/24 History
62.5 mcg-vilant 25 mcg Lung/breathing issues
inhalat.powder (Trelegy Ellipta)
cholecalciferol (vitamin D3) 25 25 mcg PO DAILY Supplement 05/21/22 01/22/24 History
mcg (1,000 unit) tablet (Vitamin
D3)
budesonide 0.5 mg/2 mL suspension 0.5 mg inhalation R BID 08/01/22 01/22/24 History
for nebulization Lung/Breathing Issues
bupropion HCl 100 mg tablet,12 hr 100 mg PO BID Mental Health/Anxiety 08/01/22 01/22/24 History
sustained-release
ipratropium 0.5 mg-albuterol 3 mg 3 ml inhalation R TID 08/01/22 01/22/24 History
(2.5 mg base)/3 mL nebulization Lung/Breathing Issues
soln
gabapentin 100 mg capsule 100 mg PO TID Pain 11/24/22 01/22/24 History
guaifenesin 600 mg tablet, 1,200 mg PO BID MUCUS/COUGH 11/24/22 01/22/24 History
extended release 12 hr (Mucinex)
loperamide 2 mg tablet 4 mg PO QID DIARRHEA 11/24/22 01/22/24 History
albuterol sulfate 90 mcg/actuation 1 puff inhalation R Q6HPRN PRN sob 06/30/23 01/22/24 History
aerosol inhaler
omeprazole 40 mg capsule,delayed 40 mg PO DAILY Gastrointestinal 06/30/23 01/22/24 History
release Issue
Lactobac no.2-Bifidobac no.1-S. 1 cap PO DAILY Gastrointestinal 01/22/24 01/22/24 History
thermo 112.5 billion cell capsule Issue
(Visbiome)
acetaminophen 500 mg tablet 500 mg PO TID Pain 01/22/24 01/22/24 History
(Tylenol Extra Strength)
ascorbic acid (vitamin C) 500 mg 500 mg PO DAILY Supplement 01/22/24 01/22/24 History
tablet (Vitamin C)
benzonatate 200 mg capsule 200 mg PO TID Cough 01/22/24 01/22/24 History
calcium 500 mg 1 tab PO DAILY Supplement 01/22/24 01/22/24 History
(carb,gluconate)-magnesium 250 mg
(gluc,oxide) tablet (Calcium
Magnesium)
cefdinir 300 mg capsule 300 mg PO BID Infection 01/22/24 01/22/24 History
coenzyme Q10 100 mg capsule 100 mg PO DAILY Supplement 01/22/24 01/22/24 History
(CoQ-10)
ferrous sulfate 325 mg (65 mg 325 mg PO DAILY Supplement 01/22/24 01/22/24 History
iron) tablet
furosemide 40 mg tablet 40 mg PO NOON Fluid 01/22/24 01/22/24 History
Retention/Swelling
furosemide 40 mg tablet 80 mg PO DAILY Fluid 01/22/24 01/22/24 History
Retention/Swelling
methenamine hippurate 1 gram tablet 1 g PO DAILY Infection 01/22/24 01/22/24 History
phosphatidylserine 100 mg capsule 400 mg PO DAILY Supplement 01/22/24 01/22/24 History
potassium chloride 10 mEq 10 meq PO DAILY Electrolyte 01/22/24 01/22/24 History
tablet,extended release(part/cryst) Repletion
prednisone 10 mg tablet 10 mg PO MOWEFR INFLAMMATION 01/22/24 01/22/24 History
sodium chloride 3 % for 4 ml inhalation R BID 01/22/24 01/22/24 History
nebulization Lung/Breathing Issues
therapeutic multivitamin 1 tab PO DAILY Supplement 01/22/24 01/22/24 History
Review of Systems
-
Unable to obtain full review of systems at this time due to: Patient Intubation
Physical Exam
Vital Signs
Temp Pulse Resp BP Pulse Ox
99.1 F 76 30 136/80 79
02/05/24 07:45 02/05/24 10:15 02/05/24 10:15 02/05/24 08:06 02/05/24 10:15
Lab Results
02/05/24 01:52
Troponin I 0.085 ng/ml H* D 02/03/24 02:27
Uju-S-I[place]un[place]jsny Pept 519 pg/ml 02/02/24 05:31
Physical Exam
General: Well Developed and Comfortable
HEENT: Normocephalic and Anicteric
Respiratory: Crackles and Other (ventilator assisted)
Cardiac: S1/S2, Regular Rhythm and Peripheral Edema
Breast: Deferred by me
GI: Soft, Non Tender, Non Distended and Normal Bowel Sounds
Rectal: Deferred by Provider
Genito-urinary: No Costovertebral Tender
Musculoskeletal: No Cyanosis
Skin: Warm and Dry
Neuro: Sedated
Hematologic/Lymphatic: No Lymphadenopathy
Psych: Calm
Impression / Plan
-
IMPRESSION/PLAN: 73F with resolved NICM (25% in 2013, now 55%, HFpEF, moderate TR, mild to moderate MR, HLD, RBBB, obesity with chronic edema, previous PE/DVT (on chronic Xarelto), DILLON, COPD/RLD (on O2), and bipolar disorder who presented with
nausea, vomiting, and abdominal pain on 01/22/2024.
Primary Launderer Hand: Dr. Pearson
Ventricular tachycardia
-In the setting of electrolyte abnormalities and critical illness requiring vasopressor support
-Given intravenous amiodarone bolus and drip, currently on 0.5 mg/min
-Ischemic evaluation to be determined, inpatient versus outpatient depending on the clinical course
Septic shock in the setting of Klebsiella pneumonia bacteremia
-Intubated and sedated on mechanical ventilation
-Suspected aspiration event 02/02/2024 -> Intubated several hours later
-Significant vasopressor support: Rodney-Synephrine at 40 mcg per, vasopressin at 0.04 units/min, and Levophed at 30 mcg/min
-Leukocytosis is improving
ABIGAIL with hyponatremia, hyperkalemia, and hypocalcemia
-HD cath being placed today
HFpEF, chronic
-Volume overloaded on exam
-Volume managed by nephrology given ABIGAIL and severe electrolyte abnormalities
Anemia, per primary service
Abnormal troponin, likely nonischemic myocardial injury in the setting of acute illness
CAD, nonobstructive
Prior DVT/PE, on heparin
COPD, bronchiectasis
DATA:
Transthoracic echocardiogram, 02/04/2024:
CONCLUSIONS
Normal left ventricular systolic function. LV ejection fraction is 55-60% by
visual assessment.
Enlarged right ventricular size. Reduced right ventricular systolic function.
Septal flattening in systole consistent with RV pressure overload.
Moderate tricuspid regurgitation. Severely elevated PASP. Estimated pulmonary
artery pressure of 65 mmHg assuming a right atrial pressure of 8 mmHg.
Compared to 07/03/23: limited study, RV was normal, and TR, PASP was not
assessed.
Compared to 03/22/22: RV was normal, TR was moderate, and PASP was 45 mmHg.
Data Reviewed
-
EKG: Report Reviewed by me
Radiology: Report Reviewed by me
Medical Tests (Nuc Med, Echo etc): Report Reviewed by me
Labs: Labs Reviewed by me
Old Records: Reviewed
--- NOTE | 2024-02-05 10:30 | W.PN.ID1 ---
Date of Service
Date of Service: February 05, 2024
Today's Communication
Continue meropenem.
Assessment / Plan
Septic shock
Leukocytosis
Fever
POD #8 s/p exp lap/ALESSANDRA for SBO
ABIGAIL
Elevated Pro-Uday
Suspected aspiration pneumonia
COPD (maintained on home O2, 3�5 L)
Bronchiectasis
CHF
CAD
DVT
Diverticulitis
GERD
Hx breast cancer
Dyslipidemia
Bipolar disease
Recommendations:
Patient remains on 2 pressors. Vasopressin has been weaned to off.
Blood cultures with Klebsiella. Sputum culture also with Klebsiella.
Serratia recovered from the urine.
Continue with empiric meropenem while full culture susceptibilities are pending.
Patient currently critically ill, on vent, in ICU. Prognosis extremely guarded. Risk of morbidity and mortality very high.
����������������������������������������������������������
Chief Complaint
-: Fever, Leukocytosis, Clinical Sepsis and Bacteremia
Subjective / Review of Systems
Patient seen and examined. Remains on vent and pressor support at this time.
Vital Signs / Physical Exam
Vital Signs
Vital Signs
Temp Pulse Resp BP Pulse Ox
99.1 F 76 30 136/80 79
02/05/24 07:45 02/05/24 10:15 02/05/24 10:15 02/05/24 08:06 02/05/24 10:15
Physical Exam
Constitutional: Acutely Ill, Chronically Ill, Toxic and Obese
Head: Other (ET tube in place.)
Eyes: No Conjunctival Hemorrhage and Sclera Anicteric
Cardiovascular: Regular Rate and S1/S2; Negative S3/S4
Pulmonary: Coarse and Other (ET tube to vent.)
Gastrointestinal: Soft, Decreased Bowel Sounds and Other (LAYLA with serosanguineous fluid)
Extremities: Edema; Negative Erythema
Neurological: Other (Responsive to touch.)
Objective Data
Lab Data
Lab Results
02/05/24 01:52
PT 15.6 Sec (11.4-14.6) H 02/02/24 20:42
INR 1.21 02/02/24 20:42
APTT 169.2 Sec (23.4-35.0) H* 02/05/24 06:28
Estimated Creat Clear 18 ml/min 02/05/24 05:43
Lactic Acid 1.6 mmol/L (0.7-2.0) 02/02/24 05:31
Total Bilirubin 1.2 mg/dl (0.2-1.3) 02/03/24 02:27
AST 38 U/L (14-36) H 02/03/24 02:27
ALT 32 U/L (0-35) 02/03/24 02:27
Alkaline Phosphatase 63 U/L (38-126) 02/03/24 02:27
Most recent labs reviewed.
Chest X-Ray: Image Reviewed and Report Reviewed
Micro Results:
02/03/24 01:25 Blood Culture - Preliminary
Blood/Venous Klebsiella pneumoniae
Gram Stain - Preliminary
02/02/24 14:15 Respiratory Culture - Final
Tracheal Aspirate Klebsiella pneumoniae
Gram Stain - Final
01/31/24 15:53 Urine Culture - Final
Urine Serratia marcescens
02/02/24 05:30 Influenza Types A & B (CM) - Final
Nasal Swab Negative for Influenza A & B, NAAT
Negative results must be combined with clinical observations
and patient history.
Nucleic Acid Amplification test (NAAT)performed on the
[employer] platform.
01/22/24 16:44 Urine Culture - Final
Urine Enterococcus faecium
01/23/24 01:03 MRSA Screen - Final
Nose No Methicillin Resistant Staphylococcus aureus isolated.
Imaging:
02/05/2024 CXR (portable): ET tube projects over the trachea and above the quan. NG tube is not visualized on the current study but lies below the left hemidiaphragm. Mild cardiomegaly. Severe diffuse patchy alveolar and interstitial
infiltrates noted with a DDx of multifocal pneumonia, atypical pulmonary edema versus ARDS
Care Review
Plan reviewed with: Physician (Critical Care)
[2024-02-05 11:12] LABS: Glucose - Point of Care 136 mg/dl (70-99)
[2024-02-05] MEDS: NOVOLOG FLEXPEN-LOW RESISTANCE SC (11:29)
--- NOTE | 2024-02-05 11:32 | PTCARENOTE ---
1g Calcium chloride ordered and hung.
[2024-02-05 12:12] LABS: Glucose - Point of Care 124 mg/dl (70-99)
--- NOTE | 2024-02-05 12:25 | W.PN.UPDATE ---
Update Note
Progress Note Update
given serious medical conditions psych will sign off at this point. please let us know when you would need us to return to reconsider psychotropic medications.
--- NOTE | 2024-02-05 12:32 | PTCARENOTE ---
Trialysis cath placement confirmed by Xray, TPN restarted at this time. 10 units insulin and 1 amp D50 given as ordered.
[2024-02-05 13:22] LABS: Glucose - Point of Care 193 mg/dl (70-99)
--- NOTE | 2024-02-05 14:08 | PTCARENOTE ---
Pt's AUGUSTA Smith (ARLEY) conferencing with Construction Safety Manager and pt's admitted attorneys (by phone) re: plan of care.
[2024-02-05 14:10] LABS: Glucose - Point of Care 181 mg/dl (70-99)
--- NOTE | 2024-02-05 14:10 | W.PN.UPDATE ---
Addendum entered and electronically signed by Lyndsay Campos MD 02/05/24 16:05:
Patient extubated at approximately 3:57 PM
DIL, CCN, respiratory therapy and myself at bedside
Patient appears comfortable, no evidence of respiratory distress, spontaneously breathing
Systolic pressures 60s to 70s, heart rate 60s
Continue with comfort measures, fentanyl, Ativan as needed
Fentanyl drip was discontinued approximately 20 minutes prior to extubation
Resume drip if needed per protocol
Reviewed with critical care nursing, respiratory care, primary service
Emotional support provided with DIL
No other family is present
Original Note:
Update Note
Progress Note Update
Extensive discussion with [id number] Radha and designated power of criminal defense attorney Yazmin Rubio. Reviewed updated living will and advanced directive.
Patient has described no wishes for prolonged life support, prolonged mechanical ventilation, life prolonging measures in the setting of terminal condition or inability to return to prior way of life, or pursue meaningful way of life
Specifically, she would not want nutrition, dialysis, mechanical ventilation
Patient initially did not want intubation during aspiration event few days ago, unless was rapidly reversible per discussion with prior physicians
Unfortunately, patient has progressed to severe aspiration pneumonia, lung injury, multisystem organ failure
Radha (ARLEY) has also had discussions with patient over the past year. Patient is stated that she would not want mechanical ventilation. She would not want to 'live like this' for a prolonged period. ARLEY states that [place] would have never
opted for mechanical ventilation/intubation if she thought it was not a rapidly reversible process. AUGUSTA Yazmin confirmed that 3 discussions that she has had and her advanced directives, she would not want prolonged life support measures if unable to
live a meaningful life.
Reviewed with other providers involved in care. It is agreed that patient long-term prognosis is poor and likelihood of returning to prior meaningful life as she had preadmission is extremely low. In this regard, ability to successfully be
liberated from hemodialysis and/or liberated from the ventilator is difficult to establish definitively, however will likely be a prolonged process (weeks or longer). ARLEY and AUGUSTA agree that patient would not want this based on her advanced
directives.
With this in mind, we will proceed with withdrawal of care and focus on comfort as this was patient's primary goal and her advanced directives
Process was reviewed at length with patient and POA by phone
Reviewed with critical care nursing, multiple providers
All questions answered
TCCT 36 min
[2024-02-05 14:43] LABS: Potassium 5.6 mmol/L (3.5-5.1)
[2024-02-05 14:54] LABS: APTT 149.8 Sec (23.4-35.0)
[2024-02-05] MEDS: SUBLIMAZE 100 MCG IV (14:55)
[2024-02-05] MEDS: ATIVAN 2 MG IV (14:56)
[2024-02-05 14:58] LABS: Osmolality Serum 310 mOsm/kg (275-300)
[2024-02-05 15:04] LABS: Albumin 2.1 g/dl (3.5-5.0); Alkaline Phosphatase 101 U/L (38-126); Direct Bilirubin 2.1 mg/dl (0.0-0.4); Total Bilirubin 2.9 mg/dl (0.2-1.3); Total Protein 4.3 g/dl (6.3-8.2)
--- NOTE | 2024-02-05 15:14 | PTCARENOTE ---
Comfort measures ordered. DNR bracelet applied. All gtts dc'd except Fentanyl. PRN Ativan and Fent given, see MAR. Emotional support provided to DIL at bedside.
[2024-02-05] MEDS: SUBLIMAZE 50 MCG IV (16:03)
[2024-02-05 16:16] LABS: AST (SGOT) 3719 U/L (14-36)
--- NOTE | 2024-02-05 16:24 | PN.CDI ---
CDI
- -
CDI:
Physician Documentation Request
Admit Date: 01/22/24 19:19
Dear Doctor Micky,
ID consulted on 02/02 for sepsis. Note states 'Septic shock '
02/04 cardio notes states 'She is currently on ventilatory support. She suffered septic shock secondary to bacteremia'
Hospitalist note states 'Circulatory shock secondary to sepsis with Klebsiella species'
In an attempt to clarify potentially conflicting documentation, please clarify the type of shock:
Septic shock
Circulatory shock
Other
Use of terms such as suspected, likely, concern for, or probable (associated with a specific diagnosis that is being evaluated, monitored, or treated as if it exists) are acceptable and can be coded in the inpatient setting, when documented at the
time of discharge.
Thank you,
Kelly DIOPN
CDI Specialist
tiger text
Please use your independent medical judgment in providing your response.
--- NOTE | 2024-02-05 16:26 | PTCARENOTE ---
Pt alarmed asystole on tele. No heart tones auscultated. Attending Dr. Weeks notified, arrived to bedside to pronounce. Emotional support provided to family.
--- NOTE | 2024-02-05 16:36 | W.PN.DEATH ---
Pronouncement of
-
Palliative extubation performed today
Called to see patient to pronounce.
No spontaneous heart tones or respirations noted.
Patient not responsive to verbal stimuli.
No neurological signs of life present
Patient is pronounced .
Time of : 16:17
Date of : 02/05/24
Cause of : Acute hypoxemic respiratory failure, circulatory shock from sepsis
--- NOTE | 2024-02-05 16:42 | RESPNOTE ---
1600--- Patient extubated for comfort measure-- MD an RN bedside. Extubated without incident
[2024-02-05 17:05] LABS: ALT (SGPT) 4736 U/L (0-35)
== END 2024-02-05 17:58 | disposition expired | DRG 335 ==
LOC: ICU 19:19
PROVIDERS: Hospitalist; Internal Medicine Critical Care Medicine; Nurse Practitioner Family; Nurse Practitioner Primary Care; Physician Assistant Medical; Radiology Diagnostic Radiology; Registered Nurse; Surgery; ADMITTING PHYSICIAN Hospitalist; ATTENDING PHYSICIAN Internal Medicine; CONSULT PHYSICIAN Internal Medicine Critical Care Medicine; CONSULT PHYSICIAN Internal Medicine Infectious Disease; CONSULT PHYSICIAN Psychiatry & Neurology Psychiatry; EMERGENCY PHYSICIAN Emergency Medicine; FAMILY PHYSICIAN Internal Medicine; OTHER PHYSICIAN Internal Medicine Cardiovascular Disease; OTHER PHYSICIAN Internal Medicine Nephrology; OTHER PHYSICIAN Surgery
PROC: 0DN80ZZ Release Small Intestine, Open Approach (ICD-10-PCS; 2024-01-28)
PROC: 02HV33Z Insertion of Infusion Device into Superior Vena Cava, Percutaneous Approach (ICD-10-PCS; 2024-01-31)
PROC: 3E0436Z Introduction of Nutritional Substance into Central Vein, Percutaneous Approach (ICD-10-PCS; 2024-01-31)
PROC: 5A1945Z Respiratory Ventilation, 24-96 Consecutive Hours (ICD-10-PCS; 2024-02-02)
PROC: 0BH17EZ Insertion of Endotracheal Airway into Trachea, Via Natural or Artificial Opening (ICD-10-PCS; 2024-02-02)
PROC: 03HY32Z Insertion of Monitoring Device into Upper Artery, Percutaneous Approach (ICD-10-PCS; 2024-02-02)
DX: K56.51 Intestinal adhesions [bands], with partial obstruction (principal); A41.59 Other Gram-negative sepsis; J96.21 Acute and chronic respiratory failure with hypoxia; R65.21 Severe sepsis with septic shock; N17.0 Acute kidney failure with tubular necrosis; J69.0 Pneumonitis due to inhalation of food and vomit; I50.32 Chronic diastolic (congestive) heart failure; J47.0 Bronchiectasis with acute lower respiratory infection; Z68.41 Body mass index [BMI] 40.0-44.9, adult; K91.89 Other postprocedural complications and disorders of digestive system; E87.1 Hypo-osmolality and hyponatremia; I5A Non-ischemic myocardial injury (non-traumatic); E87.4 Mixed disorder of acid-base balance; I47.20 Ventricular tachycardia, unspecified; D62 Acute posthemorrhagic anemia; I42.8 Other cardiomyopathies; I25.10 Atherosclerotic heart disease of native coronary artery without angina pectoris; K56.7 Ileus, unspecified; Y83.8 Other surgical procedures as the cause of abnormal reaction of the patient, or of later complication, without mention of misadventure at the time of the procedure; E78.00 Pure hypercholesterolemia, unspecified; E87.5 Hyperkalemia; Z66 Do not resuscitate; E83.51 Hypocalcemia; Z51.5 Encounter for palliative care; I11.0 Hypertensive heart disease with heart failure; J45.991 Cough variant asthma; J38.00 Paralysis of vocal cords and larynx, unspecified; J98.4 Other disorders of lung; E66.9 Obesity, unspecified; I27.20 Pulmonary hypertension, unspecified; I45.10 Unspecified right bundle-branch block; G47.33 Obstructive sleep apnea (adult) (pediatric); I89.0 Lymphedema, not elsewhere classified; F31.9 Bipolar disorder, unspecified; E03.9 Hypothyroidism, unspecified; K21.9 Gastro-esophageal reflux disease without esophagitis; Z11.52 Encounter for screening for COVID-19; Z79.01 Long term (current) use of anticoagulants; Z79.51 Long term (current) use of inhaled steroids; Z79.899 Other long term (current) drug therapy; Z85.3 Personal history of malignant neoplasm of breast; Z86.711 Personal history of pulmonary embolism; Z86.718 Personal history of other venous thrombosis and embolism; Z87.891 Personal history of nicotine dependence; Z90.49 Acquired absence of other specified parts of digestive tract; Z98.0 Intestinal bypass and anastomosis status; Z99.81 Dependence on supplemental oxygen
CPT/HCPCS: 36556; 36600; 71045; 74018; 74022; 74177; 76937; 80048; 80053; 80202; 81003; 81015; 82248; 82805; 82962; 83605; 83690; 83735; 83880; 83930; 84100; 84132; 84134; 84145; 84478; 84484; 85014; 85018; 85025; 85027; 85384; 85610; 85730; 86850; 86900; 86901; 87040; 87070; 87077; 87086; 87149; 87186; 87205; 87502; 87811; 92526; 92610; 93005; 93306; 94002; 94003; 94640; 94660; 96361; 96374; 97163; 97167; 97530; 99285; C1752; Q9967